=== PATIENT | male | born 1975 | race Caucasian/White ===

== ENCOUNTER 2019-08-31 17:00 | Observation (INO) | payer MEDICAID, SELFPAY ==
[2019-08-31 17:02] VITALS: BP 142/100; PULSE 106; RESP 16; TEMP 37; O2SAT 97; BMI 40.1
[2019-08-31 17:12] VITALS: BP 120/88; PULSE 103; RESP 16; O2SAT 100
[2019-08-31 18:18] LABS: Absolute Lymphocyte Count 2.41 X10^3/uL (0.83-4.51); Absolute Neutrophil Count 5.3 X10^3/uL (2.0-7.7); Basophil# 0.04 X10^3/uL; Basophil% 0.5 % (0-1); Eosinophil# 0.21 X10^3/uL; Eosinophils% 2.4 % (0-5); Hematocrit 47.6 % (40-54); Lymphocyte # 2.41 X10^3/ul (4.0); Lymphocyte % 27.9 % (19-41); Mean Corp Hgb Conc 33.6 g/dL (32-36); Mean Corpuscular Hgb 27.2 pg (27.0-32.0); Mean Platelet Vol. 8.5 fl (6.2-12.0); Monocyte# 0.65 X10^3/uL; Monocyte% 7.5 % (0-10); NRBC Flagged by Analyzer 0 % (0-5); Neutrophil # 5.31 X10^3/uL (2.7-7.7); Neutrophil % 61.4 % (47-70); Platelet Count 252 K/mm3 (150-450); RBC Distribution Width CV 12.5 % (11.6-14.6); RBC Distribution Width SD 36.5 fl (35.1-43.9); Red Blood Count 5.88 M/mm3 (4.6-6.2); White Blood Count 8.7 K/mm3 (4.4-11.0)
[2019-08-31] MEDS: 0.9% Normal Saline 1,000 ML 150 ML IV (18:20)
[2019-08-31 18:27] VITALS: BP 138/98; PULSE 101; RESP 16; TEMP 37.1; O2SAT 97
[2019-08-31 18:32] LABS: Anion Gap 6 (5-15); BUN 15 mg/dL (7-18); BUN/Creat Ratio 14.2 RATIO (10-20); Calcium,Total 9.1 mg/dL (8.5-10.1); Chloride 103 mmol/L (98-107); Creatinine, Serum 1.06 mg/dL (0.70-1.30); EST Glomerular Filtration Rate 80 mL/min (>60); Est Glom Filt Rate - Afr Amer 97 mL/min (>60); Estimated Creatinine Clearance 78.58 ml/min; Glucose 331 mg/dL (74-106); Sodium Level 136 mmol/L (136-145)
[2019-08-31 19:05] LABS: Lactic Acid 1.6 mmol/L (0.4-1.9)
--- NOTE | 2019-08-31 20:16 | PCM.HP.STD ---
Problem List (1) Cellulitis Status: Acute Qualifiers: Site of cellulitis of extremity: lower extremity Laterality: left History of Present Illness Date of Admission: 08/31/19 Chief Complaint: skin infection left foot The patient is a 44 year old male patient with a past medical history of diabetes who does not follow with a physician or take medicine at this time presents to the emergency room with a skin infection on his left foot. He noticed redness and swelling developing on this past Saturday that is progressed over the dorsum of his foot. The area is nontender due to neuropathy but is warm. CBC is unremarkable and patient is currently afebrile. The patient denies any other constitutional symptoms including chest pain shortness of breath or nausea vomiting or diarrhea. Due to the nature of the infection covering the joint the patient has uncontrolled diabetes patient will be placed in observation overnight for IV antibiotics and management of diabetes that is uncontrolled Past Medical History Allergies Penicillins Allergy (Verified 08/31/19 17:00) Unknown Home Medications: Ambulatory Orders Medication Instructions Recorded NK 08/31/19 Smoking Status: Never smoker Tobacco Use: Cigarettes - *Family History Maternal History Items: No pertinent history Review of Systems Constitutional: Denies: Chills, Fever, Weight Change HEENT: Denies: Head Aches, Sinus Congestion, Sinus Drainage Cardiovascular: Denies: Chest Pain, Palpitations Respiratory: Denies: Cough, Shortness of breath at rest, Sputum production Gastrointestinal: Denies: Abdominal Pain, Nausea, Vomiting Genitourinary: Denies: Dysuria Musculoskeletal: Denies: Joint Pain, Joint Tenderness Skin: Reports: Wounds - left foot. Denies: Rash Neurological: Denies: Numbness, Tingling, Focal weakness Psychiatric: Denies: Anxiety, Depression, Homicidal Ideations, Suicidal Ideations Hematologic/ Lymphatic: Denies: Easy Bruising, Easy Bleeding VTE Information - Inpt Only VTE Present on Admission: No VTE Mechan Device Prophylaxis: SCD's VTE Pharm Prophylaxis ordered?: No Patient Problems: Active and Suspected Problems Cellulitis (Acute) - Physical Exam Vitals/I&O's: Vital Signs Temp Pulse Resp BP Pulse Ox 98.8 F 101 H 16 138/98 H 97 08/31/19 18:27 08/31/19 18:27 08/31/19 18:27 08/31/19 18:27 08/31/19 18:27 Oxygen Delivery Method Room Air Weight: 248 lb 7.375 oz Body Mass Index (BMI) 40.1 Finger Stick Blood Glucose 202 General: Alert, Oriented x3, Cooperative HEENT: Atraumatic, Normocephalic Neck: Supple Lungs: Clear to auscultation, Normal air movement Cardiovascular: Regular rate, No murmurs Abdomen: Bowel Sounds Present, Soft, Non Tender Extremities: Capillary Refill Less than 3 Seconds, Edema, Tenderness Skin: Ulcer/ Wound - left foot around first toe and extending to most of dorsum of the foot Musculoskeletal: No Tenderness to Palpation of Joints or Extremities Neurological: Cranial nerves II-XII grossly intact Psych/Mental Status: Normal Affect, Appropriate Laboratory Results 08/31/19 17:30: WBC Cancelled, Corrected WBC Cancelled, RBC Cancelled, Hgb Cancelled, Hct Cancelled, MCV Cancelled, MCH Cancelled, MCHC Cancelled, RDW Std Deviation Cancelled, RDW Coeff of Rae Cancelled, Plt Count Cancelled, MPV Cancelled, Immature Gran % (Auto) Cancelled, Neut % (Auto) Cancelled, Lymph % (Auto) Cancelled, [place] % (Auto) Cancelled, Eos % (Auto) Cancelled, Baso % (Auto) Cancelled, Absolute Neuts (auto) Cancelled, Absolute Lymphs (auto) Cancelled, Total Counted Cancelled, Neutrophils % (Manual) Cancelled, Band Neutrophils % Cancelled, Lymphocytes % (Manual) Cancelled, Monocytes % (Manual) Cancelled, Eosinophils % (Manual) Cancelled, Basophils % (Manual) Cancelled, Metamyelocytes % Cancelled, Myelocytes % Cancelled, Promyelocytes % Cancelled, Blast Cells % Cancelled, Plasma Cell % (Manual) Cancelled, Other Cells % Cancelled, Nucleated RBC % Cancelled, Nucleated RBCs/100 WBC Cancelled, Differential Comment Cancelled, Diff Path Review Cancelled, Hypersegmented Neuts Cancelled, Atypical Lymphocytes Cancelled, Reactive Lymphocytes Cancelled, Smudge Cells Cancelled, Toxic Granulation Cancelled, Toxic Vacuolation Cancelled, Dohle Bodies Cancelled, Carlos Rods Cancelled, Platelet Estimate Cancelled, Plt Morphology Comment Cancelled, RBC Morphology Cancelled, Polychromasia Cancelled, Hypochromasia Cancelled, Poikilocytosis Cancelled, Basophilic Stippling Cancelled, Anisocytosis Cancelled, Microcytosis Cancelled, Macrocytosis Cancelled, Spherocytes Cancelled, Sickle Cells Cancelled, Target Cells Cancelled, Tear Drop Cells Cancelled, Ovalocytes Cancelled, Stomatocytes Cancelled, Feliz[place] Bodies Cancelled, Ty Cells Cancelled, Bite Cells Cancelled, Crenated Cell Cancelled, Acanthocytes (Spur) Cancelled, Rouleaux Cancelled, Schistocytes Cancelled 08/31/19 17:30: Sodium Cancelled, Potassium Cancelled, Chloride Cancelled, Carbon Dioxide Cancelled, Anion Gap Cancelled, BUN Cancelled, Creatinine Cancelled, Estim Creat Clear Calc Cancelled, Est GFR (MDRD) Af Amer Cancelled, Est GFR (MDRD) Non-Af Cancelled, BUN/Creatinine Ratio Cancelled, Glucose Cancelled, Calcium Cancelled 08/31/19 17:30: Lactic Acid Cancelled 08/31/19 17:47: WBC 8.7, RBC 5.88, Hgb 16.0, Hct 47.6, MCV 81.0, MCH 27.2, MCHC 33.6, RDW Std Deviation 36.5, RDW Coeff of Rae 12.5, Plt Count 252, MPV 8.5, Immature Gran % (Auto) 0.300, Neut % (Auto) 61.4, Lymph % (Auto) 27.9, [place] % (Auto) 7.5, Eos % (Auto) 2.4, Baso % (Auto) 0.5, Absolute Neuts (auto) 5.3, Absolute Lymphs (auto) 2.41, Nucleated RBC % 0 08/31/19 17:47: Sodium 136, Potassium 4.0, Chloride 103, Carbon Dioxide 27.0, Anion Gap 6, BUN 15, Creatinine 1.06, Estim Creat Clear Calc 78.58, Est GFR (MDRD) Af Amer 97, Est GFR (MDRD) Non-Af 80, BUN/Creatinine Ratio 14.2, Glucose 331 H, Calcium 9.1 08/31/19 18:06: Lactic Acid 1.6 Current Medications Sodium Chloride () 1,000 mls @ 150 mls/hr IV .[id number] SUZANNE Last Admin: 08/31/19 18:20 Dose: 150 mls/hr Documented by: Assessment/Plan All Active Problems Cellulitis (Acute) Plan 1. Cellulitis left foot secondary to diabetes and neuropathy?continue IV clindamycin, repeat CBC BMP in the morning if sugars are managed and wound is improving plan discharge tomorrow afternoon with oral antibiotics and follow-up as an outpatient with new primary care physician 2. Diabetes?initiate low-dose sliding scale insulin coverage?at discharge start metformin 1000 mg p.o. twice daily and get follow-up care by primary care physician whom we will need to establish with. 3. DVT prophylaxis?scds
--- NOTE | 2019-08-31 20:34 | ED.VISSUMM ---
- ER Visit Summary Date of Service: 08/31/19 Chief Complaint: [Redness and swelling to left foot] History of Present Illness: The patient is a 44 M [to the emergency department with redness and swelling to the left foot that he noticed 3 days ago. Patient is a diabetic but currently not on any medication states that he lost a lot of weight over the years and then his sugar normalized we stopped taking all his medications but he has not checked it recently. Patient states that he has neuropathy in his feet. He denies any trauma to his left foot. Denies any chest pain or shortness of breath.] Physical Examination: [HEENT-PERRLA, EOMI. Cranial nerves II through XII grossly intact. TMs clear. Mucous membranes moist. No adenopathy. Cardiovascular-regular rate and rhythm without murmur or ectopy Lungs-clear to auscultation, chest wall stable without crepitus or subcu emphysema Abdomen-normoactive bowel sounds, soft, nontender, no rebound or rigidity, no peritoneal signs. Extremities-intact ?4, normal range of motion, normal pulses, atraumatic. Left foot-patient has diffuse erythema about the dorsum of the foot. Patient has some soft tissue swelling over the first MTP joint and the plantar aspect of the foot. No fluctuance noted. There is no gas palpated in the soft tissues. He is neurovascular intact.] Test Results: [CBC with differential obtained showed a white count of 8.7, hemoglobin 16, hematocrit 47, platelets 252. Chemistries unremarkable. Glucose was 331. Lactate was 1.6. Blood cultures ordered.] Emergency Department Course and Treatment: [She was given clindamycin 900 mg IV] Treatment Plan: [Admit for IV antibiotics and blood sugar control] Disposition: [Admit] Impression: [Cellulitis left foot/diabetic foot infection Hyperglycemia-noncompliant with meds] This note was generated with [employer] dictation software. It may contain incorrect words, spelling, and punctuation that were not noted in review of the chart prior to signing ED Disposition - Plan for ED Patient: Referrals: Care Physician,No Primary [Primary Care Provider] -
[2019-08-31 21:00] VITALS: BP 128/89; PULSE 103; RESP 16; O2SAT 96
[2019-08-31 21:31] VITALS: BMI 40.6
[2019-08-31 21:50] VITALS: BP 124/86; PULSE 95; RESP 20; TEMP 36.8; O2SAT 95
[2019-08-31] MEDS: Insulin Lispro 100 UNIT/ML INSULN.PEN SC (22:43)
[2019-08-31 22:45] LABS: Bedside Glucose 315 mg/dL (70-110)
[2019-09-01 03:05] VITALS: BP 133/87; PULSE 90; RESP 16; TEMP 36.5; O2SAT 98
[2019-09-01] MEDS: 0.9% Saline Lock 10 ML Syringe IV ×3 (06:32→22:26)
[2019-09-01] MEDS: Insulin Lispro 100 UNIT/ML INSULN.PEN SC ×5 (06:33→22:26)
[2019-09-01 06:40] LABS: Bedside Glucose 313 mg/dL (70-110)
[2019-09-01 06:41] LABS: Absolute Lymphocyte Count 2.15 X10^3/uL (0.83-4.51); Basophil# 0.03 X10^3/uL; Basophil% 0.4 % (0-1); Eosinophil# 0.25 X10^3/uL; Eosinophils% 3.5 % (0-5); Hematocrit 46.3 % (40-54); Hemoglobin 15.5 g/dL (13.0-16.5); Lymphocyte # 2.15 X10^3/ul (4.0); Lymphocyte % 30.3 % (19-41); Mean Corp Hgb Conc 33.5 g/dL (32-36); Mean Corpuscular Volume 80.7 fL (80-94); Mean Platelet Vol. 8.9 fl (6.2-12.0); Monocyte% 8.5 % (0-10); NRBC Flagged by Analyzer 0 % (0-5); Neutrophil # 4.04 X10^3/uL (2.7-7.7); Platelet Count 233 K/mm3 (150-450); RBC Distribution Width CV 12.6 % (11.6-14.6); RBC Distribution Width SD 36.2 fl (35.1-43.9); Red Blood Count 5.74 M/mm3 (4.6-6.2); White Blood Count 7.1 K/mm3 (4.4-11.0)
[2019-09-01] MEDS: Acetaminophen 325 MG Tablet 650 MG PO (06:43)
[2019-09-01 06:51] LABS: Anion Gap 9 (5-15); BUN 12 mg/dL (7-18); BUN/Creat Ratio 15.4 RATIO (10-20); Calcium,Total 8.5 mg/dL (8.5-10.1); Chloride 105 mmol/L (98-107); Creatinine, Serum 0.78 mg/dL (0.70-1.30); EST Glomerular Filtration Rate 114 mL/min (>60); Est Glom Filt Rate - Afr Amer 138 mL/min (>60); Estimated Creatinine Clearance 106.79 ml/min; Glucose 302 mg/dL (74-106); Sodium Level 137 mmol/L (136-145)
[2019-09-01 08:49] VITALS: BP 127/91; PULSE 95; RESP 16; TEMP 36.8; O2SAT 98
[2019-09-01 08:50] VITALS: RESP 18
--- NOTE | 2019-09-01 09:30 | RAD_ITS ---
STUDY: X-RAY - LEFT FOOT CLINICAL: Male, 44 years old. Cellulitis/wound along the dorsal aspect of the great toe. TECHNIQUE: 3 view(s) of the foot. COMPARISON: None. FINDINGS: There is an enthesophyte involving the posterior superior calcaneus at the site of insertion of the Achilles tendon. Small plantar spur. Normal visualized subtalar, talonavicular, calcaneocuboid, tarsal and tarsometatarsal articulations. Normal metatarsi. Normal metatarsophalangeal joint of the great toe. Normal tibial and fibular sesamoid bones. Normal interphalangeal joint of the great toe. Normal phalanges of the great toe. Normal second through fifth metatarsophalangeal joints. Normal interphalangeal joints and phalanges of the lesser toes. Soft tissue swelling overlying the great toe. RAD/Foot min 3 Views IMPRESSION: Soft tissue swelling overlying the great toe. Electronically Signed: Mahendra Fields, at 12:30 EST , Service support ,
--- NOTE | 2019-09-01 11:34 | CASEMGMT ---
Social Work Note Pt is listed as self-pay. SW reviewed notes, PFS saw pt. Pt denied HCAP application and denied self pay deposit. Per [employer] (medicaid) pt is not eligible for Medicaid. SW to remain available if financial concerns arise. Ashley Arenas [employer], [employer] PROCESSING SUPERVISOR
[2019-09-01 11:50] LABS: Bedside Glucose 321 mg/dL (70-110)
--- NOTE | 2019-09-01 13:00 | CON.PCM_ITS ---
Problem List (1) Cellulitis of left foot Status: Acute (2) Callus of foot Status: Chronic (3) Type 2 diabetes mellitus with diabetic polyneuropathy Status: Chronic Reason for Consult Date of Consultation: 09/01/19 Reason for Consultation: Left foot cellulitis History of Present Illness: The patient is a 44 year old M that was seen bedside this afternoon for left foot cellulitis. The onset was Saturday and he presented to the emergency room yesterday evening. He was started on IV clindamycin with significant improvement. He denies pain, fever, chill, nausea, vomiting, loss of appetite. He denies injury or foreign body. He noticed some weeping at the callus site and denies redness or odor. He denies prior history of ulceration. He denies claudication. He has rest parasthesias and reports he has lack of feeling due to his neuropathy. He relates he stopped monitoring his diabetes and health many years ago and is not aware of his last blood sugar or hemoglobin a1c level. Past Medical History Past Medical History (Chronic Problems): Chronic Problems Callus of foot (Chronic) Type 2 diabetes mellitus with diabetic polyneuropathy (Chronic) Allergies Penicillins Allergy (Verified 08/31/19 21:32) Unknown Pt is unaware of reaction since he was a child when reaction occurred. Home Medications: Ambulatory Orders Medication Instructions Recorded NK 08/31/19 Smoking Status: Never smoker Tobacco Use: - - he denies current smoking habits - *Family History Maternal History Items: No pertinent history Review of Systems Constitutional: Denies: Chills, Fever, Fatigue Cardiovascular: Denies: Claudication Respiratory: Denies: Shortness of Breath Gastrointestinal: Denies: Nausea, Vomiting Musculoskeletal: Denies: Muscle pain Skin: Reports: Skin Changes - callous left foot and redness to top of foot. Denies: Wounds Neurological: Reports: Numbness, Tingling Patient Problems: Active and Suspected Problems Cellulitis (Acute) Cellulitis of left foot (Acute) - Physical Exam Vitals/I&O's: Vital Signs Temp Pulse Resp BP Pulse Ox 98.2 F 95 18 127/91 H 98 09/01/19 08:49 09/01/19 08:49 09/01/19 08:50 09/01/19 08:49 09/01/19 08:49 Oxygen Delivery Method Room Air Weight: 114.1 kg Body Mass Index (BMI) 40.6 Finger Stick Blood Glucose 202 Intake and Output for Last 24 Hours 08/30/19 08/31/19 09/01/19 23:59 23:59 23:59 Intake Total 106 / 256 606 / 606 Balance 106 / 256 606 / 606 General: Alert, Oriented x3, Cooperative HEENT: Atraumatic Extremities: Capillary Refill Less than 3 Seconds - all digits bilateral, No Calf Tenderness - negative kanwal and pelayo signs bilateral, Peripheral Pulses Normal - palpable 2/4 dp and pt pulses bilateral. Skin: Ulcer/ Wound - no open lesions noted today., - - callous plantar medial first metatarsal head without drainage, eschar, necrosis noted. no bogginess or fluctuance on palpation. no interdigital maceration. the erythema has decreased in intensity (per patient) and location (in comparison to the marking pen line noted to the proximal foot). erythema is now diffuse, faint and localized to the forefoot. nails are intact Musculoskeletal: No Tenderness to Palpation of Joints or Extremities, Muscle Wasting, - - compartments soft to palpate left lower extremity. AROM digits left. Strenght normal to left foot and ankle. mild hallux lateral deviation. no palpation pain to the prominent first metatarsal head medial eminence Neurological: - - lack of epicritic sensation via light touch to bilateral foot Psych/Mental Status: Normal Affect, Appropriate Laboratory Results 08/31/19 17:30: WBC Cancelled, Corrected WBC Cancelled, RBC Cancelled, Hgb Cancelled, Hct Cancelled, MCV Cancelled, MCH Cancelled, MCHC Cancelled, RDW Std Deviation Cancelled, RDW Coeff of Rae Cancelled, Plt Count Cancelled, MPV Cancelled, Immature Gran % (Auto) Cancelled, Neut % (Auto) Cancelled, Lymph % (Auto) Cancelled, Long % (Auto) Cancelled, Eos % (Auto) Cancelled, Baso % (Auto) Cancelled, Absolute Neuts (auto) Cancelled, Absolute Lymphs (auto) Cancelled, To lizz Counted Cancelled, Neutrophils % (Manual) Cancelled, Band Neutrophils % Cancelled, Lymphocytes % (Manual) Cancelled, Monocytes % (Manual) Cancelled, Eosinophils % (Manual) Cancelled, Basophils % (Manual) Cancelled, Metamyelocytes % Cancelled, Myelocytes % Cancelled, Promyelocytes % Cancelled, Blast Cells % Cancelled, Plasma Cell % (Manual) Cancelled, Other Cells % Cancelled, Nucleated RBC % Cancelled, Nucleated RBCs/100 WBC Cancelled, Differential Comment Cancelled, Diff Path Review Cancelled, Hypersegmented Neuts Cancelled, Atypical Lymphocytes Cancelled, Reactive Lymphocytes Cancelled, Smudge Cells Cancelled, Toxic Granulation Cancelled, Toxic Vacuolation Cancelled, Dohle Bodies Cancelled, Carlos Rods Cancelled, Platelet Estimate Cancelled, Plt Morphology Comment Cancelled, RBC Morphology Cancelled, Polychromasia Cancelled, Hypochromasia Cancelled, Poikilocytosis Cancelled, Basophilic Stippling Cancelled, Anisocytosis Cancelled, Microcytosis Cancelled, Macrocytosis Cancelled, Spherocytes Cancelled, Sickle Cells Cancelled, Target Cells Cancelled, Tear Drop Cells Cancelled, Ovalocytes Cancelled, Stomatocytes Cancelled, Feliz-[place] Bodies Cancelled, [place] Cells Cancelled, Bite Cells Cancelled, Crenated Cell Cancelled, Acanthocytes (Spur) Cancelled, Rouleaux Cancelled, Schistocytes Cancelled 08/31/19 17:30: Sodium Cancelled, Potassium Cancelled, Chloride Cancelled, Carbon Dioxide Cancelled, Anion Gap Cancelled, BUN Cancelled, Creatinine Cancelled, Estim Creat Clear Calc Cancelled, Est GFR (MDRD) Af Amer Cancelled, Est GFR (MDRD) Non-Af Cancelled, BUN/Creatinine Ratio Cancelled, Glucose Cancelled, Calcium Cancelled 08/31/19 17:30: Lactic Acid Cancelled 08/31/19 17:47: WBC 8.7, RBC 5.88, Hgb 16.0, Hct 47.6, MCV 81.0, MCH 27.2, MCHC 33.6, RDW Std Deviation 36.5, RDW Coeff of Rae 12.5, Plt Count 252, MPV 8.5, Immature Gran % (Auto) 0.300, Neut % (Auto) 61.4, Lymph % (Auto) 27.9, Long % (Auto) 7.5, Eos % (Auto) 2.4, Baso % (Auto) 0.5, Absolute Neuts (auto) 5.3, Absolute Lymphs (auto) 2.41, Nucleated RBC % 0 08/31/19 17:47: Sodium 136, Potassium 4.0, Chloride 103, Carbon Dioxide 27.0, Anion Gap 6, BUN 15, Creatinine 1.06, Estim Creat Clear Calc 78.58, Est GFR (MDRD) Af Amer 97, Est GFR (MDRD) Non-Af 80, BUN/Creatinine Ratio 14.2, Glucose 331 H, Calcium 9.1 08/31/19 18:06: Lactic Acid 1.6 08/31/19 22:39: POC Glucose 315 H 09/01/19 05:50: WBC 7.1, RBC 5.74, Hgb 15.5, Hct 46.3, MCV 80.7, MCH 27.0, MCHC 33.5, RDW Std Deviation 36.2, RDW Coeff of Rae 12.6, Plt Count 233, MPV 8.9, Immature Gran % (Auto) 0.300, Neut % (Auto) 57.0, Lymph % (Auto) 30.3, Long % (Auto) 8.5, Eos % (Auto) 3.5, Baso % (Auto) 0.4, Absolute Neuts (auto) 4.0, Absolute Lymphs (auto) 2.15, Nucleated RBC % 0 09/01/19 05:50: Sodium 137, Potassium 4.0, Chloride 105, Carbon Dioxide 23.0, Anion Gap 9, BUN 12, Creatinine 0.78, Estim Creat Clear Calc 106.79, Est GFR (MDRD) Af Amer 138, Est GFR (MDRD) Non-Af 114, BUN/Creatinine Ratio 15.4, Glucose 302 H, Calcium 8.5 09/01/19 06:31: POC Glucose 313 H 09/01/19 11:19: POC Glucose 321 H Current Medications Acetaminophen (Tylenol) 650 mg PO Q6H PRN PRN PRN Reason: mild-moderate pain Last Admin: 09/01/19 06:43 Dose: 325 mg Documented by: Dextrose (D50w Syringe) 0 gm IV X1 PRN; Protocol PRN Reason: Hypoglycemia Glucagon () 1 mg IM .X1 PRN PRN Reason: Hypoglycemia Clindamycin Phosphate 900 mg/ (Dextrose) 106 mls @ 150 mls/hr IV Q8 SUZANNE Last Infusion: 09/01/19 07:16 Dose: Infused Documented by: Insulin Human Lispro (Humalog Kwikpen (Bkc)) 0 unit SC ACHS SUZANNE; Protocol Last Admin: 09/01/19 12:00 Dose: 3 u Documented by: Sodium Chloride () 10 - 40 ml IV UD PRN PRN Reason: SALINE FLUSH Last Admin: 09/01/19 06:32 Dose: 20 ml Documented by: Assessment/Plan All Active Problems Cellulitis (Acute) Cellulitis of left foot (Acute) Cellulitis left foot Callus left foot Diabetes with neuropathy (uncontrolled, hemoglobin a1c 11.3) I reviewed and discussed his case. His vital signs are stable and he is afebrile. He does not have leukocytosis; WBC 7.1. 3 nonweightbearing left foot x-rays were reviewed without any acute fracture, dislocation, foreign body, soft tissue emphysema, or other injury. Mild edema is noted and there is no vessel calcification seen. He appears to be responding well to IV antibiotics. The callus was debrided with a 15 blade without incident to the left foot. There is no drainage or ulcer. Therefore there is no source to culture. Upon continued improvement I recommend transitioning him to oral antibiotics at time of discharge. I recommend he wear his protective and supportive shoe gear and to weight-bear as tolerated. No ulcer is noted in this was communicated to him today. To monitor for any new drainage which was not noted today. He was advised to maintain proper glycemic control, perform daily foot checks, and to moisturize the foot. Upon discharge, I recommend he follows up with the foot [facility] center 1 week and also with the primary care physician for long-term diabetes management. I do not anticipate the need for further surgical inte rvention at this time. If improvement has lack of progress, advanced imaging will be considered. He is doing well so far. Medical management per primary team is greatly appreciated. The consultation is appreciated. Please do not hesitate to call if you have questions. I will continue to follow him while in house. Mahi Figueredo DPM, [facility] [phone]
--- NOTE | 2019-09-01 14:35 | MRI_ITS ---
STUDY: MRI LEFT FOREFOOT WITHOUT CONTRAST REASON FOR EXAM: Male, 44 years old. Cellulitis at the plantar surface of the first metatarsal region. TECHNIQUE: Standardized fat and water weighted pulse sequences were obtained in all 3 orthogonal planes. COMPARISON: X-ray. FINDINGS: There is degenerative arthrosis of the metatarsophalangeal joint of the hallux. Normal tibial and fibular sesamoids, with normal sesamoids-first metatarsal articulations. Normal interphalangeal joint of the hallux. Normal proximal and distal phalanges of the great toe. There is skin thickening and subcutaneous edema of the great toe. Normal medial and lateral heads of the flexor hallucis brevis tendons. Normal flexor and extensor hallucis longus tendons. Normal second through fifth metatarsophalangeal (MTP) joints. Normal interphalangeal joints of the second through fifth toes. Normal proximal, middle and distal phalanges of the second through fifth toes. Normal first through fourth intermetatarsal spaces. Normal flexor and extensor tendons of the second through fifth toes. Normal visualized metatarsi. Normal intrinsic muscles of the forefoot. There is no demonstrated soft tissue abnormality. There is no demonstrated fracture. MRI/Lower Ext/No Jt/w/o IMPRESSION: No MRI evidence of osteomyelitis. Soft tissue swelling of the great toe. Arthritic change at the first MTP joint. Electronically Signed: Reggie Campbell MD at 16:46 EST , Service support ,
--- NOTE | 2019-09-01 14:36 | PN_ITS ---
Patient Problems: Active and Suspected Problems Cellulitis (Acute) Cellulitis of left foot (Acute) Reason for Visit: no new complaints. stopped taking insulin in 2004. stopped checking his blood sugar in 2005. Vitals/I&O's: Vital Signs Temp Pulse Resp BP Pulse Ox 36.8 C 95 18 127/91 H 98 09/01/19 08:49 09/01/19 08:49 09/01/19 08:50 09/01/19 08:49 09/01/19 08:49 Oxygen Delivery Method Room Air Weight: 114.1 kg Body Mass Index (BMI) 40.6 Finger Stick Blood Glucose 202 Intake and Output for Last 24 Hours 08/30/19 08/31/19 09/01/19 23:59 23:59 23:59 Intake Total 106 / 256 606 / 606 Balance 106 / 256 606 / 606 General: Alert, Cooperative, No apparent distress HEENT: Atraumatic, Normocephalic Oral: Moist Mucosa, No Gingival or Mucosal Lesions/ Ulcerations Neck: No Nodes, Trachea Midline Lungs: Clear to auscultation, Normal air movement, No rhonchi, No wheeze, No rales Cardiovascular: Regular rate, Regular Rhythm, Normal S1, Normal S2, No murmurs Abdomen: Bowel Sounds Present, Soft, Non Tender, Non-Distended Extremities: No edema, No Calf Tenderness Skin: - - callus on dorsum of left MTP. erythema of forefoot extending up to ankle on left. Psych/Mental Status: Normal Affect, Appropriate Laboratory Results 08/31/19 17:30: WBC Cancelled, Corrected WBC Cancelled, RBC Cancelled, Hgb Cancelled, Hct Cancelled, MCV Cancelled, MCH Cancelled, MCHC Cancelled, RDW Std Deviation Cancelled, RDW Coeff of Rae Cancelled, Plt Count Cancelled, MPV Cancelled, Immature Gran % (Auto) Cancelled, Neut % (Auto) Cancelled, Lymph % (Auto) Cancelled, [place] % (Auto) Cancelled, Eos % (Auto) Cancelled, Baso % (Auto) Cancelled, Absolute Neuts (auto) Cancelled, Absolute Lymphs (auto) Cancelled, Total Counted Cancelled, Neutrophils % (Manual) Cancelled, Band Neutrophils % Cancelled, Lymphocytes % (Manual) Cancelled, Monocytes % (Manual) Cancelled, Eosinophils % (Manual) Cancelled, Basophils % (Manual) Cancelled, Metamyelocytes % Cancelled, Myelocytes % Cancelled, Promyelocytes % Cancelled, Blast Cells % Cancelled, Plasma Cell % (Manual) Cancelled, Other Cells % Cancelled, Nucleated RBC % Cancelled, Nucleated RBCs/100 WBC Cancelled, Differential Comment Cancelled, Diff Path Review Cancelled, Hypersegmented Neuts Cancelled, Atypical Lymphocytes Cancelled, Reactive Lymphocytes Cancelled, Smudge Cells Cancelled, Toxic Granulation Cancelled, Toxic Vacuolation Cancelled, Dohle Bodies Cancelled, Carlos Rods Cancelled, Platelet Estimate Cancelled, Plt Morphology Comment Cancelled, RBC Morphology Cancelled, Polychromasia Cancelled, Hypochromasia Cancelled, Poikilocytosis Cancelled, Basophilic Stippling Cancelled, Anisocytosis Cancelled, Microcytosis Cancelled, Macrocytosis Cancelled, Spherocytes Cancelled, Sickle Cells Cancelled, Target Cells Cancelled, Tear Drop Cells Cancelled, Ovalocytes Cancelled, Stomatocytes Cancelled, Feliz-[place] Bodies Cancelled, [place] Cells Cancelled, Bite Cells Cancelled, Crenated Cell Cancelled, Acanthocytes (Spur) Cancelled, Rouleaux Cancelled, Schistocytes Cancelled 08/31/19 17:30: Sodium Cancelled, Potassium Cancelled, Chloride Cancelled, Carbon Dioxide Cancelled, Anion Gap Cancelled, BUN Cancelled, Creatinine Cancelled, Estim Creat Clear Calc Cancelled, Est GFR (MDRD) Af Amer Cancelled, Est GFR (MDRD) Non-Af Cancelled, BUN/Creatinine Ratio Cancelled, Glucose Cancelled, Calcium Cancelled 08/31/19 17:30: Lactic Acid Cancelled 08/31/19 17:47: WBC 8.7, RBC 5.88, Hgb 16.0, Hct 47.6, MCV 81.0, MCH 27.2, MCHC 33.6, RDW Std Deviation 36.5, RDW Coeff of Rae 12.5, Plt Count 252, MPV 8.5, Immature Gran % (Auto) 0.300, Neut % (Auto) 61.4, Lymph % (Auto) 27.9, [place] % (Auto) 7.5, Eos % (Auto) 2.4, Baso % (Auto) 0.5, Absolute Neuts (auto) 5.3, Absolute Lymphs (auto) 2.41, Nucleated RBC % 0 08/31/19 17:47: Sodium 136, Potassium 4.0, Chloride 103, Carbon Dioxide 27.0, Anion Gap 6, BUN 15, Creatinine 1.06, Estim Creat Clear Calc 78.58, Est GFR (MDRD) Af Amer 97, Est GFR (MDRD) Non-Af 80, BUN/Creatinine Ratio 14.2, Glucose 331 H, Calcium 9.1 08/31/19 18:06: Lactic Acid 1.6 08/31/19 22:39: POC Glucose 315 H 09/01/19 05:50: WBC 7.1, RBC 5.74, Hgb 15.5, Hct 46.3, MCV 80.7, MCH 27.0, MCHC 33.5, RDW Std Deviation 36.2, RDW Coeff of Rae 12.6, Plt Count 233, MPV 8.9, Immature Gran % (Auto) 0.300, Neut % (Auto) 57.0, Lymph % (Auto) 30.3, [place] % (Auto) 8.5, Eos % (Auto) 3.5, Baso % (Auto) 0.4, Absolute Neuts (auto) 4.0, Absolute Lymphs (auto) 2.15, Nucleated RBC % 0 09/01/19 05:50: Sodium 137, Potassium 4.0, Chloride 105, Carbon Dioxide 23.0, Anion Gap 9, BUN 12, Creatinine 0.78, Estim Creat Clear Calc 106.79, Est GFR (MDRD) Af Amer 138, Est GFR (MDRD) Non-Af 114, BUN/Creatinine Ratio 15.4, Glucose 302 H, Calcium 8.5 09/01/19 06:31: POC Glucose 313 H 09/01/19 11:19: POC Glucose 321 H Current Medications Acetaminophen (Tylenol) 650 mg PO Q6H PRN PRN PRN Reason: mild-moderate pain Last Admin: 09/01/19 06:43 Dose: 325 mg Documented by: Dextrose (D50w Syringe) 0 gm IV X1 PRN; Protocol PRN Reason: Hypoglycemia Glucagon () 1 mg IM .X1 PRN PRN Reason: Hypoglycemia Clindamycin Phosphate 900 mg/ (Dextrose) 106 mls @ 150 mls/hr IV Q8 SUZANNE Last Infusion: 09/01/19 07:16 Dose: Infused Documented by: Insulin Human Lispro (Humalog Kwikpen (Bkc)) 0 unit SC ACHS [facility]; Protocol Last Admin: 09/01/19 12:00 Dose: 3 u Documented by: Sodium Chloride () 10 - 40 ml IV UD PRN PRN Reason: SALINE FLUSH Last Admin: 09/01/19 06:32 Dose: 20 ml Documented by: Medical Necessity - Tobacco Use Smoking Status: Never smoker Tobacco Use: - - he denies current smoking habits Assessment/Plan All Active Problems Cellulitis (Acute) Cellulitis of left foot (Acute) 1. left foot cellulitis * nidus likely 2/2 callus * xray negative, will check MRI for osteo * podiatry consult. * on clindamycin 2. DM2, * hyperglycemic and uncontrolled * MBS in the 300s * start basal insulin and prandial * check A1c * complicated with neuropathy 3. VTE proph: mod risk. LMWH. Code Visit Inpatient E&M: 05605 Subs Hosp L2
[2019-09-01 15:00] VITALS: RESP 18
[2019-09-01 15:11] LABS: Hemoglobin A1c 11.3 % (4.2-6.3)
[2019-09-01 16:39] VITALS: BP 134/100; PULSE 98; RESP 16; TEMP 36.7; O2SAT 98
[2019-09-01 16:45] LABS: Bedside Glucose 258 mg/dL (70-110)
[2019-09-01 20:32] VITALS: BP 121/87; PULSE 93; RESP 18; TEMP 37.2; O2SAT 97
[2019-09-01] MEDS: Glucerna Shake 120 ML LIQUID PO (22:19)
[2019-09-01 22:40] LABS: Bedside Glucose 272 mg/dL (70-110)
[2019-09-02 03:10] VITALS: BP 122/87; PULSE 89; RESP 18; TEMP 36.7; O2SAT 97
[2019-09-02 03:20] LABS: Bedside Glucose 269 mg/dL (70-110)
[2019-09-02] MEDS: Insulin Lispro 100 UNIT/ML INSULN.PEN SC ×2 (06:45→09:38)
[2019-09-02 06:46] LABS: Bedside Glucose 309 mg/dL (70-110)
--- NOTE | 2019-09-02 07:41 | PCM.PROGNOTE ---
Patient Problems: Active and Suspected Problems Cellulitis (Acute) Cellulitis of left foot (Acute) Subjective: This 44-year-old male with uncontrolled diabetes seen bedside for left foot cellulitis. He denies pain, fever, chill, nausea, vomiting. He obtained an MRI yesterday afternoon and would like to review the results. He denies checking or moisturizing his feet on a regular basis. - Physical Exam Vitals/I&O's: Vital Signs Temp Pulse Resp BP Pulse Ox 98.0 F 89 18 122/87 H 97 09/02/19 03:10 09/02/19 03:10 09/02/19 03:10 09/02/19 03:10 09/02/19 03:10 Oxygen Delivery Method Room Air Weight: 114.1 kg Body Mass Index (BMI) 40.6 Finger Stick Blood Glucose 202 Intake and Output for Last 24 Hours 08/31/19 09/01/19 09/02/19 23:59 23:59 23:59 Intake Total 106 / 256 3168 / 3168 200 / 200 Balance 106 / 256 3168 / 3168 200 / 200 General: Alert, Oriented x3, Cooperative Extremities: No cyanosis, Capillary Refill Less than 3 Seconds - All digits left foot, No Calf Tenderness, Edema, Peripheral Pulses Normal - 2 out of 4 PT and DP pulse left Skin: Ulcer/ Wound - No purulence, odor, skin discontinuity, necrosis, callus, or streaking noted. His erythema has resolved in location and intensity and is now scant to the forefoot. There is no interdigital maceration. His skin is dry and atrophic. Musculoskeletal: No Tenderness to Palpation of Joints or Extremities, - - Mild lateral hallux deviation prominent first metatarsal head medial eminence Neurological: - - Lack of normal epicritic sensation light touch is consistent with neuropathy status Psych/Mental Status: Normal Affect, Appropriate Laboratory Results 09/01/19 05:50: Hemoglobin A1c 11.3 H 09/01/19 11:19: POC Glucose 321 H 09/01/19 16:35: POC Glucose 258 H 09/01/19 22:25: POC Glucose 272 H 09/02/19 03:08: POC Glucose 269 H 09/02/19 06:38: POC Glucose 309 H Current Medications Acetaminophen (Tylenol) 650 mg PO Q6H PRN PRN PRN Reason: mild-moderate pain Last Admin: 09/01/19 06:43 Dose: 325 mg Documented by: Dextrose (D50w Syringe) 0 gm IV X1 PRN; Protocol PRN Reason: Hypoglycemia Enoxaparin Sodium (Lovenox) 40 mg SC DAILY [facility] Glucagon () 1 mg IM .X1 PRN PRN Reason: Hypoglycemia Clindamycin Phosphate 900 mg/ (Dextrose) 106 mls @ 150 mls/hr IV Q8 SUZANNE Last Admin: 09/02/19 06:32 Dose: 150 mls/hr Documented by: Insulin Glargine (Lantus (Bkc)) 20 units SC QHS [facility] Last Admin: 09/01/19 22:27 Dose: 20 u Documented by: Insulin Human Lispro (Humalog Kwikpen ([facility])) 0 unit SC ACHS SUZANNE; Protocol Last Admin: 09/02/19 06:45 Dose: 3 u Documented by: Insulin Human Lispro (Humalog Kwikpen ([facility])) 5 unit SC TIDAC [facility] Last Admin: 09/01/19 16:35 Dose: 5 u Documented by: Nutritional Formula (Lactose Free) (Glucerna Shake) 120 ml PO 4X/DAY [facility] Last Admin: 09/01/19 22:19 Dose: 120 ml Documented by: Sodium Chloride () 10 - 40 ml IV UD PRN PRN Reason: SALINE FLUSH Last Admin: 09/01/19 22:26 Dose: 10 ml Documented by: Medical Necessity - Tobacco Use Smoking Status: Never smoker Tobacco Use: - - he denies current smoking habits Assessment/Plan All Active Problems Cellulitis (Acute) Cellulitis of left foot (Acute) Cellulitis left foot resolving Diabetes with neuropathy (uncontrolled, hemoglobin a1c 11.3) I reviewed and discussed his case. His vital signs are stable and he is afebrile. His blood cultures are negative so far. He had an MRI performed of the left forefoot yesterday afternoon which did not demonstrate any signs of septic joint, osteomyelitis or abscess formation. He does have mild arthritis to the first metatarsal phalangeal joint. He appears to be responding well to IV antibiotics; clindamycin. He was reassured no ulcers are noted today. His skin is very dry and I recommend that he moisturizes daily with Lac-Hydrin. He is also advised to check his feet daily and to wear protective shoes. From a podiatry standpoint, I do not recommend any surgical intervention. Is okay to transition to oral antibiotics for a week and discharge home. Upon discharge, I recommend he follows up with [facility] one week and also with a primary care physician for long-term diabetes management. Medical management per primary team is greatly appreciated. Please do not hesitate to call if you have questions. Mahi Figueredo DPM, [facility] [phone]
--- NOTE | 2019-09-02 07:54 | DCINST_ITS ---
Discharge Activity: May Drive Weight Bearing Status: Weight bearing as tolerated Keep extremity elevated above heart level: Left Leg Call your doctor if your incision/area has: Increased Pain/ Swelling, Increased Redness, Foul Smelling Discharge Call your doctor if you observe: Fever of 101 or Higher, Calf discomfort, Uncontrolled pain Cleanse incision/area with: Soap & Water, - - Do not soak. Moisturize foot skin daily with prescribed lotion. Allergies/Adverse Reactions: Allergies Penicillins Allergy (Verified 08/31/19 21:32) Unknown Pt is unaware of reaction since he was a child when reaction occurred. Medications to take at Discharge NK 08/31/19 Primary Care Physician: Care Physician,No Primary [Primary Care Provider] - Test Results: Test results from this visit will be discussed in further detail at your follow- up appointment, if applicable. Please Follow Up With: Mahi Figueredo DPM When: [facility] in 1 week. Call [phone] to schedule or if question Proposed Discharge Date: 09/02/19
--- NOTE | 2019-09-02 09:00 | DCINST_ITS ---
- Discharge Diagnoses Current Active Problems: Current Active and Chronic Problems Cellulitis (Acute) Cellulitis of left foot (Acute) Callus of foot (Chronic) Type 2 diabetes mellitus with diabetic polyneuropathy (Chronic) You will use the following diet at home:: Calorie/Carbohydrate Controlled (specify 1200, 1400, etc) - 1800 Your food should be the consistency of: Regular Your liquids should be the consistency of: Regular/Thin Discharge Activity: May Drive Weight Bearing Status: Weight bearing as tolerated Keep extremity elevated above heart level: Left Leg Call your doctor if your incision/area has: Increased Pain/ Swelling, Increased Redness, Foul Smelling Discharge Call your doctor if you observe: Fever of 101 or Higher, Calf discomfort, Uncontrolled pain Cleanse incision/area with: Soap & Water, - - Do not soak. Moisturize foot skin daily with prescribed lotion. Instructions: What Is Type 2 Diabetes?, How to Check Your Blood Sugar, Using Injected Insulin, Eating Out When You Have Diabetes, Diabetes: Keeping Feet Healthy, Diabetes: Sick-Day Plan, Diabetes: Getting Started with Exercise, Understanding Type 2 Diabetes Allergies/Adverse Reactions: Allergies Penicillins Allergy (Verified 08/31/19 21:32) Unknown Pt is unaware of reaction since he was a child when reaction occurred. Medications to take at Discharge Acetaminophen [Tylenol Tablet] 650 mg PO Q6H PRN PRN tablet 09/02/19 Clindamycin [Cleocin] 450 mg PO 4X/DAY #24 capsule 09/02/19 Insulin Glargine [Lantus SoloStar Pen] 24 units SC QHS #1 pen 09/02/19 Insulin Lispro [Humalog KwikPen] 5 unit SC TIDAC #1 insuln.pen 09/02/19 The following prescriptions were given: Clindamycin [Cleocin] 450 mg PO 4X/DAY #24 capsule Insulin Lispro [Humalog KwikPen] 5 unit SC TIDAC #1 insuln.pen Insulin Glargine [Lantus SoloStar Pen] 24 units SC QHS #1 pen Orders to be completed after discharge: Glucometer Location: None Selected Primary Care Physician: Care Physician,No Primary [Primary Care Provider] - Test Results: Test results from this visit will be discussed in further detail at your follow- up appointment, if applicable. Please Follow Up With: Fascione,Mahi, DPM When: [facility] in 1 week. Call [phone] to schedule or if question Please Follow Up With: Bhaskar Amador MD - Primary Care Physician option When: 2-4 weeks. call for appointment Proposed Discharge Date: 09/02/19
--- NOTE | 2019-09-02 09:04 | PCM.DC.SUM ---
Discharge Date and Diagnosis - Problem List Patient Problems: Active and Suspected Problems Cellulitis (Acute) Cellulitis of left foot (Acute) Date of Admission: 08/31/19 Date of Discharge: 09/02/19 - Primary Discharge Diagnosis Active and Suspected Problems Cellulitis (Acute) Cellulitis of left foot (Acute) - Secondary Discharge Diagnosis Chronic Problems Callus of foot (Chronic) Type 2 diabetes mellitus with diabetic polyneuropathy (Chronic) Hospital Course and Treatment Imaging Results: Clinical Impression(s) from Imaging Studies Foot X-Ray 09/01/19 09:30 IMPRESSION: Soft tissue swelling overlying the great toe. Electronically Signed: Mahendra Fields, at 12:30 EST , Service support , Lower Extremity MRI 09/01/19 14:35 IMPRESSION: No MRI evidence of osteomyelitis. Soft tissue swelling of the great toe. Arthritic change at the first MTP joint. Electronically Signed: Reggie Campbell MD at 16:46 EST , Service support , Fascionne: podiatry Operations: None Procedures: None Summary of Care Provided: The patient is a 44 year old M presents with left lower extremity cellulitis. The cellulitis began from a callus on his left MTP. Patient was initiated on clindamycin and a cellulitis did improve. Given the callus and patient having neuropathy due to his diabetes, an x-ray was performed that was negative but then subsequent underwent an MRI that was also negative for osteomyelitis. Seen by podiatry who debrided the callus. Foot today is much better. Since patient was already improving on clindamycin will have the patient continue with 6 more days of clindamycin. Patient had diabetes approximately 14 years ago was on insulin at that time but then lost 100 pounds and then his blood sugars improved. Patient stopped checking his blood sugar about a year afterwards. Blood sugars here were in the 300s. Initially felt to be related with the stress of the underlying infection but remained in 300 range. Hemoglobin A1c came back at 11.3. Discussed with the patient that his blood sugars are chronically elevated and generally if not the only least a partial contributing factor to his neuropathy. Advised insulin as oral hypoglycemics would not be any significant benefit at this time. Patient will receive prescriptions for Lantus as well as NovoLog. Patient also have glucometer, testing strips, lancets and needles. Patient interested in getting into an exercise program. Advised patient to do so slowly. Patient has been advised to check his foot daily to ensure that he does not have any ulcerations or wounds. [] Patient Problems: Active and Suspected Problems Cellulitis (Acute) Cellulitis of left foot (Acute) - Physical Exam Vitals/I&O's: Vital Signs Temp Pulse Resp BP Pulse Ox 36.7 C 89 18 122/87 H 97 09/02/19 03:10 09/02/19 03:10 09/02/19 03:10 09/02/19 03:10 09/02/19 03:10 Oxygen Delivery Method Room Air Weight: 114.1 kg Body Mass Index (BMI) 40.6 Finger Stick Blood Glucose 202 Intake and Output for Last 24 Hours 08/31/19 09/01/19 09/02/19 23:59 23:59 23:59 Intake Total 106 / 256 3168 / 3168 200 / 200 Balance 106 / 256 3168 / 3168 200 / 200 General: Alert, Cooperative, No apparent distress HEENT: Atraumatic, Normocephalic Skin: - - resolving erythema on dorsum of left foot. Psych/Mental Status: Normal Affect, Appropriate Laboratory Results 09/01/19 05:50: Hemoglobin A1c 11.3 H 09/01/19 11:19: POC Glucose 321 H 09/01/19 16:35: POC Glucose 258 H 09/01/19 22:25: POC Glucose 272 H 09/02/19 03:08: POC Glucose 269 H 09/02/19 06:38: POC Glucose 309 H Current Medications Acetaminophen (Tylenol) 650 mg PO Q6H PRN PRN PRN Reason: mild-moderate pain Last Admin: 09/01/19 06:43 Dose: 325 mg Documented by: Dextrose (D50w Syringe) 0 gm IV X1 PRN; Protocol PRN Reason: Hypoglycemia Enoxaparin Sodium (Lovenox) 40 mg SC DAILY [facility] Glucagon () 1 mg IM .X1 PRN PRN Reason: Hypoglycemia Clindamycin Phosphate 900 mg/ (Dextrose) 106 mls @ 150 mls/hr IV Q8 SUZANNE Last Admin: 09/02/19 06:32 Dose: 150 mls/hr Documented by: Insulin Glargine (Lantus (Bkc)) 20 units SC QHS SUZANNE Last Admin: 09/01/19 22:27 Dose: 20 u Documented by: Insulin Human Lispro (Humalog Kwikpen (Bkc)) 0 unit SC ACHS [facility]; Protocol Last Admin: 09/02/19 06:45 Dose: 3 u Documented by: Insulin Human Lispro (Humalog Kwikpen (Bkc)) 5 unit SC TIDAC [facility] Last Admin: 09/01/19 16:35 Dose: 5 u Documented by: Lactic Acid (Lac-Hydrin, Amlactin) 1 applic TOPICAL DAILY [facility]ANNE; Protocol Nutritional Formula (Lactose Free) (Glucerna Shake) 120 ml PO 4X/DAY [facility] Last Admin: 09/01/19 22:19 Dose: 120 ml Documented by: Sodium Chloride () 10 - 40 ml IV UD PRN PRN Reason: SALINE FLUSH Last Admin: 09/01/19 22:26 Dose: 10 ml Documented by: Discharge Diet: 1800 Calorie Control Diet Discharge Activity: May Drive Weight Bearing Status: Weight bearing as tolerated Keep extremity elevated above heart level: Left Leg Call your doctor if your incision/area has: Increased Pain/ Swelling, Increased Redness, Foul Smelling Discharge Call your doctor if you observe: Fever of 101 or Higher, Calf discomfort, Uncontrolled pain Cleanse incision/area with: Soap & Water, - - Do not soak. Moisturize foot skin daily with prescribed lotion. Home Medications: Medications to take at Discharge Acetaminophen [Tylenol Tablet] 650 mg PO Q6H PRN PRN tab 09/02/19 Clindamycin [Cleocin] 450 mg PO 4X/DAY #24 cap 09/02/19 Insulin Glargine [Lantus SoloStar Pen] 24 units SUBCUT QHS #1 pen 09/02/19 Insulin Lispro [Humalog KwikPen] 5 unit SUBCUT TIDAC #1 insuln.pen 09/02/19 [place], Insulin Disposable [Novofine Autocover 30G Needle] 1 ea MISCELL. UD #1 box 09/02/19 Following Prescrptions Were Given to Patient: Clindamycin [Cleocin] 450 mg PO 4X/DAY #24 cap Transmission Status: Pending to [id number] Insulin Lispro [Humalog KwikPen] 5 unit SUBCUT TIDAC #1 insuln.pen Transmission Status: Sent to [facility] Insulin Glargine [Lantus SoloStar Pen] 24 units SUBCUT QHS #1 pen Transmission Status: Sent to [facility] [place], Insulin Disposable [Novofine Autocover 30G Needle] 1 ea MISCELL. UD #1 box Transmission Status: Pending to [facility] Other Amb Orders: Glucometer Location: None Selected Primary Care Physician: Care Physician,No Primary [Primary Care Provider] - Please Follow Up With: Mahi Figueredo DPM When: [facility] 1 week. Call [phone] to schedule or if question Please Follow Up With: Bhaskar Amador MD - Primary Care Physician option When: 2-4 weeks. call for appointment Patient Instructions: What Is Type 2 Diabetes?, How to Check Your Blood Sugar, Using Injected Insulin, Eating Out When You Have Diabetes, Diabetes: Keeping Feet Healthy, Diabetes: Sick-Day Plan, Diabetes: Getting Started with Exercise, Understanding Type 2 Diabetes Disposition: Home Minutes spent on discharge:: 32 Patient Condition:: Good Medical Necessity - Tobacco Use Smoking Status: Never smoker Tobacco Use: - - he denies current smoking habits Meaningful Use Info Meaningful Use Diagnoses (Choose all that apply): None applicable Code Visit Inpatient E&M: 54742 Disch Hosp
[2019-09-02 09:28] VITALS: BP 131/80; PULSE 97; RESP 18; TEMP 37; O2SAT 97
[2019-09-02] MEDS: Glucerna Shake 120 ML LIQUID PO (09:36)
[2019-09-02] MEDS: Enoxaparin 40 MG/0.4 ML Syringe SC (09:36)
[2019-09-02] MEDS: Ammonium Lactate 225 gm Bottle 1 APPLIC TOPICAL (09:39)
== END 2019-09-02 09:45 | disposition home or self-care (01) ==
LOC: ED 17:58 → MS3 20:50
PROVIDERS: Admitting Provider Family Medicine; Emergency Provider Emergency Medicine; Referring Provider Family Medicine
DX: L03.116 Cellulitis of left lower limb (principal); E11.65 Type 2 diabetes mellitus with hyperglycemia; E11.42 Type 2 diabetes mellitus with diabetic polyneuropathy; L84 Corns and callosities
CPT/HCPCS: 36415; 73630; 73718; 80048; 82962; 83036; 83605; 85025; 87040; 96365; 96366; 96372; 97802; 99218; 99284; J7030; A4216; G0378

== ENCOUNTER → 2019-10-23 07:55 | Outpatient (CLI) | payer MEDICAID, SELFPAY ==
[2019-10-23 07:11] VITALS: BMI 38.4
[2019-10-23 13:19] LABS: AST(SGOT) 37 U/L (15-37); Alanine Aminotransfer ALT/SGPT 64 U/L (16-61); Albumin, Serum 3.9 g/dL (3.2-5.0); Alkaline Phosphatase 88 U/L (45-117); Anion Gap 8 (5-15); BUN 18 mg/dL (7-18); BUN/Creat Ratio 20.8 RATIO (10-20); Calcium,Total 9.5 mg/dL (8.5-10.1); Chloride 105 mmol/L (98-107); Creatinine, Serum 0.87 mg/dL (0.70-1.30); EST Glomerular Filtration Rate 101 mL/min (>60); Est Glom Filt Rate - Afr Amer 122 mL/min (>60); Globulin 4.1 g/dL (2.2-4.2); Glucose 110 mg/dL (74-106); Potassium 3.9 mmol/L (3.5-5.1); Sodium Level 138 mmol/L (136-145); Thyroid Stim Hormone (TSH) 1.06 uIU/mL (0.358-3.74)
[2019-10-23 13:28] LABS: Microalbumin,Random Urine 17.9 mg/L (NO RANGE EST.); Microalbumin:Creatinine Ratio 12.2 mg/g CRE (<30 mg/g CRE)
== END ==
PROVIDERS: PCP Internal Medicine; Referring Provider Nurse Practitioner Family; Visit Provider Nurse Practitioner Family
DX: E11.42 Type 2 diabetes mellitus with diabetic polyneuropathy (principal)
CPT/HCPCS: 36415; 80053; 82043; 82570; 84443

== ENCOUNTER → 2020-08-15 11:02 | Outpatient (CLI) | payer MEDICAID, SELFPAY ==
[2020-06-15 08:52] VITALS: BMI 40.6
[2020-08-15 15:21] LABS: Hematocrit 47.8 % (40-54); Hemoglobin 15.4 g/dL (13.0-16.5); Mean Corp Hgb Conc 32.2 g/dL (32-36); Mean Corpuscular Hgb 27.5 pg (27.0-32.0); Mean Corpuscular Volume 85.2 fL (80-94); Platelet Count 257 K/mm3 (150-450); RBC Distribution Width CV 13.6 % (11.6-14.6); RBC Distribution Width SD 42.5 fl (35.1-43.9); Red Blood Count 5.61 M/mm3 (4.6-6.2); White Blood Count 7.6 K/mm3 (4.4-11.0)
[2020-08-15 15:40] LABS: Hemoglobin A1c 4.9 % (3.8-5.6)
[2020-08-15 15:43] LABS: Microalbumin,Random Urine 18.4 mg/L (NO RANGE EST.); Microalbumin:Creatinine Ratio 10.2 mg/g CRE (<30 mg/g CRE)
[2020-08-15 15:53] LABS: ALB/GLOB Ratio 1.1 RATIO (0.9-2.4); AST(SGOT) 12 U/L (15-37); Alanine Aminotransfer ALT/SGPT 23 U/L (16-61); Albumin, Serum 3.9 g/dL (3.2-5.0); Alkaline Phosphatase 53 U/L (45-117); Anion Gap 6 (5-15); BUN 14 mg/dL (7-18); Calcium,Total 8.9 mg/dL (8.5-10.1); Chloride 106 mmol/L (98-107); Cholesterol 189 mg/dL (200); Creatinine, Serum 0.82 mg/dL (0.70-1.30); EST Glomerular Filtration Rate 106 mL/min (>60); Est Glom Filt Rate - Afr Amer 129 mL/min (>60); Globulin 3.5 g/dL (2.2-4.2); Glucose 75 mg/dL (74-106); High Density Lipoprotein 45 mg/dL; Potassium 3.6 mmol/L (3.5-5.1); Protein, Total 7.4 g/dL (6.4-8.2); Sodium Level 138 mmol/L (136-145); Thyroid Stim Hormone (TSH) 0.47 uIU/mL (0.358-3.74); Triglycerides 140 mg/dL; Very Low Density Lipoprotein 28 mg/dL (5-40)
== END ==
PROVIDERS: PCP Internal Medicine; Referring Provider Nurse Practitioner Family; Visit Provider Nurse Practitioner Family
DX: E11.42 Type 2 diabetes mellitus with diabetic polyneuropathy (principal)
CPT/HCPCS: 36415; 80053; 80061; 82043; 82570; 83036; 84443; 85027

== ENCOUNTER → 2020-11-18 08:09 | Outpatient (CLI) | payer MEDICAID, SELFPAY ==
[2020-11-18 07:50] VITALS: BMI 37.3
[2020-11-23 12:08] LABS: Testosterone, Free 21.19 ng/dL (5.00-21.00)
[2020-11-23 12:51] LABS: Testosterone, % Free 4.18 % (1.50-4.20); Testosterone, Total 507 ng/dL (264-916)
== END ==
PROVIDERS: PCP Internal Medicine; Referring Provider Nurse Practitioner Family; Visit Provider Nurse Practitioner Family
DX: N52.9 Male erectile dysfunction, unspecified (principal)
CPT/HCPCS: 36415; 84402; 84403

== ENCOUNTER → 2021-06-06 09:01 | Outpatient (CLI) | payer MEDICAID, SELFPAY ==
[2021-06-06 12:12] LABS: Absolute Lymphocyte Count 1.77 X10^3/uL (0.83-4.51); Absolute Neutrophil Count 3.6 X10^3/uL (2.0-7.7); Basophil# 0.05 X10^3/uL; Basophil% 0.8 % (0-1); Eosinophil# 0.27 X10^3/uL; Eosinophils% 4.3 % (0-5); Hematocrit 46.4 % (40-54); Hemoglobin 14.9 g/dL (13.0-16.5); Lymphocyte # 1.77 X10^3/ul (0.83-4.51); Lymphocyte % 28.1 % (19-41); Mean Corp Hgb Conc 32.1 g/dL (32-36); Mean Corpuscular Hgb 27.9 pg (27.0-32.0); Mean Corpuscular Volume 86.7 fL (80-94); Monocyte# 0.55 X10^3/uL; Monocyte% 8.7 % (0-10); NRBC Flagged by Analyzer 0 % (0-5); Neutrophil # 3.64 X10^3/uL (2.7-7.7); Neutrophil % 57.9 % (47-70); Platelet Count 232 K/mm3 (150-450); RBC Distribution Width CV 13.1 % (11.6-14.6); RBC Distribution Width SD 41.1 fl (35.1-43.9); Red Blood Count 5.35 M/mm3 (4.6-6.2); White Blood Count 6.3 K/mm3 (4.4-11.0)
[2021-06-06 12:35] LABS: Hemoglobin A1c 5.2 % (3.8-5.6)
[2021-06-06 12:50] LABS: Microalbumin,Random Urine 18.5 mg/L (NO RANGE EST.); Microalbumin:Creatinine Ratio 10.1 mg/g CRE (<30 mg/g CRE)
[2021-06-06 12:53] LABS: AST(SGOT) 17 U/L (15-37); Alanine Aminotransfer ALT/SGPT 30 U/L (16-61); Albumin, Serum 3.7 g/dL (3.2-5.0); Alkaline Phosphatase 55 U/L (45-117); Anion Gap 7 (5-15); BUN 17 mg/dL (7-18); BUN/Creat Ratio 19.1 RATIO (10-20); Calcium,Total 8.7 mg/dL (8.5-10.1); Chloride 108 mmol/L (98-107); Cholesterol 198 mg/dL (200); Creatinine, Serum 0.89 mg/dL (0.70-1.30); EST Glomerular Filtration Rate 97 mL/min (>60); Est Glom Filt Rate - Afr Amer 117 mL/min (>60); Globulin 3.6 g/dL (2.2-4.2); Glucose 94 mg/dL (74-106); High Density Lipoprotein 42 mg/dL; Potassium 4.3 mmol/L (3.5-5.1); Protein, Total 7.3 g/dL (6.4-8.2); Sodium Level 139 mmol/L (136-145); Thyroid Stim Hormone (TSH) 0.84 uIU/mL (0.358-3.74); Triglycerides 227 mg/dL; Very Low Density Lipoprotein 45 mg/dL (5-40)
== END ==
PROVIDERS: PCP Internal Medicine; Referring Provider Nurse Practitioner Family; Visit Provider Nurse Practitioner Family
DX: E11.42 Type 2 diabetes mellitus with diabetic polyneuropathy (principal); N52.9 Male erectile dysfunction, unspecified
CPT/HCPCS: 36415; 80053; 80061; 82043; 82570; 83036; 84443; 85025

== ENCOUNTER → 2022-05-31 | Outpatient (CLI) | payer MEDICAID, SELFPAY ==
[2022-05-31 12:18] LABS: Absolute Neutrophil Count 4.6 X10^3/uL (2.0-7.7); Basophil# 0.04 X10^3/uL; Basophil% 0.6 % (0-1); Eosinophil# 0.36 X10^3/uL; Hematocrit 44.2 % (40-54); Hemoglobin 14.2 g/dL (13.0-16.5); Lymphocyte % 22.3 % (19-41); Mean Corp Hgb Conc 32.1 g/dL (32-36); Mean Corpuscular Hgb 27.3 pg (27.0-32.0); Mean Platelet Vol. 9.3 fl (6.2-12.0); Monocyte# 0.59 X10^3/uL; Monocyte% 8.2 % (0-10); NRBC Flagged by Analyzer 0 % (0-5); Neutrophil # 4.57 X10^3/uL (2.7-7.7); Neutrophil % 63.6 % (47-70); Platelet Count 260 K/mm3 (150-450); RBC Distribution Width CV 13.6 % (11.6-14.6); RBC Distribution Width SD 42.2 fl (35.1-43.9); White Blood Count 7.2 K/mm3 (4.4-11.0)
[2022-05-31 12:44] LABS: ALB/GLOB Ratio 0.9 RATIO (0.9-2.4); AST(SGOT) 21 U/L (15-37); Alanine Aminotransfer ALT/SGPT 37 U/L (16-61); Albumin, Serum 3.4 g/dL (3.2-5.0); Alkaline Phosphatase 68 U/L (45-117); Anion Gap 7 (5-15); BUN 16 mg/dL (7-18); BUN/Creat Ratio 16.6 RATIO (10-20); Chloride 107 mmol/L (98-107); Cholesterol 173 mg/dL (200); Creatinine, Serum 0.96 mg/dL (0.70-1.30); EST Glomerular Filtration Rate 88 mL/min (>60); Est Glom Filt Rate - Afr Amer 107 mL/min (>60); Globulin 3.9 g/dL (2.2-4.2); Glucose 120 mg/dL (74-106); High Density Lipoprotein 38 mg/dL; Protein, Total 7.3 g/dL (6.4-8.2); Sodium Level 140 mmol/L (136-145); Thyroid Stim Hormone (TSH) 0.65 uIU/mL (0.358-3.74); Triglycerides 335 mg/dL; Very Low Density Lipoprotein 67 mg/dL (5-40)
== END | disposition home or self-care (01) ==
LOC: BIMLAB 09:29
PROVIDERS: PCP Internal Medicine; Referring Provider Nurse Practitioner Family; Visit Provider Nurse Practitioner Family
DX: E11.42 Type 2 diabetes mellitus with diabetic polyneuropathy (principal); E66.9 Obesity, unspecified
CPT/HCPCS: 36415; 80053; 80061; 84443; 85025

== ENCOUNTER → 2022-11-16 | Outpatient (CLI) | payer MEDICAID, SELFPAY ==
[2022-11-16 13:39] LABS: Cholesterol 206 mg/dL (200); High Density Lipoprotein 39 mg/dL; PSA,Total - Annual Screen 0.95 ng/mL (0.00-4.00); Triglycerides 301 mg/dL; Very Low Density Lipoprotein 60 mg/dL (5-40)
[2022-11-16 13:46] LABS: Microalbumin,Random Urine 32.5 mg/L (NO RANGE EST.); Microalbumin:Creatinine Ratio 17.7 mg/g CRE (<30 mg/g CRE)
== END | disposition home or self-care (01) ==
LOC: BIMLAB 10:09
PROVIDERS: PCP Nurse Practitioner Family; Referring Provider Nurse Practitioner Family; Visit Provider Nurse Practitioner Family
DX: E11.42 Type 2 diabetes mellitus with diabetic polyneuropathy (principal); Z12.5 Encounter for screening for malignant neoplasm of prostate
CPT/HCPCS: 84153; 36415; 80061; 82043; 82570; G0103

== ENCOUNTER 2023-02-10 14:04 | Emergency (ER) | payer MEDICAID, SELFPAY ==
[2023-02-10 14:04] VITALS: BP 125/77; PULSE 99; RESP 18; TEMP 36.6; O2SAT 96; BMI 43.4
--- NOTE | 2023-02-10 14:12 | RAD_ITS ---
INDICATION: INJURY EXAMINATION/TECHNIQUE: X-RAY - LEFT XR Foot Min 3 Views 3 VIEWS COMPARISON: FINDINGS: SOFT TISSUES: There is diffuse soft tissue swelling of the first toe. No radiopaque foreign body. BONES/JOINTS: There is a comminuted and intra-articular fracture of the base of the first distal phalanx. There are degenerative changes of the mid and hindfoot. No sclerotic or destructive changes observed. RAD/Foot min 3 Views IMPRESSION: First distal phalanx fracture. Degenerative changes. Electronically Signed: Mary Eid MD at 14:39 EDT ,
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
[2023-02-10] MEDS: Cephalexin 250 MG Capsule 500 MG PO (15:55)
[2023-02-10 16:01] VITALS: BP 149/76; PULSE 89; RESP 16; TEMP 36.6; O2SAT 98
== END 2023-02-10 16:04 | disposition home or self-care (01) ==
PROVIDERS: Emergency Provider Emergency Medicine; PCP Nurse Practitioner Family; Visit Provider Emergency Medicine
DX: S92.425A Nondisplaced fracture of distal phalanx of left great toe, initial encounter for closed fracture (principal); E11.42 Type 2 diabetes mellitus with diabetic polyneuropathy; X58.XXXA Exposure to other specified factors, initial encounter
CPT/HCPCS: 73630; 99283

== ENCOUNTER 2023-06-13 21:03 | Inpatient (IN) | payer MEDICAID, SELFPAY ==
[2023-06-13 21:05] VITALS: BP 125/75; PULSE 86; RESP 16; TEMP 36; O2SAT 91; BMI 41.5
[2023-06-13 21:10] VITALS: BP 122/78; O2SAT 88
--- NOTE | 2023-06-13 21:38 | CT_ITS ---
STUDY: CT ABDOMEN AND PELVIS WITH CONTRAST REASON FOR EXAM: Male, 48 years old. abdominal pain RADIATION DOSAGE (If Supplied By Facility): CTDIvol = ( 18.72 ) mGy, DLP = ( 1432.25 ) mGycm TECHNIQUE: Transaxial images were obtained from the dome of the diaphragm to the symphysis pubis without oral contrast. IV 100mL Isovue-370 was administered. Sagittal and coronal images were reconstructed. Individualized dose optimization techniques were used for this CT. COMPARISON: CT abdomen and pelvis August 05, 2014. FINDINGS: The visualized lung bases are unremarkable. The visualized portions of the heart are within normal limits. Normal liver. Gallstones noted. Small amount of perihepatic fluid. Possible gas bubble in the gallbladder. Normal spleen. . Pancreatic fluid and stranding. Normal bilateral adrenal glands. Normal right kidney. Normal left kidney. Normal visualized stomach. Normal small intestine. Normal colon. The appendix is visualized and appears normal. Normal abdominal aorta. Normal inferior vena cava. Normal retroperitoneum. Normal urinary bladder. Normal abdominal wall. Normal osseous structures. CT/Abdomen/Pelvis W IV Cont ONLY IMPRESSION: Acute pancreatitis. Cholelithiasis. Electronically Signed: Yazan Jay MD at 23:05 EDT ,
--- NOTE | 2023-06-13 21:39 | EKG12_ITS ---
Test Reason : Blood Pressure : / mmHG Vent. Rate : 085 BPM Atrial Rate : 085 BPM P-R Int : 180 ms QRS Dur : 136 ms QT Int : 396 ms P-R-T Axes : 023 -39 015 degrees QTc Int : 471 ms Normal sinus rhythm Left axis deviation Right bundle branch block Lateral infarct , age undetermined Inferior infarct , age undetermined Abnormal ECG Confirmed by FORREST BELLE, [place] ([id number]), editor magazine LUIS AVALOS ([id number]) on 06/18/2023 11:33:42 AM Referred By: Niraj aMdison Confirmed By:SUSANA CLAYTON MD
--- NOTE | 2023-06-13 21:39 | ED.VIS.GI ---
HPI HPI - GI History of Present Illness Chief Complaint: Abd Pain Detail of Chief Complaint: Abdominal pain Informant: patient Abdominal Pain/Flank Pain Current Severity: 07/02 Narrative Narrative: Patient presents to the emergency room with complaint of abdominal pain and started suddenly about 2 hours ago. Patient describes the pain is in the center of his abdomen and he describes some discomfort in his left shoulder. He has never had pain like this before. He denies fevers or chills or sweats. He denies urinary symptoms. His last bowel movement was about midday today and was claylike. Denies any blood in his stool or black tarry stool. Patient has not had any abdominal surgeries in the past. [facility] Medical History Anxiety and depression Asthma Dental caries Diabetes Erectile dysfunction Gingival and periodontal disease history infection foot Neuropathy Obesity Home Medications pen needle, diabetic, safety 30 gauge x 1/3 #50 ea 11/11/19 [Rx Last Taken Unknown] hydrocortisone 2.5 % topical cream 1 applic topical BID PRN rash #30 grams 11/18/20 [Rx Last Taken Unknown] lisinopril 2.5 mg tablet 2.5 mg PO DAILY #90 tabs 09/05/21 [Rx Last Taken Unknown] sildenafil 50 mg tablet 50 mg PO DAILY PRN sexual activity #30 tabs 11/16/22 [Rx Last Taken Unknown] tirzepatide 5 mg/0.5 mL subcutaneous pen injector (Mounjaro) 5 mg (0.5 mL) subcut QWEEK #2 mL 11/16/22 [Rx Last Taken Unknown] rosuvastatin 5 mg tablet (Crestor) 5 mg PO DAILY #90 tabs 11/20/22 [Rx Last Taken Unknown] semaglutide 1 mg/dose (4 mg/3 mL) subcutaneous pen injector (Ozempic) 1 mg (0.75 mL) subcut QWEEK #3 mL 11/29/22 [Rx Last Taken Unknown] clindamycin HCl 300 mg capsule 300 mg PO TID #30 caps 12/18/22 [Rx Last Taken Unknown] cephalexin 500 mg capsule 500 mg PO TID #21 CAPSULES 02/10/23 [Rx Last Taken Unknown] dulaglutide 1.5 mg/0.5 mL subcutaneous pen injector (Trulicity) See Rx Instructions .Route .COMPLEX #4 mL 04/19/23 [Rx Last Taken Unknown] Allergy/AdvReac Type Severity Reaction Status Date / Time Penicillins Allergy Unknown Verified 06/13/23 21:04 Family History Father Lung cancer Mother Lung cancer Other Alcoholism Asthma Respiratory disease Surgical History No history of previous surgery Social History Smoking Status: Never smoker alcohol intake: current alcohol intake frequency: a few times a month Alcohol type: hard liquor substance use type: does not use what type of physical activity do you participate in: none ROS ROS ED Review of Systems ROS Unobtainable: other Constitutional Constitutional ED: Reports lethargy; Denies chills, fever(s), sweats or weight loss Eyes Eyes: Denies blurry vision, change in vision or diplopia ENT ENT ED: Denies rhinorrhea or sore throat Cardiovascular Cardiovascular: Denies chest pain, orthopnea or racing heartbeat Respiratory/Chest Respiratory/Chest: Denies cough, dyspnea, dyspnea on exertion, orthopnea or sputum Gastrointestinal Gastrointestinal: Reports abdominal pain; Denies diarrhea, nausea or vomiting Genitourinary Genitourinary ED: Denies dysuria, hematuria or urinary frequency Musculoskeletal Musculoskeletal: Denies arthralgias, back pain, myalgias or neck pain Integumentary Denies abscess, Abrasions or rash Neurologic Neurologic: Denies headache(s) or weakness Psychiatric Psychiatric: Denies anxiety, depression or suicidal thoughts Endocrine Endocrinology: Denies polydipsia, polyphagia or polyuria Hematologic/Lymphatic Hematologic/Lymphatic: Denies easy bleeding, easy bruising or lymphadenopathy Allergic/Immunologic Allergic/Immunologic ED: Denies mouth swelling, tongue swelling or urticaria EXAM Physical Exam Const Vital Signs: 06/13/23 21:05 06/13/23 21:10 06/13/23 22:07 Temperature 96.8 F L 97.1 F L Temperature Source Temporal Temporal Pulse Rate 86 83 Respiratory Rate 16 19 H Blood Pressure 125/75 H 122/78 H 133/75 H Blood Pressure Mean 91 92 94 Pulse Ox 91 88 95 Oxygen Delivery Method Room Air Room Air Nasal Cannula Oxygen Flow Rate (L/min) 2 Positive well nourished and well developed General Appearance ED: well developed and NAD HEENT Reports TM's clear and moist mucous membranes normocephalic and atraumatic; Negative for trauma or tenderness Tympanic Membrane ED: Yes TM's clear Eyes PERRL and EOMs intact bilaterally General Eye ED: Negative for pale conjunctiva or scleral icterus Neck no lymphadenopathy, supple and no JVD General: Negative for tenderness Chest Wall inspection of chest normal and palpation of chest normal Chest: Negative for tenderness Resp normal respiratory effort and clear to auscultation bilaterally Effort and Inspection: Negative for respiratory distress or pain with movement Auscultation: Negative for rhonchi, wheezes or diminished lung sounds Cardio regular rate, regular rhythm, S1 normal heart sound, S2 normal heart sound and no murmurs Peripheral Pulses: pulses 2+ throughout GI normal to inspection, nondistended, normoactive bowel sounds, soft to palpation, non-distended and no masses GI Narrative: Diffuse tenderness to palpation over the abdomen. There is guarding. There is rebound. No rigidity noted. Patient obese and exam limited however no pulsatile masses noted. Back/Spine no CVA tenderness and no thoracic nor lumbar tenderness Extremity normal to inspection General Extremety ED: Negative for edema General Extremity: Negative for edema Neuro oriented x3, CN's II-XII intact bilaterally, no sensory deficits noted and gait normal Sensorium / Orientation: awake, alert, oriented to person, oriented to place and oriented to time Motor Exam: strength 5/5 throughout and strength abnormal Psych mental status grossly normal Skin no rashes or lesions noted and no wounds MDM MDM MDM Narrative Medical decision making narrative: Patient presents with sudden onset of severe abdominal pain. He describes some pain to his left shoulder. There is concern for surgical abdomen. Patient differential includes perforated bowel versus small bowel obstruction versus incarcerated hernia versus ischemic bowel disease or other acute process. IV line established. Patient was medicated Dilaudid and Zofran. Lab work was ordered and emergent CT scan of the abdomen pelvis with IV contrast ordered. Chest x-ray also ordered as patient O2 sat dropped down into the upper 80s and normally does not wear home O2. He does state he has a history of asthma. Patient lab work showed white count of 20.2 and hemoglobin of 15 with platelet count of 228. Chemistries unremarkable. BUN elevated at 20 and creatinine 1.52. Lactate elevated 3.1. Total bilirubin 1.5 with AST of 280 and ALT of 208 as well as alk phos of 129. Lipase was greater than 5000. CT scan of the abdomen and pelvis showed cholelithiasis with acute pancreatitis. I discussed case with general surgeon on-call Dr. Sarmiento who recommended patient be admitted to medicine and consult to GI for ERCP and he will evaluate for possible cholecystectomy. I will start patient on Levaquin. Patient will require fluid hydration as well as pain management. Patient with gallstone pancreatitis. Lab Data Attestation: I reviewed the patient's lab results. Labs: Laboratory Results - last 24 hr 06/13/23 22:05 WBC 20.2 H RBC 5.58 Hgb 15.4 Hct 48.2 MCV 86.4 MCH 27.6 MCHC 32.0 RDW Std Deviation 43.5 RDW Coeff of Rae 13.9 Plt Count 228 MPV 8.6 Immature Gran % (Auto) 0.400 Neut % (Auto) 88.9 H Lymph % (Auto) 4.8 L [place] % (Auto) 5.7 Eos % (Auto) 0.1 Baso % (Auto) 0.1 Absolute Neuts (auto) 17.9 H Absolute Lymphs (auto) 0.96 Nucleated RBC % 0 Sodium 136 Potassium 3.7 Chloride 103 Carbon Dioxide 25.0 Anion Gap 8 BUN 20 H Creatinine 1.52 H Estim Creat Clear Calc 58.14 Est GFR (MDRD) Af Amer 63 Est GFR (MDRD) Non-Af 52 L BUN/Creatinine Ratio 13.2 Glucose 310 H Lactic Acid 3.1 H* Calcium 8.5 Total Bilirubin 1.50 H AST 280 H ALT 208 H Alkaline Phosphatase 129 H Troponin I High Sens 8 Total Protein 7.4 Albumin 3.6 Globulin 3.8 Albumin/Globulin Ratio 0.9 Lipase > 5000 H Radiography Diagnostic Testing: Clinical Impression(s) from Imaging Studies Abdomen/Pelvis CT 06/13/23 21:38 IMPRESSION: Acute pancreatitis. Cholelithiasis. Electronically Signed: Yazan Jay MD at 23:05 EDT , Chest X-Ray 06/13/23 22:15 IMPRESSION: Normal x-ray examination of the chest. Electronically Signed: Yazan Jay MD at 22:44 EDT , 1 view chest x-ray obtained interpreted by myself as no evidence of infiltrate or acute disease process. Radiology in agreement. EKG Initial EKG: Attestation: I personally reviewed and interpreted this EKG as follows: Comments: Sinus rhythm with a rate of 85 bpm with right bundle branch block and old inferior infarct Discharge Plan Dx/Rx/DC Orders Clinical Impression: Pancreatitis, History of diabetes mellitus, Abdominal pain, Cholelithiasis Disposition Disposition: Acute Care Hospital [facility]
[2023-06-13] MEDS: 0.9% Normal Saline (1000mL) 1,000 ML 125 ML IV (22:06)
[2023-06-13 22:07] VITALS: BP 133/75; PULSE 83; RESP 19; TEMP 36.2; O2SAT 95
[2023-06-13] MEDS: HYDROmorphone 1 MG/ML Syringe IV (22:07)
[2023-06-13] MEDS: Ondansetron 4 MG/2 ML Vial IV (22:07)
--- NOTE | 2023-06-13 22:15 | RAD_ITS ---
STUDY: X-RAY CHEST REASON FOR EXAM: Male, 48 years old. hypoxia TECHNIQUE: Single frontal view of the chest. COMPARISON: None. FINDINGS: The lungs are clear and expanded. There is no demonstrated pleural abnormality. Normal size heart. Normal mediastinum and silvia. Normal visualized pulmonary arteries. Normal visualized aortic arch and descending thoracic aorta. Normal visualized thoracic spine. Normal visualized ribs, clavicles, and shoulders. There is no demonstrated abnormality of the visualized soft tissue structures of the upper abdomen. RAD/Chest 1 View (Portable) IMPRESSION: Normal x-ray examination of the chest. Electronically Signed: Yazan Jay MD at 22:44 EDT ,
[2023-06-13 22:18] LABS: Absolute Lymphocyte Count 0.96 X10^3/uL (0.83-4.51); Absolute Neutrophil Count 17.9 X10^3/uL (2.0-7.7); Basophil# 0.03 X10^3/uL; Basophil% 0.1 % (0-1); Eosinophil# 0.03 X10^3/uL; Eosinophils% 0.1 % (0-5); Hematocrit 48.2 % (40-54); Hemoglobin 15.4 g/dL (13.0-16.5); Lymphocyte # 0.96 X10^3/ul (0.83-4.51); Lymphocyte % 4.8 % (19-41); Mean Corpuscular Hgb 27.6 pg (27.0-32.0); Mean Corpuscular Volume 86.4 fL (80-94); Mean Platelet Vol. 8.6 fl (6.2-12.0); Monocyte# 1.15 X10^3/uL; Monocyte% 5.7 % (0-10); NRBC Flagged by Analyzer 0 % (0-5); Neutrophil # 17.93 X10^3/uL (2.7-7.7); Neutrophil % 88.9 % (47-70); Platelet Count 228 K/mm3 (150-450); RBC Distribution Width CV 13.9 % (11.6-14.6); RBC Distribution Width SD 43.5 fl (35.1-43.9); Red Blood Count 5.58 M/mm3 (4.6-6.2); White Blood Count 20.2 K/mm3 (4.4-11.0)
[2023-06-13 23:03] VITALS: PULSE 85; RESP 17; O2SAT 97
[2023-06-13 23:18] LABS: ALB/GLOB Ratio 0.9 RATIO (0.9-2.4); AST(SGOT) 280 U/L (15-37); Alanine Aminotransfer ALT/SGPT 208 U/L (16-61); Albumin, Serum 3.6 g/dL (3.2-5.0); Alkaline Phosphatase 129 U/L (45-117); Anion Gap 8 (5-15); BUN 20 mg/dL (7-18); BUN/Creat Ratio 13.2 RATIO (10-20); Calcium,Total 8.5 mg/dL (8.5-10.1); Chloride 103 mmol/L (98-107); Creatinine, Serum 1.52 mg/dL (0.70-1.30); EST Glomerular Filtration Rate 52 mL/min (>60); Est Glom Filt Rate - Afr Amer 63 mL/min (>60); Estimated Creatinine Clearance 58.14 ml/min; Globulin 3.8 g/dL (2.2-4.2); Glucose 310 mg/dL (74-106); Lipase > 5000 U/L (13-75); Potassium 3.7 mmol/L (3.5-5.1); Protein, Total 7.4 g/dL (6.4-8.2); Sodium Level 136 mmol/L (136-145); Troponin-I HS 8 pg/mL (3.0-78.0)
[2023-06-13 23:20] LABS: Lactic Acid 3.1 mmol/L (0.4-1.9)
--- NOTE | 2023-06-13 23:35 | PCM.HP.STD ---
HPI - General General Date of Admission: 06/14/23 Date of Service: 06/14/23 Chief Complaint: Abdominal pain HPI Narrative BRENDON VARGAS, is a 48 M with history of type 2 diabetes, morbid obesity, hypertension and hyperlipidemia who presented to [facility] ED on 06/13/2023 with severe abdominal pain. Patient seen at bedside in the ED. Laying in bed, conversing normally. Does appear to be in mild distress due to abdominal discomfort. Patient states that his abdominal pain is moderately improved after administration of IV pain medication. Has never had pain like this before. Was last able to keep down food and drink around noon today. Tried eating and drinking in the afternoon but vomited at that time. Last bowel movement was around midday today. No previous history of abdominal surgeries. Patient currently denies any fevers or chills. Denies any chest pain or shortness of breath. No other acute concerns currently. Vitals in ED unremarkable. Labs notable for WBC count of 20, creatinine 1.5, lactate 3.1, T. bili 1.5, AST 280, ALT 208, alk phos 129, lipase greater than 5000. CT abdomen pelvis with IV contrast showed cholelithiasis and acute pancreatitis. [facility] Medical History Anxiety and depression Asthma Dental caries Diabetes Erectile dysfunction Gingival and periodontal disease history infection foot Neuropathy Obesity Home Medications pen needle, diabetic, safety 30 gauge x 1/3 #50 ea 11/11/19 [Rx Last Taken Unknown] hydrocortisone 2.5 % topical cream 1 applic topical BID PRN rash #30 grams 11/18/20 [Rx Last Taken Unknown] lisinopril 2.5 mg tablet 2.5 mg PO DAILY #90 tabs 09/05/21 [Rx Last Taken Unknown] sildenafil 50 mg tablet 50 mg PO DAILY PRN sexual activity #30 tabs 11/16/22 [Rx Last Taken Unknown] tirzepatide 5 mg/0.5 mL subcutaneous pen injector (Mounjaro) 5 mg (0.5 mL) subcut QWEEK #2 mL 11/16/22 [Rx Last Taken Unknown] rosuvastatin 5 mg tablet (Crestor) 5 mg PO DAILY #90 tabs 11/20/22 [Rx Last Taken Unknown] semaglutide 1 mg/dose (4 mg/3 mL) subcutaneous pen injector (Ozempic) 1 mg (0.75 mL) subcut QWEEK #3 mL 11/29/22 [Rx Last Taken Unknown] dulaglutide 1.5 mg/0.5 mL subcutaneous pen injector (Trulicity) See Rx Instructions .Route .COMPLEX #4 mL 04/19/23 [Rx Last Taken Unknown] Allergy/AdvReac Type Severity Reaction Status Date / Time Penicillins Allergy Unknown Verified 06/13/23 21:04 Family History Father Lung cancer Mother Lung cancer Other Alcoholism Asthma Respiratory disease Surgical History No history of previous surgery Surgical History no surgical history Social History Smoking Status: Never smoker alcohol intake: current alcohol intake frequency: a few times a month Alcohol type: hard liquor substance use type: does not use what type of physical activity do you participate in: none ROS Constitutional Constitutional: Denies chills, fatigue, fever(s) or weakness Eyes Eyes: Denies change in vision Cardiovascular Cardiovascular: Denies chest pain Respiratory/Chest Respiratory/Chest: Denies cough Gastrointestinal Gastrointestinal: Reports abdominal pain and nausea; Denies loose stools or vomiting Genitourinary Genitourinary: Denies dysuria Vital Signs Vital Signs Vital Signs: 06/13/23 21:05 06/13/23 21:10 06/13/23 22:07 Temperature 96.8 F L 97.1 F L Temperature Source Temporal Temporal Pulse Rate 86 83 Respiratory Rate 16 19 H Blood Pressure 125/75 H 122/78 H 133/75 H Blood Pressure Mean 91 92 94 Pulse Ox 91 88 95 Oxygen Delivery Method Room Air Room Air Nasal Cannula Oxygen Flow Rate (L/min) 2 Weight Weight: 127.8 kg Body Mass Index (BMI) 41.5 Physical Exam Const alert and oriented x3 Constitutional Narrative: Pleasant male, morbidly obese, laying in bed, conversing normally. Mild distress due to generalized abdominal pain. General Appearance: cooperative HEENT normocephalic, head/scalp atraumatic, hearing grossly normal bilaterally, nasal mucous membranes and turbinates normal and moist oral mucous membranes Eyes PERRL, EOMs intact bilaterally and conjunctivae normal Neck full ROM, no lymphadenopathy and supple Lymph Lymphatic: no lymphadenopathy noted Chest inspection of chest normal Resp normal respiratory effort, normal air movement, no use of accessory muscles and clear to auscultation bilaterally Cardio regular rate, regular rhythm, no murmurs and peripheral pulses 2+ throughout GI GI Narrative: Abdomen mildly distended but soft and nontender to palpation. Back/Spine normal ROM Extremity normal to inspection, full ROM and no pedal edema Skin no rashes or lesions noted Psych mental status grossly normal Results Lab / Micro Data 06/13/23 22:05 06/13/23 22:05 Labs: Laboratory Results - last 24 hr 06/13/23 22:05: WBC 20.2 H, RBC 5.58, Hgb 15.4, Hct 48.2, MCV 86.4, MCH 27.6, MCHC 32.0, RDW Std Deviation 43.5, RDW Coeff of Rae 13.9, Plt Count 228, MPV 8.6, Immature Gran % (Auto) 0.400, Neut % (Auto) 88.9 H, Lymph % (Auto) 4.8 L, [place] % (Auto) 5.7, Eos % (Auto) 0.1, Baso % (Auto) 0.1, Absolute Neuts (auto) 17.9 H, Absolute Lymphs (auto) 0.96, Nucleated RBC % 0, Sodium 136, Potassium 3.7, Chloride 103, Carbon Dioxide 25.0, Anion Gap 8, BUN 20 H, Creatinine 1.52 H, Estim Creat Clear Calc 58.14, Est GFR (MDRD) Af Amer 63, Est GFR (MDRD) Non-Af 52 L, BUN/Creatinine Ratio 13.2, Glucose 310 H, Lactic Acid 3.1 H*, Calcium 8.5, Total Bilirubin 1.50 H, AST 280 H, ALT 208 H, Alkaline Phosphatase 129 H, Troponin I High Sens 8, Total Protein 7.4, Albumin 3.6, Globulin 3.8, Albumin/Globulin Ratio 0.9, Lipase > 5000 H Radiology Impression Abdomen/Pelvis CT 06/13/23 21:38 IMPRESSION: Acute pancreatitis. Cholelithiasis. Electronically Signed: Yazan Jay MD at 23:05 EDT Reading Location ID and State: [facility] / [place] Tel , Service support , Chest X-Ray 06/13/23 22:15 IMPRESSION: Normal x-ray examination of the chest. Electronically Signed: Yazan Jay MD at 22:44 EDT Reading Location ID and State: [address] [place] [address] Tel , Service support , Assessment & Plan Assessment/Plan (1) Gallstone pancreatitis: PLAN: Plan Patient is a 48-year-old male with history of type 2 diabetes, morbid obesity, hypertension and hyperlipidemia who presented to [facility] ED on 06/13/2023 with severe abdominal pain. 1. Suspected gallstone pancreatitis Presented with acute onset upper abdominal pain. CT abdomen pelvis with IV contrast showed cholelithiasis and acute pancreatitis. Patient notably on a GLP-1 agonist for diabetes, which is associated with increased risk of gallbladder disease. WBC count 20 on admit, lactate 3.1, T. bili 1.5, AST 280, ALT 208, alk phos 129, lipase greater than 5000. ? Admit under inpatient status to PCU. ED physician spoke with general surgery, who recommended GI consult for ERCP with likely plan for cholecystectomy in the next several days. Formal GI and general surgery consults placed. N.p.o. Pain control with oxycodone and IV Dilaudid as needed. Levaquin for empiric antibiotic coverage (unknown allergy to penicillins). Normal saline for maintenance fluids. 2. MICHELLE Likely prerenal secondary to volume ablation in setting of pancreatitis as noted above. Creatinine 1.52 on admission, baseline creatinine appears to be around 0.9-1. ? Monitor BMP after volume resuscitation. If not resolved, can consider further work-up. Monitor urine output. Chronic medical conditions: ? Type 2 diabetes: Home medications of GLP-1 agonist, unclear which one as several are noted on his home medication list. Blood glucose in the 300s on admission. Sliding scale insulin while inpatient. A1c ordered. ? Hypertension: Holding home lisinopril in setting of MICHELLE as noted above, restart as needed. ? Hyperlipidemia: Continue home rosuvastatin. DVT prophylaxis: Lovenox CODE STATUS: Full code, verified Expected disposition: TBD Total clinical time spent by myself addressing the patient's medical issues, reviewing all the data, and collaborating with patient's care team: 55 minutes. Charges/Coding Visit Charges Inpatient E&M: 17752 Init Hosp L2
[2023-06-14] VITALS (13 sets, daily range): BP systolic 114–138; BP diastolic 74–92; PULSE 80–114; RESP 16–20; TEMP 36.2–37.1; O2SAT 92–99; BMI 44.1
[2023-06-14] MEDS: 0.9% Normal Saline (1000mL) 1,000 ML 999 ML IV (00:05)
[2023-06-14] MEDS: HYDROmorphone 0.5 MG/0.5 ML SYRINGE IV (02:14)
[2023-06-14] MEDS: 0.9% Normal Saline (1000mL) 1,000 ML 125 ML IV ×2 (02:15→10:55)
[2023-06-14 02:46] LABS: Reflex Lactate? Y
[2023-06-14 03:31] LABS: Lactic Acid 1.9 mmol/L (0.4-1.9)
[2023-06-14 06:14] LABS: Hematocrit 49.7 % (40-54); Hemoglobin 15.8 g/dL (13.0-16.5); Mean Corp Hgb Conc 31.8 g/dL (32-36); Mean Corpuscular Hgb 27.6 pg (27.0-32.0); Mean Corpuscular Volume 86.9 fL (80-94); Mean Platelet Vol. 8.7 fl (6.2-12.0); Platelet Count 225 K/mm3 (150-450); RBC Distribution Width CV 13.9 % (11.6-14.6); RBC Distribution Width SD 44.3 fl (35.1-43.9); Red Blood Count 5.72 M/mm3 (4.6-6.2); White Blood Count 14.3 K/mm3 (4.4-11.0)
[2023-06-14 06:32] LABS: ALB/GLOB Ratio 0.8 RATIO (0.9-2.4); AST(SGOT) 270 U/L (15-37); Alanine Aminotransfer ALT/SGPT 241 U/L (16-61); Albumin, Serum 3.2 g/dL (3.2-5.0); Alkaline Phosphatase 126 U/L (45-117); Anion Gap 5 (5-15); BUN 21 mg/dL (7-18); BUN/Creat Ratio 16.9 RATIO (10-20); Calcium,Total 8.1 mg/dL (8.5-10.1); Chloride 106 mmol/L (98-107); Creatinine, Serum 1.24 mg/dL (0.70-1.30); EST Glomerular Filtration Rate 66 mL/min (>60); Est Glom Filt Rate - Afr Amer 79 mL/min (>60); Estimated Creatinine Clearance 64.31 ml/min; Globulin 3.9 g/dL (2.2-4.2); Glucose 302 mg/dL (74-106); Potassium 4.9 mmol/L (3.5-5.1); Protein, Total 7.1 g/dL (6.4-8.2); Sodium Level 135 mmol/L (136-145)
[2023-06-14] MEDS: Insulin Lispro 100 UNIT/ML INSULN.PEN SC ×3 (06:37→21:57)
[2023-06-14] MEDS: oxyCODONE 5 MG Tablet PO ×2 (06:41→10:50)
[2023-06-14 06:59] LABS: Bedside Glucose 316 mg/dL (74-106)
[2023-06-14 07:48] LABS: Hemoglobin A1c 5.9 % (3.8-5.6)
--- NOTE | 2023-06-14 08:51 | PCM.PN.HOSP ---
Reason for Visit Reason for Visit: Diagnoses Biliary acute pancreatitis without necrosis or infection (06/14/23) Subjective Subjective Follow-up for gallstone pancreatitis. Objective Data Objective Data Vital Signs: Vital Signs Temp Pulse Resp BP Pulse Ox O2 Del Method O2 Flow Rate 98.8 F 100 18 126/88 H 95 Room Air 2 06/14/23 08:20 06/14/23 08:20 06/14/23 08:20 06/14/23 08:20 06/14/23 08:20 06/14/23 08:21 06/14/23 01:00 Oxygen Flow Rate (L/min) 2 Oxygen Delivery Method Room Air Weight: 273 lb 9.498 oz Body Mass Index (BMI) 44.1 Intake & Output: Intake and Output for Last 24 Hours 06/12/23 06/13/23 06/14/23 23:59 23:59 23:59 Intake Total 1668.75 / 1668.75 Balance 1668.75 / 1668.75 Lab / Micro Data 06/14/23 02:50 06/14/23 02:50 Labs: Laboratory Results - last 24 hr 06/13/23 22:05: WBC 20.2 H, RBC 5.58, Hgb 15.4, Hct 48.2, MCV 86.4, MCH 27.6, MCHC 32.0, RDW Std Deviation 43.5, RDW Coeff of Rae 13.9, Plt Count 228, MPV 8.6, Immature Gran % (Auto) 0.400, Neut % (Auto) 88.9 H, Lymph % (Auto) 4.8 L, [place] % (Auto) 5.7, Eos % (Auto) 0.1, Baso % (Auto) 0.1, Absolute Neuts (auto) 17.9 H, Absolute Lymphs (auto) 0.96, Nucleated RBC % 0, Sodium 136, Potassium 3.7, Chloride 103, Carbon Dioxide 25.0, Anion Gap 8, BUN 20 H, Creatinine 1.52 H, Estim Creat Clear Calc 58.14, Est GFR (MDRD) Af Amer 63, Est GFR (MDRD) Non-Af 52 L, BUN/Creatinine Ratio 13.2, Glucose 310 H, Lactic Acid 3.1 H*, Calcium 8.5, Total Bilirubin 1.50 H, AST 280 H, ALT 208 H, Alkaline Phosphatase 129 H, Troponin I High Sens 8, Total Protein 7.4, Albumin 3.6, Globulin 3.8, Albumin/Globulin Ratio 0.9, Lipase > 5000 H 06/14/23 02:50: WBC 14.3 H, RBC 5.72, Hgb 15.8, Hct 49.7, MCV 86.9, MCH 27.6, MCHC 31.8 L, RDW Std Deviation 44.3 H, RDW Coeff of Rae 13.9, Plt Count 225, MPV 8.7, Sodium 135 L, Potassium 4.9, Chloride 106, Carbon Dioxide 24.0, Anion Gap 5, BUN 21 H, Creatinine 1.24, Estim Creat Clear Calc 64.31, Est GFR (MDRD) Af Amer 79, Est GFR (MDRD) Non-Af 66, BUN/Creatinine Ratio 16.9, Glucose 302 H, Hemoglobin A1c 5.9 H, Lactic Acid 1.9, Calcium 8.1 L, Total Bilirubin 2.50 H, AST 270 H, ALT 241 H, Alkaline Phosphatase 126 H, Total Protein 7.1, Albumin 3.2, Globulin 3.9, Albumin/Globulin Ratio 0.8 L 06/14/23 06:32: POC Glucose 316 H Radiography Diagnostic Testing: Radiology Impression Abdomen/Pelvis CT 06/13/23 21:38 IMPRESSION: Acute pancreatitis. Cholelithiasis. Electronically Signed: Yazan Jay MD at 23:05 EDT Reading Location ID and State: [address] [place] [address] Tel , Service support , Chest X-Ray 06/13/23 22:15 IMPRESSION: Normal x-ray examination of the chest. Electronically Signed: Yazan Jay MD at 22:44 EDT Reading Location ID and State: [facility] / [place] Tel , Service support , Physical Exam Const alert and oriented x3 Constitutional Narrative: Patient had sudden onset of abdominal pain that started mild and after 1 hour corporative hours 10/10 mainly in epigastric and right upper quadrant region. No prior hepatobiliary disease or pancreatitis. Physical exam General: Alert, Oriented x3, Cooperative, morbid obese BMI 44.250/m? HEENT: Atraumatic, PERRLA, EOMI, Normocephalic Oral: No Gingival or Mucosal Lesions/ Ulcerations Neck: Supple, No JVD, Negative Carotid Bruits Lungs: Air entry diminished in bilateral lung bases. No crepitation/rhonchi Cardiovascular: Regular rate, Regular Rhythm, Normal S1, Normal S2, No murmurs Abdomen: Bowel Sounds Present, Soft, tenderness present in epigastric, right upper quadrant region. No palpable mass but mild voluntary guarding. : No renal angle tenderness. No suprapubic tenderness. Extremities: No edema, Capillary Refill Less than 3 Seconds Skin: No rashes, No breakdown Musculoskeletal: No Tenderness to Palpation of Joints or Extremities Neurological: Cranial nerves II-XII grossly intact, DTR 2+/4. No acute focal neurological deficit. Psych/Mental Status: Flat affect due to pain. General Appearance: cooperative HEENT normocephalic, head/scalp atraumatic, hearing grossly normal bilaterally, nasal mucous membranes and turbinates normal and moist oral mucous membranes Eyes PERRL, EOMs intact bilaterally and conjunctivae normal Neck full ROM, no lymphadenopathy and supple Lymph Lymphatic: no lymphadenopathy noted Chest inspection of chest normal Resp normal respiratory effort, normal air movement, no use of accessory muscles and clear to auscultation bilaterally Cardio regular rate, regular rhythm, no murmurs and peripheral pulses 2+ throughout GI GI Narrative: Abdomen mildly distended but soft and nontender to palpation. Back/Spine normal ROM Extremity normal to inspection, full ROM and no pedal edema Skin no rashes or lesions noted Psych mental status grossly normal Assessment & Plan Assessment/Plan (1) Gallstone pancreatitis: PLAN: Plan Patient is a 48-year-old male with history of type 2 diabetes, morbid obesity, hypertension and hyperlipidemia who presented to [facility] ED on 06/13/2023 with pain about 2 hours prior to ED arrival. No fever or chills. 1. Suspected gallstone pancreatitis: Patient is being admitted in PCU CT abdomen pelvis with IV contrast showed cholelithiasis and acute pancreatitis. Patient notably on a GLP-1 agonist, semaglutide for diabetes, which is associated with increased risk of gallbladder disease. WBC count 20 on admit, lactate 3.1, T. bili 1.5, AST 280, ALT 208, alk phos 129, lipase greater than 5000. There is increase in total bilirubin to 2.5, mainly direct 1.83, increasing ALT but alkaline phosphatase did not show change Discussed with the surgeon. Plan for ERCP by Dr. Batista for hepatobiliary, pancreatic cyst decompression. Further decision about inpatient cholecystectomy are elective cholecystectomy after discharge depends upon ERCP and stenting if required. If patient remains in the hospital on the weekend then laparoscopic cholecystectomy on Saturday. Pain control. Levaquin as he is allergic to penicillin. ? Admit under inpatient status to PCU. ED physician spoke with general surgery, who recommended GI consult for ERCP with likely plan for cholecystectomy in the next several days. Formal GI and general surgery consults placed. N.p.o. Pain control with oxycodone and IV Dilaudid as needed. Levaquin for empiric antibiotic coverage (unknown allergy to penicillins). Normal saline for maintenance fluids. 2. MICHELLE Likely prerenal secondary to volume ablation in setting of pancreatitis as noted above. Creatinine 1.52 on admission, baseline creatinine appears to be around 0.9-1. 9/: Creatinine shows improvement 1.24. Chronic medical conditions: ? Type 2 diabetes: Home medications of GLP-1 agonist, unclear which one as several are noted on his home medication list. Blood glucose in the 300s on admission. Sliding scale insulin while inpatient. A1c ordered. ? Hypertension: Holding home lisinopril in setting of MICHELLE as noted above, restart as needed. ? Hyperlipidemia: Continue home rosuvastatin. DVT prophylaxis: Lovenox CODE STATUS: Full code, verified Total clinical time spent by myself addressing the patient's medical issues, reviewing all the data, and collaborating with patient's care team: 55 minutes. Charges/Coding Visit Charges Inpatient E&M: 74079 Subs Hosp L2
[2023-06-14 09:34] LABS: Bilirubin, Direct 1.83 mg/dL (0.00-0.30)
--- NOTE | 2023-06-14 10:45 | CASEMGMT ---
RN CM Face to Face with patient for initial transition planning/care coordination assessment. RN CM introduced self and role at [facility]. Patient lying in bed, alert and oriented. Patient willing to participate in assessment and is able to answer all questions appropriately. Care providers, pharmacy, and demographics verified. Patient wishes to discharge home, denies need for home health at this time. Patient states he has no further needs or concerns at this time. CM to follow for discharge planning needs that may arise. PCP: Chencho [facility] Specialists: none Preferred Pharmacy: [facility] Insurance: [employer] Prescription Benefit: yes Living Will/HPOA: none LNOK: daughter, sister Living Arrangements: Patient lives alone in a mobile home with 4 steps and railing to enter. Patient states he is independent at home. Transportation: self, daughter DME/HHC: Patient denies DME in the home. No previous HHC or SNF. Disposition Plan: Patient to discharge home with family support and follow-up plans in place. Ashley MONTERO, RN, CM
[2023-06-14] MEDS: Acetaminophen 325 MG Tablet 650 MG PO ×2 (10:50→21:06)
[2023-06-14 11:17] LABS: Bedside Glucose 326 mg/dL (74-106)
--- NOTE | 2023-06-14 12:00 | CON.PCM.GI_ITS ---
HPI Consult Data Date of Consult: 06/13/23 HPI Narrative Reason for Consultation: Gallstone pancreatitis HPI Narrative: BRENDON VARGAS, is a 48 M who presents severe abdominal pain. He has a past medical history of type 2 diabetes, morbid obesity, hypertension and hyperlipidemia who presented to [facility] ED on 06/13/2023 with severe abdominal pain. Patient seen at bedside in the ED. Laying in bed, conversing normally. Does appear to be in mild distress due to abdominal discomfort. Patient states that his abdominal pain is moderately improved after administration of IV pain medication. He has never had pain like this before. He was last able to keep down food and drink around noon today. He tried eating and drinking in the afternoon but vomited at that time. His last bowel movement was around midday today. He has no previous history of abdominal surgeries. He currently denies any fevers or chills. He denies any chest pain or shortness of breath. He has no other acute concerns currently. Vitals in ED unremarkable. Labs notable for WBC count of 20, creatinine 1.5, lactate 3.1, T. bili 1.5, AST 280, ALT 208, alk phos 129, lipase greater than 5000. CT abdomen pelvis with IV contrast showed cholelithiasis and acute pancreatitis. [facility] Medical History Anxiety and depression Asthma Dental caries Diabetes Erectile dysfunction Gingival and periodontal disease history infection foot Neuropathy Obesity Home Medications pen needle, diabetic, safety 30 gauge x 1/3 #50 ea 11/11/19 [Rx Last Taken Unknown] hydrocortisone 2.5 % topical cream 1 applic topical BID PRN rash #30 grams 11/18/20 [Rx Last Taken Unknown] lisinopril 2.5 mg tablet 2.5 mg PO DAILY #90 tabs 09/05/21 [Rx Last Taken 06/13/23] sildenafil 50 mg tablet 50 mg PO DAILY PRN sexual activity #30 tabs 11/16/22 [Rx Last Taken Unknown] tirzepatide 5 mg/0.5 mL subcutaneous pen injector (Mounjaro) 5 mg (0.5 mL) subcut QWEEK #2 mL 11/16/22 [Rx Last Taken Unknown] rosuvastatin 5 mg tablet (Crestor) 5 mg PO DAILY #90 tabs 11/20/22 [Rx Last Taken Unknown] semaglutide 1 mg/dose (4 mg/3 mL) subcutaneous pen injector (Ozempic) 1 mg (0.75 mL) subcut QWEEK #3 mL 11/29/22 [Rx Last Taken Unknown] dulaglutide 1.5 mg/0.5 mL subcutaneous pen injector (Trulicity) See Rx Instructions .Route .COMPLEX #4 mL 04/19/23 [Rx Last Taken 06/09/23] Allergy/AdvReac Type Severity Reaction Status Date / Time Penicillins Allergy Unknown Verified 06/13/23 21:04 Family History Father Lung cancer Mother Lung cancer Other Alcoholism Asthma Respiratory disease Surgical History No history of previous surgery Surgical History no surgical history Social History Smoking Status: Never smoker alcohol intake: current alcohol intake frequency: a few times a month Alcohol type: hard liquor substance use type: does not use what type of physical activity do you participate in: none ROS Constitutional Constitutional: Reports anorexia; Denies fatigue or fever(s) Eyes Eyes: Denies blurry vision ENT HEENT: Denies abnormal hearing Cardiovascular Cardiovascular: Denies chest pain Respiratory/Chest Respiratory/Chest: Denies cough or dyspnea Gastrointestinal Gastrointestinal: Reports abdominal pain, nausea and vomiting; Denies constipation Genitourinary Genitourinary: Denies change in urinary stream Musculoskeletal Musculoskeletal: Denies abnormal gait Integumentary Integumentary: Denies jaundice or new lesions Neurologic Neurologic: Denies abnormal gait Psychiatric Psychiatric: Denies anxiety Endocrine Endocrinology: Denies flushing Physical Exam Const alert and oriented x3 HEENT normocephalic Eyes PERRL Chest inspection of chest normal Resp normal respiratory effort Cardio Rate: regular rate Rhythm: regular rhythm GI soft to palpation Palpation: tender epigastric Extremity normal to inspection Neuro CN's II-XII intact bilaterally Lab / Micro Data 06/14/23 02:50 06/14/23 02:50 Labs: Laboratory Results - last 24 hr 06/13/23 22:05: WBC 20.2 H, RBC 5.58, Hgb 15.4, Hct 48.2, MCV 86.4, MCH 27.6, MCHC 32.0, RDW Std Deviation 43.5, RDW Coeff of Rae 13.9, Plt Count 228, MPV 8.6, Immature Gran % (Auto) 0.400, Neut % (Auto) 88.9 H, Lymph % (Auto) 4.8 L, [place] % (Auto) 5.7, Eos % (Auto) 0.1, Baso % (Auto) 0.1, Absolute Neuts (auto) 17.9 H, Absolute Lymphs (auto) 0.96, Nucleated RBC % 0, Sodium 136, Potassium 3.7, Chloride 103, Carbon Dioxide 25.0, Anion Gap 8, BUN 20 H, Creatinine 1.52 H , Estim Creat Clear Calc 58.14, Est GFR (MDRD) Af Amer 63, Est GFR (MDRD) Non-Af 52 L, BUN/Creatinine Ratio 13.2, Glucose 310 H, Lactic Acid 3.1 H*, Calcium 8.5, Total Bilirubin 1.50 H, AST 280 H, ALT 208 H, Alkaline Phosphatase 129 H, Troponin I High Sens 8, Total Protein 7.4, Albumin 3.6, Globulin 3.8, Albumin/Globulin Ratio 0.9, Lipase > 5000 H 06/14/23 02:50: WBC 14.3 H, RBC 5.72, Hgb 15.8, Hct 49.7, MCV 86.9, MCH 27.6, MCHC 31.8 L, RDW Std Deviation 44.3 H, RDW Coeff of Rae 13.9, Plt Count 225, MPV 8.7, Sodium 135 L, Potassium 4.9, Chloride 106, Carbon Dioxide 24.0, Anion Gap 5, BUN 21 H, Creatinine 1.24, Estim Creat Clear Calc 64.31, Est GFR (MDRD) Af Amer 79, Est GFR (MDRD) Non-Af 66, BUN/Creatinine Ratio 16.9, Glucose 302 H, Hemoglobin A1c 5.9 H, Lactic Acid 1.9, Calcium 8.1 L, Total Bilirubin 2.50 H, Direct Bilirubin 1.83 H, AST 270 H, ALT 241 H, Alkaline Phosphatase 126 H, Total Protein 7.1, Albumin 3.2, Globulin 3.9, Albumin/Globulin Ratio 0.8 L 06/14/23 06:32: POC Glucose 316 H 06/14/23 10:53: POC Glucose 326 H Radiology Impression Abdomen/Pelvis CT 06/13/23 21:38 IMPRESSION: Acute pancreatitis. Cholelithiasis. Electronically Signed: Yazan Jay MD at 23:05 EDT , Chest X-Ray 06/13/23 22:15 IMPRESSION: Normal x-ray examination of the chest. Electronically Signed: Yazan Jay MD at 22:44 EDT , Assessment & Plan Assessment/Plan (1) Gallstone pancreatitis: PLAN: Plan Patient is a 48-year-old male with history of type 2 diabetes, morbid obesity, hypertension and hyperlipidemia who presented to [facility] ED on 06/13/2023 with severe abdominal pain. Likely gallstone pancreatitis with acute onset upper abdominal pain. CT abdomen pelvis with IV contrast showed cholelithiasis and acute pancreatitis. Patient notably on a GLP-1 agonist for diabetes, which is associated with increased risk of gallbladder disease. WBC count 20 on admit, lactate 3.1, T. bili 1.5, AST 280, ALT 208, alk phos 129, lipase greater than 5000. Due to the fact that his liver enzymes are rising and he cannot have a cholecystectomy until Saturday I think it is in his best interest to undergo ERCP with at least stent placement and possible stone removal to decompress his hepatobiliary pancreatic system. He was explained alternatives, risk, benefits including outstanding bleeding, infection, sepsis, perforation, need for mergers or to . He will have an ASA of 3. Charges/Coding Visit Charges Inpatient E&M: 09239 Init Hosp L3
--- NOTE | 2023-06-14 13:21 | EX.PCM.CON.S ---
Assessment & Plan Assessment/Plan (1) Gallstone pancreatitis: PLAN: The patient has acute gallstone pancreatitis. I discussed with GI and the hospitalist. The plan is for ERCP today. As long as ERCP is successful and a stent is placed I think he would be protected from recurrent episodes and can have elective cholecystectomy. If the patient is not comfortable after ERCP and is developing acute cholecystitis then the patient may remain in the hospital over the weekend and I will perform a laparoscopic cholecystectomy on Saturday. Jere Sarmiento MD Pager: [facility] [address] [place] [address], [address] [place] [address] Office: HPI Consult Data Date of Consult: 06/14/23 HPI Narrative HPI Narrative: BRENDON VARGAS, is a 48 M who presents with abdominal pain. He says most of his pain is epigastric but some in the right upper quadrant. He did have vomiting last night. He denies fevers. [facility] Medical History Anxiety and depression Asthma Dental caries Diabetes Erectile dysfunction Gingival and periodontal disease history infection foot Neuropathy Obesity Home Medications pen needle, diabetic, safety 30 gauge x 1/3 #50 ea 11/11/19 [Rx Last Taken Unknown] hydrocortisone 2.5 % topical cream 1 applic topical BID PRN rash #30 grams 11/18/20 [Rx Last Taken Unknown] lisinopril 2.5 mg tablet 2.5 mg PO DAILY #90 tabs 09/05/21 [Rx Last Taken 06/13/23] sildenafil 50 mg tablet 50 mg PO DAILY PRN sexual activity #30 tabs 11/16/22 [Rx Last Taken Unknown] tirzepatide 5 mg/0.5 mL subcutaneous pen injector (Mounjaro) 5 mg (0.5 mL) subcut QWEEK #2 mL 11/16/22 [Rx Last Taken Unknown] rosuvastatin 5 mg tablet (Crestor) 5 mg PO DAILY #90 tabs 11/20/22 [Rx Last Taken Unknown] semaglutide 1 mg/dose (4 mg/3 mL) subcutaneous pen injector (Ozempic) 1 mg (0.75 mL) subcut QWEEK #3 mL 11/29/22 [Rx Last Taken Unknown] dulaglutide 1.5 mg/0.5 mL subcutaneous pen injector ([facility]) See Rx Instructions .Route .COMPLEX #4 mL 04/19/23 [Rx Last Taken 06/09/23] Allergy/AdvReac Type Severity Reaction Status Date / Time Penicillins Allergy Unknown Verified 06/13/23 21:04 Family History Father Lung cancer Mother Lung cancer Other Alcoholism Asthma Respiratory disease Surgical History No history of previous surgery Surgical History no surgical history Social History Smoking Status: Never smoker alcohol intake: current alcohol intake frequency: a few times a month Alcohol type: hard liquor substance use type: does not use what type of physical activity do you participate in: none ROS Constitutional Constitutional: Reports anorexia; Denies fatigue or fever(s) Eyes Eyes: Denies blurry vision ENT HEENT: Denies abnormal hearing Cardiovascular Cardiovascular: Denies chest pain Respiratory/Chest Respiratory/Chest: Denies cough or dyspnea Gastrointestinal Gastrointestinal: Reports abdominal pain, nausea and vomiting; Denies constipation Genitourinary Genitourinary: Denies change in urinary stream Musculoskeletal Musculoskeletal: Denies abnormal gait Integumentary Integumentary: Denies jaundice or new lesions Neurologic Neurologic: Denies abnormal gait Psychiatric Psychiatric: Denies anxiety Endocrine Endocrinology: Denies flushing Physical Exam Const alert and oriented x3 HEENT normocephalic Eyes PERRL Chest inspection of chest normal Resp normal respiratory effort Cardio Rate: regular rate Rhythm: regular rhythm GI soft to palpation Palpation: tender epigastric Extremity normal to inspection Neuro CN's II-XII intact bilaterally Lab / Micro Data 06/14/23 02:50 06/14/23 02:50 Labs: Laboratory Results - last 24 hr 06/13/23 22:05: WBC 20.2 H, RBC 5.58, Hgb 15.4, Hct 48.2, MCV 86.4, MCH 27.6, MCHC 32.0, RDW Std Deviation 43.5, RDW Coeff of Rae 13.9, Plt Count 228, MPV 8.6, Immature Gran % (Auto) 0.400, Neut % (Auto) 88.9 H, Lymph % (Auto) 4.8 L, [place] % (Auto) 5.7, Eos % (Auto) 0.1, Baso % (Auto) 0.1, Absolute Neuts (auto) 17.9 H, Absolute Lymphs (auto) 0.96, Nucleated RBC % 0, Sodium 136, Potassium 3.7, Chloride 103, Carbon Dioxide 25.0, Anion Gap 8, BUN 20 H, Creatinine 1.52 H, Estim Creat Clear Calc 58.14, Est GFR (MDRD) Af Amer 63, Est GFR (MDRD) Non-Af 52 L, BUN/Creatinine Ratio 13.2, Glucose 310 H, Lactic Acid 3.1 H*, Calcium 8.5, Total Bilirubin 1.50 H, AST 280 H, ALT 208 H, Alkaline Phosphatase 129 H, Troponin I High Sens 8, Total Protein 7.4, Albumin 3.6, Globulin 3.8, Albumin/Globulin Ratio 0.9, Lipase > 5000 H 06/14/23 02:50: WBC 14.3 H, RBC 5.72, Hgb 15.8, Hct 49.7, MCV 86.9, MCH 27.6, MCHC 31.8 L, RDW Std Deviation 44.3 H, RDW Coeff of Rae 13.9, Plt Count 225, MPV 8.7, Sodium 135 L, Potassium 4.9, Chloride 106, Carbon Dioxide 24.0, Anion Gap 5, BUN 21 H, Creatinine 1.24, Estim Creat Clear Calc 64.31, Est GFR (MDRD) Af Amer 79, Est GFR (MDRD) Non-Af 66, BUN/Creatinine Ratio 16.9, Glucose 302 H, Hemoglobin A1c 5.9 H, Lactic Acid 1.9, Calcium 8.1 L, Total Bilirubin 2.50 H, Direct Bilirubin 1.83 H, AST 270 H, ALT 241 H, Alkaline Phosphatase 126 H, Total Protein 7.1, Albumin 3.2, Globulin 3.9, Albumin/Globulin Ratio 0.8 L 06/14/23 06:32: POC Glucose 316 H 06/14/23 10:53: POC Glucose 326 H Radiology Impression Abdomen/Pelvis CT 06/13/23 21:38 IMPRESSION: Acute pancreatitis. Cholelithiasis. Electronically Signed: Yazan Jay MD at 23:05 EDT , Chest X-Ray 06/13/23 22:15 IMPRESSION: Normal x-ray examination of the chest. Electronically Signed: Yazan Jay MD at 22:44 EDT ,
--- NOTE | 2023-06-14 16:45 | RAD_ITS ---
PROCEDURE: FLUOROSCOPIC GUIDANCE FOR ERCP DATE OF EXAMINATION: 06/13/2023 INDICATION: Male, 48 years old. Abdominal pain, pancreatitis Dose area product: 0.39 mGycm2 TECHNIQUE: Fluoroscopy was provided for ERCP procedure. Several digital spot images were obtained. Initial images demonstrate introduction of a guidewire into the common bile duct in a retrograde fashion with subsequent injection of contrast. Contrast is seen to opacify the common bile duct, as well as the intrahepatic biliary radicals. No intraluminal filling defects are seen. Possible stent on the final image, poorly visualized. RAD/ERCP Biliary/Pancreas IMPRESSION: Negative ERCP without obstruction or evidence for retained common duct stone. Please see procedural report. Electronically Signed: Reagan Chapa MD (Brooks) at 17:40 EDT ,
--- NOTE | 2023-06-14 17:10 | OP.ERCP_ITS ---
Patient Name: Perfecto Arizmendi Procedure Date: 06/14/2023 4:24 PM Date of : 1975 Age: 48 Procedure: ERCP Indications: Bile duct stone(s), Gallbladder stones, Jaundice Providers: Hussain Batista DO Referring MD: Niraj Madison Do Medicines: Monitored Anesthesia Care Patient Profile: This is a 48 year old male. Refer to note in patient chart for documentation of history and physical. Patient has symptoms of acute epigastric abdominal pain and acute jaundice. Complications: No immediate complications. Procedure: Pre-Anesthesia Assessment: - Prior to the procedure, a History and Physical was performed, and patient medications and allergies were reviewed. The patient is competent. The risks and benefits of the procedure and the sedation options and risks were discussed with the patient. All questions were answered and informed consent was obtained. Patient identification and proposed procedure were verified by the physician in the pre-procedure area. Mental Status Examination: alert and oriented. Airway Examination: normal oropharyngeal airway and neck mobility. Respiratory Examination: clear to auscultation. CV Examination: normal. Prophylactic Antibiotics: The patient does not require prophylactic antibiotics. Prior Anticoagulants: The patient has taken no anticoagulant or antiplatelet agents. ASA Grade Assessment: III - A patient with severe systemic disease. After reviewing the risks and benefits, the patient was deemed in satisfactory condition to undergo the procedure. The anesthesia plan was to use monitored anesthesia care (MAC). Immediately prior to administration of medications, the patient was re-assessed for adequacy to receive sedatives. The heart rate, respiratory rate, oxygen saturations, blood pressure, adequacy of pulmonary ventilation, and response to care were monitored throughout the procedure. The physical status of the patient was re-assessed after the procedure. After obtaining informed consent, the scope was passed under direct vision. Throughout the procedure, the patient's blood pressure, pulse, and oxygen saturations were monitored continuously. The Duodenoscope was introduced through the mouth, and advanced to the duodenum and used to inject contrast into the bile duct. The ERCP was accomplished without difficulty. The patient tolerated the procedure well. Scope In: 4:48:45 PM Scope Out: 5:02:06 PM Total Procedure Duration Time 0 hours 13 minutes 21 seconds Findings: The facility operations manager film was normal. The esophagus was successfully intubated under direct vision. The scope was advanced to a normal major papilla in the descending duodenum without detailed examination of the pharynx, larynx and associated structures, and upper GI tract. The upper GI tract was grossly normal. The bile duct was deeply cannulated with the short-nosed traction sphincterotome. Contrast was injected. I personally interpreted the bile duct images. There was brisk flow of contrast through the ducts. Image quality was excellent. Contrast extended to the entire biliary tree. Opacification of the entire opacified area, main bile duct and cystic duct was successful. The maximum diameter of the ducts was 4 mm. The lower third of the main bile duct contained one stone, which was 2 mm in diameter. Placement of a long 0.025 inch Jagwire into the biliary tree was attempted. This passed successfully. A 3 mm biliary sphincterotomy was made with a traction (standard) sphincterotome using ERBE electrocautery. There was no post-sphincterotomy bleeding. To discover objects, the biliary tree was swept with a 12 mm balloon starting at the lower third of the main duct. Sludge was swept from the duct. All stones were removed. One 7 Fr by 5 cm temporary stent was placed 5 cm into the common bile duct. Bile flowed through the stent. The stent was in good position. Impression: - Choledocholithiasis was found. Complete removal was accomplished by biliary sphincterotomy and balloon extraction. - A biliary sphincterotomy was performed. - The biliary tree was swept. - One temporary stent was placed into the common bile duct. Procedure Code(s): --- Professional --- 60966, Endoscopic retrograde cholangiopancreatography (ERCP); with placement of endoscopic stent into biliary or pancreatic duct, including pre- and post-dilation and guide wire passage, when performed, including sphincterotomy, when performed, each stent 58672, Endoscopic retrograde cholangiopancreatography (ERCP); with removal of calculi/debris from biliary/pancreatic duct(s) 82139, 26, Endoscopic catheterization of the biliary ductal system, radiological supervision and interpretation CPT copyright 2021 [employer]. All rights reserved. The codes documented in this report are preliminary and upon carpentry specialist review may be revised to meet current compliance requirements. Hussain Batista DO 06/14/2023 5:10:43 PM This report has been signed electronically. Number of Addenda: 0 Note Initiated On: 06/14/2023 4:24 PM
--- NOTE | 2023-06-14 17:11 | OP.CCLET_ITS ---
06/14/2023 Lupillo Paiz, AGATHA [address] [place] [address] [place] [address] Re : ERCP procedure for Perfecto Arizmendi Dear Mr. Paiz This procedure was performed on Wednesday, June 14, 2023. My impressions and recommendations are as follows: Impressions : - Choledocholithiasis was found. Complete removal was accomplished by biliary sphincterotomy and balloon extraction. - A biliary sphincterotomy was performed. - The biliary tree was swept. - One temporary stent was placed into the common bile duct. Recommendations : My findings are described in the full procedure note, which is enclosed. If I can be of further assistance, please feel free to contact me at . Sincerely, Hussain Batista, 06/14/2023 5:10:43 PM This report has been signed electronically.
[2023-06-14 17:57] LABS: Bedside Glucose 346 mg/dL (74-106)
[2023-06-14 18:28] LABS: Bedside Glucose 333 mg/dL (74-106)
[2023-06-14] MEDS: Atorvastatin Calcium 10 MG Tablet PO (21:06)
[2023-06-14] MEDS: levoFLOXacin IV 750 MG/150 ML BAG 100 MG IV ×2 (21:15)
[2023-06-14 21:55] LABS: Bedside Glucose 473 mg/dL (74-106)
[2023-06-15] MEDS: Insulin Lispro 100 UNIT/ML INSULN.PEN SC ×6 (00:27→21:41)
[2023-06-15] MEDS: oxyCODONE 5 MG Tablet PO ×5 (00:36→20:22)
[2023-06-15 01:52] VITALS: BP 108/77; PULSE 106; RESP 18; TEMP 36.8; O2SAT 96
[2023-06-15 03:06] LABS: Bedside Glucose 408 mg/dL (74-106)
[2023-06-15 06:10] LABS: Bedside Glucose 320 mg/dL (74-106)
[2023-06-15 08:43] LABS: Absolute Lymphocyte Count 0.92 X10^3/uL (0.83-4.51); Absolute Neutrophil Count 20.9 X10^3/uL (2.0-7.7); Basophil# 0.05 X10^3/uL; Basophil% 0.2 % (0-1); Hematocrit 48.3 % (40-54); Hemoglobin 15.8 g/dL (13.0-16.5); Lymphocyte # 0.92 X10^3/ul (0.83-4.51); Lymphocyte % 3.9 % (19-41); Mean Corp Hgb Conc 32.7 g/dL (32-36); Mean Corpuscular Hgb 28.4 pg (27.0-32.0); Mean Corpuscular Volume 86.7 fL (80-94); Mean Platelet Vol. 8.9 fl (6.2-12.0); Monocyte# 1.56 X10^3/uL; Monocyte% 6.6 % (0-10); NRBC Flagged by Analyzer 0 % (0-5); Neutrophil # 20.89 X10^3/uL (2.7-7.7); Neutrophil % 88.8 % (47-70); POSITIVE DIFFERENTIAL YES; Platelet Count 231 K/mm3 (150-450); RBC Distribution Width CV 14.3 % (11.6-14.6); RBC Distribution Width SD 45.6 fl (35.1-43.9); Red Blood Count 5.57 M/mm3 (4.6-6.2); White Blood Count 23.5 K/mm3 (4.4-11.0)
[2023-06-15 08:55] LABS: Differential Indicated SCAN CRITERIA MET
[2023-06-15 09:14] LABS: AST(SGOT) 94 U/L (15-37); Alanine Aminotransfer ALT/SGPT 120 U/L (16-61); Albumin, Serum 2.8 g/dL (3.2-5.0); Alkaline Phosphatase 94 U/L (45-117); Anion Gap 7 (5-15); BUN 46 mg/dL (7-18); BUN/Creat Ratio 18.7 RATIO (10-20); Bilirubin, Direct 1.44 mg/dL (0.00-0.30); Calcium,Total 6.1 mg/dL (8.5-10.1); Chloride 103 mmol/L (98-107); Creatinine, Serum 2.46 mg/dL (0.70-1.30); EST Glomerular Filtration Rate 30 mL/min (>60); Est Glom Filt Rate - Afr Amer 36 mL/min (>60); Estimated Creatinine Clearance 32.42 ml/min; Glucose 329 mg/dL (74-106); Potassium 5.2 mmol/L (3.5-5.1); Protein, Total 6.8 g/dL (6.4-8.2); Sodium Level 128 mmol/L (136-145)
[2023-06-15 09:18] LABS: Differential Comment SCANNED
--- NOTE | 2023-06-15 09:18 | PCM.PN.SRG ---
Objective Data Objective Data Vital Signs: Vital Signs Temp Pulse Resp BP Pulse Ox O2 Del Method O2 Flow Rate 98.2 F 106 H 18 108/77 96 Room Air 2 06/15/23 01:52 06/15/23 01:52 06/15/23 01:52 06/15/23 01:52 06/15/23 01:52 06/15/23 01:52 06/15/23 08:44 Oxygen Flow Rate (L/min) 2 Oxygen Delivery Method Room Air Weight: 273 lb 9.498 oz Body Mass Index (BMI) 44.1 Intake & Output: Intake and Output for Last 24 Hours 06/13/23 06/14/23 06/15/23 23:59 23:59 23:59 Intake Total 3697.92 / 4447.92 1750 / 1750 Balance 3697.92 / 4447.92 1750 / 1750 Lab / Micro Data 06/22/23 06:20 06/22/23 06:20 Labs: Laboratory Results - last 24 hr 06/14/23 02:50: Direct Bilirubin 1.83 H 06/14/23 10:53: POC Glucose 326 H 06/14/23 17:40: POC Glucose 346 H 06/14/23 18:11: POC Glucose 333 H 06/14/23 21:10: POC Glucose 473 H* 06/15/23 02:41: POC Glucose 408 H 06/15/23 05:48: POC Glucose 320 H 06/15/23 08:29: WBC 23.5 H, RBC 5.57, Hgb 15.8, Hct 48.3, MCV 86.7, MCH 28.4, MCHC 32.7, RDW Std Deviation 45.6 H, RDW Coeff of Rae 14.3, Plt Count 231, MPV 8.9, Immature Gran % (Auto) 0.500, Neut % (Auto) 88.8 H, Lymph % (Auto) 3.9 L, [place] % (Auto) 6.6, Eos % (Auto) 0.0, Baso % (Auto) 0.2, Absolute Neuts (auto) 20.9 H, Absolute Lymphs (auto) 0.92, Nucleated RBC % 0, Sodium 128 L, Potassium 5.2 H, Chloride 103, Carbon Dioxide 18.0 L, Anion Gap 7, BUN 46 H, Creatinine 2.46 H, Estim Creat Clear Calc 32.42, Est GFR (MDRD) Af Amer 36 L, Est GFR (MDRD) Non-Af 30 L, BUN/Creatinine Ratio 18.7, Glucose 329 H, Calcium 6.1 L*, Total Bilirubin 2.30 H, Direct Bilirubin 1.44 H, AST 94 H, ALT 120 H, Alkaline Phosphatase 94, Total Protein 6.8, Albumin 2.8 L, Globulin 4.0 Radiography Diagnostic Testing: Radiology Impression Endo Retro Cholangiopancreatogram 06/14/23 16:45 IMPRESSION: Negative ERCP without obstruction or evidence for retained common duct stone. Please see procedural report. Electronically Signed: Reagan Chapa MD (Brooks) at 17:40 EDT Reading Location ID and State: [facility] / [place] , Service support ,
--- NOTE | 2023-06-15 09:35 | PN.HOSP_ITS ---
Reason for Visit Reason for Visit: Diagnoses Biliary acute pancreatitis without necrosis or infection (06/14/23) Objective Data Objective Data Vital Signs: Vital Signs Temp Pulse Resp BP Pulse Ox O2 Del Method O2 Flow Rate 98.2 F 106 H 18 108/77 96 Room Air 2 06/15/23 01:52 06/15/23 01:52 06/15/23 01:52 06/15/23 01:52 06/15/23 01:52 06/15/23 01:52 06/15/23 08:44 Oxygen Flow Rate (L/min) 2 Oxygen Delivery Method Room Air Weight: 273 lb 9.498 oz Body Mass Index (BMI) 44.1 Intake & Output: Intake and Output for Last 24 Hours 06/13/23 06/14/23 06/15/23 23:59 23:59 23:59 Intake Total 3697.92 / 4447.92 1750 / 1750 Balance 3697.92 / 4447.92 1750 / 1750 Lab / Micro Data 06/15/23 08:29 06/15/23 08:29 Labs: Laboratory Results - last 24 hr 06/14/23 10:53: POC Glucose 326 H 06/14/23 17:40: POC Glucose 346 H 06/14/23 18:11: POC Glucose 333 H 06/14/23 21:10: POC Glucose 473 H* 06/15/23 02:41: POC Glucose 408 H 06/15/23 05:48: POC Glucose 320 H 06/15/23 08:29: WBC 23.5 H, RBC 5.57, Hgb 15.8, Hct 48.3, MCV 86.7, MCH 28.4, MCHC 32.7, RDW Std Deviation 45.6 H, RDW Coeff of Rae 14.3, Plt Count 231, MPV 8.9, Immature Gran % (Auto) 0.500, Neut % (Auto) 88.8 H, Lymph % (Auto) 3.9 L, [place] % (Auto) 6.6, Eos % (Auto) 0.0, Baso % (Auto) 0.2, Absolute Neuts (auto) 20.9 H, Absolute Lymphs (auto) 0.92, Nucleated RBC % 0, Differential Comment SCANNED, Diff Path Review January, Sodium 128 L, Potassium 5.2 H, Chloride 103, Carbon Dioxide 18.0 L, Anion Gap 7, BUN 46 H, Creatinine 2.46 H, Estim Creat Clear Calc 32.42, Est GFR (MDRD) Af Amer 36 L, Est GFR (MDRD) Non-Af 30 L, BUN/Creatinine Ratio 18.7, Glucose 329 H, Calcium 6.1 L*, Total Bilirubin 2.30 H , Direct Bilirubin 1.44 H, AST 94 H, ALT 120 H, Alkaline Phosphatase 94, Total Protein 6.8, Albumin 2.8 L, Globulin 4.0 Radiography Diagnostic Testing: Radiology Impression Endo Retro Cholangiopancreatogram 06/14/23 16:45 IMPRESSION: Negative ERCP without obstruction or evidence for retained common duct stone. Please see procedural report. Electronically Signed: Reagan Chapa MD (Brooks) at 17:40 EDT Reading Location ID and State: [facility] / [place] , Service support , Physical Exam Const Constitutional Narrative: Patient states his pain is better after the pain medication. Had ERCP yesterday. No fever. Mild cough with clear/sometimes purulent sputum. Physical exam General: Alert, Oriented x3, Cooperative, morbid obese BMI 44.250/m? HEENT: Atraumatic, PERRLA, EOMI, Normocephalic Oral: No Gingival or Mucosal Lesions/ Ulcerations Neck: Supple, No JVD, Negative Carotid Bruits Lungs: Air entry diminished in bilateral lung bases. No crepitation/rhonchi Cardiovascular: Regular rate, Regular Rhythm, Normal S1, Normal S2, No murmurs Abdomen: Bowel Sounds sluggish, Soft, tenderness present in epigastric, right upper quadrant region/upper back. No palpable mass but mild voluntary guarding. : No renal angle tenderness. No suprapubic tenderness. Extremities: No edema, Capillary Refill Less than 3 Seconds Skin: No rashes, No breakdown Musculoskeletal: No Tenderness to Palpation of Joints or Extremities Neurological: Cranial nerves II-XII grossly intact, DTR 2+/4. No acute focal neurological deficit. Psych/Mental Status: Flat affect due to pain. HEENT normocephalic, head/scalp atraumatic, hearing grossly normal bilaterally, nasal mucous membranes and turbinates normal and moist oral mucous membranes Eyes PERRL, EOMs intact bilaterally and conjunctivae normal Neck full ROM, no lymphadenopathy and supple Lymph Lymphatic: no lymphadenopathy noted Chest inspection of chest normal Resp normal respiratory effort, normal air movement, no use of accessory muscles and clear to auscultation bilaterally Cardio regular rate, regular rhythm, no murmurs and peripheral pulses 2+ throughout GI GI Narrative: Abdomen mildly distended but soft and nontender to palpation. Back/Spine normal ROM Extremity normal to inspection, full ROM and no pedal edema Skin no rashes or lesions noted Psych mental status grossly normal Assessment & Plan Assessment/Plan (1) Gallstone pancreatitis: PLAN: Plan Patient is a 48-year-old male with history of type 2 diabetes, morbid obesity, hypertension and hyperlipidemia who presented to [facility] ED on 06/13/2023 with pain about 2 hours prior to ED arrival. No fever or chills. 1. Suspected gallstone pancreatitis: Patient is being admitted in PCU CT abdomen pelvis with IV contrast showed cholelithiasis and acute pancreatit is. Patient notably on a GLP-1 agonist, semaglutide for diabetes, which is associated with increased risk of gallbladder disease. WBC count 20 on admit, lactate 3.1, T. bili 1.5, AST 280, ALT 208, alk phos 129, lipase greater than 5000. There is increase in total bilirubin to 2.5, mainly direct 1.83, increasing ALT but alkaline phosphatase did not show change Discussed with the surgeon. Plan for ERCP by Dr. Batista for hepatobiliary, pancreatic cyst decompression. Further decision about inpatient cholecystectomy are elective cholecystectomy after discharge depends upon ERCP and stenting if required. If patient remains in the hospital on the weekend then laparoscopic cholecystectomy on Saturday. Pain control. Levaquin as he is allergic to penicillin. 06/15: Patient had ERCP on 06/14, biliary sphincterotomy was done, biliary tree swept and 1 temporary stent was placed into CBD.Patient had worsening leukocytosis mainly neutrophilia, lymphopenia. Afebrile.Total bili better than yesterday direct bilirubin 1.44. Transaminases and alkaline phosphatase got better after ERCP. Continue IV antibiotic Levaquin. Chest x-ray images reviewed shows bibasilar atelectasis. Incentive spirometer and Mucinex DM. Patient already on antibiotic. 2. MICHELLE Likely prerenal secondary to volume ablation in setting of pancreatitis as noted above. Creatinine 1.52 on admission, baseline creatinine appears to be around 0.9-1. 9/: Creatinine shows improvement 1.24. 10/15: BUNs/creatinine increased 46/2.46, estimated creatinine clearance 32 mill per minute. Hypocalcemia, corrected calcium 7.1. Twelve-lead EKG ordered For hyperkalemia K5.2. Calcium chloride 1 g IV piggyback ordered. Patient has metabolic acidosis Chronic medical conditions: ? Type 2 diabetes: Home medications of GLP-1 agonist, unclear which one as several are noted on his home medication list. Blood glucose in the 300s on admission. Sliding scale insulin while inpatient. A1c ordered. ? Hypertension: Holding home lisinopril in setting of MICHELLE as noted above, restart as needed. ? Hyperlipidemia: Continue home rosuvastatin. DVT prophylaxis: Lovenox CODE STATUS: Full code, verified Total clinical time spent by myself addressing the patient's medical issues, reviewing all the data, and collaborating with patient's care team: 55 minutes. Charges/Coding Addendum Addendum: Total time of the visit including total time spent in counseling or coordination of care, (more than 50% of the total time, spent in obtaining medical information from nurses and other ancillary care providers,explaining to the patient about labs, imaging, diagnosis and management of active complex medical conditions including cause for pancreatitis MICHELLE and atelectasis), discussion with GI, surgeon and, review of labs and imaging is 40 minutes. Visit Charges Inpatient E&M: [id number] [facility] L3
[2023-06-15] MEDS: Acetaminophen 325 MG Tablet 650 MG PO ×2 (09:38→20:20)
[2023-06-15 09:44] VITALS: BP 115/73; PULSE 124; RESP 18; TEMP 36.7; O2SAT 94
[2023-06-15 10:05] LABS: Lipase 2156 U/L (13-75)
[2023-06-15] MEDS: 0.9% Normal Saline (1000mL) 1,000 ML 100 ML IV (10:10)
[2023-06-15] MEDS: Enoxaparin 40 MG/0.4 ML Syringe SC (10:15)
--- NOTE | 2023-06-15 11:13 | PCM.PN.SRG ---
Subjective Subjective Patient seen and examined during AM rounds. He complains of persistent abdominal pain but states that it is presently better after some pain medication earlier this morning. He denies an appetite. He confirms that he has been urinating well. Objective Data Objective Data Vital Signs: Vital Signs Temp Pulse Resp BP Pulse Ox O2 Del Method O2 Flow Rate 98.1 F 124 H 18 115/73 94 Nasal Cannula 2 06/15/23 09:44 06/15/23 09:44 06/15/23 09:44 06/15/23 09:44 06/15/23 09:44 06/15/23 09:55 06/15/23 09:55 Oxygen Flow Rate (L/min) 2 Oxygen Delivery Method Nasal Cannula Weight: 273 lb 9.498 oz Body Mass Index (BMI) 44.1 Intake & Output: Intake and Output for Last 24 Hours 06/13/23 06/14/23 06/15/23 23:59 23:59 23:59 Intake Total 3697.92 / 4447.92 1750 / 1750 Balance 3697.92 / 4447.92 1750 / 1750 Lab / Micro Data 06/15/23 08:29 06/15/23 08:29 Labs: Laboratory Results - last 24 hr 06/14/23 10:53: POC Glucose 326 H 06/14/23 17:40: POC Glucose 346 H 06/14/23 18:11: POC Glucose 333 H 06/14/23 21:10: POC Glucose 473 H* 06/15/23 02:41: POC Glucose 408 H 06/15/23 05:48: POC Glucose 320 H 06/15/23 08:29: WBC 23.5 H, RBC 5.57, Hgb 15.8, Hct 48.3, MCV 86.7, MCH 28.4, MCHC 32.7, RDW Std Deviation 45.6 H, RDW Coeff of Rae 14.3, Plt Count 231, MPV 8.9, Immature Gran % (Auto) 0.500, Neut % (Auto) 88.8 H, Lymph % (Auto) 3.9 L, [place] % (Auto) 6.6, Eos % (Auto) 0.0, Baso % (Auto) 0.2, Absolute Neuts (auto) 20.9 H, Absolute Lymphs (auto) 0.92, Nucleated RBC % 0, Differential Comment SCANNED, Diff Path Review May foll, Sodium 128 L, Potassium 5.2 H, Chloride 103, Carbon Dioxide 18.0 L, Anion Gap 7, BUN 46 H, Creatinine 2.46 H, Estim Creat Clear Calc 32.42, Est GFR (MDRD) Af Amer 36 L, Est GFR (MDRD) Non-Af 30 L, BUN/Creatinine Ratio 18.7, Glucose 329 H, Calcium 6.1 L*, Total Bilirubin 2.30 H, Direct Bilirubin 1.44 H, AST 94 H, ALT 120 H, Alkaline Phosphatase 94, Total Protein 6.8, Albumin 2.8 L, Globulin 4.0, Lipase 2156 H Radiography Diagnostic Testing: Radiology Impression Endo Retro Cholangiopancreatogram 06/14/23 16:45 IMPRESSION: Negative ERCP without obstruction or evidence for retained common duct stone. Please see procedural report. Electronically Signed: Reagan Chapa MD (Brooks) at 17:40 EDT Reading Location ID and State: [facility] / [place] , Service support , Physical Exam Const oriented x3 Constitutional Narrative: Mild distress from abdominal discomfort Resp normal respiratory effort Resp Narrative: Nasal cannula in place GI GI Narrative: Distended with right upper quadrant and epigastric tenderness on palpation. There is a positive Wall sign in the right upper quadrant as well. Assessment & Plan Assessment/Plan (1) Gallstone pancreatitis: PLAN: The patient has acute gallstone pancreatitis and is status post ERCP with stone removal and temporary stent insertion by gastroenterology yesterday 06/14/2023. Based on patient's laboratories showing development of acidosis and renal dysfunction I am concerned that he may be experiencing exacerbation of his pancreatitis. I have made this a notice to both patient's hospitalist service as well as to gastroenterology. In conversation with both parties I have restricted the patient to clear liquid diet and advanced his fluid rate to 200 mL/h. Unfortunately this means that he will not be a candidate for discharge today and may see this impact his ability to undergo cholecystectomy. We will continue to follow expectantly. ? Decreased to clear liquid diet ? IV fluids to 200 mL/h ? Repeat CMP in the a.m. Charges/Coding Visit Charges Inpatient E&M: 48240 Subs Hosp L2
[2023-06-15 11:43] LABS: Bedside Glucose 354 mg/dL (74-106)
--- NOTE | 2023-06-15 14:08 | PN.GI_ITS ---
Subjective Subjective Patient was admitted yesterday with acute gallstone pancreatitis and acute obstructive jaundice. He underwent ERCP yesterday with decompressive procedure involving removal of choledocholithiasis. He has been having more abdominal pain. Objective Data Objective Data Vital Signs: Vital Signs Temp Pulse Resp BP Pulse Ox O2 Del Method O2 Flow Rate 98.1 F 124 H 18 115/73 94 Nasal Cannula 2 06/15/23 09:44 06/15/23 09:44 06/15/23 09:44 06/15/23 09:44 06/15/23 09:44 06/15/23 09:55 06/15/23 09:55 Oxygen Flow Rate (L/min) 2 Oxygen Delivery Method Nasal Cannula Weight: 273 lb 9.498 oz Body Mass Index (BMI) 44.1 Intake & Output: Intake and Output for Last 24 Hours 06/13/23 06/14/23 06/15/23 23:59 23:59 23:59 Intake Total 3697.92 / 4447.92 2118.33 / 2118.33 Balance 3697.92 / 4447.92 2118.33 / 2118.33 Lab / Micro Data 06/15/23 08:29 06/15/23 08:29 Labs: Laboratory Results - last 24 hr 06/14/23 17:40: POC Glucose 346 H 06/14/23 18:11: POC Glucose 333 H 06/14/23 21:10: POC Glucose 473 H* 06/15/23 02:41: POC Glucose 408 H 06/15/23 05:48: POC Glucose 320 H 06/15/23 08:29: WBC 23.5 H, RBC 5.57, Hgb 15.8, Hct 48.3, MCV 86.7, MCH 28.4, MCHC 32.7, RDW Std Deviation 45.6 H, RDW Coeff of Rae 14.3, Plt Count 231, MPV 8.9, Immature Gran % (Auto) 0.500, Neut % (Auto) 88.8 H, Lymph % (Auto) 3.9 L, [place] % (Auto) 6.6, Eos % (Auto) 0.0, Baso % (Auto) 0.2, Absolute Neuts (auto) 20.9 H, Absolute Lymphs (auto) 0.92, Nucleated RBC % 0, Differential Comment SCANNED, Diff Path Review January, Sodium 128 L, Potassium 5.2 H, Chloride 103, Carbon Dioxide 18.0 L, Anion Gap 7, BUN 46 H, Creatinine 2.46 H, Estim Creat Clear Calc 32.42, Est GFR (MDRD) Af Amer 36 L, Est GFR (MDRD) Non-Af 30 L, BUN/Creatinine Ratio 18.7, Glucose 329 H, Calcium 6.1 L*, Total Bilirubin 2.30 H , Direct Bilirubin 1.44 H, AST 94 H, ALT 120 H, Alkaline Phosphatase 94, Total Protein 6.8, Albumin 2.8 L, Globulin 4.0, Lipase 2156 H 06/15/23 11:18: POC Glucose 354 H Radiography Diagnostic Testing: Radiology Impression Endo Retro Cholangiopancreatogram 06/14/23 16:45 IMPRESSION: Negative ERCP without obstruction or evidence for retained common duct stone. Please see procedural report. Electronically Signed: Reagan Chapa MD (Brooks) at 17:40 EDT Reading Location ID and State: [facility] / [place] , Service support , Physical Exam Const Constitutional Narrative: tis. Physical exam General: Alert, Oriented x3, Cooperative, morbid obese BMI 44.250/m? HEENT: Atraumatic, PERRLA, EOMI, Normocephalic Oral: No Gingival or Mucosal Lesions/ Ulcerations Neck: Supple, No JVD, Negative Carotid Bruits Lungs: Air entry diminished in bilateral lung bases. No crepitation/rhonchi Cardiovascular: Regular rate, Regular Rhythm, Normal S1, Normal S2, No murmurs Abdomen: Bowel Sounds Present, Soft, tenderness present in epigastric, right upp er quadrant region. No palpable mass but mild voluntary guarding. : No renal angle tenderness. No suprapubic tenderness. Extremities: No edema, Capillary Refill Less than 3 Seconds Skin: No rashes, No breakdown Musculoskeletal: No Tenderness to Palpation of Joints or Extremities Neurological: Cranial nerves II-XII grossly intact, DTR 2+/4. No acute focal neurological deficit. Psych/Mental Status: Flat affect due to pain. HEENT normocephalic, head/scalp atraumatic, hearing grossly normal bilaterally, nasal mucous membranes and turbinates normal and moist oral mucous membranes Eyes PERRL, EOMs intact bilaterally and conjunctivae normal Neck full ROM, no lymphadenopathy and supple Lymph Lymphatic: no lymphadenopathy noted Chest inspection of chest normal Resp normal respiratory effort, normal air movement, no use of accessory muscles and clear to auscultation bilaterally Cardio regular rate, regular rhythm, no murmurs and peripheral pulses 2+ throughout GI GI Narrative: Abdomen mildly distended but soft and nontender to palpation. Back/Spine normal ROM Extremity normal to inspection, full ROM and no pedal edema Skin no rashes or lesions noted Psych mental status grossly normal Assessment & Plan Assessment/Plan (1) Gallstone pancreatitis: PLAN: Plan Patient is a 48-year-old male with history of type 2 diabetes, morbid obesity, hypertension and hyperlipidemia who presented to [facility] ED on 06/13/2023 with severe abdominal pain. Gallstone pancreatitis Presented with acute onset upper abdominal pain. CT abdomen pelvis with IV contrast showed cholelithiasis and acute pancreatitis. Patient notably on a GLP-1 agonist for diabetes, which is associated with increased risk of gall bladder disease. WBC count 20 on admit, lactate 3.1, T. bili 1.5, AST 280, ALT 208, alk phos 129, lipase greater than 5000. ? Patient underwent ERCP yesterday and his lipase is decreasing with IV fluids. However the goal for his pancreatitis is to get his hematocrit down to 30% in the first 24 hours. I suspect that is the reason why his abdominal pain and white blood cell count is increasing. I will switch him to lactated Ringer's at 250 cc an hour. I will get a chest x-ray. I will check an ESR, CRP, lactate. Recommend strict glucose control. Charges/Coding Visit Charges Inpatient E&M: 54620 Subs Hosp L3
--- NOTE | 2023-06-15 14:10 | RAD_ITS ---
STUDY: X-RAY CHEST REASON FOR EXAM: Male, 48 years old. shortness of breath TECHNIQUE: Single AP portable view of the chest. COMPARISON: 06/13/2023 FINDINGS: Poor inspiration with some bibasilar atelectasis and bilateral discoid atelectasis. There is no demonstrated pleural abnormality. Normal size heart. Normal mediastinum and silvia. Normal visualized pulmonary arteries. Normal visualized aortic arch and descending thoracic aorta. Normal visualized thoracic spine. Normal visualized ribs, clavicles, and shoulders. There is no demonstrated abnormality of the visualized soft tissue structures of the upper abdomen. RAD/Chest 1 View (Portable) IMPRESSION: Poor inspiration with some bilateral atelectasis. Electronically Signed: Daniel Resendiz MD at 15:26 EDT ,
[2023-06-15 14:59] VITALS: BP 120/78; PULSE 117; RESP 16; TEMP 36.8; O2SAT 92
[2023-06-15] MEDS: Lactated Ringers 1,000 ML 250 ML IV ×2 (15:06→19:02)
[2023-06-15 15:09] LABS: LDH 778 U/L (87-241)
[2023-06-15 16:17] LABS: Erythrocyte Sedimentation Rate 48 mm/hr (0-20)
[2023-06-15 18:29] LABS: Reflex Lactate? Y
[2023-06-15 19:26] LABS: Lactic Acid 2.5 mmol/L (0.4-1.9)
[2023-06-15 19:28] LABS: Bedside Glucose 278 mg/dL (74-106)
[2023-06-15 20:00] VITALS: BP 98/71; PULSE 130; RESP 28; TEMP 37.3; O2SAT 95
[2023-06-15] MEDS: 0.9% Normal Saline (1000mL) 1,000 ML 999 ML IV (20:15)
--- NOTE | 2023-06-15 20:57 | CON.PCM.RE_ITS ---
Assessment & Plan Assessment/Plan (1) MICHELLE (acute kidney injury): PLAN: Baseline creatinine is around 1.0-1.1. No albuminuria at baseline. Diabetes has been well controlled. Came in with pancreatitis, gallstone related. He is s/p ERCP and stent placement. Creatinine is increasing, creatinine is increasing, borderline acidosis, borderline hyperkalemia. Continue aggressive volume resuscitation for pancreatitis. No acute indications for dialysis otherwise Hypocalcemia. In the setting of pancreatitis. Replete as needed. Discussed with hospitalist HPI Consult Data Date of Consult: 06/15/23 HPI Narrative Reason for Consultation: Acute renal failure HPI Narrative: BRENDON VARGAS, is a 48 M who presents To the hospital with abdominal pain. Diagnosed with gallstone pancreatitis. He is s/p ERCP and stent placement. Nephrology on consultation due to acute renal failure. Baseline creatinine is normal. History of type 2 diabetes, recently well controlled. Complains of diffuse abdominal pain which is somewhat better than yesterday. Denies any urinary complaints. Voiding without any problems. He says urine is somewhat dark. No new medications prior to admission. No NSAIDs. [facility] Medical History Anxiety and depression Asthma Dental caries Diabetes Erectile dysfunction Gingival and periodontal disease history infection foot Neuropathy Obesity Home Medications pen needle, diabetic, safety 30 gauge x 1/3 #50 ea 11/11/19 [Rx Last Taken Unknown] hydrocortisone 2.5 % topical cream 1 applic topical BID PRN rash #30 grams 11/18/20 [Rx Last Taken Unknown] lisinopril 2.5 mg tablet 2.5 mg PO DAILY #90 tabs 09/05/21 [Rx Last Taken 06/13/23] sildenafil 50 mg tablet 50 mg PO DAILY PRN sexual activity #30 tabs 11/16/22 [Rx Last Taken Unknown] tirzepatide 5 mg/0.5 mL subcutaneous pen injector (Mounjaro) 5 mg (0.5 mL) subcut QWEEK #2 mL 11/16/22 [Rx Last Taken Unknown] rosuvastatin 5 mg tablet (Crestor) 5 mg PO DAILY #90 tabs 11/20/22 [Rx Last Taken Unknown] semaglutide 1 mg/dose (4 mg/3 mL) subcutaneous pen injector (Ozempic) 1 mg (0.75 mL) subcut QWEEK #3 mL 11/29/22 [Rx Last Taken Unknown] dulaglutide 1.5 mg/0.5 mL subcutaneous pen injector (Trulicity) See Rx Instructions .Route .COMPLEX #4 mL 04/19/23 [Rx Last Taken 06/09/23] Allergy/AdvReac Type Severity Reaction Status Date / Time Penicillins Allergy Unknown Verified 06/13/23 21:04 Family History Father Lung cancer Mother Lung cancer Other Alcoholism Asthma Respiratory disease Surgical History No history of previous surgery Surgical History no surgical history Social History Smoking Status: Never smoker alcohol intake: current alcohol intake frequency: a few times a month Alcohol type: hard liquor substance use type: does not use what type of physical activity do you participate in: none ROS ROS Narrative Negative except above Physical Exam Narrative Alert awake oriented x 3 no obvious distress no pallor no icterus no JVD s1s2 no murmurs lungs clear abdomen soft no organomegaly no edema no cyanosis Lab / Micro Data 06/15/23 08:29 06/15/23 08:29 Labs: Laboratory Results - last 24 hr 06/14/23 21:10: POC Glucose 473 H* 06/15/23 02:41: POC Glucose 408 H 06/15/23 05:48: POC Glucose 320 H 06/15/23 08:29: WBC 23.5 H, RBC 5.57, Hgb 15.8, Hct 48.3, MCV 86.7, MCH 28.4, MCHC 32.7, RDW Std Deviation 45.6 H, RDW Coeff of Rae 14.3, Plt Count 231, MPV 8.9, Immature Gran % (Auto) 0.500, Neut % (Auto) 88.8 H, Lymph % (Auto) 3.9 L, [place] % (Auto) 6.6, Eos % (Auto) 0.0, Baso % (Auto) 0.2, Absolute Neuts (auto) 20.9 H, Absolute Lymphs (auto) 0.92, Nucleated RBC % 0, Differential Comment SCANNED, Diff Path Review January foll, Sodium 128 L, Potassium 5.2 H, Chloride 103, Carbon Dioxide 18.0 L, Anion Gap 7, BUN 46 H, Creatinine 2.46 H, Estim Creat Clear Calc 32.42, Est GFR (MDRD) Af Amer 36 L, Est GFR (MDRD) Non-Af 30 L, BUN/Creatinine Ratio 18.7, Glucose 329 H, Calcium 6.1 L*, Total Bilirubin 2.30 H , Direct Bilirubin 1.44 H, AST 94 H, ALT 120 H, Alkaline Phosphatase 94, Total Protein 6.8, Albumin 2.8 L, Globulin 4.0, Lipase 2156 H 06/15/23 11:18: POC Glucose 354 H 06/15/23 14:03: ESR 48 H 06/15/23 14:22: Lactic Acid 2.0, Lactate Dehydrogenase 778 H, C-React Prot Ext Range 286.00 H 06/15/23 16:46: POC Glucose 278 H 06/15/23 18:51: Lactic Acid 2.5 H* Radiology Impression Endo Retro Cholangiopancreatogram 06/14/23 16:45 IMPRESSION: Negative ERCP without obstruction or evidence for retained common duct stone. Please see procedural report. Electronically Signed: Reagan Chapa MD (Brooks) at 17:40 EDT , Chest X-Ray 06/15/23 14:10 IMPRESSION: Poor inspiration with some bilateral atelectasis. Electronically Signed: Daniel Resendiz MD at 15:26 EDT ,
[2023-06-15] MEDS: guaiFENesin/D-Methorphan TAB.SR.12H 1 TABLET PO (21:38)
[2023-06-15] MEDS: Atorvastatin Calcium 10 MG Tablet PO (21:38)
[2023-06-15 22:00] VITALS: BP 116/65; PULSE 124; RESP 28; TEMP 37.5; O2SAT 89
[2023-06-15] MEDS: levoFLOXacin IV 750 MG/150 ML BAG 100 MG IV (22:31)
[2023-06-15 23:00] VITALS: BP 111/78; PULSE 120; RESP 32; TEMP 37.1; O2SAT 96
[2023-06-16] VITALS (27 sets, daily range): BP systolic 109–136; BP diastolic 69–99; PULSE 91–120; RESP 12–33; TEMP 36.4–38.3; O2SAT 94–100
[2023-06-16] LABS: Bedside Glucose 285 mg/dL (74-106)
--- NOTE | 2023-06-16 00:25 | RAD_ITS ---
INDICATION: Hypoxia EXAMINATION/TECHNIQUE: X-RAY - XR Chest 1 View COMPARISON: Chest radiograph previous day. Findings: Single frontal view of the chest. Low lung volumes. LUNG PARENCHYMA: Again is noted bilateral perihilar linear atelectasis versus scarring. No significant acute focal airspace disease or mass lesion. PLEURA: No pleural effusion. No pneumothorax. HEART/GREAT VESSELS: Cardiomediastinal silhouette is unremarkable. BONES: Osseous structures are unremarkable for age. RAD/Chest 1 View (Portable) IMPRESSION: Stable chest with no significant acute disease. Electronically Signed: Jere Martinez MD at 1:46 EDT ,
[2023-06-16] MEDS: oxyCODONE 5 MG Tablet PO ×3 (03:19→17:31)
[2023-06-16] MEDS: Acetaminophen 325 MG Tablet 650 MG PO ×3 (03:20→20:09)
[2023-06-16] MEDS: Lactated Ringers 1,000 ML 250 ML IV (03:27)
[2023-06-16] MEDS: Insulin Lispro 100 UNIT/ML INSULN.PEN SC ×5 (04:06→21:09)
[2023-06-16] MEDS: Polyethylene Glycol 3350 17 GM PACKET PO (04:13)
[2023-06-16 04:34] LABS: Bedside Glucose 347 mg/dL (74-106)
[2023-06-16 05:59] LABS: Absolute Neutrophil Count 20.6 X10^3/uL (2.0-7.7); Basophil# 0.08 X10^3/uL; Basophil% 0.3 % (0-1); Eosinophil# 0.08 X10^3/uL; Eosinophils% 0.3 % (0-5); Hematocrit 43.3 % (40-54); Hemoglobin 13.8 g/dL (13.0-16.5); Lymphocyte % 4.6 % (19-41); Mean Corp Hgb Conc 31.9 g/dL (32-36); Mean Corpuscular Hgb 27.8 pg (27.0-32.0); Mean Corpuscular Volume 87.3 fL (80-94); Monocyte# 1.61 X10^3/uL; Monocyte% 6.8 % (0-10); NRBC Flagged by Analyzer 0 % (0-5); Neutrophil # 20.63 X10^3/uL (2.7-7.7); Neutrophil % 86.9 % (47-70); POSITIVE DIFFERENTIAL YES; POSITIVE MORPHOLOGY YES; Platelet Count 222 K/mm3 (150-450); RBC Distribution Width CV 14.1 % (11.6-14.6); RBC Distribution Width SD 45.1 fl (35.1-43.9); Red Blood Count 4.96 M/mm3 (4.6-6.2); White Blood Count 23.8 K/mm3 (4.4-11.0)
[2023-06-16 06:03] LABS: Differential Indicated SCAN CRITERIA MET
[2023-06-16 06:54] LABS: AST(SGOT) 92 U/L (15-37); Alanine Aminotransfer ALT/SGPT 81 U/L (16-61); Albumin, Serum 2.4 g/dL (3.2-5.0); Alkaline Phosphatase 90 U/L (45-117); Anion Gap 9 (5-15); BUN 54 mg/dL (7-18); BUN/Creat Ratio 22.5 RATIO (10-20); Bilirubin, Direct 2.11 mg/dL (0.00-0.30); Calcium,Total 5.7 mg/dL (8.5-10.1); Chloride 98 mmol/L (98-107); EST Glomerular Filtration Rate 31 mL/min (>60); Est Glom Filt Rate - Afr Amer 37 mL/min (>60); Estimated Creatinine Clearance 33.23 ml/min; Globulin 3.9 g/dL (2.2-4.2); Glucose 320 mg/dL (74-106); Lipase 917 U/L (13-75); Protein, Total 6.3 g/dL (6.4-8.2); Sodium Level 126 mmol/L (136-145)
[2023-06-16 07:06] LABS: Differential Comment SCANNED
[2023-06-16] MEDS: Senna/Docusate Sodium 1 Tablet PO ×2 (07:31→20:01)
[2023-06-16 08:10] LABS: Bedside Glucose 357 mg/dL (74-106)
--- NOTE | 2023-06-16 08:11 | CPS ---
patient setup on bipap due to sob.
--- NOTE | 2023-06-16 08:46 | PN.HOSP_ITS ---
Reason for Visit Reason for Visit: Diagnoses Biliary acute pancreatitis without necrosis or infection (06/14/23) Acute kidney failure, unspecified (06/14/23) Objective Data Objective Data Vital Signs: Vital Signs Temp Pulse Resp BP Pulse Ox O2 Del Method O2 Flow Rate 98.7 F 91 24 H 115/80 99 Nasal Cannula 3 06/16/23 05:00 06/16/23 08:11 06/16/23 08:11 06/16/23 05:00 06/16/23 08:11 06/16/23 05:00 06/16/23 05:00 FiO2 40 06/16/23 08:11 Oxygen Flow Rate (L/min) 3 Oxygen Delivery Method Nasal Cannula Weight: 273 lb 9.498 oz Body Mass Index (BMI) 44.1 Intake & Output: Intake and Output for Last 24 Hours 06/14/23 06/15/23 06/16/23 23:59 23:59 23:59 Intake Total 3697.92 / 4447.92 6194.99 / 6194.99 150 / 150 Balance 3697.92 / 4447.92 6194.99 / 6194.99 150 / 150 Lab / Micro Data 06/16/23 05:31 06/16/23 05:31 Labs: Laboratory Results - last 24 hr 06/15/23 08:29: WBC 23.5 H, RBC 5.57, Hgb 15.8, Hct 48.3, MCV 86.7, MCH 28.4, MCHC 32.7, RDW Std Deviation 45.6 H, RDW Coeff of Rae 14.3, Plt Count 231, MPV 8.9, Immature Gran % (Auto) 0.500, Neut % (Auto) 88.8 H, Lymph % (Auto) 3.9 L, [place] % (Auto) 6.6, Eos % (Auto) 0.0, Baso % (Auto) 0.2, Absolute Neuts (auto) 20.9 H, Absolute Lymphs (auto) 0.92, Nucleated RBC % 0, Differential Comment SCANNED, Diff Path Review January, Sodium 128 L, Potassium 5.2 H, Chloride 103, Carbon Dioxide 18.0 L, Anion Gap 7, BUN 46 H, Creatinine 2.46 H, Estim Creat Clear Calc 32.42, Est GFR (MDRD) Af Amer 36 L, Est GFR (MDRD) Non-Af 30 L, BUN/Creatinine Ratio 18.7, Glucose 329 H, Calcium 6.1 L*, Total Bilirubin 2.30 H , Direct Bilirubin 1.44 H, AST 94 H, ALT 120 H, Alkaline Phosphatase 94, Total Protein 6.8, Albumin 2.8 L, Globulin 4.0, Lipase 2156 H 06/15/23 11:18: POC Glucose 354 H 06/15/23 14:03: ESR 48 H 06/15/23 14:22: Lactic Acid 2.0, Lactate Dehydrogenase 778 H, C-React Prot Ext Range 286.00 H 06/15/23 16:46: POC Glucose 278 H 06/15/23 18:51: Lactic Acid 2.5 H* 06/15/23 21:40: POC Glucose 285 H 06/16/23 04:03: POC Glucose 347 H 06/16/23 05:31: WBC 23.8 H, RBC 4.96, Hgb 13.8, Hct 43.3, MCV 87.3, MCH 27.8, MCHC 31.9 L, RDW Std Deviation 45.1 H, RDW Coeff of Rae 14.1, Plt Count 222, MPV 9.0, Immature Gran % (Auto) 1.100 H, Neut % (Auto) 86.9 H, Lymph % (Auto) 4.6 L, [place] % (Auto) 6.8, Eos % (Auto) 0.3, Baso % (Auto) 0.3, Absolute Neuts (auto) 20.6 H, Absolute Lymphs (auto) 1.10, Nucleated RBC % 0, Differential Comment SCANNED, Diff Path Review January, Sodium 126 L, Potassium 5.0, Chloride 98, Carbon Dioxide 19.0 L, Anion Gap 9, BUN 54 H, Creatinine 2.40 H, Estim Creat Clear Calc 33.23, Est GFR (MDRD) Af Amer 37 L, Est GFR (MDRD) Non-Af 31 L, BUN/Creatinine Ratio 22.5 H, Glucose 320 H, Calcium 5.7 L*, Total Bilirubin 3.00 H, Direct Bilirubin 2.11 H, AST 92 H, ALT 81 H, Alkaline Phosphatase 90, Total Protein 6.3 L, Albumin 2.4 L, Globulin 3.9, Lipase 917 H 06/16/23 07:48: POC Glucose 357 H Radiography Diagnostic Testing: Radiology Impression Endo Retro Cholangiopancreatogram 06/14/23 16:45 IMPRESSION: Negative ERCP without obstruction or evidence for retained common duct stone. Please see procedural report. Electronically Signed: Reagan Chapa MD (Brooks) at 17:40 EDT , Chest X-Ray 06/15/23 14:10 IMPRESSION: Poor inspiration with some bilateral atelectasis. Electronically Signed: Daniel Resendiz MD at 15:26 EDT , Chest X-Ray 06/16/23 00:25 IMPRESSION: Stable chest with no significant acute disease. Electronically Signed: Jere Martinez MD at 1:46 EDT , Physical Exam Const Constitutional Narrative: Low-grade fever Tmax 99.5 last night, patient has been tachycardic, tachypneic and hypoxic since last night. Patient was put on BiPAP is difficult to breathe. He states pain is slightly better. Physical exam General: Alert, Oriented x3, Cooperative, morbid obese BMI 44.250/m?. Start of breath HEENT: Atraumatic, PERRLA, EOMI, Normocephalic Oral: On BiPAP. Neck: Supple, No JVD, Negative Carotid Bruits Lungs: Air entry diminished in bilateral lung bases. No crepitation/rhonchi Cardiovascular: Regular rate, Regular Rhythm, Normal S1, Normal S2, No murmurs Abdomen: Bowel Sounds sluggish, Soft, tenderness present in epigastric, right upper quadrant region/upper back. Mild abdominal distention. : No renal angle tenderness. No suprapubic tenderness. Extremities: No edema, Capillary Refill Less than 3 Seconds Skin: No rashes, No breakdown Musculoskeletal: No Tenderness to Palpation of Joints or Extremities Neurological: Cranial nerves II-XII grossly intact, DTR 2+/4. No acute focal neurological deficit. Psych/Mental Status: Flat affect Assessment & Plan Assessment/Plan (1) Gallstone pancreatitis: PLAN: Plan Patient is a 48-year-old male with history of type 2 diabetes, morbid obesity, hypertension and hyperlipidemia who presented to [facility] ED on 06/13/2023 with pain about 2 hours prior to ED arrival. No fever or chills. 1. Suspected gallstone pancreatitis: Patient is being admitted in PCU CT abdomen pelvis with IV contrast showed cholelithiasis and acute pancreatitis. Patient notably on a GLP-1 agonist, semaglutide for diabetes, which is associated with increased risk of gallbladder disease. WBC count 20 on admit, lactate 3.1, T. bili 1.5, AST 280, ALT 208, alk phos 129, lipase greater than 5000. There is increase in total bilirubin to 2.5, mainly direct 1.83, increasing ALT but alkaline phosphatase did not show change Discussed with the surgeon. Plan for ERCP by Dr. Batista for hepatobiliary, pancreatic cyst decompression. Further decision about inpatient cholecystectomy are elective cholecystectomy after discharge depends upon ERCP and stenting if required. If patient remains in the hospital on the weekend then laparoscopic cholecystectomy on Saturday. Pain control. Levaquin as he is allergic to penicillin. 06/15: Patient had ERCP on 06/14, biliary sphincterotomy was done, biliary tree swept and 1 temporary stent was placed into CBD.Patient had worsening leukocytosis mainly neutrophilia, lymphopenia. Afebrile.Total bili better than yesterday direct bilirubin 1.44. Transaminases and alkaline phosphatase got better after ERCP. Continue IV antibiotic Levaquin. Chest x-ray images reviewed shows bibasilar atelectasis. Incentive spirometer and Mucinex DM. Patient already on antibiotic. Sepsis due to suspected gallstone pancreatitis: 06/16: Patient is transferred to ICU.06/16: Patient very short of breath, tachycardic tachypneic low-grade fever suspicion for infection/hepatobiliary. Flagyl added. Leukocytosis 23,000 no big change from yesterday. Mainly neutrophilia, lymphopenia. ESR CRP elevated. Lactic acidosis 2.5, increased from 2.0. Suspicion of sepsis or high risk going to sepsis the patient has clinical indicators of fever, tachycardia, tachypnea, hypoxia, leukocytosis elevated ESR and CRP with sepsis due to hepatobiliary/biliary pancreatitis with acute sepsis-related organ dysfunction as evidenced by acute hypoxic respiratory failure requiring BiPAP and MICHELLE and lactic acidosis. I talked to the patient's daughter and explained the diagnosis, hospital course and management. Test Engineering Intern consulted. 2. MICHELLE Likely prerenal secondary to volume ablation in setting of pancreatitis as noted above. Creatinine 1.52 on admission, baseline creatinine appears to be around 0.9-1. 06/14: Creatinine shows improvement 1.24. 10/15: BUNs/creatinine increased 46/2.46, estimated creatinine clearance 32 mill per minute. Hypocalcemia, corrected calcium 7.1. Twelve-lead EKG ordered For hyperkalemia K5.2. Calcium chloride 1 g IV piggyback ordered. Patient has metabolic acidosis 06/16: Calcium low therefore calcium gluconate ordered. Painting Contractor consult reviewed and appreciated. Chronic medical conditions: ? Type 2 diabetes: Home medications of GLP-1 agonist, unclear which one as several are noted on his home medication list. Blood glucose in the 300s on admission. Sliding scale insulin while inpatient. A1c ordered. ? Hypertension: Holding home lisinopril in setting of MICHELLE as noted above, restart as needed. ? Hyperlipidemia: Continue home rosuvastatin. DVT prophylaxis: Lovenox CODE STATUS: Full code, verified Total time of the visit including total time spent in counseling or coordination of care, (more than 50% of the total time, spent in obtaining medical information from nurses and other ancillary care providers,explaining to the patient about labs, imaging, diagnosis and management of active complex medical conditions), discussion with surgeon, ground transportation operator has been insidious, review of labs and imaging, diagnosis and prognosis to patient's daughter is 50 minutes. Charges/Coding Visit Charges Inpatient E&M: 31135 Subs Hosp L3
--- NOTE | 2023-06-16 09:05 | NURSING ---
06/16/23@0900- REPORT CALLED TO ELSA MILLER.
[2023-06-16] MEDS: Lactated Ringers 1,000 ML 100 ML IV (09:36)
[2023-06-16] MEDS: 0.9% Saline Lock 10 ML Syringe IV (09:37)
[2023-06-16 10:15] LABS: Lactic Acid 1.9 mmol/L (0.4-1.9)
[2023-06-16] MEDS: VIAFLEX IV ×3 (10:21→22:11)
[2023-06-16] MEDS: METRONIDAZOLE IV ×3 (10:21→22:11)
[2023-06-16] MEDS: Enoxaparin 40 MG/0.4 ML Syringe SC (10:23)
[2023-06-16] MEDS: Insulin Lispro 100 UNIT/ML INSULN.PEN 13 UNIT SC ×2 (11:56→16:15)
--- NOTE | 2023-06-16 13:21 | PCM.PN.SRG ---
Subjective Subjective Patient was seen and examined during AM rounds after being notified by the hospitalist service the patient was transferred to the ICU for increased work of breathing. For his part Mr. Arizmendi reports that his abdominal pain is actually somewhat improved today. Objective Data Objective Data Vital Signs: Vital Signs Temp Pulse Resp BP Pulse Ox O2 Del Method O2 Flow Rate 100.4 F H 115 H 28 H 133/84 H 97 Bi-pap 4 06/16/23 12:00 06/16/23 12:00 06/16/23 12:00 06/16/23 12:00 06/16/23 12:00 06/16/23 12:00 06/16/23 09:20 FiO2 30 06/16/23 12:00 Oxygen Flow Rate (L/min) 4 Oxygen Delivery Method Bi-pap Weight: 273 lb 9.498 oz Body Mass Index (BMI) 44.1 Intake & Output: Intake and Output for Last 24 Hours 06/14/23 06/15/23 06/16/23 23:59 23:59 23:59 Intake Total 3697.92 / 4447.92 6194.99 / 6194.99 1275 / 1275 Output Total 375 / 375 Balance 3697.92 / 4447.92 6194.99 / 6194.99 900 / 900 Lab / Micro Data 06/16/23 05:31 06/16/23 05:31 Labs: Laboratory Results - last 24 hr 06/15/23 14:03: ESR 48 H 06/15/23 14:22: Lactic Acid 2.0, Lactate Dehydrogenase 778 H, C-React Prot Ext Range 286.00 H 06/15/23 16:46: POC Glucose 278 H 06/15/23 18:51: Lactic Acid 2.5 H* 06/15/23 21:40: POC Glucose 285 H 06/16/23 04:03: POC Glucose 347 H 06/16/23 05:31: WBC 23.8 H, RBC 4.96, Hgb 13.8, Hct 43.3, MCV 87.3, MCH 27.8, MCHC 31.9 L, RDW Std Deviation 45.1 H, RDW Coeff of Rae 14.1, Plt Count 222, MPV 9.0, Immature Gran % (Auto) 1.100 H, Neut % (Auto) 86.9 H, Lymph % (Auto) 4.6 L, [place] % (Auto) 6.8, Eos % (Auto) 0.3, Baso % (Auto) 0.3, Absolute Neuts (auto) 20.6 H, Absolute Lymphs (auto) 1.10, Nucleated RBC % 0, Differential Comment SCANNED, Diff Path Review January, Sodium 126 L, Potassium 5.0, Chloride 98, Carbon Dioxide 19.0 L, Anion Gap 9, BUN 54 H, Creatinine 2.40 H, Estim Creat Clear Calc 33.23, Est GFR (MDRD) Af Amer 37 L, Est GFR (MDRD) Non-Af 31 L, BUN/Creatinine Ratio 22.5 H, Glucose 320 H, Calcium 5.7 L*, Total Bilirubin 3.00 H, Direct Bilirubin 2.11 H, AST 92 H, ALT 81 H, Alkaline Phosphatase 90, Total Protein 6.3 L, Albumin 2.4 L, Globulin 3.9, Lipase 917 H 06/16/23 07:48: POC Glucose 357 H 06/16/23 09:30: Lactic Acid 1.9 Radiography Diagnostic Testing: Radiology Impression Chest X-Ray 06/15/23 14:10 IMPRESSION: Poor inspiration with some bilateral atelectasis. Electronically Signed: Daniel Resendiz MD at 15:26 EDT , Chest X-Ray 06/16/23 00:25 IMPRESSION: Stable chest with no significant acute disease. Electronically Signed: Jere Martinez MD at 1:46 EDT , Physical Exam Const oriented x3 Constitutional Narrative: Mild distress from respiratory standpoint Resp Resp Narrative: Tachypneic GI GI Narrative: Distended with improved abdominal tenderness of the right upper quadrant and epigastric regions. Soft Assessment & Plan Assessment/Plan (1) Gallstone pancreatitis: PLAN: The patient has acute gallstone pancreatitis and is status post ERCP with stone removal and temporary stent insertion by gastroenterology 06/14/2023. Patient has experienced further deterioration of his respiratory status and is thus admitted to the ICU at this time on BiPAP. He does appear to be more comfortable than what was reported previously in the progressive care unit. From an abdominal standpoint, I am encouraged that he has decreased tenderness of the epigastrium and right upper quadrant. Given his persistently elevated creatinine, persistently elevated LFTs, mild lactic acidosis (more appreciated last evening), and persistent acidosis I believe Mr. Arizmendi is still hypovolemic?likely owing to his hypoalbuminemia and capillary leak with third spacing. Therefore, I encouraged reinitiation of IV fluid. I also encourage placement of a Coreas catheter for continuous I&O monitoring and recommend bolusing if urine output drops below 30 mL/h. Given patient's more tenuous clinical status, will plan to hold off cholecystectomy until improvements are made. I did review patient's clinical course and management plans with family at bedside?including sister who represents geriatric nursing. ? Maintain clear liquid diet unless patient appears to be at risk for imminent intubation ? Continue IV fluids to 200 mL/h ? Continue meticulous ins and outs monitoring and specifically urine output monitoring ? Repeat CMP in the a.m. Charges/Coding Visit Charges Inpatient E&M: 16816 Subs Hosp L2
[2023-06-16] MEDS: guaiFENesin/D-Methorphan TAB.SR.12H 1 TABLET PO ×2 (13:57→20:02)
[2023-06-16] MEDS: 0.9% Normal Saline (250mL Bag) 250 ML 15 ML IV (13:58)
[2023-06-16] MEDS: Calcium Gluconate IV 2 GM in 0.9% Normal Saline (100mL Bag) 100 ML IV (14:22)
--- NOTE | 2023-06-16 15:59 | EX.PCM.PN.GI ---
Subjective Subjective Patient denies any abdominal pain at this time. He denies any chest pain or shortness of breath. He has not received any pain medicine today. Urine output is at 60 cc an hour. Chest x-ray does not show any active disease. Patient says that his abdomen feels the same as when he presented to the hospital. Objective Data Objective Data Vital Signs: Vital Signs Temp Pulse Resp BP Pulse Ox O2 Del Method O2 Flow Rate 100.4 F H 115 H 28 H 133/84 H 97 Bi-pap 4 06/16/23 12:00 06/16/23 12:00 06/16/23 12:00 06/16/23 12:00 06/16/23 12:00 06/16/23 14:31 06/16/23 09:20 FiO2 30 06/16/23 12:00 Oxygen Flow Rate (L/min) 4 Oxygen Delivery Method Bi-pap Weight: 273 lb 9.498 oz Body Mass Index (BMI) 44.1 Intake & Output: Intake and Output for Last 24 Hours 06/14/23 06/15/23 06/16/23 23:59 23:59 23:59 Intake Total 3697.92 / 4447.92 6194.99 / 6194.99 2004 Output Total 495 / 495 Balance 3697.92 / 4447.92 6194.99 / 6194.99 1510 / 1510 Lab / Micro Data 06/16/23 05:31 06/16/23 05:31 Labs: Laboratory Results - last 24 hr 06/15/23 14:03: ESR 48 H 06/15/23 16:46: POC Glucose 278 H 06/15/23 18:51: Lactic Acid 2.5 H* 06/15/23 21:40: POC Glucose 285 H 06/16/23 04:03: POC Glucose 347 H 06/16/23 05:31: WBC 23.8 H, RBC 4.96, Hgb 13.8, Hct 43.3, MCV 87.3, MCH 27.8, MCHC 31.9 L, RDW Std Deviation 45.1 H, RDW Coeff of Rae 14.1, Plt Count 222, MPV 9.0, Immature Gran % (Auto) 1.100 H, Neut % (Auto) 86.9 H, Lymph % (Auto) 4.6 L, [place] % (Auto) 6.8, Eos % (Auto) 0.3, Baso % (Auto) 0.3, Absolute Neuts (auto) 20.6 H, Absolute Lymphs (auto) 1.10, Nucleated RBC % 0, Differential Comment SCANNED, Diff Path Review January, Sodium 126 L, Potassium 5.0, Chloride 98, Carbon Dioxide 19.0 L, Anion Gap 9, BUN 54 H, Creatinine 2.40 H, Estim Creat Clear Calc 33.23, Est GFR (MDRD) Af Amer 37 L, Est GFR (MDRD) Non-Af 31 L, BUN/Creatinine Ratio 22.5 H, Glucose 320 H, Calcium 5.7 L*, Total Bilirubin 3.00 H, Direct Bilirubin 2.11 H, AST 92 H, ALT 81 H, Alkaline Phosphatase 90, Total Protein 6.3 L, Albumin 2.4 L, Globulin 3.9, Lipase 917 H 06/16/23 07:48: POC Glucose 357 H 06/16/23 09:30: Lactic Acid 1.9 Radiography Diagnostic Testing: Radiology Impression Chest X-Ray 06/16/23 00:25 IMPRESSION: Stable chest with no significant acute disease. Electronically Signed: Jere Martinez MD at 1:46 EDT , Physical Exam Const Constitutional Narrative: fever 101 Physical exam General: Alert, Oriented x3, Cooperative, morbid obese BMI 44.250/m?. Start of breath HEENT: Atraumatic, PERRLA, EOMI, Normocephalic Oral: On BiPAP. Neck: Supple, No JVD, Negative Carotid Bruits Lungs: Air entry diminished in bilateral lung bases. No crepitation/rhonchi Cardiovascular: Regular rate, Regular Rhythm, Normal S1, Normal S2, No murmurs Abdomen: Bowel Sounds sluggish, Soft, tenderness present in epigastric, right upper quadrant region/upper back. Mild abdominal distention. : No renal angle tenderness. No suprapubic tenderness. Extremities: No edema, Capillary Refill Less than 3 Seconds Skin: No rashes, No breakdown Musculoskeletal: No Tenderness to Palpation of Joints or Extremities Neurological: Cranial nerves II-XII grossly intact, DTR 2+/4. No acute focal neurological deficit. Psych/Mental Status: Flat affect Assessment & Plan Assessment/Plan (1) Gallstone pancreatitis: (2) Cholelithiasis: (3) MICHELLE (acute kidney injury): PLAN: Plan Patient is a 48-year-old male with history of type 2 diabetes, morbid obesity, hypertension and hyperlipidemia who presented to [facility] ED on 06/13/2023 with severe abdominal pain. Gallstone pancreatitis Presented with acute onset upper abdominal pain. CT abdomen pelvis with IV contrast showed cholelithiasis and acute pancreatitis. Patient notably on a GLP-1 agonist for diabetes, which is associated with increased risk of gallbladder disease. WBC count 20 on admit, lactate 3.1, T. bili 1.5, AST 280, ALT 208, alk phos 129, lipase greater than 5000. ? Hematocrit has been used as a predictor of severity of acute pancreatitis.His hematocrit did not decrease in the first 24 hours. Therefore I switched him to LR at 200 cc an hour and his hematocrit has decreased from 48-43. I think he needs to get his hematocrit less than 40%. We will increase his fluids back up to 200 an hour and monitor him closely for any respiratory distress. We will also repeat his chest x-ray to make sure that he is not going into fluid overload. I think his kidneys will do better with volume expansion. - Acute kidney injury likely secondary to acute pancreatitis. BUN and creatinine has possibly plateaued. Continue IV fluids. Monitor I's and O's Charges/Coding Visit Charges Inpatient E&M: 77692 Subs Hosp L3
[2023-06-16 16:29] LABS: Bedside Glucose 336 mg/dL (74-106)
[2023-06-16 18:11] LABS: Bedside Glucose 348 mg/dL (74-106)
[2023-06-16] MEDS: Lactated Ringers 1,000 ML 200 ML IV (18:49)
[2023-06-16] MEDS: Atorvastatin Calcium 10 MG Tablet PO (20:01)
[2023-06-16] MEDS: levoFLOXacin IV 750 MG/150 ML BAG 100 MG IV (20:22)
[2023-06-16 21:43] LABS: Bedside Glucose 286 mg/dL (74-106)
[2023-06-16 22:01] LABS: Allen Test Positive; Base Excess -6 mmol/L (-2 to +2); Bicarbonate 19.4 mmol/L (22-26); Blood Gas Specimen Type ART; Mode Not entered; O2 Delivery Device Cannula; PO2 101 mmHG (75-100); SITE L Radial; SO2 98 % (95-99); Total Carbon Dioxide 20 mmol/L; pCO2 31.9 mmHg (35-45); pH 7.39 (7.35-7.45)
[2023-06-17] VITALS (19 sets, daily range): BP systolic 111–159; BP diastolic 58–95; PULSE 107–118; RESP 12–26; TEMP 37.1–38; O2SAT 91–98; BMI 48.1
[2023-06-17] MEDS: Lactated Ringers 1,000 ML 200 ML IV ×3 (00:19→10:26)
[2023-06-17] MEDS: oxyCODONE 5 MG Tablet PO ×5 (00:27→20:50)
[2023-06-17] MEDS: Insulin Lispro 100 UNIT/ML INSULN.PEN SC ×5 (03:01→20:51)
[2023-06-17] MEDS: 0.9% Saline Lock 10 ML Syringe IV (03:01)
[2023-06-17 03:12] LABS: Absolute Lymphocyte Count 0.94 X10^3/uL (0.83-4.51); Absolute Neutrophil Count 17.6 X10^3/uL (2.0-7.7); Basophil# 0.07 X10^3/uL; Basophil% 0.3 % (0-1); Hematocrit 35.8 % (40-54); Hemoglobin 11.6 g/dL (13.0-16.5); Lymphocyte # 0.94 X10^3/ul (0.83-4.51); Lymphocyte % 4.6 % (19-41); Mean Corp Hgb Conc 32.4 g/dL (32-36); Mean Corpuscular Hgb 27.8 pg (27.0-32.0); Mean Corpuscular Volume 85.9 fL (80-94); Mean Platelet Vol. 8.7 fl (6.2-12.0); Monocyte# 1.53 X10^3/uL; Monocyte% 7.5 % (0-10); NRBC Flagged by Analyzer 0 % (0-5); Neutrophil # 17.64 X10^3/uL (2.7-7.7); Neutrophil % 86.9 % (47-70); POSITIVE DIFFERENTIAL YES; POSITIVE MORPHOLOGY YES; Platelet Count 187 K/mm3 (150-450); RBC Distribution Width SD 43.9 fl (35.1-43.9); Red Blood Count 4.17 M/mm3 (4.6-6.2); White Blood Count 20.3 K/mm3 (4.4-11.0)
[2023-06-17 03:16] LABS: Differential Indicated SCAN CRITERIA MET
[2023-06-17 03:23] LABS: Bedside Glucose 268 mg/dL (74-106)
[2023-06-17 03:43] LABS: Differential Comment SCANNED
[2023-06-17 03:52] LABS: AST(SGOT) 51 U/L (15-37); Alanine Aminotransfer ALT/SGPT 56 U/L (16-61); Albumin, Serum 2.1 g/dL (3.2-5.0); Alkaline Phosphatase 77 U/L (45-117); Anion Gap 6 (5-15); BUN 39 mg/dL (7-18); BUN/Creat Ratio 28.5 RATIO (10-20); Bilirubin, Direct 1.69 mg/dL (0.00-0.30); Calcium,Total 5.6 mg/dL (8.5-10.1); Chloride 101 mmol/L (98-107); Creatinine, Serum 1.37 mg/dL (0.70-1.30); EST Glomerular Filtration Rate 58 mL/min (>60); Est Glom Filt Rate - Afr Amer 71 mL/min (>60); Estimated Creatinine Clearance 58.21 ml/min; Globulin 3.7 g/dL (2.2-4.2); Glucose 254 mg/dL (74-106); Potassium 4.1 mmol/L (3.5-5.1); Protein, Total 5.8 g/dL (6.4-8.2); Sodium Level 130 mmol/L (136-145)
[2023-06-17] MEDS: VIAFLEX IV ×3 (05:15→20:51)
[2023-06-17] MEDS: METRONIDAZOLE IV ×3 (05:15→20:51)
[2023-06-17] MEDS: Acetaminophen 325 MG Tablet 650 MG PO ×3 (05:22→20:50)
[2023-06-17 06:55] LABS: Magnesium 1.7 mg/dL (1.6-2.6)
[2023-06-17 07:00] LABS: Phosphorus 1.1 mg/dL (2.5-4.9)
--- NOTE | 2023-06-17 07:21 | PN.HOSP_ITS ---
Reason for Visit Reason for Visit: Diagnoses Calculus of gallbladder without cholecystitis without obstruction (06/14/23) Biliary acute pancreatitis without necrosis or infection (06/14/23) Acute kidney failure, unspecified (06/14/23) Objective Data Objective Data Vital Signs: Vital Signs Temp Pulse Resp BP Pulse Ox O2 Del Method O2 Flow Rate 100.4 F H 110 H 21 H 111/76 98 Bi-pap 6 06/17/23 07:00 06/17/23 07:00 06/17/23 07:00 06/17/23 07:00 06/17/23 07:00 06/17/23 07:00 06/17/23 03:34 FiO2 30 06/17/23 07:00 Oxygen Flow Rate (L/min) 6 Oxygen Delivery Method Bi-pap Weight: 299 lb 6.204 oz Body Mass Index (BMI) 48.1 Intake & Output: Intake and Output for Last 24 Hours 06/15/23 06/16/23 06/17/23 23:59 23:59 23:59 Intake Total 6194.99 / 6194.99 3377.5 / 3377.5 2536.67 / 2536.67 Output Total 1575 / 1575 650 / 650 Balance 6194.99 / 6194.99 1802.5 / 1802.5 1886.67 / 1886.67 Lab / Micro Data 06/17/23 03:04 06/17/23 03:04 Labs: Laboratory Results - last 24 hr 06/16/23 07:48: POC Glucose 357 H 06/16/23 09:30: Lactic Acid 1.9 06/16/23 11:55: POC Glucose 348 H 06/16/23 16:10: POC Glucose 336 H 06/16/23 21:09: POC Glucose 286 H 06/17/23 03:00: POC Glucose 268 H 06/17/23 03:04: WBC 20.3 H, RBC 4.17 L, Hgb 11.6 L, Hct 35.8 L, MCV 85.9, MCH 27.8, MCHC 32.4, RDW Std Deviation 43.9, RDW Coeff of Rae 14.0, Plt Count 187, MPV 8.7, Immature Gran % (Auto) 0.700, Neut % (Auto) 86.9 H, Lymph % (Auto) 4.6 L, [place] % (Auto) 7.5, Eos % (Auto) 0.0, Baso % (Auto) 0.3, Absolute Neuts (auto) 17.6 H, Absolute Lymphs (auto) 0.94, Nucleated RBC % 0, Differential Comment SCANNED, Diff Path Review January foll, Sodium 130 L, Potassium 4.1, Chloride 101, Carbon Dioxide 23.0, Anion Gap 6, BUN 39 H, Creatinine 1.37 H, Estim Creat Clear Calc 58.21, Est GFR (MDRD) Af Amer 71, Est GFR (MDRD) Non-Af 58 L, BUN/Creatinine Ratio 28.5 H, Glucose 254 H, Calcium 5.6 L*, Phosphorus 1.1 L*, Magnesium 1.7, Total Bilirubin 2.20 H, Direct Bilirubin 1.69 H, AST 51 H, ALT 56, Alkaline Phosphatase 77, Total Protein 5.8 L, Albumin 2.1 L, Globulin 3.7 ABG Data ABG results: ABG 06/16/23 21:57 Specimen Type ART Sample Site L Radial pH 7.39 Bicarbonate Actual 19.4 L Total CO2 20 Base Excess -6 L O2 Saturation 98 O2 % 6.0 ABG pCO2 31.9 L ABG pO2 101 H Miguelito Test Positive O2 Delivery Device Cannula Vent Mode Not entered Physical Exam Const Constitutional Narrative: Low-grade fever, Tmax 100.4 F. Patient shortness of breath improved. Patient states his abdominal pain is better but still distended. No chest pain. He states pain is slightly better. Currently BiPAP patient is to nasal cannula 6 L. Physical exam General: Alert, Oriented x3, Cooperative, morbid obese BMI 44.250/m?. Start of breath HEENT: Atraumatic, PERRLA, EOMI, Normocephalic Oral: Oral mucosa dry. BiPAP changed to nasal cannula. Neck: Supple, No JVD, Negative Carotid Bruits Lungs: Air entry diminished in bilateral lung bases. No crepitation/rhonchi Cardiovascular: Regular rate, Regular Rhythm, Normal S1, Normal S2, No murmurs Abdomen: Bowel Sounds sluggish, Soft, mild tenderness present in epigastric. Mild abdominal distention. : No renal angle tenderness. No suprapubic tenderness. Extremities: No edema, Capillary Refill Less than 3 Seconds Skin: No rashes, No breakdown Musculoskeletal: No Tenderness to Palpation of Joints or Extremities Neurological: Cranial nerves II-XII grossly intact, DTR 2+/4. No acute focal neurological deficit. Psych/Mental Status: Flat affect Assessment & Plan Assessment/Plan (1) Gallstone pancreatitis: PLAN: Plan Patient is a 48-year-old male with history of type 2 diabetes, morbid obesity, hypertension and hyperlipidemia who presented to [facility] ED on 06/13/2023 with pain about 2 hours prior to ED arrival. No fever or chills. 1. Suspected gallstone pancreatitis: Patient is being admitted in PCU CT abdomen pelvis with IV contrast showed cholelithiasis and acute pancreatitis. Patient notably on a GLP-1 agonist, semaglutide for diabetes, which is associated with increased risk of gallbladder disease. WBC count 20 on admit, lactate 3.1, T. bili 1.5, AST 280, ALT 208, alk phos 129, lipase greater than 5000. There is increase in total bilirubin to 2.5, mainly direct 1.83, increasing ALT but alkaline phosphatase did not show change Discussed with the surgeon. Plan for ERCP by Dr. Batista for hepatobiliary, pancreatic cyst decompression. Further decision about inpatient cholecystectomy are elective cholecystectomy after discharge depends upon ERCP and stenting if required. If patient remains in the hospital on the weekend then laparoscopic cholecystectomy on Saturday. Pain control. Levaquin as he is allergic to penicillin. 06/15: Patient had ERCP on 06/14, biliary sphincterotomy was done, biliary tree swept and 1 temporary stent was placed into CBD.Patient had worsening leukocytosis mainly neutrophilia, lymphopenia. Afebrile.Total bili better than yesterday direct bilirubin 1.44. Transaminases and alkaline phosphatase got better after ERCP. Continue IV antibiotic Levaquin. Chest x-ray images reviewed shows bibasilar atelectasis. Incentive spirometer and Mucinex DM. Patient already on antibiotic. 06/17: Patient had low-grade fever. Hematocrit decreased to 35.8% with IV fluid Ringer lactate 200/h. IV fluids decreased to 150 mill per hour for 2 L. Acute hypoxic respiratory failure exact etiology unclear but possible may be pulmonary edema from IV fluids/gallstone pancreatitis potential sleep apnea: Patient had productive cough and low-grade fever. Continue IV Levaquin. Sputum culture ordered. BiPAP transition to nasal cannula. Patient is transferred to PCU. 06/16: Sepsis due to suspected gallstone pancreatitis, most likely after ERCP : 06/16: Patient is transferred to ICU.06/16: Patient very short of breath, tachycardic tachypneic low-grade fever suspicion for infection/hepatobiliary. Flagyl added. Leukocytosis 23,000 no big change from yesterday. Mainly neutro philia, lymphopenia. ESR CRP elevated. Lactic acidosis 2.5, increased from 2.0. Suspicion of sepsis or high risk going to sepsis the patient has clinical indicators of fever, tachycardia, tachypnea, hypoxia, leukocytosis elevated ESR and CRP with sepsis due to hepatobiliary/biliary pancreatitis with acute sepsis- related organ dysfunction as evidenced by acute hypoxic respiratory failure requiring BiPAP and MICHELLE and lactic acidosis. I talked to the patient's daughter and explained the diagnosis, hospital course and management. Apparel Fashion Designer consulted. 06/17: Decrease in leukocytosis. 2. MICHELLE Likely prerenal secondary to volume ablation in setting of pancreatitis as noted above. Creatinine 1.52 on admission, baseline creatinine appears to be around 0.9-1. 06/14: Creatinine shows improvement 1.24. 10/15: BUNs/creatinine increased 46/2.46, estimated creatinine clearance 32 mill per minute. Hypocalcemia, corrected calcium 7.1. Twelve-lead EKG ordered For hyperkalemia K5.2. Calcium chloride 1 g IV piggyback ordered. Patient has metabolic acidosis 06/16: Calcium low therefore calcium gluconate ordered. Recovery Engineer consult reviewed and appreciated. 06/17: Patient creatinine decreased to 1.37. No RESTAURANT KITCHEN AND SERVICE MANAGER's.Patient is still has hypocalcemia 5.6 secondary to pancreatitis. Serum sodium 130 better.. Chronic medical conditions: ? Type 2 diabetes: Home medications of GLP-1 agonist, unclear which one as several are noted on his home medication list. Blood glucose in the 300s on adm ission. Sliding scale insulin while inpatient. A1c ordered. ? Hypertension: Holding home lisinopril in setting of MICHELLE as noted above, restart as needed. ? Hyperlipidemia: Continue home rosuvastatin. DVT prophylaxis: Lovenox CODE STATUS: Full code, verified Total time of the visit including total time spent in counseling or coordination of care, (more than 50% of the total time, spent in obtaining medical information from nurses and other ancillary care providers,explaining to the patient about labs, imaging, diagnosis and management of active complex medical conditions), discussion with surgeon, manufacturing machine operator has been insidious, review of labs and imaging, diagnosis and prognosis to patient's daughter is 50 minutes. Charges/Coding Visit Charges Inpatient E&M: 32760 Subs Hosp L3
--- NOTE | 2023-06-17 08:04 | CON.PCM.CC_ITS ---
Assessment & Plan Assessment/Plan (1) Gallstone pancreatitis: (2) MICHELLE (acute kidney injury): (3) Acute respiratory failure with hypoxia: PLAN: Plan RECOMMENDATIONS: 1. Aggressive pain control and pulmonary recruitment measures 2. Wean oxygen as tolerated 3. Outpatient PSG 4. Wean oxygen as tolerated. Encourage mobility as tolerated 5. Electrolyte repletion as tolerated 6. Obtain sputum culture IMPRESSIONS: 1. Acute hypoxic respiratory failure Unclear etiology at this time. Patient may have an element of pulmonary edema secondary to gallstone pancreatitis. Patient also has a body habitus significant for potential sleep apnea and does have some narcotics secondary to gallstone pancreatitis. Pulmonary edema would be another consideration, but patient has stabilized at this time. Nursing is reporting a productive cough and patient has had fever. Clinical suspicion is fevers from pancreatitis, but will send sputum for culture. Patient is being treated with Levaquin at this time. Patient does appear to have an element of splinting also and would benefit from mobilization and incentive spirometer. ABG is more suggestive of tachypnea for compensation of metabolic acidosis 2. Acute kidney injury secondary to gallstone pancreatitis Patient's baseline creatinine appears to be 0.9 and presented with a creatinine of 1.52. Clinical suspicion for gallstone pancreatitis leading to current findings. Patient did get some calcium over the course of his hospitalization. Nephrology has been consulted. No indication for renal replacement therapy at this time and creatinine appears to be relatively stable. Electrolyte repletion as tolerated. 3. Type 2 diabetes mellitus/hypertension/hyperlipidemia/morbid obesity/history of asthma Complicates care, management, recovery and prognosis. Blood sugars are marginally controlled at this time. Patient is receiving significant volume resuscitation given his pancreatitis. Patient does not have significant wheezing on exam to suggest an asthma exacerbation. We will hold off on steroi ds as this could exacerbate diabetes. Lisinopril is held secondary to acute kidney injury, but blood pressures are acceptable at this time HPI Consult Data Date of Consult: 06/17/23 HPI Narrative HPI Narrative: BRENDON VARGAS is a 48 M, with past medical history listed below, who presented to [facility] 06/13/2023 secondary to acute onset of abdominal pain approximately 2 hours prior to arrival. Patient had described this in the manoj ter of his abdomen with discomfort going to his left shoulder. Patient denied any previous similar pains, fevers, chills or urinary symptoms. Patient reportedly had his last bowel movement prior to presentation and described it as claylike without melena or hematochezia. Patient reportedly did not have any history of previous abdominal surgeries. Patient does have diabetes and does take Trulicity. In the ER, patient was afebrile, normotensive and saturating only 91% on room air. Patient eventually was placed on nasal cannula to maintain appropriate saturations. Laboratory work-up showed a white blood cell count of 20.2, hemoglobin 15.4 and platelets of 228. Patient was noted to have an elevated creatinine of 1.52 with a glucose of 310, lactate of 3.1 and elevated liver enzymes. Lipase was noted to be greater than 5000. A CT of the abdomen showed acute pancreatitis with cholelithiasis and a chest x-ray was within normal limits. Patient was admitted to the PCU for further evaluation. Patient ultimately was found to have gallstone pancreatitis and had an ERCP with stent placement. Overnight, patient started to have an increased work of breathing and was transferred to the intensive care unit for further evaluation. Patient has been on BiPAP and nasal cannula intermittently throughout the evening. No hypotension has been reported. Patient did have a mild fever of 38.3 ?C. Patient overall feels as abdominal pain is grossly unchanged compared to previous. Patient denies any nausea or vomiting. ABG showed adequate oxygenation and ventilation on nasal cannula. Nursing has reported patient has a productive cough. Patient does report a history of asthma, but does not use any inhalers at baseline. Patient states he has never had a sleep study, but does report snoring. Patient is not reporting any nausea or vomiting at this time. Review of systems otherwise negative from a constitutional, HEENT, respiratory, cardiovascular, GI, genitourinary, musculoskeletal, skin, neurologic, psychiatric and hematologic system unless stated above. [facility] Medical History Anxiety and depression Asthma Dental caries Diabetes Erectile dysfunction Gingival and periodontal disease history infection foot Neuropathy Obesity Home Medications pen needle, diabetic, safety 30 gauge x 1/3 #50 ea 11/11/19 [Rx Last Taken Unknown] hydrocortisone 2.5 % topical cream 1 applic topical BID PRN rash #30 grams 11/18/20 [Rx Last Taken Unknown] lisinopril 2.5 mg tablet 2.5 mg PO DAILY #90 tabs 09/05/21 [Rx Last Taken 06/13] sildenafil 50 mg tablet 50 mg PO DAILY PRN sexual activity #30 tabs 11/16/22 [Rx Last Taken Unknown] tirzepatide 5 mg/0.5 mL subcutaneous pen injector (Mounjaro) 5 mg (0.5 mL) subcut QWEEK #2 mL 11/16/22 [Rx Last Taken Unknown] rosuvastatin 5 mg tablet (Crestor) 5 mg PO DAILY #90 tabs 11/20/22 [Rx Last Taken Unknown] semaglutide 1 mg/dose (4 mg/3 mL) subcutaneous pen injector (Ozempic) 1 mg (0.75 mL) subcut QWEEK #3 mL 11/29/22 [Rx Last Taken Unknown] dulaglutide 1.5 mg/0.5 mL subcutaneous pen injector (Trulicity) See Rx Instructions .Route .COMPLEX #4 mL 04/19/23 [Rx Last Taken 06/09/23] Allergy/AdvReac Type Severity Reaction Status Date / Time Penicillins Allergy Unknown Verified 06/13/23 21:04 Family History Father Lung cancer Mother Lung cancer Other Alcoholism Asthma Respiratory disease Surgical History No history of previous surgery Surgical History no surgical history Social History Smoking Status: Never smoker alcohol intake: current alcohol intake frequency: a few times a month Alcohol type: hard liquor substance use type: does not use what type of physical activity do you participate in: none ROS ROS Narrative See HPI Physical Exam Const alert and oriented x3 Constitutional Narrative: Morbidly obese. No conversational dyspnea. RASS 0 General Appearance: in distress Positive for mild (Pain) HEENT normocephalic and head/scalp atraumatic HEENT Narrative: Crowded posterior pharynx Eyes PERRL, EOMs intact bilaterally, conjunctivae normal and no scleral icterus Neck full ROM, no lymphadenopathy and no JVD Chest inspection of chest normal Resp no use of accessory muscles Auscultation: diminished lung sounds diffuse (Likely from body habitus); Negative for rales, rhonchi or wheezes Cardio regular rhythm, S1 normal heart sound, S2 normal heart sound, no murmurs, no rub and no gallops Rate: tachycardic GI Palpation: tender periumbilical; Negative for guarding, rigid or ascites Extremity no clubbing, cyanosis or edema Skin no rashes or lesions noted Neuro oriented x3, CN's II-XII intact bilaterally, moves all extremities and no focal motor deficits Psych affect normal Activity / Motor Behavior: restless Medical Records Data Attestation: I reviewed the patient's medical records Lab / Micro Data Attestation: I reviewed the patient's lab results. 06/17/23 03:04 06/17/23 03:04 Labs: Laboratory Results - last 24 hr 06/16/23 07:48: POC Glucose 357 H 06/16/23 09:30: Lactic Acid 1.9 06/16/23 11:55: POC Glucose 348 H 06/16/23 16:10: POC Glucose 336 H 06/16/23 21:09: POC Glucose 286 H 06/17/23 03:00: POC Glucose 268 H 06/17/23 03:04: WBC 20.3 H, RBC 4.17 L, Hgb 11.6 L, Hct 35.8 L, MCV 85.9, MCH 27.8, MCHC 32.4, RDW Std Deviation 43.9, RDW Coeff of Rae 14.0, Plt Count 187, MPV 8.7, Immature Gran % (Auto) 0.700, Neut % (Auto) 86.9 H, Lymph % (Auto) 4.6 L, [address] % (Auto) 7.5, Eos % (Auto) 0.0, Baso % (Auto) 0.3, Absolute Neuts (auto) 17.6 H, Absolute Lymphs (auto) 0.94, Nucleated RBC % 0, Differential Comment SCANNED, Diff Path Review January, Sodium 130 L, Potassium 4.1, Chloride 101, Carbon Dioxide 23.0, Anion Gap 6, BUN 39 H, Creatinine 1.37 H, Estim Creat Clear Calc 58.21, Est GFR (MDRD) Af Amer 71, Est GFR (MDRD) Non-Af 58 L, BUN/Cre atinine Ratio 28.5 H, Glucose 254 H, Calcium 5.6 L*, Phosphorus 1.1 L*, Magnesium 1.7, Total Bilirubin 2.20 H, Direct Bilirubin 1.69 H, AST 51 H, ALT 5 6, Alkaline Phosphatase 77, Total Protein 5.8 L, Albumin 2.1 L, Globulin 3.7 ABG Data ABG results: ABG 06/16/23 21:57 Specimen Type ART Sample Site L Radial pH 7.39 Bicarbonate Actual 19.4 L Total CO2 20 Base Excess -6 L O2 Saturation 98 O2 % 6.0 ABG pCO2 31.9 L ABG pO2 101 H Miguelito Test Positive O2 Delivery Device Cannula Vent Mode Not entered Attestation: I personally reviewed and interpreted this ABG as follows: (Fully compensated metabolic acidosis with increased AA gradient) Rhythm Strip Rhythm Strip: Sinus Tach Rate: 110 Charges/Coding Visit Charges Inpatient E&M: 79222 Init Hosp L3
[2023-06-17 08:23] LABS: Bedside Glucose 250 mg/dL (74-106)
[2023-06-17 08:35] LABS: Bedside Glucose 475 mg/dL (74-106)
[2023-06-17 08:35] LABS: Bedside Glucose 469 mg/dL (74-106)
[2023-06-17] MEDS: Insulin Lispro 100 UNIT/ML INSULN.PEN 13 UNIT SC ×3 (08:51→16:18)
[2023-06-17] MEDS: Sodium Phosphate/Na Biphos 40 MMOL in 0.9% Normal Saline (500mL Bag) 500 ML 62.5 MMOL IV (08:51)
[2023-06-17] MEDS: guaiFENesin/D-Methorphan TAB.SR.12H 1 TABLET PO ×2 (08:52→20:50)
[2023-06-17] MEDS: Enoxaparin 40 MG/0.4 ML Syringe SC (08:52)
[2023-06-17] MEDS: Polyethylene Glycol 3350 17 GM PACKET PO (08:52)
[2023-06-17] MEDS: Senna/Docusate Sodium 1 Tablet PO ×2 (09:01→20:50)
[2023-06-17] MEDS: 0.9% Normal Saline (250mL Bag) 250 ML 15 ML IV (10:27)
--- NOTE | 2023-06-17 11:58 | PCM.PN.REN ---
Subjective Subjective No new complaints. Abdomen is fairly distended. Breathing appears okay. Good urine output. Urine appears still concentrated. Objective Data Objective Data Vital Signs: Vital Signs Temp Pulse Resp BP Pulse Ox O2 Del Method O2 Flow Rate 100.1 F H 110 H 22 H 127/73 H 98 Nasal Cannula 1 06/17/23 10:00 06/17/23 10:00 06/17/23 10:00 06/17/23 10:00 06/17/23 10:01 06/17/23 10:01 06/17/23 10:01 FiO2 30 06/17/23 07:00 Oxygen Flow Rate (L/min) 1 Oxygen Delivery Method Nasal Cannula Weight: 135.8 kg Body Mass Index (BMI) 48.1 Intake & Output: Intake and Output for Last 24 Hours 06/15/23 06/16/23 06/17/23 23:59 23:59 23:59 Intake Total 6194.99 / 6194.99 3377.5 / 3377.5 4049.17 / 4049.17 Output Total 1575 / 1575 1100 / 1100 Balance 6194.99 / 6194.99 1802.5 / 1802.5 2949.17 / 2949.17 Lab / Micro Data 06/17/23 03:04 06/17/23 03:04 Labs: Laboratory Results - last 24 hr 06/15/23 00:03: POC Glucose 475 H* 06/15/23 00:13: POC Glucose 469 H* 06/16/23 11:55: POC Glucose 348 H 06/16/23 16:10: POC Glucose 336 H 06/16/23 21:09: POC Glucose 286 H 06/17/23 03:00: POC Glucose 268 H 06/17/23 03:04: WBC 20.3 H, RBC 4.17 L, Hgb 11.6 L, Hct 35.8 L, MCV 85.9, MCH 27.8, MCHC 32.4, RDW Std Deviation 43.9, RDW Coeff of Rae 14.0, Plt Count 187, MPV 8.7, Immature Gran % (Auto) 0.700, Neut % (Auto) 86.9 H, Lymph % (Auto) 4.6 L, [place] % (Auto) 7.5, Eos % (Auto) 0.0, Baso % (Auto) 0.3, Absolute Neuts (auto) 17.6 H, Absolute Lymphs (auto) 0.94, Nucleated RBC % 0, Differential Comment SCANNED, Diff Path Review January foll, Sodium 130 L, Potassium 4.1, Chloride 101, Carbon Dioxide 23.0, Anion Gap 6, BUN 39 H, Creatinine 1.37 H, Estim Creat Clear Calc 58.21, Est GFR (MDRD) Af Amer 71, Est GFR (MDRD) Non-Af 58 L, BUN/Creatinine Ratio 28.5 H, Glucose 254 H, Calcium 5.6 L*, Phosphorus 1.1 L*, Magnesium 1.7, Total Bilirubin 2.20 H, Direct Bilirubin 1.69 H, AST 51 H, ALT 56, Alkaline Phosphatase 77, Total Protein 5.8 L, Albumin 2.1 L, Globulin 3.7 06/17/23 08:06: POC Glucose 250 H Micro: Microbiology 06/17/23 06:31 Sputum, Expectorated/Coughed Gram Stain - Final ABG Data ABG results: ABG 06/16/23 21:57 Specimen Type ART Sample Site L Radial pH 7.39 Bicarbonate Actual 19.4 L Total CO2 20 Base Excess -6 L O2 Saturation 98 O2 % 6.0 ABG pCO2 31.9 L ABG pO2 101 H Miguelito Test Positive O2 Delivery Device Cannula Vent Mode Not entered Rhythm Strip Rhythm Strip: Sinus Tach Rate: 110 Physical Exam Narrative Alert awake oriented x 3 no obvious distress no pallor no icterus no JVD s1s2 no murmurs lungs clear abdomen soft no organomegaly no edema no cyanosis Assessment & Plan Assessment/Plan (1) MICHELLE (acute kidney injury): PLAN: Baseline creatinine is around 1.0-1.1. No albuminuria at baseline. Diabetes has been well controlled. Came in with pancreatitis, gallstone related. He is s/p ERCP and stent placement. Creatinine is better today. Urine appears still concentrated. Coreas catheter can be removed from nephrology standpoint. Hypocalcemia. In the setting of pancreatitis. Repleted this a.m. Hypophosphatemia. Has been repleted this a.m. Discussed with hospitalist
[2023-06-17 12:09] LABS: Bedside Glucose 221 mg/dL (74-106)
[2023-06-17] MEDS: Metoclopramide 10 MG/2 ML Vial 5 MG IV ×2 (12:36→16:19)
--- NOTE | 2023-06-17 13:12 | EX.PCM.PN.GI ---
Subjective Subjective Patient was seen and examined this morning. He is up in a chair and out of bed. He does complain of some epigastric pain. He denies any chest pain or shortness of breath. He has been maintained off of supplemental oxygen. He did have 1 bowel movement. Objective Data Objective Data Vital Signs: Vital Signs Temp Pulse Resp BP Pulse Ox O2 Del Method O2 Flow Rate 100.1 F H 110 H 22 H 127/73 H 98 Nasal Cannula 1 06/17/23 10:00 06/17/23 10:00 06/17/23 10:00 06/17/23 10:00 06/17/23 10:01 06/17/23 10:01 06/17/23 10:01 FiO2 30 06/17/23 07:00 Oxygen Flow Rate (L/min) 1 Oxygen Delivery Method Nasal Cannula Weight: 299 lb 6.204 oz Body Mass Index (BMI) 48.1 Intake & Output: Intake and Output for Last 24 Hours 06/15/23 06/16/23 06/17/23 23:59 23:59 23:59 Intake Total 6194.99 / 6194.99 3377.5 / 3377.5 4169.17 / 4169.17 Output Total 1575 / 1575 1400 / 1400 Balance 6194.99 / 6194.99 1802.5 / 1802.5 2769.17 / 2769.17 Lab / Micro Data 06/17/23 03:04 06/17/23 03:04 Labs: Laboratory Results - last 24 hr 06/15/23 00:03: POC Glucose 475 H* 06/15/23 00:13: POC Glucose 469 H* 06/16/23 11:55: POC Glucose 348 H 06/16/23 16:10: POC Glucose 336 H 06/16/23 21:09: POC Glucose 286 H 06/17/23 03:00: POC Glucose 268 H 06/17/23 03:04: WBC 20.3 H, RBC 4.17 L, Hgb 11.6 L, Hct 35.8 L, MCV 85.9, MCH 27.8, MCHC 32.4, RDW Std Deviation 43.9, RDW Coeff of Rae 14.0, Plt Count 187, MPV 8.7, Immature Gran % (Auto) 0.700, Neut % (Auto) 86.9 H, Lymph % (Auto) 4.6 L, [place] % (Auto) 7.5, Eos % (Auto) 0.0, Baso % (Auto) 0.3, Absolute Neuts (auto) 17.6 H, Absolute Lymphs (auto) 0.94, Nucleated RBC % 0, Differential Comment SCANNED, Diff Path Review January, Sodium 130 L, Potassium 4.1, Chloride 101, Carbon Dioxide 23.0, Anion Gap 6, BUN 39 H, Creatinine 1.37 H, Estim Creat Clear Calc 58.21, Est GFR (MDRD) Af Amer 71, Est GFR (MDRD) Non-Af 58 L, BUN/Creatinine Ratio 28.5 H, Glucose 254 H, Calcium 5.6 L*, Phosphorus 1.1 L*, Magnesium 1.7, Total Bilirubin 2.20 H, Direct Bilirubin 1.69 H, AST 51 H, ALT 56, Alkaline Phosphatase 77, Total Protein 5.8 L, Albumin 2.1 L, Globulin 3.7 06/17/23 08:06: POC Glucose 250 H 06/17/23 11:49: POC Glucose 221 H Micro: Microbiology 06/17/23 06:31 Sputum, Expectorated/Coughed Gram Stain - Final ABG Data ABG results: ABG 06/16/23 21:57 Specimen Type ART Sample Site L Radial pH 7.39 Bicarbonate Actual 19.4 L Total CO2 20 Base Excess -6 L O2 Saturation 98 O2 % 6.0 ABG pCO2 31.9 L ABG pO2 101 H Miguelito Test Positive O2 Delivery Device Cannula Vent Mode Not entered Rhythm Strip Rhythm Strip: Sinus Tach Rate: 110 Physical Exam Narrative Alert awake oriented x 3 no obvious distress no pallor no icterus no JVD s1s2 no murmurs lungs clear abdomen soft no organomegaly no edema no cyanosis Assessment & Plan Assessment/Plan (1) Gallstone pancreatitis: (2) Cholelithiasis: (3) MICHELLE (acute kidney injury): PLAN: Plan Patient is a 48-year-old male with history of type 2 diabetes, morbid obesity, hypertension and hyperlipidemia who presented to [facility] ED on 06/13/2023 with severe abdominal pain. Gallstone pancreatitis Presented with acute onset upper abdominal pain. CT abdomen pelvis with IV contrast showed cholelithiasis and acute pancreatitis. Patient notably on a GLP-1 agonist for diabetes, which is associated with increased risk of gallbladder disease. WBC count 20 on admit, lactate 3.1, T. bili 1.5, AST 280, ALT 208, alk phos 129, lipase greater than 5000. ? Hematocrit has been used as a predictor of severity of acute pancreatitis.His hematocrit did not decrease in the first 24 hours. Therefore I switched him to LR at 200 cc an hour and his hematocrit has decreased from 48-43. I think he needs to get his hematocrit less than 40%. We will increase his fluids back up to 200 an hour and monitor him closely for any respiratory distress. We will also repeat his chest x-ray to make sure that he is not going into fluid overload. I think his kidneys will do better with volume expansion. - Acute kidney injury likely secondary to acute pancreatitis. BUN and creatinine has possibly plateaued. Continue IV fluids. Monitor I's and O's 06/17-hematocrit is a lot better today. It is down to 38% from 40% with the use of lactated Ringer's at 200 cc an hour. His urinary output is 70 cc an hour. He did have 1 bowel movement. His inflammatory markers such as a CRP, ESR and lactic acid are all improving. Also his kidney function is improving with his BUN and creatinine ratio decreasing. I talk with his daughter today and explained to her all disease processes that are occurring at this time. He has had a persistent low-grade fever that is likely secondary to severe acute pancreatitis. When his creatinine is improved we can check his CT scan abdomen pelvis to make sure that there is no air or signs of severe necrosis. I recommend to encourage him to stay out of bed and move around along with administering Ensure 3-4 times a day. He is making good progress. I started him on metoclopramide because he likely has a relative gastroparesis secondary to severe pancreatitis along with a mild paralytic ileus. I will start him on Colace 100 mg p.o. twice daily. He is also getting supplemental calcium and phosphate for severe hypocalcemia and hypophosphatemia likely secondary to severe acute pancreatitis. Still guarded prognosis. Charges/Coding Visit Charges Inpatient E&M: 39715 Subs Hosp L3
[2023-06-17 15:28] LABS: Pathologist Review Reviewed
[2023-06-17] MEDS: Lactated Ringers 1,000 ML 150 ML IV (16:18)
[2023-06-17 16:50] LABS: Bedside Glucose 268 mg/dL (74-106)
[2023-06-17] MEDS: Atorvastatin Calcium 10 MG Tablet PO (20:50)
[2023-06-17] MEDS: levoFLOXacin IV 750 MG/150 ML BAG 100 MG IV (20:51)
--- NOTE | 2023-06-17 22:40 | CPS ---
Pt stated he had a panic attack and ripped mask off, couldn't wear it anymore. Pt also refused to wear nasal canula at this time.
[2023-06-17 23:04] LABS: Bedside Glucose 225 mg/dL (74-106)
[2023-06-18] VITALS (12 sets, daily range): BP systolic 124–161; BP diastolic 79–98; PULSE 112–137; RESP 22–31; TEMP 36.4–38.1; O2SAT 94–96
[2023-06-18] MEDS: Metoclopramide 10 MG/2 ML Vial 5 MG IV ×5 (02:33→22:42)
[2023-06-18] MEDS: Insulin Lispro 100 UNIT/ML INSULN.PEN SC ×5 (02:35→22:44)
[2023-06-18 02:57] LABS: Absolute Lymphocyte Count 0.99 X10^3/uL (0.83-4.51); Absolute Neutrophil Count 19.2 X10^3/uL (2.0-7.7); Basophil# 0.14 X10^3/uL; Basophil% 0.6 % (0-1); Eosinophil# 0.01 X10^3/uL; Hematocrit 34.4 % (40-54); Hemoglobin 11.7 g/dL (13.0-16.5); Lymphocyte # 0.99 X10^3/ul (0.83-4.51); Lymphocyte % 4.4 % (19-41); Mean Corpuscular Hgb 28.9 pg (27.0-32.0); Mean Corpuscular Volume 84.9 fL (80-94); Mean Platelet Vol. 8.5 fl (6.2-12.0); Monocyte# 1.82 X10^3/uL; NRBC Flagged by Analyzer 0.1 % (0-5); Neutrophil # 19.19 X10^3/uL (2.7-7.7); Neutrophil % 84.4 % (47-70); POSITIVE DIFFERENTIAL YES; Platelet Count 206 K/mm3 (150-450); RBC Distribution Width CV 14.2 % (11.6-14.6); Red Blood Count 4.05 M/mm3 (4.6-6.2); White Blood Count 22.7 K/mm3 (4.4-11.0)
[2023-06-18 02:58] LABS: Differential Indicated SCAN CRITERIA MET
[2023-06-18 03:18] LABS: Anion Gap 11 (5-15); BUN 15 mg/dL (7-18); BUN/Creat Ratio 24.8 RATIO (10-20); Calcium,Total 5.6 mg/dL (8.5-10.1); Chloride 103 mmol/L (98-107); EST Glomerular Filtration Rate 150 mL/min (>60); Est Glom Filt Rate - Afr Amer 182 mL/min (>60); Estimated Creatinine Clearance 132.92 ml/min; Glucose 200 mg/dL (74-106); Potassium 3.8 mmol/L (3.5-5.1); Sodium Level 134 mmol/L (136-145)
[2023-06-18 04:02] LABS: Bedside Glucose 232 mg/dL (74-106)
[2023-06-18 04:59] LABS: Differential Comment SCANNED
--- NOTE | 2023-06-18 06:38 | PN.CC_ITS ---
Assessment & Plan Assessment/Plan (1) Gallstone pancreatitis: (2) MICHELLE (acute kidney injury): (3) Acute respiratory failure with hypoxia: PLAN: Plan RECOMMENDATIONS: 1. Aggressive pain control and pulmonary recruitment measures 2. Encourage empiric BiPAP with sleep. PSG as outpatient 3. Discontinue Coreas catheter 4. Walking oximetry prior to discharge 5. Okay to reinitiate lisinopril from my perspective 6. Await sputum culture 7. Hemodynamically stable on room air. Will sign off from a critical care/pulmonary perspective IMPRESSIONS: 1. Acute hypoxic respiratory failure Clinical suspicion for pulmonary edema secondary to gallstone pancreatitis given rapid recovery. Patient may have an element of pulmonary edema secondary to gallstone pancreatitis. Patient also has a body habitus significant for po tential sleep apnea and does have some narcotics secondary to gallstone pancreatitis. Sputum culture is currently pending. Nursing is reporting a productive cough and patient has had fever. Clinical suspicion is fevers from pancreatitis, but will send sputum for culture. Patient is being treated with Levaquin at this time for pancreatic issues. Patient would require only 5 days of Levaquin from a pulmonary perspective if cultures are positive. Patient does appear to have an element of splinting also and would benefit from mobilization and incentive spirometer. ABG is more suggestive of tachypnea for compensation of metabolic acidosis 2. Acute kidney injury secondary to gallstone pancreatitis Resolved. Patient's baseline creatinine appears to be 0.9 and presented with a creatinine of 1.52. Clinical suspicion for gallstone pancreatitis leading to current findings. Patient did get some calcium over the course of his hospitalization. Nephrology has been consulted. Renal function has normalized 3. Type 2 diabetes mellitus/hypertension/hyperlipidemia/morbid obesity/history of asthma Complicates care, management, recovery and prognosis. Blood sugars are marginally controlled at this time. Patient is receiving significant volume resuscitation given his pancreatitis. Patient does not have significant wheezing on exam to suggest an asthma exacerbation. We will hold off on steroids as this could exacerbate diabetes. Likely okay to reinitiate lisinopril from my perspective Subjective Subjective Patient did okay overnight. Patient continues to have abdominal discomfort, but did not report any pain this morning. Patient wore his CPAP for approximately 30 minutes overnight, but is on room air this morning. Patient is not reporting any nausea. Objective Data Objective Data Vital Signs: Vital Signs Temp Pulse Resp BP Pulse Ox O2 Del Method O2 Flow Rate 37.2 C 112 H 22 H 155/98 H 96 Room Air 1 06/18/23 02:30 06/18/23 02:30 06/18/23 02:30 06/18/23 02:30 06/18/23 02:30 06/18/23 02:30 06/17/23 10:01 FiO2 30 06/17/23 21:17 Oxygen Flow Rate (L/min) 1 Oxygen Delivery Method Room Air Weight: 135.8 kg Body Mass Index (BMI) 48.1 Intake & Output: Intake and Output for Last 24 Hours 06/16/23 06/17/23 06/18/23 23:59 23:59 23:59 Intake Total 3377.5 / 3377.5 5968.3333 / 5968.3333 1200 / 1200 Output Total 1575 / 1575 1875 / 1875 Balance 1802.5 / 1802.5 4093.3333 / 4093.3333 1200 / 1200 Lab / Micro Data Attestation: I reviewed the patient's lab results. 06/18/23 02:51 06/18/23 02:51 Labs: Laboratory Results - last 24 hr 06/15/23 00:03: POC Glucose 475 H* 06/15/23 00:13: POC Glucose 469 H* 06/17/23 03:04: Diff Path Review Reviewed, Phosphorus 1.1 L*, Magnesium 1.7 06/17/23 08:06: POC Glucose 250 H 06/17/23 11:49: POC Glucose 221 H 06/17/23 16:17: POC Glucose 268 H 06/17/23 20:48: POC Glucose 225 H 06/18/23 02:32: POC Glucose 232 H 06/18/23 02:51: WBC 22.7 H, RBC 4.05 L, Hgb 11.7 L, Hct 34.4 L, MCV 84.9, MCH 28.9, MCHC 34.0, RDW Std Deviation 44.0 H, RDW Coeff of Rae 14.2, Plt Count 206, MPV 8.5, Immature Gran % (Auto) 2.600 H, Neut % (Auto) 84.4 H, Lymph % (Auto) 4.4 L, [place] % (Auto) 8.0, Eos % (Auto) 0.0, Baso % (Auto) 0.6, Absolute Neuts (auto) 19.2 H, Absolute Lymphs (auto) 0.99, Nucleated RBC % 0.1, Differential Comment SCANNED, Diff Path Review January foll, Sodium 134 L, Potassium 3.8, Chloride 103, Carbon Dioxide 20.0 L, Anion Gap 11, BUN 15, Creatinine 0.60 L, Estim Creat Clear Calc 132.92, Est GFR (MDRD) Af Amer 182, Est GFR (MDRD) Non-Af 150, BUN/Creatinine Ratio 24.8 H, Glucose 200 H, Calcium 5.6 L* Micro: Microbiology 06/17/23 06:31 Sputum, Expectorated/Coughed Gram Stain - Final Rhythm Strip Rhythm Strip: Sinus Tach Rate: 112 Physical Exam Const alert, oriented x3 and no apparent distress Constitutional Narrative: Morbidly obese. No conversational dyspnea. RASS 0 HEENT normocephalic and head/scalp atraumatic Eyes PERRL, EOMs intact bilaterally, conjunctivae normal and no scleral icterus Neck full ROM, no lymphadenopathy and no JVD Chest inspection of chest normal Resp no use of accessory muscles Auscultation: diminished lung sounds diffuse (Likely from body habitus); Negative for rales, rhonchi or wheezes Cardio regular rhythm, S1 normal heart sound, S2 normal heart sound, no murmurs, no rub and no gallops Rate: tachycardic GI Palpation: tender periumbilical (Mild); Negative for guarding, rigid or ascites Extremity no clubbing, cyanosis or edema Skin no rashes or lesions noted Neuro oriented x3, CN's II-XII intact bilaterally, moves all extremities and no focal motor deficits Psych cooperative Mood & Affect: flat affect Charges/Coding Visit Charges Inpatient E&M: 70031 Subs Hosp L2
--- NOTE | 2023-06-18 07:15 | CT_ITS ---
HISTORY: pancreatitis, check for necrosis. TECHNIQUE: Helically acquired images were obtained of the abdomen and pelvis after the intravenous administration of 100mL Isovue-300. A radiation dose optimization technique was used for this scan. 520 images. COMPARISON: 06/13/2023. FINDINGS: LOWER CHEST: Mild left pleural effusion with left lower lobe atelectasis. BOWEL: Bowel including appendix nondilated. Liquid stool in the colon with air closely associated with the splenic flexure wall. PERITONEUM: Increased mild ascites. LIVER: Fatty infiltration. GALLBLADDER/BILIARY TREE: Calcified and noncalcified gallstones. Interval placement of biliary stent. SPLEEN: Homogeneous and nonenlarged. PANCREAS: Increased peripancreatic stranding without rim-enhancing peripancreatic fluid collection. Decreased enhancement of the pancreatic body compared to prior. KIDNEYS/ADRENAL GLANDS: Unremarkable. VESSELS: No abdominal aortic aneurysm. Very mild atherosclerosis. PELVIC ORGANS: Mild air in the bladder, possible recent instrumentation. ABDOMINAL WALL: Subcutaneous edema. BONES: Degenerative change. CT/Abdomen/Pelvis W IV Cont ONLY IMPRESSION: Severe acute pancreatitis, increased from prior with concern for pancreatic necrosis. No pseudocyst. Increased mild ascites. Mild left pleural effusion. Hepatic steatosis. Cholelithiasis. Interval placement of common bile duct stent. Air along the splenic flexure colonic wall, favor pseudo-pneumatosis artifact secondary to liquid stool over pneumatosis. Electronically Signed: Vane Tinsley MD at 8:28 EDT ,
--- NOTE | 2023-06-18 07:16 | PCM.PN.SRG ---
Subjective Subjective Patient is a full liquid diet with no nausea or vomiting. He says his abdominal pain remains the same as it was when he came in here with pointing to both lower abdominal quadrants. He also has pain in the epigastric region. Objective Data Objective Data Vital Signs: Vital Signs Temp Pulse Resp BP Pulse Ox O2 Del Method O2 Flow Rate 99 F 112 H 22 H 155/98 H 96 Room Air 1 06/18/23 02:30 06/18/23 02:30 06/18/23 02:30 06/18/23 02:30 06/18/23 02:30 06/18/23 02:30 06/17/23 10:01 FiO2 30 06/17/23 21:17 Oxygen Flow Rate (L/min) 1 Oxygen Delivery Method Room Air Weight: 299 lb 6.204 oz Body Mass Index (BMI) 48.1 Intake & Output: Intake and Output for Last 24 Hours 06/16/23 06/17/23 06/18/23 23:59 23:59 23:59 Intake Total 3377.5 / 3377.5 5968.3333 / 5968.3333 1200 / 1200 Output Total 1575 / 1575 1875 / 1875 1100 / 1100 Balance 1802.5 / 1802.5 4093.3333 / 4093.3333 100 / 100 Lab / Micro Data 06/18/23 02:51 06/18/23 02:51 Labs: Laboratory Results - last 24 hr 06/15/23 00:03: POC Glucose 475 H* 06/15/23 00:13: POC Glucose 469 H* 06/17/23 03:04: Diff Path Review Reviewed 06/17/23 08:06: POC Glucose 250 H 06/17/23 11:49: POC Glucose 221 H 06/17/23 16:17: POC Glucose 268 H 06/17/23 20:48: POC Glucose 225 H 06/18/23 02:32: POC Glucose 232 H 06/18/23 02:51: WBC 22.7 H, RBC 4.05 L, Hgb 11.7 L, Hct 34.4 L, MCV 84.9, MCH 28.9, MCHC 34.0, RDW Std Deviation 44.0 H, RDW Coeff of Rae 14.2, Plt Count 206, MPV 8.5, Immature Gran % (Auto) 2.600 H, Neut % (Auto) 84.4 H, Lymph % (Auto) 4.4 L, [place] % (Auto) 8.0, Eos % (Auto) 0.0, Baso % (Auto) 0.6, Absolute Neuts (auto) 19.2 H, Absolute Lymphs (auto) 0.99, Nucleated RBC % 0.1, Differential Comment SCANNED, Diff Path Review January foll, Sodium 134 L, Potassium 3.8, Chloride 103, Carbon Dioxide 20.0 L, Anion Gap 11, BUN 15, Creatinine 0.60 L, Estim Creat Clear Calc 132.92, Est GFR (MDRD) Af Amer 182, Est GFR (MDRD) Non-Af 150, BUN/Creatinine Ratio 24.8 H, Glucose 200 H, Calcium 5.6 L* Micro: Microbiology 06/17/23 06:31 Sputum, Expectorated/Coughed Gram Stain - Final Rhythm Strip Rhythm Strip: Sinus Tach Rate: 112 Physical Exam Const oriented x3 Resp normal respiratory effort GI soft to palpation Inspection: abdominal distention Palpation: tender Assessment & Plan Assessment/Plan (1) Gallstone pancreatitis: PLAN: The patient's lipase was coming back down to normal and his LFTs were normalizing but the patient is still having persistent pain. His white count is also persistently elevated. I will order CT scan with IV contrast to check for any pancreatic necrosis or infection. As for his gallbladder I will wait for him to normalize and improve and likely perform it as an outpatient as the patient does have a stent in place to protect him from obstruction. Jere Sarmiento MD Pager: [facility] [address] [place] [address], [address] [place] [address] Office:
[2023-06-18 08:09] LABS: Bedside Glucose 273 mg/dL (74-106)
[2023-06-18 08:51] LABS: Pathologist Review Reviewed
[2023-06-18 08:55] LABS: Pathologist Review Reviewed
[2023-06-18] MEDS: Enoxaparin 40 MG/0.4 ML Syringe SC (09:52)
[2023-06-18] MEDS: guaiFENesin/D-Methorphan TAB.SR.12H 1 TABLET PO ×2 (09:53→22:44)
[2023-06-18] MEDS: Insulin Lispro 100 UNIT/ML INSULN.PEN 13 UNIT SC ×2 (09:54→12:10)
--- NOTE | 2023-06-18 12:06 | PN.RENAL_ITS ---
Subjective Subjective no new events Objective Data Objective Data Vital Signs: Vital Signs Temp Pulse Resp BP Pulse Ox O2 Del Method O2 Flow Rate 99 F 112 H 22 H 155/98 H 96 Room Air 1 06/18/23 02:30 06/18/23 02:30 06/18/23 02:30 06/18/23 02:30 06/18/23 02:30 06/18/23 02:30 06/17/23 10:01 FiO2 30 06/17/23 21:17 Oxygen Flow Rate (L/min) 1 Oxygen Delivery Method Room Air Weight: 135.8 kg Body Mass Index (BMI) 48.1 Intake & Output: Intake and Output for Last 24 Hours 06/16/23 06/17/23 06/18/23 23:59 23:59 23:59 Intake Total 3377.5 / 3377.5 5968.3333 / 5968.3333 1450 / 1450 Output Total 1575 / 1575 1875 / 1875 1100 / 1100 Balance 1802.5 / 1802.5 4093.3333 / 4093.3333 350 / 350 Lab / Micro Data 06/18/23 02:51 06/18/23 02:51 Labs: Laboratory Results - last 24 hr 06/15/23 08:29: Diff Path Review Reviewed 06/16/23 05:31: Diff Path Review Reviewed 06/17/23 03:04: Diff Path Review Reviewed 06/17/23 11:49: POC Glucose 221 H 06/17/23 16:17: POC Glucose 268 H 06/17/23 20:48: POC Glucose 225 H 06/18/23 02:32: POC Glucose 232 H 06/18/23 02:51: WBC 22.7 H, RBC 4.05 L, Hgb 11.7 L, Hct 34.4 L, MCV 84.9, MCH 28.9, MCHC 34.0, RDW Std Deviation 44.0 H, RDW Coeff of Rae 14.2, Plt Count 206, MPV 8.5, Immature Gran % (Auto) 2.600 H, Neut % (Auto) 84.4 H, Lymph % (Auto) 4.4 L, [place] % (Auto) 8.0, Eos % (Auto) 0.0, Baso % (Auto) 0.6, Absolute Neuts (auto) 19.2 H, Absolute Lymphs (auto) 0.99, Nucleated RBC % 0.1, Differential Comment SCANNED, Diff Path Review January foll, Sodium 134 L, Potassium 3.8, Chloride 103, Carbon Dioxide 20.0 L, Anion Gap 11, BUN 15, Creatinine 0.60 L, Estim Creat Clear Calc 132.92, Est GFR (MDRD) Af Amer 182, Est GFR (MDRD) Non-Af 150, BUN/Creatinine Ratio 24.8 H, Glucose 200 H, Calcium 5.6 L* 06/18/23 07:03: POC Glucose 273 H Micro: Microbiology 06/17/23 06:31 Sputum, Expectorated/Coughed Gram Stain - Final 06/17/23 06:31 Sputum, Expectorated/Coughed Respiratory Culture - Preliminary Appears to be normal respiratory maurizio. Further studies to follow. Radiography Diagnostic Testing: Radiology Impression Abdomen/Pelvis CT 06/18/23 07:15 IMPRESSION: Severe acute pancreatitis, increased from prior with concern for pancreatic necrosis. No pseudocyst. Increased mild ascites. Mild left pleural effusion. Hepatic steatosis. Cholelithiasis. Interval placement of common bile duct stent. Air along the splenic flexure colonic wall, favor pseudo-pneumatosis artifact secondary to liquid stool over pneumatosis. Electronically Signed: Vane Tinsley MD at 8:28 EDT , Rhythm Strip Rhythm Strip: Sinus Tach Rate: 112 Physical Exam Narrative Alert awake oriented x 3 no obvious distress no pallor no icterus no JVD s1s2 no murmurs lungs clear abdomen soft no organomegaly no edema no cyanosis Assessment & Plan Assessment/Plan (1) MICHELLE (acute kidney injury): PLAN: Baseline creatinine is around 1.0-1.1. No albuminuria at baseline. Diabetes has been well controlled. Came in with pancreatitis, gallstone related. He is s/p ERCP and stent placement. Creatinine is better today. Urine appears still concentrated. Cr better Hypocalcemia. In the setting of pancreatitis. better Hypophosphatemia. better Discussed with hospitalist
[2023-06-18] MEDS: Contrast Allergy Safety Check IV (12:09)
[2023-06-18] MEDS: 0.9% Saline Lock 10 ML Syringe IV (12:11)
--- NOTE | 2023-06-18 12:44 | PN.HOSP_ITS ---
Reason for Visit Reason for Visit: Diagnoses Acute respiratory failure with hypoxia (06/14/23) Calculus of gallbladder without cholecystitis without obstruction (06/14/23) Biliary acute pancreatitis without necrosis or infection (06/14/23) Acute kidney failure, unspecified (06/14/23) Objective Data Objective Data Vital Signs: Vital Signs Temp Pulse Resp BP Pulse Ox O2 Del Method O2 Flow Rate 99 F 112 H 22 H 155/98 H 96 Room Air 1 06/18/23 02:30 06/18/23 02:30 06/18/23 02:30 06/18/23 02:30 06/18/23 02:30 06/18/23 02:30 06/17/23 10:01 FiO2 30 06/17/23 21:17 Oxygen Flow Rate (L/min) 1 Oxygen Delivery Method Room Air Weight: 299 lb 6.204 oz Body Mass Index (BMI) 48.1 Intake & Output: Intake and Output for Last 24 Hours 06/16/23 06/17/23 06/18/23 23:59 23:59 23:59 Intake Total 3377.5 / 3377.5 5968.3333 / 5968.3333 1450 / 1450 Output Total 1575 / 1575 1875 / 1875 1100 / 1100 Balance 1802.5 / 1802.5 4093.3333 / 4093.3333 350 / 350 Lab / Micro Data 06/18/23 02:51 06/18/23 02:51 Labs: Laboratory Results - last 24 hr 06/15/23 08:29: Diff Path Review Reviewed 06/16/23 05:31: Diff Path Review Reviewed 06/17/23 03:04: Diff Path Review Reviewed 06/17/23 16:17: POC Glucose 268 H 06/17/23 20:48: POC Glucose 225 H 06/18/23 02:32: POC Glucose 232 H 06/18/23 02:51: WBC 22.7 H, RBC 4.05 L, Hgb 11.7 L, Hct 34.4 L, MCV 84.9, MCH 28.9, MCHC 34.0, RDW Std Deviation 44.0 H, RDW Coeff of Rae 14.2, Plt Count 206, MPV 8.5, Immature Gran % (Auto) 2.600 H, Neut % (Auto) 84.4 H, Lymph % (Auto) 4.4 L, [place] % (Auto) 8.0, Eos % (Auto) 0.0, Baso % (Auto) 0.6, Absolute Neuts (auto) 19.2 H, Absolute Lymphs (auto) 0.99, Nucleated RBC % 0.1, Differential Comment SCANNED, Diff Path Review January, Sodium 134 L, Potassium 3.8, Chloride 103, Carbon Dioxide 20.0 L, Anion Gap 11, BUN 15, Creatinine 0.60 L, Estim Creat Clear Calc 132.92, Est GFR (MDRD) Af Amer 182, Est GFR (MDRD) Non-Af 150, BUN/Creatinine Ratio 24.8 H, Glucose 200 H, Calcium 5.6 L* 06/18/23 07:03: POC Glucose 273 H Micro: Microbiology 06/17/23 06:31 Sputum, Expectorated/Coughed Gram Stain - Final 06/17/23 06:31 Sputum, Expectorated/Coughed Respiratory Culture - P reliminary Appears to be normal respiratory maurizio. Further studies to follow. Radiography Diagnostic Testing: Radiology Impression Abdomen/Pelvis CT 06/18/23 07:15 IMPRESSION: Severe acute pancreatitis, increased from prior with concern for pancreatic necrosis. No pseudocyst. Increased mild ascites. Mild left pleural effusion. Hepatic steatosis. Cholelithiasis. Interval placement of common bile duct stent. Air along the splenic flexure colonic wall, favor pseudo-pneumatosis artifact secondary to liquid stool over pneumatosis. Electronically Signed: Vane Tinsley MD at 8:28 EDT , Rhythm Strip Rhythm Strip: Sinus Tach Rate: 112 Physical Exam Const Constitutional Narrative: Last low-grade fever was 10 AM yesterday 100.1 Fahrenheit. Patient feels improvement in abdominal pain. Patient states he cannot wear BiPAP because he gets panic. Still mild short of breath and cough sometimes productive sputum. Physical exam General: Alert, Oriented x3, Cooperative, morbid obese BMI 44.250/m?. HEENT: Atraumatic, PERRLA, EOMI, Normocephalic Oral: Oral mucosa dry. BiPAP changed to nasal cannula. Neck: Supple, No JVD, Negative Carotid Bruits Lungs: Air entry diminished in bilateral lung bases. No crepitation/rhonchi Cardiovascular: Regular rate, Regular Rhythm, Normal S1, Normal S2, No murmurs Abdomen: Bowel Sounds sluggish, Soft, very mild tenderness present in epigastric. Mild abdominal distention. : No renal angle tenderness. No suprapubic tenderness. Extremities: No edema, Capillary Refill Less than 3 Seconds Skin: No rashes, No breakdown Musculoskeletal: No Tenderness to Palpation of Joints or Extremities Neurological: Cranial nerves II-XII grossly intact, DTR 2+/4. No acute focal neurological deficit. Psych/Mental Status: Flat affect Assessment & Plan Assessment/Plan (1) Gallstone pancreatitis: PLAN: Plan Patient is a 48-year-old male with history of type 2 diabetes, morbid obesity, hypertension and hyperlipidemia who presented to [facility] ED on 06/13/2023 with pain about 2 hours prior to ED arrival. No fever or chills. 1. Suspected gallstone pancreatitis: Patient is being admitted in PCU CT abdomen pelvis with IV contrast showed cholelithiasis and acute pancreatitis. Patient notably on a GLP-1 agonist, semaglutide for diabetes, which is associated with increased risk of gallbladder disease. WBC count 20 on admit, lactate 3.1, T. bili 1.5, AST 280, ALT 208, alk phos 129, lipase greater than 5000. There is increase in total bilirubin to 2.5, mainly direct 1.83, increasing ALT but alkaline phosphatase did not show change Discussed with the surgeon. Plan for ERCP by Dr. Batista for hepatobiliary, pancreatic cyst decompression. Further decision about inpatient cholecystectomy are elective cholecystectomy after discharge depends upon ERCP and stenting if required. If patient remains in the hospital on the weekend then laparoscopic cholecystectomy on Saturday. Pain control. Levaquin as he is allergic to penicillin. 06/15: Patient had ERCP on 06/14, biliary sphincterotomy was done, biliary tree swept and 1 temporary stent was placed into CBD.Patient had worsening leukocytosis mainly neutrophilia, lymphopenia. Afebrile.Total bili better than yesterday direct bilirubin 1.44. Transaminases and alkaline phosphatase got better after ERCP. Continue IV antibiotic Levaquin. Chest x-ray images reviewed shows bibasilar atelectasis. Incentive spirometer and Mucinex DM. Patient already on antibiotic. 06/17: Patient had low-grade fever. Hematocrit decreased to 35.8% with IV fluid Ringer lactate 200/h. IV fluids decreased to 150 mill per hour for 2 L. 06/18: Last fever was more than 24 hours ago. Abdominal pain is better. Hematocrit 34%. BUN 15. Patient is still leukocytosis. Total bilirubin 2.2 mainly direct hyperbilirubinemia. ALT normal. AST slightly elevated. Moffat's prognostic criteria is better. Positive fluid balance 16 L. Patient is still tachycardic and tachypneic. Continue IV fluid, Ringer lactate at 100 mm/h Acute hypoxic respiratory failure exact etiology unclear but possible may be pulmonary edema from IV fluids/gallstone pancreatitis potential sleep apnea: Patient had productive cough and low-grade fever. Continue IV Levaquin. Sputum culture ordered. BiPAP transition to nasal cannula. Patient is transferred to PCU. 06/18: Prelim sputum culture shows normal respiratory maurizio. Patient on IV antibiotic 06/16: Sepsis due to suspected gallstone pancreatitis, most likely after ERCP : 06/16: Patient is transferred to ICU.06/16: Patient very short of breath, tachycardic tachypneic low-grade fever suspicion for infection/hepatobiliary. Flagyl added. Leukocytosis 23,000 no big change from yesterday. Mainly neutrop hilia, lymphopenia. ESR CRP elevated. Lactic acidosis 2.5, increased from 2.0. Suspicion of sepsis or high risk going to sepsis the patient has clinical indicators of fever, tachycardia, tachypnea, hypoxia, leukocytosis elevated ESR and CRP with sepsis due to hepatobiliary/biliary pancreatitis with acute sepsis- related organ dysfunction as evidenced by acute hypoxic respiratory failure requiring BiPAP and MICHELLE and lactic acidosis. I talked to the patient's daughter and explained the diagnosis, hospital course and management. Pathology Laboratory Technologist consulted. 06/17: Decrease in leukocytosis. 06/18: Leukocytosis fluctuates. 2. MICHELLE Likely prerenal secondary to volume ablation in setting of pancreatitis as noted above. Creatinine 1.52 on admission, baseline creatinine appears to be around 0.9-1. 06/14: Creatinine shows improvement 1.24. 10/15: BUNs/creatinine increased 46/2.46, estimated creatinine clearance 32 mill per minute. Hypocalcemia, corrected calcium 7.1. Twelve-lead EKG ordered For hyperkalemia K5.2. Calcium chloride 1 g IV piggyback ordered. Patient has metabolic acidosis 06/16: Calcium low therefore calcium gluconate ordered. Search Analyst consult reviewed and appreciated. 06/17: Patient creatinine decreased to 1.37. No FOREIGN EXCHANGE TRADER's.Patient is still has hypocalcemia 5.6 secondary to pancreatitis. Serum sodium 130 better.. 06/18: BUNs/creatinine normal. Serum calcium still low, getting replaced. Chronic medical conditions: ? Type 2 diabetes: Home medications of GLP-1 agonist, unclear which one as several are noted on his home medication list. Blood glucose in the 300s on a dmission. Sliding scale insulin while inpatient. A1c 5.9%. ? Hypertension: Holding home lisinopril in setting of MICHELLE as noted above, restart as needed. ? Hyperlipidemia: Continue home rosuvastatin. DVT prophylaxis: Lovenox CODE STATUS: Full code, verified Total time of the visit including total time spent in counseling or coordination of care, (more than 50% of the total time, spent in obtaining medical information from nurses and other ancillary care providers,explaining to the patient about labs, imaging, diagnosis and management of active complex medical conditions), discussion with surgeon, learning disabled teacher has been insidious, review of labs and imaging, diagnosis and prognosis to patient's daughter is 40 minutes. Charges/Coding Visit Charges Inpatient E&M: 22700 Subs Hosp L3
[2023-06-18 12:54] LABS: Bedside Glucose 264 mg/dL (74-106)
[2023-06-18 13:16] LABS: Magnesium 1.6 mg/dL (1.6-2.6)
[2023-06-18] MEDS: oxyCODONE 5 MG Tablet PO ×2 (14:03→19:09)
[2023-06-18] MEDS: Lactated Ringers 1,000 ML 100 ML IV (14:05)
[2023-06-18] MEDS: Calcium Gluconate IV 2 GM in 0.9% Normal Saline (100mL Bag) 100 ML IV (14:06)
[2023-06-18 14:21] LABS: Pathologist Review Reviewed
[2023-06-18] MEDS: Potassium Phosphate 21 MM in 0.9% Normal Saline (250mL Bag) 250 ML 84 MM IV (14:36)
[2023-06-18 16:03] LABS: Bedside Glucose 214 mg/dL (74-106)
[2023-06-18] MEDS: VIAFLEX IV ×2 (16:11→22:50)
[2023-06-18] MEDS: METRONIDAZOLE IV ×2 (16:11→22:50)
[2023-06-18] MEDS: Insulin Lispro 100 UNIT/ML INSULN.PEN 20 UNIT SC (16:12)
--- NOTE | 2023-06-18 17:03 | PN.GI_ITS ---
Subjective Subjective Patient is maintain off of oxygen. He still has about a 4 out of 10 to 8 out of 10 at worst abdominal pain. He has low-grade temperatures. He denies any chest pain or shortness of breath. His urinary output is good. He has had a net +1 L. He is having a lot of diarrhea stools. Objective Data Objective Data Vital Signs: Vital Signs Temp Pulse Resp BP Pulse Ox O2 Del Method O2 Flow Rate 100.0 F H 118 H 22 H 161/95 H 96 Nasal Cannula 2 06/18/23 16:20 06/18/23 16:20 06/18/23 16:20 06/18/23 16:20 06/18/23 16:20 06/18/23 16:20 06/18/23 16:20 FiO2 30 06/17/23 21:17 Oxygen Flow Rate (L/min) 2 Oxygen Delivery Method Nasal Cannula Weight: 299 lb 6.204 oz Body Mass Index (BMI) 48.1 Intake & Output: Intake and Output for Last 24 Hours 06/16/23 06/17/23 06/18/23 23:59 23:59 23:59 Intake Total 3377.5 / 3377.5 5968.3333 / 5968.3333 1610 / 1610 Output Total 1575 / 1575 1875 / 1875 1100 / 1100 Balance 1802.5 / 1802.5 4093.3333 / 4093.3333 510 / 510 Lab / Micro Data 06/18/23 02:51 06/18/23 02:51 Labs: Laboratory Results - last 24 hr 06/15/23 08:29: Diff Path Review Reviewed 06/16/23 05:31: Diff Path Review Reviewed 06/17/23 20:48: POC Glucose 225 H 06/18/23 02:32: POC Glucose 232 H 06/18/23 02:51: WBC 22.7 H, RBC 4.05 L, Hgb 11.7 L, Hct 34.4 L, MCV 84.9, MCH 28.9, MCHC 34.0, RDW Std Deviation 44.0 H, RDW Coeff of Rae 14.2, Plt Count 206, MPV 8.5, Immature Gran % (Auto) 2.600 H, Neut % (Auto) 84.4 H, Lymph % (Auto) 4.4 L, Wharton % (Auto) 8.0, Eos % (Auto) 0.0, Baso % (Auto) 0.6, Absolute Neuts (auto) 19.2 H, Absolute Lymphs (auto) 0.99, Nucleated RBC % 0.1, Differential Comment SCANNED, Diff Path Review Reviewed, Sodium 134 L, Potassium 3.8, Chloride 103, Carbon Dioxide 20.0 L, Anion Gap 11, BUN 15, Creatinine 0.60 L, Estim Creat Clear Calc 132.92, Est GFR (MDRD) Af Amer 182, Est GFR (MDRD) Non-Af 150, BUN/Creatinine Ratio 24.8 H, Glucose 200 H, Calcium 5.6 L*, Phosphorus 1.0 L*, Magnesium 1.6 06/18/23 07:03: POC Glucose 273 H 06/18/23 12:08: POC Glucose 264 H 06/18/23 15:38: POC Glucose 214 H Micro: Microbiology 06/17/23 06:31 Sputum, Expectorated/Coughed Gram Stain - Final 06/17/23 06:31 Sputum, Expectorated/Coughed Respiratory Culture - Preliminary Appears to be normal respiratory maurizio. Further studies to follow. Radiography Diagnostic Testing: Radiology Impression Abdomen/Pelvis CT 06/18/23 07:15 IMPRESSION: Severe acute pancreatitis, increased from prior with concern for pancreatic necrosis. No pseudocyst. Increased mild ascites. Mild left pleural effusion. Hepatic steatosis. Cholelithiasis. Interval placement of common bile duct stent. Air along the splenic flexure colonic wall, favor pseudo-pneumatosis artifact secondary to liquid stool over pneumatosis. Electronically Signed: Vane Tinsley MD at 8:28 EDT , Rhythm Strip Rhythm Strip: Sinus Tach Rate: 112 Physical Exam Const Constitutional Narrative: Physical exam General: Alert, Oriented x3, Cooperative, morbid obese BMI 44.250/m?. HEENT: Atraumatic, PERRLA, EOMI, Normocephalic Oral: Oral mucosa dry. BiPAP changed to nasal cannula. Neck: Supple, No JVD, Negative Carotid Bruits Lungs: Air entry diminished in bilateral lung bases. No crepitation/rhonchi Cardiovascular: Regular rate, Regular Rhythm, Normal S1, Normal S2, No murmurs Abdomen: Bowel Sounds sluggish, Soft, very mild tenderness present in epigastr ic. Mild abdominal distention. : No renal angle tenderness. No suprapubic tenderness. Extremities: No edema, Capillary Refill Less than 3 Seconds Skin: No rashes, No breakdown Musculoskeletal: No Tenderness to Palpation of Joints or Extremities Neurological: Cranial nerves II-XII grossly intact, DTR 2+/4. No acute focal neurological deficit. Psych/Mental Status: Flat affect Assessment & Plan Assessment/Plan (1) Gallstone pancreatitis: (2) Cholelithiasis: (3) MICHELLE (acute kidney injury): PLAN: Plan Patient is a 48-year-old male with history of type 2 diabetes, morbid obesity, hypertension and hyperlipidemia who presented to [facility] ED on 06/13/2023 with severe abdominal pain. Gallstone pancreatitis Presented with acute onset upper abdominal pain. CT abdomen pelvis with IV contrast showed cholelithiasis and acute pancreatitis. Patient notably on a GLP-1 agonist for diabetes, which is associated with increased risk of gallbladder disease. WBC count 20 on admit, lactate 3.1, T. bili 1.5, AST 280, ALT 208, alk phos 129, lipase greater than 5000. ? Hematocrit has been used as a predictor of severity of acute pancreatitis.His hematocrit did not decrease in the first 24 hours. Therefore I switched him to LR at 200 cc an hour and his hematocrit has decreased from 48-43. I think he needs to get his hematocrit less than 40%. We will increase his fluids back up to 200 an hour and monitor him closely for any respiratory distress. We will also repeat his chest x-ray to make sure that he is not going into fluid overload. I think his kidneys will do better with volume expansion. - Acute kidney injury likely secondary to acute pancreatitis. BUN and creatinine has possibly plateaued. Continue IV fluids. Monitor I's and O's 06/17-hematocrit is a lot better today. It is down to 38% from 40% with the use of lactated Ringer's at 200 cc an hour. His urinary output is 70 cc an hour. He did have 1 bowel movement. His inflammatory markers such as a CRP, ESR and lactic acid are all improving. Also his kidney function is improving with his BUN and creatinine ratio decreasing. I talk with his daughter today and explained to her all disease processes that are occurring at this time. He has had a persistent low-grade fever that is likely secondary to severe acute pancreatitis. When his creatinine is improved we can check his CT scan abdomen pelvis to make sure that there is no air or signs of severe necrosis. I recommend to encourage him to stay out of bed and move around along with administering Ensure 3-4 times a day. He is making good progress. I started him on metoclopramide because he likely has a relative gastroparesis secondary to severe pancreatitis along with a mild paralytic ileus. I will start him on Colace 100 mg p.o. twice daily. He is also getting supplemental calcium and phosphate for severe hypocalcemia and hypophosphatemia likely secondary to severe acute pancreatitis. Still guarded prognosis. 06/18-CT scan of the abdomen pelvis does show some hypoperfusion likely secondary to pancreatic necrosis which is to be expected. Typically we do not treat it with anything else but antibiotics as it is assumed to be a sterile necrosis. There was no air seen in the pancreatic fluid collection. I explained to him it is very important to maintain his nutrition to cut down the risk of translocation of bacteria into the sterile fluid. All his inflammatory markers are improving which is a good sign and his kidney function is improved. His diarrheal stools could be secondary to the stool softeners that he is taking to prevent constipation associated with narcotics and lack of movement. However I will check his stools for infection because he has been on antibiotics. Encourage and out of bed and him to eat as much as possible. He said he will try Ensure. If he is not able to eat by tomorrow then I explained to him and his daughter at the bedside he will need a NG tube to prevent his pancreatitis from getting infected. Continue IV fluids at 100 cc an hour of lactated Ringer's. Charges/Coding Visit Charges Inpatient E&M: 00986 Subs Hosp L3
--- NOTE | 2023-06-18 22:15 | CPS ---
Pt refusing BIPAP for tonight.
[2023-06-18] MEDS: Atorvastatin Calcium 10 MG Tablet PO (22:44)
[2023-06-18] MEDS: Magnesium Chloride 64 MG Delay Rel.Tablet 128 MG PO (22:44)
[2023-06-18] MEDS: levoFLOXacin IV 750 MG/150 ML BAG 100 MG IV (22:50)
[2023-06-18 23:14] LABS: Bedside Glucose 151 mg/dL (74-106)
[2023-06-19] VITALS (9 sets, daily range): BP systolic 126–151; BP diastolic 69–89; PULSE 116–122; RESP 18–29; TEMP 36.2–37.8; O2SAT 93–96; BMI 48.1
[2023-06-19] MEDS: Insulin Lispro 100 UNIT/ML INSULN.PEN SC ×4 (03:28→17:51)
[2023-06-19 03:46] LABS: Hematocrit 35.9 % (40-54); Hemoglobin 11.7 g/dL (13.0-16.5); Mean Corp Hgb Conc 32.6 g/dL (32-36); Mean Corpuscular Hgb 27.9 pg (27.0-32.0); Mean Corpuscular Volume 85.5 fL (80-94); Mean Platelet Vol. 8.5 fl (6.2-12.0); POSITIVE COUNT YES; POSITIVE DIFFERENTIAL YES; POSITIVE MORPHOLOGY YES; Platelet Count 251 K/mm3 (150-450); RBC Distribution Width CV 14.5 % (11.6-14.6); RBC Distribution Width SD 45.1 fl (35.1-43.9); White Blood Count 24.1 K/mm3 (4.4-11.0)
[2023-06-19 03:47] LABS: Differential Indicated MANUAL DIFF
[2023-06-19 04:00] LABS: Bedside Glucose 198 mg/dL (74-106)
[2023-06-19 04:05] LABS: Lymphocyte 5 % (19-41); Metamyelocyte 3 % (0-1); Monocyte 6 % (0-10); Myelocyte 4 % (0-0); Neutrophil-Band 22 % (0-5); Neutrophil-Segmented 60 % (47-70); Total Cells Counted 100 (MANUAL DIFF)
[2023-06-19 04:06] LABS: Absolute Lymphocyte Count 1.21 X10^3/uL (0.83-4.51); Absolute Neutrophil Count 19.8 X10^3/uL (2.0-7.7); Lymphocyte # 1.21 X10^3/ul (0.83-4.51); Neutrophil # 19.77 X10^3/uL (2.7-7.7); Platelet Estimate ADEQUATE (ADEQ); Red Cell Morphology NORM C+C NORMAL (NORM C&C); Vacuolated Cells RARE
[2023-06-19 04:38] LABS: ALB/GLOB Ratio 0.5 RATIO (0.9-2.4); AST(SGOT) 84 U/L (15-37); Alanine Aminotransfer ALT/SGPT 61 U/L (16-61); Albumin, Serum 2.1 g/dL (3.2-5.0); Alkaline Phosphatase 115 U/L (45-117); Anion Gap 10 (5-15); BUN 14 mg/dL (7-18); BUN/Creat Ratio 18.8 RATIO (10-20); Calcium,Total 6.4 mg/dL (8.5-10.1); Chloride 103 mmol/L (98-107); Creatinine, Serum 0.74 mg/dL (0.70-1.30); EST Glomerular Filtration Rate 118 mL/min (>60); Est Glom Filt Rate - Afr Amer 143 mL/min (>60); Estimated Creatinine Clearance 107.77 ml/min; Glucose 218 mg/dL (74-106); Potassium 3.6 mmol/L (3.5-5.1); Protein, Total 6.1 g/dL (6.4-8.2); Sodium Level 136 mmol/L (136-145)
[2023-06-19] MEDS: Metoclopramide 10 MG/2 ML Vial 5 MG IV ×4 (05:19→21:15)
[2023-06-19] MEDS: METRONIDAZOLE IV (05:20)
[2023-06-19] MEDS: VIAFLEX IV (05:20)
[2023-06-19 07:52] LABS: Bedside Glucose 240 mg/dL (74-106)
[2023-06-19] MEDS: Insulin Lispro 100 UNIT/ML INSULN.PEN 20 UNIT SC ×3 (09:07→17:52)
[2023-06-19] MEDS: Enoxaparin 40 MG/0.4 ML Syringe SC (09:08)
[2023-06-19] MEDS: Magnesium Chloride 64 MG Delay Rel.Tablet 128 MG PO ×2 (09:08→21:15)
[2023-06-19] MEDS: guaiFENesin/D-Methorphan TAB.SR.12H 1 TABLET PO ×2 (09:08→21:15)
[2023-06-19] MEDS: Acetaminophen 325 MG Tablet 650 MG PO (09:23)
[2023-06-19] MEDS: Calcium (Elemental) 500 MG Tablet PO ×2 (09:24→15:54)
[2023-06-19 10:42] LABS: Magnesium 2.2 mg/dL (1.6-2.6); Phosphorus 1.2 mg/dL (2.5-4.9)
--- NOTE | 2023-06-19 10:56 | PCM.PN.SRG ---
Subjective Subjective Patient seen and examined during AM rounds. He is found sitting out of bed in a chair. He states that he is feeling very warm so he decided to sit in front of the fan but now feels rather comfortable. He denies any significant abdominal discomfort. He reports that he tolerated some cream of wheat for breakfast. He experienced significant heartburn, however, with his Ensure clear order. Objective Data Objective Data Vital Signs: Vital Signs Temp Pulse Resp BP Pulse Ox O2 Del Method O2 Flow Rate 100.0 F H 121 H 21 H 151/69 H 95 Room Air 1 06/19/23 09:32 06/19/23 09:32 06/19/23 09:32 06/19/23 09:32 06/19/23 09:32 06/19/23 09:32 06/19/23 00:00 FiO2 30 06/17/23 21:17 Oxygen Flow Rate (L/min) 1 Oxygen Delivery Method Room Air Weight: 298 lb 1.039 oz Body Mass Index (BMI) 48.1 Intake & Output: Intake and Output for Last 24 Hours 06/17/23 06/18/23 06/19/23 23:59 23:59 23:59 Intake Total 5968.3333 / 5968.3333 2207 / 2207 1320 / 1320 Output Total 1875 / 1875 1100 / 1100 Balance 4093.3333 / 4093.3333 1107 / 1107 1320 / 1320 Lab / Micro Data 06/19/23 03:40 06/19/23 03:40 Labs: Laboratory Results - last 24 hr 06/18/23 02:51: Diff Path Review Reviewed, Phosphorus 1.0 L*, Magnesium 1.6 06/18/23 12:08: POC Glucose 264 H 06/18/23 15:38: POC Glucose 214 H 06/18/23 22:41: POC Glucose 151 H 06/19/23 03:26: POC Glucose 198 H 06/19/23 03:40: WBC 24.1 H, RBC 4.20 L, Hgb 11.7 L, Hct 35.9 L, MCV 85.5, MCH 27.9, MCHC 32.6, RDW Std Deviation 45.1 H, RDW Coeff of Rae 14.5, Plt Count 251, MPV 8.5, Neut % (Auto) Not Reportable, Absolute Neuts (auto) 19.8 H, Absolute Lymphs (auto) 1.21, Total Counted 100, Neutrophils % (Manual) 60, Band Neutrophils % 22 H, Lymphocytes % (Manual) 5 L, Monocytes % (Manual) 6, Metamyelocytes % 3 H, Myelocytes % 4 H, Diff Path Review May foll, Toxic Vacuolation RARE, Platelet Estimate ADEQUATE, RBC Morphology NORM C+C, Sodium 136, Potassium 3.6, Chloride 103, Carbon Dioxide 23.0, Anion Gap 10, BUN 14, Creatinine 0.74, Estim Creat Clear Calc 107.77, Est GFR (MDRD) Af Amer 143, Est GFR (MDRD) Non-Af 118, BUN/Creatinine Ratio 18.8, Glucose 218 H, Calcium 6.4 L*, Phosphorus 1.2 L, Magnesium 2.2, Total Bilirubin 1.50 H, AST 84 H, ALT 61, Alkaline Phosphatase 115, Total Protein 6.1 L, Albumin 2.1 L, Globulin 4.0, Albumin/Globulin Ratio 0.5 L 06/19/23 07:35: POC Glucose 240 H Micro: Microbiology 06/17/23 06:31 Sputum, Expectorated/Coughed Gram Stain - Final 06/17/23 06:31 Sputum, Expectorated/Coughed Respiratory Culture - Final Mixed normal respiratory maurizio. No Streptococcus pneumoniae, beta-hemolytic Streptococcus or Staphylococcus aureus isolated. 06/19/23 03:30 Stool Stool Lactoferrin - Final 06/19/23 03:30 Stool Enteric Bacteriology - Final 06/19/23 03:30 Stool C. difficile DNA Amplification - Final Rhythm Strip Rhythm Strip: Sinus Tach Rate: 112 Physical Exam Const oriented x3 Resp Resp Narrative: Mildly tachypneic GI GI Narrative: Distended, soft, mildly tender to palpation in the epigastrium (rated 2 out of 10) Assessment & Plan Assessment/Plan (1) Gallstone pancreatitis: PLAN: The patient has acute gallstone pancreatitis and is status post ERCP with stone removal and temporary stent insertion by gastroenterology 06/14/2023. Patient experienced deterioration of his pancreatitis and secondarily his renal function and respiratory status requiring ICU admission. He is recently transitioned back to the progressive care unit after showing improvements in both his respiratory status and renal function. From an abdominal standpoint, he has minimal tenderness of the epigastrium and right upper quadrant. As with gastroenterology, would recommend still a basal rate of IV fluids for recovery of his kidneys and his pancreas. Given patient's reports of heartburn with his clear liquid diet, could consider diet advancement (and protein supplement advancement) as tolerated for a broader offering of less asked acidic foods. ? LR at 100 mL/h ? Could consider diet advancement ? No surgical intervention planned for present admission given patient's complications with pancreatitis ? Repeat CMP in the a.m. Charges/Coding Visit Charges Inpatient E&M: 43885 Subs Hosp L2
[2023-06-19] MEDS: Lactated Ringers 1,000 ML 100 ML IV ×2 (12:06→21:15)
[2023-06-19] MEDS: 0.9% Saline Lock 10 ML Syringe IV ×2 (12:11→18:06)
--- NOTE | 2023-06-19 15:20 | PN.HOSP_ITS ---
Subjective Subjective Feels better but washed out and very tired Objective Data Objective Data Vital Signs: Vital Signs Temp Pulse Resp BP Pulse Ox O2 Del Method O2 Flow Rate 98.2 F 119 H 18 126/80 H 96 Room Air 1 06/19/23 11:35 06/19/23 11:35 06/19/23 11:35 06/19/23 11:35 06/19/23 11:35 06/19/23 13:14 06/19/23 00:00 FiO2 30 06/17/23 21:17 Oxygen Flow Rate (L/min) 1 Oxygen Delivery Method Room Air Weight: 298 lb 1.039 oz Body Mass Index (BMI) 48.1 Intake & Output: Intake and Output for Last 24 Hours 06/18/23 06/19/23 06/20/23 03:59 03:59 03:59 Intake Total 6418.3333 / 6418.3333 2026 410 / 410 Output Total 1525 / 1525 1100 / 1100 Balance 4893.3333 / 4893.3333 927 / 927 410 / 410 Lab / Micro Data 06/19/23 03:40 06/19/23 03:40 Labs: Laboratory Results - last 24 hr 06/18/23 15:38: POC Glucose 214 H 06/18/23 22:41: POC Glucose 151 H 06/19/23 03:26: POC Glucose 198 H 06/19/23 03:40: WBC 24.1 H, RBC 4.20 L, Hgb 11.7 L, Hct 35.9 L, MCV 85.5, MCH 27.9, MCHC 32.6, RDW Std Deviation 45.1 H, RDW Coeff of Rae 14.5, Plt Count 251, MPV 8.5, Neut % (Auto) Not Reportable, Absolute Neuts (auto) 19.8 H, Absolute Lymphs (auto) 1.21, Total Counted 100, Neutrophils % (Manual) 60, Band Neutrophils % 22 H, Lymphocytes % (Manual) 5 L, Monocytes % (Manual) 6, Metamyelocytes % 3 H, Myelocytes % 4 H, Diff Path Review May foll, Toxic Vacuolation RARE, Platelet Estimate ADEQUATE, RBC Morphology NORM C+C, Sodium 136, Potassium 3.6, Chloride 103, Carbon Dioxide 23.0, Anion Gap 10, BUN 14, Creatinine 0.74, Estim Creat Clear Calc 107.77, Est GFR (MDRD) Af Amer 143, Est GFR (MDRD) Non-Af 118, BUN/Creatinine Ratio 18.8, Glucose 218 H, Calcium 6.4 L*, Phosphorus 1.2 L, Magnesium 2.2, Total Bilirubin 1.50 H, AST 84 H, ALT 61, Al kaline Phosphatase 115, Total Protein 6.1 L, Albumin 2.1 L, Globulin 4.0, Albumin/Globulin Ratio 0.5 L 06/19/23 07:35: POC Glucose 240 H Micro: Microbiology 06/17/23 06:31 Sputum, Expectorated/Coughed Gram Stain - Final 06/17/23 06:31 Sputum, Expectorated/Coughed Respiratory Culture - Final Mixed normal respiratory maurizio. No Streptococcus pneumoniae, beta-hemolytic Streptococcus or Staphylococcus aureus isolated. 06/19/23 03:30 Stool Stool Lactoferrin - Final 06/19/23 03:30 Stool Enteric Bacteriology - Final 06/19/23 03:30 Stool C. difficile DNA Amplification - Final Rhythm Strip Rhythm Strip: Sinus Tach Rate: 112 Physical Exam Narrative General: Alert, Oriented x3, Cooperative, No apparent distress HEENT: Atraumatic, PERRLA, EOMI, Normocephalic Oral: Moist Mucosa Neck: Supple, No JVD Lungs: Diminished, Normal air movement, No rhonchi, No wheeze, No rales Cardiovascular: Regular rate, Regular Rhythm, Normal S1, Normal S2, No murmurs Abdomen: Soft, Non Tender, Non-Distended, No Hepato-splenomegaly Extremities: No edema, Capillary Refill Less than 3 Seconds Skin: No rashes, No breakdown Musculoskeletal: No Tenderness to Palpation of Joints or Extremities Neurological: Cranial nerves II-XII grossly intact, Motor Exam 5/5 strength throughout, Sensory exam intact to light touch and pain Psych/Mental Status: Normal Affect, Appropriate Assessment & Plan Assessment/Plan (1) Gallstone pancreatitis: PLAN: Plan 1. Sepsis due to 2 suspected gallstone pancreatitis: Patient is being admitted in PCU CT abdomen pelvis with IV contrast showed cholelithiasis and acute pancreatitis. Patient notably on a GLP-1 agonist, semaglutide for diabetes, which is associated with increased risk of gallbladder disease. WBC count 20 on admit, lactate 3.1, T. bili 1.5, AST 280, ALT 208, alk phos 129, lipase greater than 5000. There is increase in total bilirubin to 2.5, mainly direct 1.83, increasing ALT but alkaline phosphatase did not show change Discussed with the surgeon. Plan for ERCP by Dr. Batista for hepatobiliary, pancreatic cyst decompression. Further decision about inpatient cholecystectomy are elective cholecystectomy after discharge depends upon ERCP and stenting if required. If patient remains in the hospital on the weekend then laparoscopic cholecystectomy on Saturday. Pain control. Levaquin as he is allergic to penicillin. 06/15: Patient had ERCP on 06/14, biliary sphincterotomy was done, biliary tree swept and 1 temporary stent was placed into CBD.Patient had worsening leukocytosis mainly neutrophilia, lymphopenia. Afebrile.Total bili better than yesterday direct bilirubin 1.44. Transaminases and alkaline phosphatase got better after ERCP. Continue IV antibiotic Levaquin. Chest x-ray images reviewed shows bibasilar atelectasis. Incentive spirometer and Mucinex DM. Patient already on antibiotic. 06/17: Patient had low-grade fever. Hematocrit decreased to 35.8% with IV fluid Ringer lactate 200/h. IV fluids decreased to 150 mill per hour for 2 L. 06/18: Last fever was more than 24 hours ago. Abdominal pain is better. Hematocrit 34%. BUN 15. Patient is still leukocytosis. Total bilirubin 2.2 mainly direct hyperbilirubinemia. ALT normal. AST slightly elevated. Walton's prognostic criteria is better. Positive fluid balance 16 L. Patient is still tachycardic and tachypneic. Continue IV fluid, Ringer lactate at 100 mm/h 06/19/2023: We will advance his diet and recheck lab work in the morning. We will discontinue his antibiotics, white count is fluctuating testing for GI source has been negative so far 2. Acute hypoxic respiratory failure exact etiology unclear but possible may be pulmonary edema from IV fluids/gallstone pancreatitis potential sleep apnea: Patient had productive cough and low-grade fever. Continue IV Levaquin. Sputum culture ordered. BiPAP transition to nasal cannula. Patient is transferred to PCU. 06/18: Prelim sputum culture shows normal respiratory maurizio. Patient on IV antibiotic 3. MICHELLE Likely prerenal secondary to volume ablation in setting of pancreatitis as noted above. Creatinine 1.52 on admission, baseline creatinine appears to be around 0.9-1. 06/14: Creatinine shows improvement 1.24. 10/15: BUNs/creatinine increased 46/2.46, estimated creatinine clearance 32 mill per minute. Hypocalcemia, corrected calcium 7.1. Twelve-lead EKG ordered For hyperkalemia K5.2. Calcium chloride 1 g IV piggyback ordered. Patient has metabolic acidosis 06/16: Calcium low therefore calcium gluconate ordered. Electric Frying Pan Repairer consult reviewed and appreciated. 06/17: Patient creatinine decreased to 1.37. No OFFICE ENGINEER's.Patient is still has hypocalcemia 5.6 secondary to pancreatitis. Serum sodium 130 better.. 06/18: BUNs/creatinine normal. Serum calcium still low, getting replaced. 06/19/2023: Creatinine is at baseline we will replace phosphorus and recheck morning Chronic medical conditions: ? Type 2 diabetes: Home medications of GLP-1 agonist, unclear which one as se veral are noted on his home medication list. Blood glucose in the 300s on admission. Sliding scale insulin while inpatient. A1c 5.9%. ? Hypertension: Holding home lisinopril in setting of MICHELLE as noted above, restart as needed. ? Hyperlipidemia: Continue home rosuvastatin. DVT prophylaxis: Lovenox Charges/Coding Visit Charges Inpatient E&M: 14667 Subs Hosp L2
[2023-06-19 15:39] LABS: Pathologist Review Reviewed
[2023-06-19] MEDS: Potassium Phosphate 30 MM in 0.9% Normal Saline (250mL Bag) 250 ML 42 MM IV (15:55)
[2023-06-19 16:28] LABS: Bedside Glucose 186 mg/dL (74-106)
[2023-06-19 20:55] LABS: Bedside Glucose 132 mg/dL (74-106)
[2023-06-19] MEDS: Atorvastatin Calcium 10 MG Tablet PO (21:15)
[2023-06-19] MEDS: MELATONIN 3 MG TABLET PO (21:15)
--- NOTE | 2023-06-19 22:33 | PN.GI_ITS ---
Subjective Subjective Patient feels about the same Objective Data Objective Data Vital Signs: Vital Signs Temp Pulse Resp BP Pulse Ox O2 Del Method O2 Flow Rate 97.2 F L 122 H 18 129/71 H 95 Room Air 1 06/19/23 22:05 06/19/23 22:05 06/19/23 22:05 06/19/23 22:05 06/19/23 22:05 06/19/23 22:05 06/19/23 00:00 FiO2 30 06/17/23 21:17 Oxygen Flow Rate (L/min) 1 Oxygen Delivery Method Room Air Weight: 298 lb 1.039 oz Body Mass Index (BMI) 48.1 Intake & Output: Intake and Output for Last 24 Hours 06/17/23 06/18/23 06/19/23 23:59 23:59 23:59 Intake Total 5968.3333 / 5968.3333 2207 / 2207 2855 / 2855 Output Total 1875 / 1875 1100 / 1100 Balance 4093.3333 / 4093.3333 1107 / 1107 2855 / 2855 Lab / Micro Data 06/24/23 03:38 06/24/23 03:38 Labs: Laboratory Results - last 24 hr 06/18/23 22:41: POC Glucose 151 H 06/19/23 03:26: POC Glucose 198 H 06/19/23 03:40: WBC 24.1 H, RBC 4.20 L, Hgb 11.7 L, Hct 35.9 L, MCV 85.5, MCH 27.9, MCHC 32.6, RDW Std Deviation 45.1 H, RDW Coeff of Rae 14.5, Plt Count 251, MPV 8.5, Neut % (Auto) Not Reportable, Absolute Neuts (auto) 19.8 H, Absolute Lymphs (auto) 1.21, Total Counted 100, Neutrophils % (Manual) 60, Band Neutrophils % 22 H, Lymphocytes % (Manual) 5 L, Monocytes % (Manual) 6, Me tamyelocytes % 3 H, Myelocytes % 4 H, Diff Path Review Reviewed, Toxic Vacuolation RARE, Platelet Estimate ADEQUATE, RBC Morphology NORM C+C, Sodium 136, Potassium 3.6, Chloride 103, Carbon Dioxide 23.0, Anion Gap 10, BUN 14, Creatinine 0.74, Estim Creat Clear Calc 107.77, Est GFR (MDRD) Af Amer 143, Est GFR (MDRD) Non-Af 118, BUN/Creatinine Ratio 18.8, Glucose 218 H, Calcium 6.4 L*, Phosphorus 1.2 L, Magnesium 2.2, Total Bilirubin 1.50 H, AST 84 H, ALT 61, Alkaline Phosphatase 115, Total Protein 6.1 L, Albumin 2.1 L, Globulin 4.0, Albumin/Globulin Ratio 0.5 L 06/19/23 07:35: POC Glucose 240 H 06/19/23 16:10: POC Glucose 186 H 06/19/23 20:34: POC Glucose 132 H Micro: Microbiology 06/17/23 06:31 Sputum, Expectorated/Coughed Gram Stain - Final 06/17/23 06:31 Sputum, Expectorated/Coughed Respiratory Culture - Final Mixed normal respiratory maurizio. No Streptococcus pneumoniae, beta-hemolytic Streptococcus or Staphylococcus aureus isolated. 06/19/23 03:30 Stool Stool Lactoferrin - Final 06/19/23 03:30 Stool Enteric Bacteriology - Final 06/19/23 03:30 Stool C. difficile DNA Amplification - Final Rhythm Strip Rhythm Strip: Sinus Tach Rate: 112 Physical Exam Narrative General: Alert, Oriented x3, Cooperative, No apparent distress HEENT: Atraumatic, PERRLA, EOMI, Normocephalic Oral: Moist Mucosa Neck: Supple, No JVD Lungs: Diminished, Normal air movement, No rhonchi, No wheeze, No rales Cardiovascular: Tachycardic, Regular Rhythm, Normal S1, Normal S2, No murmurs Abdomen: Soft, Non Tender, Non-Distended, No Hepato-splenomegaly Extremities: No edema, Capillary Refill Less than 3 Seconds Skin: No rashes, No breakdown Musculoskeletal: No Tenderness to Palpation of Joints or Extremities Neurological: Cranial nerves II-XII grossly intact, Motor Exam 5/5 strength throughout, Sensory exam intact to light touch and pain Psych/Mental Status: Normal Affect, Appropriate Assessment & Plan Assessment/Plan (1) Gallstone pancreatitis: PLAN: Plan 1. Sepsis due to 2 suspected gallstone pancreatitis: Patient is being admitted in PCU CT abdomen pelvis with IV contrast showed cholelithiasis and acute pancreatit is. Patient notably on a GLP-1 agonist, semaglutide for diabetes, which is associated with increased risk of gallbladder disease. WBC count 20 on admit, lactate 3.1, T. bili 1.5, AST 280, ALT 208, alk phos 129, lipase greater than 5000. There is increase in total bilirubin to 2.5, mainly direct 1.83, increasing ALT but alkaline phosphatase did not show change Discussed with the surgeon. Plan for ERCP by Dr. Batista for hepatobiliary, pancreatic cyst decompression. Further decision about inpatient cholecystectomy are elective cholecystectomy after discharge depends upon ERCP and stenting if required. If patient remains in the hospital on the weekend then laparoscopic cholecystectomy on Saturday. Pain control. Levaquin as he is allergic to penicillin. 06/15: Patient had ERCP on 06/14, biliary sphincterotomy was done, biliary tree swept and 1 temporary stent was placed into CBD.Patient had worsening leukocytosis mainly neutrophilia, lymphopenia. Afebrile.Total bili better than yesterday direct bilirubin 1.44. Transaminases and alkaline phosphatase got better after ERCP. Continue IV antibiotic Levaquin. Chest x-ray images reviewed shows bibasilar atelectasis. Incentive spirometer and Mucinex DM. Patient already on antibiotic. 06/17: Patient had low-grade fever. Hematocrit decreased to 35.8% with IV fluid Ringer lactate 200/h. IV fluids decreased to 150 mill per hour for 2 L. 06/18: Last fever was more than 24 hours ago. Abdominal pain is better. Hematocrit 34%. BUN 15. Patient is still leukocytosis. Total bilirubin 2.2 mainly direct hyperbilirubinemia. ALT normal. AST slightly elevated. Clark's prognostic criteria is better. Positive fluid balance 16 L. Patient is still tachycardic and tachypneic. Continue IV fluid, Ringer lactate at 100 mm/h ewed and appreciated. 06/17: Patient creatinine decreased to 1.37. No TOXICOLOGY TEACHER's.Patient is still has hypocalcemia 5.6 secondary to pancreatitis. Serum sodium 130 better.. 06/18: BUNs/creatinine normal. Serum calcium still low, getting replaced. Charges/Coding Visit Charges Inpatient E&M: 73546 Subs Hosp L3
--- NOTE | 2023-06-19 22:33 | EX.PCM.PN.GI ---
Subjective Subjective Patient rates his abdominal pain at a six out of 10. He is ahe is eating a little bit more than yesterday. Objective Data Objective Data Vital Signs: Vital Signs Temp Pulse Resp BP Pulse Ox O2 Del Method O2 Flow Rate 97.2 F L 122 H 18 129/71 H 95 Room Air 1 06/19/23 22:05 06/19/23 22:05 06/19/23 22:05 06/19/23 22:05 06/19/23 22:05 06/19/23 22:05 06/19/23 00:00 FiO2 30 06/17/23 21:17 Oxygen Flow Rate (L/min) 1 Oxygen Delivery Method Room Air Weight: 298 lb 1.039 oz Body Mass Index (BMI) 48.1 Intake & Output: Intake and Output for Last 24 Hours 06/17/23 06/18/23 06/19/23 23:59 23:59 23:59 Intake Total 5968.3333 / 5968.3333 2207 / 2207 2855 / 2855 Output Total 1875 / 1875 1100 / 1100 Balance 4093.3333 / 4093.3333 1107 / 1107 2855 / 2855 Lab / Micro Data 06/19/23 03:40 06/19/23 03:40 Labs: Laboratory Results - last 24 hr 06/18/23 22:41: POC Glucose 151 H 06/19/23 03:26: POC Glucose 198 H 06/19/23 03:40: WBC 24.1 H, RBC 4.20 L, Hgb 11.7 L, Hct 35.9 L, MCV 85.5, MCH 27.9, MCHC 32.6, RDW Std Deviation 45.1 H, RDW Coeff of Rae 14.5, Plt Count 251, MPV 8.5, Neut % (Auto) Not Reportable, Absolute Neuts (auto) 19.8 H, Absolute Lymphs (auto) 1.21, Total Counted 100, Neutrophils % (Manual) 60, Band Neutrophils % 22 H, Lymphocytes % (Manual) 5 L, Monocytes % (Manual) 6, Metamyelocytes % 3 H, Myelocytes % 4 H, Diff Path Review Reviewed, Toxic Vacuolation RARE, Platelet Estimate ADEQUATE, RBC Morphology NORM C+C, Sodium 136, Potassium 3.6, Chloride 103, Carbon Dioxide 23.0, Anion Gap 10, BUN 14, Creatinine 0.74, Estim Creat Clear Calc 107.77, Est GFR (MDRD) Af Amer 143, Est GFR (MDRD) Non-Af 118, BUN/Creatinine Ratio 18.8, Glucose 218 H, Calcium 6.4 L*, Phosphorus 1.2 L, Magnesium 2.2, Total Bilirubin 1.50 H, AST 84 H, ALT 61, Alkaline Phosphatase 115, Total Protein 6.1 L, Albumin 2.1 L, Globulin 4.0, Albumin/Globulin Ratio 0.5 L 06/19/23 07:35: POC Glucose 240 H 06/19/23 16:10: POC Glucose 186 H 06/19/23 20:34: POC Glucose 132 H Micro: Microbiology 06/17/23 06:31 Sputum, Expectorated/Coughed Gram Stain - Final 06/17/23 06:31 Sputum, Expectorated/Coughed Respiratory Culture - Final Mixed normal respiratory maurizio. No Streptococcus pneumoniae, beta-hemolytic Streptococcus or Staphylococcus aureus isolated. 06/19/23 03:30 Stool Stool Lactoferrin - Final 06/19/23 03:30 Stool Enteric Bacteriology - Final 06/19/23 03:30 Stool C. difficile DNA Amplification - Final Rhythm Strip Rhythm Strip: Sinus Tach Rate: 112 Physical Exam Narrative General: Alert, Oriented x3, Cooperative, No apparent distress HEENT: Atraumatic, PERRLA, EOMI, Normocephalic Oral: Moist Mucosa Neck: Supple, No JVD Lungs: Diminished, Normal air movement, No rhonchi, No wheeze, No rales Cardiovascular: Regular rate, Regular Rhythm, Normal S1, Normal S2, No murmurs Abdomen: Soft, Non Tender, Non-Distended, No Hepato-splenomegaly Extremities: No edema, Capillary Refill Less than 3 Seconds Skin: No rashes, No breakdown Musculoskeletal: No Tenderness to Palpation of Joints or Extremities Neurological: Cranial nerves II-XII grossly intact, Motor Exam 5/5 strength throughout, Sensory exam intact to light touch and pain Psych/Mental Status: Normal Affect, Appropriate Assessment & Plan Assessment/Plan (1) Gallstone pancreatitis: (2) Cholelithiasis: (3) MICHELLE (acute kidney injury): PLAN: Plan Patient is a 48-year-old male with history of type 2 diabetes, morbid obesity, hypertension and hyperlipidemia who presented to [facility] ED on 06/13/2023 with severe abdominal pain. Gallstone pancreatitis Presented with acute onset upper abdominal pain. CT abdomen pelvis with IV contrast showed cholelithiasis and acute pancreatitis. Patient notably on a GLP-1 agonist for diabetes, which is associated with increased risk of gallbladder disease. WBC count 20 on admit, lactate 3.1, T. bili 1.5, AST 280, ALT 208, alk phos 129, lipase greater than 5000. ? Hematocrit has been used as a predictor of severity of acute pancreatitis.His hematocrit did not decrease in the first 24 hours. Therefore I switched him to LR at 200 cc an hour and his hematocrit has decreased from 48-43. I think he needs to get his hematocrit less than 40%. We will increase his fluids back up to 200 an hour and monitor him closely for any respiratory distress. We will also repeat his chest x-ray to make sure that he is not going into fluid overload. I think his kidneys will do better with volume expansion. - Acute kidney injury likely secondary to acute pancreatitis. BUN and creatinine has possibly plateaued. Continue IV fluids. Monitor I's and O's 06/17-hematocrit is a lot better today. It is down to 38% from 40% with the use of lactated Ringer's at 200 cc an hour. His urinary output is 70 cc an hour. He did have 1 bowel movement. His inflammatory markers such as a CRP, ESR and lactic acid are all improving. Also his kidney function is improving with his BUN and creatinine ratio decreasing. I talk with his daughter today and explained to her all disease processes that are occurring at this time. He has had a persistent low-grade fever that is likely secondary to severe acute pancreatitis. When his creatinine is improved we can check his CT scan abdomen pelvis to make sure that there is no air or signs of severe necrosis. I recommend to encourage him to stay out of bed and move around along with administering Ensure 3-4 times a day. He is making good progress. I started him on metoclopramide because he likely has a relative gastroparesis secondary to severe pancreatitis along with a mild paralytic ileus. I will start him on Colace 100 mg p.o. twice daily. He is also getting supplemental calcium and phosphate for severe hypocalcemia and hypophosphatemia likely secondary to severe acute pancreatitis. Still guarded prognosis. 06/18-CT scan of the abdomen pelvis does show some hypoperfusion likely secondary to pancreatic necrosis which is to be expected. Typically we do not treat it with anything else but antibiotics as it is assumed to be a sterile necrosis. There was no air seen in the pancreatic fluid collection. I explained to him it is very important to maintain his nutrition to cut down the risk of translocation of bacteria into the sterile fluid. All his inflammatory markers are improving which is a good sign and his kidney function is improved. His diarrheal stools could be secondary to the stool softeners that he is taking to prevent constipation associated with narcotics and lack of movement. However I will check his stools for infection because he has been on antibiotics. Encourage and out of bed and him to eat as much as possible. He said he will try Ensure. If he is not able to eat by tomorrow then I explained to him and his daughter at the bedside he will need a NG tube to prevent his pancreatitis from getting infected. Continue IV fluids at 100 cc an hour of lactated Ringer's. 06/19- Patient haspatient has been afebrile for the last 24 hours. His white blood cell count is still elevated to significantly that. I'm hoping it's just secondary to inflammatory reaction from severe acute pancreatitis. Hey severehey, severe hypophosphatemia and hypo calcium you are improving slowly, which is also a very good sign. A as severe hypophosphatemia and hypocalcemia are associated with worsening pancreatitis. He will need to repeat a CT scan in approximately three days to make sure that there is no signs of infected pancreatic necrosis. His stool studies show deposit like to firm, but was negative for infection. I suspect that his hypophosphatemia in hypocalcemia will also improve asses diarrhea improves, and it's nutrition in improves. Continue at least 100 cc an hour of lactated ringers due to fluid losses from third spacing, urination and respiration. He is improving, but he still has a guarded prognosis with a long way to go. Charges/Coding Visit Charges Inpatient E&M: 30266 Subs Hosp L3
[2023-06-20 03:00] VITALS: BP 145/82; PULSE 124; RESP 16; TEMP 36; O2SAT 95
[2023-06-20 03:39] VITALS: BMI 47.9
[2023-06-20] MEDS: Metoclopramide 10 MG/2 ML Vial 5 MG IV ×4 (04:58→20:06)
[2023-06-20] MEDS: Lactated Ringers 1,000 ML 100 ML IV ×3 (04:58→20:06)
[2023-06-20] MEDS: Insulin Lispro 100 UNIT/ML INSULN.PEN SC ×4 (05:00→20:05)
[2023-06-20 06:15] LABS: Bedside Glucose 245 mg/dL (74-106)
[2023-06-20 07:16] VITALS: O2SAT 96
[2023-06-20 07:31] LABS: Hematocrit 37.4 % (40-54); Hemoglobin 11.9 g/dL (13.0-16.5); Mean Corp Hgb Conc 31.8 g/dL (32-36); Mean Corpuscular Hgb 27.5 pg (27.0-32.0); Mean Corpuscular Volume 86.4 fL (80-94); Mean Platelet Vol. 8.8 fl (6.2-12.0); POSITIVE COUNT YES; POSITIVE DIFFERENTIAL YES; POSITIVE MORPHOLOGY YES; Platelet Count 336 K/mm3 (150-450); RBC Distribution Width CV 14.9 % (11.6-14.6); RBC Distribution Width SD 47.1 fl (35.1-43.9); Red Blood Count 4.33 M/mm3 (4.6-6.2)
[2023-06-20 07:47] LABS: Differential Indicated MANUAL DIFF; White Blood Count 30.4 K/mm3 (4.4-11.0)
[2023-06-20 07:57] LABS: ALB/GLOB Ratio 0.5 RATIO (0.9-2.4); AST(SGOT) 92 U/L (15-37); Alanine Aminotransfer ALT/SGPT 72 U/L (16-61); Albumin, Serum 2.1 g/dL (3.2-5.0); Alkaline Phosphatase 130 U/L (45-117); Anion Gap 13 (5-15); BUN 14 mg/dL (7-18); BUN/Creat Ratio 17.9 RATIO (10-20); Calcium,Total 7.5 mg/dL (8.5-10.1); Chloride 100 mmol/L (98-107); Creatinine, Serum 0.78 mg/dL (0.70-1.30); EST Glomerular Filtration Rate 112 mL/min (>60); Est Glom Filt Rate - Afr Amer 135 mL/min (>60); Estimated Creatinine Clearance 102.24 ml/min; Globulin 4.1 g/dL (2.2-4.2); Glucose 254 mg/dL (74-106); Potassium 3.9 mmol/L (3.5-5.1); Protein, Total 6.2 g/dL (6.4-8.2); Sodium Level 134 mmol/L (136-145)
[2023-06-20 08:06] LABS: Lymphocyte 4 % (19-41); Metamyelocyte 8 % (0-1); Monocyte 4 % (0-10); Myelocyte 4 % (0-0); Neutrophil-Band 10 % (0-5); Neutrophil-Segmented 69 % (47-70); Promyelocyte 1 % (0-0); Total Cells Counted 100 (MANUAL DIFF)
[2023-06-20 08:07] LABS: Absolute Lymphocyte Count 1.22 X10^3/uL (0.83-4.51); Lymphocyte # 1.22 X10^3/ul (0.83-4.51); Neutrophil # 27.97 X10^3/uL (2.7-7.7); Platelet Estimate ADEQUATE (ADEQ)
[2023-06-20 08:08] LABS: Red Cell Morphology NORM C+C NORMAL (NORM C&C)
[2023-06-20 08:24] LABS: Phosphorus 1.8 mg/dL (2.5-4.9)
[2023-06-20] MEDS: Insulin Lispro 100 UNIT/ML INSULN.PEN 20 UNIT SC ×2 (08:58→14:37)
[2023-06-20 09:00] VITALS: BP 138/92; PULSE 124; RESP 18; TEMP 36.7; O2SAT 95
[2023-06-20] MEDS: guaiFENesin/D-Methorphan TAB.SR.12H 1 TABLET PO ×2 (09:00→20:05)
--- NOTE | 2023-06-20 09:20 | CT_ITS ---
STUDY: CT ABDOMEN AND PELVIS WITH CONTRAST REASON FOR EXAM: Male, 48 years old. Severe pancreatitis. Increased white cell count. RADIATION DOSAGE (If Supplied By Facility): CTDIvol = ( 17.06 ) mGy, DLP = ( 1386.05 ) mGycm TECHNIQUE: Transaxial images were obtained from the dome of the diaphragm to the symphysis pubis without oral contrast. IV 100mL Isovue-300 was administered. Sagittal and coronal images were reconstructed. Individualized dose optimization techniques were used for this CT. COMPARISON: Comparison is made with prior study to June 18, 2023. FINDINGS: Mild degree of left basilar atelectasis. Coronary artery calcification. There is decreased attenuation of the liver consistent with steatosis. There are multiple small gallstones. A biliary stent is seen within the common bile duct. Normal spleen. There is diffuse enlargement of the pancreas with asim-pancreatic edema suggesting acute pancreatitis. Fluid is seen within the anterior right and left pararenal spaces as well as the left paracolic gutters. There has been essentially no change as compared to prior study. Normal bilateral adrenal glands. Normal right kidney. Normal left kidney. Normal visualized stomach. Normal small intestine. Normal colon. The appendix is visualized and appears normal. Normal abdominal aorta. Normal inferior vena cava. Normal retroperitoneum. Normal urinary bladder. Normal abdominal wall. Mild degree of disc space narrowing at the L5-S1 level. Straightening of the normal lumbar lordosis. CT/Abdomen/Pelvis W IV Cont ONLY IMPRESSION: Stable examination. Electronically Signed: Mahendra Fields MD at 11:21 EDT ,
[2023-06-20] MEDS: Enoxaparin 40 MG/0.4 ML Syringe SC (09:38)
[2023-06-20] MEDS: Magnesium Chloride 64 MG Delay Rel.Tablet 128 MG PO ×2 (09:38→20:05)
[2023-06-20] MEDS: Calcium (Elemental) 500 MG Tablet PO ×3 (09:38→17:26)
[2023-06-20 09:48] LABS: Amylase 47 U/L (25-115); Lipase 28 U/L (13-75)
[2023-06-20 10:00] LABS: Erythrocyte Sedimentation Rate 38 mm/hr (0-20)
[2023-06-20] MEDS: 0.9% Saline Lock 10 ML Syringe IV ×2 (11:42→17:29)
[2023-06-20 12:06] LABS: Bedside Glucose 282 mg/dL (74-106)
--- NOTE | 2023-06-20 12:16 | PCM.PN.HOSP ---
Subjective Subjective Well, had some mild reflux symptoms with food but denies any increased abdominal pain. No fevers or chills. White count today is 30 Objective Data Objective Data Vital Signs: Vital Signs Temp Pulse Resp BP Pulse Ox O2 Del Method O2 Flow Rate 98.1 F 124 H 18 138/92 H 95 Room Air 1 06/20/23 09:00 06/20/23 09:00 06/20/23 09:00 06/20/23 09:00 06/20/23 09:00 06/20/23 09:00 06/19/23 00:00 FiO2 30 06/17/23 21:17 Oxygen Flow Rate (L/min) 1 Oxygen Delivery Method Room Air Weight: 296 lb 11.875 oz Body Mass Index (BMI) 47.9 Intake & Output: Intake and Output for Last 24 Hours 06/19/23 06/20/23 06/21/23 03:59 03:59 03:59 Intake Total 2026 / 7 1825 / 1825 1596.67 / 1596.67 Output Total 1100 / 1100 Balance 927 / 927 1825 / 1825 1596.67 / 1596.67 Lab / Micro Data 06/20/23 06:38 06/20/23 06:38 Labs: Laboratory Results - last 24 hr 06/19/23 03:40: Diff Path Review Reviewed 06/19/23 16:10: POC Glucose 186 H 06/19/23 20:34: POC Glucose 132 H 06/20/23 04:59: POC Glucose 245 H 06/20/23 06:38: WBC 30.4 H*, RBC 4.33 L, Hgb 11.9 L, Hct 37.4 L, MCV 86.4, MCH 27.5, MCHC 31.8 L, RDW Std Deviation 47.1 H, RDW Coeff of Rae 14.9 H, Plt Count 336, MPV 8.8, Neut % (Auto) Not Reportable, Absolute Neuts (auto) 28.0 H, Absolute Lymphs (auto) 1.22, Total Counted 100, Neutrophils % (Manual) 69, Band Neutrophils % 10 H, Lymphocytes % (Manual) 4 L, Monocytes % (Manual) 4, Metamyelocytes % 8 H, Myelocytes % 4 H, Promyelocytes % 1 H, Diff Path Review May foll, Platelet Estimate ADEQUATE, RBC Morphology NORM C+C, ESR 38 H, Sodium 134 L, Potassium 3.9, Chloride 100, Carbon Dioxide 21.0, Anion Gap 13, BUN 14, Creatinine 0.78, Estim Creat Clear Calc 102.24, Est GFR (MDRD) Af Amer 135, Est GFR (MDRD) Non-Af 112, BUN/Creatinine Ratio 17.9, Glucose 254 H, Calcium 7.5 L, Phosphorus 1.8 L, Total Bilirubin 1.20 H, AST 92 H, ALT 72 H, Alkaline Phosphatase 130 H, C-React Prot Ext Range 230.00 H, Total Protein 6.2 L, Albumin 2.1 L, Globulin 4.1, Albumin/Globulin Ratio 0.5 L, Amylase 47, Lipase 28 06/20/23 10:05: Lactic Acid 2.0 06/20/23 11:38: POC Glucose 282 H Micro: Microbiology 06/17/23 06:31 Sputum, Expectorated/Coughed Gram Stain - Final 06/17/23 06:31 Sputum, Expectorated/Coughed Respiratory Culture - Final Mixed normal respiratory maurizio. No Streptococcus pneumoniae, beta-hemolytic Streptococcus or Staphylococcus aureus isolated. 06/19/23 03:30 Stool Stool Lactoferrin - Final 06/19/23 03:30 Stool Enteric Bacteriology - Final 06/19/23 03:30 Stool C. difficile DNA Amplification - Final Radiography Diagnostic Testing: Radiology Impression Abdomen/Pelvis CT 06/20/23 09:20 IMPRESSION: Stable examination. Electronically Signed: Mahendra Fields MD at 11:21 EDT , Rhythm Strip Rhythm Strip: Sinus Tach Rate: 112 Physical Exam Narrative General: Alert, Oriented x3, Cooperative, No apparent distress HEENT: Atraumatic, PERRLA, EOMI, Normocephalic Oral: Moist Mucosa Neck: Supple, No JVD Lungs: Diminished, Normal air movement, No rhonchi, No wheeze, No rales Cardiovascular: Tachycardic, Regular Rhythm, Normal S1, Normal S2, No murmurs Abdomen: Soft, Non Tender, Non-Distended, No Hepato-splenomegaly Extremities: No edema, Capillary Refill Less than 3 Seconds Skin: No rashes, No breakdown Musculoskeletal: No Tenderness to Palpation of Joints or Extremities Neurological: Cranial nerves II-XII grossly intact, Motor Exam 5/5 strength throughout, Sensory exam intact to light touch and pain Psych/Mental Status: Normal Affect, Appropriate Assessment & Plan Assessment/Plan (1) Gallstone pancreatitis: PLAN: Plan 1. Sepsis due to 2 suspected gallstone pancreatitis: Patient is being admitted in PCU CT abdomen pelvis with IV contrast showed cholelithiasis and acute pancreatitis. Patient notably on a GLP-1 agonist, semaglutide for diabetes, which is associated with increased risk of gallbladder disease. WBC count 20 on admit, lactate 3.1, T. bili 1.5, AST 280, ALT 208, alk phos 129, lipase greater than 5000. There is increase in total bilirubin to 2.5, mainly direct 1.83, increasing ALT but alkaline phosphatase did not show change Discussed with the surgeon. Plan for ERCP by Dr. Batista for hepatobiliary, pancreatic cyst decompression. Further decision about inpatient cholecystectomy are elective cholecystectomy after discharge depends upon ERCP and stenting if required. If patient remains in the hospital on the weekend then laparoscopic cholecystectomy on Saturday. Pain control. Levaquin as he is allergic to penicillin. 06/15: Patient had ERCP on 06/14, biliary sphincterotomy was done, biliary tree swept and 1 temporary stent was placed into CBD.Patient had worsening leukocytosis mainly neutrophilia, lymphopenia. Afebrile.Total bili better than yesterday direct bilirubin 1.44. Transaminases and alkaline phosphatase got better after ERCP. Continue IV antibiotic Levaquin. Chest x-ray images reviewed shows bibasilar atelectasis. Incentive spirometer and Mucinex DM. Patient already on antibiotic. 06/17: Patient had low-grade fever. Hematocrit decreased to 35.8% with IV fluid Ringer lactate 200/h. IV fluids decreased to 150 mill per hour for 2 L. 06/18: Last fever was more than 24 hours ago. Abdominal pain is better. Hematocrit 34%. BUN 15. Patient is still leukocytosis. Total bilirubin 2.2 mainly direct hyperbilirubinemia. ALT normal. AST slightly elevated. Izard's prognostic criteria is better. Positive fluid balance 16 L. Patient is still tachycardic and tachypneic. Continue IV fluid, Ringer lactate at 100 mm/h 06/19/2023: We will advance his diet and recheck lab work in the morning. We will discontinue his antibiotics, white count is fluctuating testing for GI source has been negative so far 06/20/2023: We will place him on more fat restricted diet but he is not having any increased abdominal pain. Repeat CT scan today obtained by GI demonstrates a stable necrotizing pancreatitis with no signs of free air to indicate abscess formation 2. Acute hypoxic respiratory failure exact etiology unclear but possible may be pulmonary edema from IV fluids/gallstone pancreatitis potential sleep apnea: Patient had productive cough and low-grade fever. Continue IV Levaquin. Sputum culture ordered. BiPAP transition to nasal cannula. Patient is transferred to PCU. 06/18: Prelim sputum culture shows normal respiratory maurizio. Patient on IV antibiotic 06/20/2023: Antibiotics were discontinued 3. MICHELLE Likely prerenal secondary to volume ablation in setting of pancreatitis as noted above. Creatinine 1.52 on admission, baseline creatinine appears to be around 0.9-1. 06/14: Creatinine shows improvement 1.24. 10/15: BUNs/creatinine increased 46/2.46, estimated creatinine clearance 32 mill per minute. Hypocalcemia, corrected calcium 7.1. Twelve-lead EKG ordered For hyperkalemia K5.2. Calcium chloride 1 g IV piggyback ordered. Patient has metabolic acidosis 06/16: Calcium low therefore calcium gluconate ordered. Water Tanker Driver consult reviewed and appreciated. 06/17: Patient creatinine decreased to 1.37. No FEATHER RENOVATOR's.Patient is still has hypocalcemia 5.6 secondary to pancreatitis. Serum sodium 130 better.. 06/18: BUNs/creatinine normal. Serum calcium still low, getting replaced. 06/19/2023: Creatinine is at baseline we will replace phosphorus and recheck morning Chronic medical conditions: ? Type 2 diabetes: Home medications of GLP-1 agonist, unclear which one as several are noted on his home medication list. Blood glucose in the 300s on admission. Sliding scale insulin while inpatient. A1c 5.9%. ? Hypertension: Holding home lisinopril in setting of MICHELLE as noted above, restart as needed. ? Hyperlipidemia: Continue home rosuvastatin. DVT: Lovenox Charges/Coding Visit Charges Inpatient E&M: 96559 Subs Hosp L2
[2023-06-20] MEDS: Potassium Phosphate 30 MM in 0.9% Normal Saline (250mL Bag) 250 ML 42 MM IV (13:27)
[2023-06-20 14:19] LABS: Reflex Lactate? Y
--- NOTE | 2023-06-20 14:49 | PCM.PN.SRG ---
Subjective Subjective Patient seen and examined during afternoon rounds. Is found sitting out of bed in the chair. He states that he continues to feel better. He denies any specific complaints. He confirms that his abdominal discomfort is improved and that he is urinating frequently. Objective Data Objective Data Vital Signs: Vital Signs Temp Pulse Resp BP Pulse Ox O2 Del Method O2 Flow Rate 98.1 F 124 H 18 138/92 H 95 Room Air 1 06/20/23 09:00 06/20/23 09:00 06/20/23 09:00 06/20/23 09:00 06/20/23 09:00 06/20/23 09:00 06/19/23 00:00 FiO2 30 06/17/23 21:17 Oxygen Flow Rate (L/min) 1 Oxygen Delivery Method Room Air Weight: 296 lb 11.875 oz Body Mass Index (BMI) 47.9 Intake & Output: Intake and Output for Last 24 Hours 06/18/23 06/19/23 06/20/23 23:59 23:59 23:59 Intake Total 2207 / 2207 2855 / 2855 2196.67 / 2196.67 Output Total 1100 / 1100 Balance 1107 / 1107 2855 / 2855 2196.67 / 2196.67 Lab / Micro Data 06/20/23 06:38 06/20/23 06:38 Labs: Laboratory Results - last 24 hr 06/19/23 03:40: Diff Path Review Reviewed 06/19/23 16:10: POC Glucose 186 H 06/19/23 20:34: POC Glucose 132 H 06/20/23 04:59: POC Glucose 245 H 06/20/23 06:38: WBC 30.4 H*, RBC 4.33 L, Hgb 11.9 L, Hct 37.4 L, MCV 86.4, MCH 27.5, MCHC 31.8 L, RDW Std Deviation 47.1 H, RDW Coeff of Rae 14.9 H, Plt Count 336, MPV 8.8, Neut % (Auto) Not Reportable, Absolute Neuts (auto) 28.0 H, Absolute Lymphs (auto) 1.22, Total Counted 100, Neutrophils % (Manual) 69, Band Neutrophils % 10 H, Lymphocytes % (Manual) 4 L, Monocytes % (Manual) 4, Metamyelocytes % 8 H, Myelocytes % 4 H, Promyelocytes % 1 H, Diff Path Review May foll, Platelet Estimate ADEQUATE, RBC Morphology NORM C+C, ESR 38 H, Sodium 134 L, Potassium 3.9, Chloride 100, Carbon Dioxide 21.0, Anion Gap 13, BUN 14, Creatinine 0.78, Estim Creat Clear Calc 102.24, Est GFR (MDRD) Af Amer 135, Est GFR (MDRD) Non-Af 112, BUN/Creatinine Ratio 17.9, Glucose 254 H, Calcium 7.5 L, Phosphorus 1.8 L, Total Bilirubin 1.20 H, AST 92 H, ALT 72 H, Alkaline Phosphatase 130 H, C-React Prot Ext Range 230.00 H, Total Protein 6.2 L, Albumin 2.1 L, Globulin 4.1, Albumin/Globulin Ratio 0.5 L, Amylase 47, Lipase 28 06/20/23 10:05: Lactic Acid 2.0 06/20/23 11:38: POC Glucose 282 H Micro: Microbiology 06/17/23 06:31 Sputum, Expectorated/Coughed Gram Stain - Final 06/17/23 06:31 Sputum, Expectorated/Coughed Respiratory Culture - Final Mixed normal respiratory maurizio. No Streptococcus pneumoniae, beta-hemolytic Streptococcus or Staphylococcus aureus isolated. 06/19/23 03:30 Stool Stool Lactoferrin - Final 06/19/23 03:30 Stool Enteric Bacteriology - Final 06/19/23 03:30 Stool C. difficile DNA Amplification - Final Radiography Diagnostic Testing: Radiology Impression Abdomen/Pelvis CT 06/20/23 09:20 IMPRESSION: Stable examination. Electronically Signed: Mahendra Fields MD at 11:21 EDT , Rhythm Strip Rhythm Strip: Sinus Tach Rate: 112 Physical Exam Const oriented x3 and no apparent distress GI GI Narrative: Obese, distended, soft, mildly tender (rated 2 out of 10) to palpation Assessment & Plan Assessment/Plan (1) Gallstone pancreatitis: PLAN: The patient has acute gallstone pancreatitis and is status post ERCP with stone removal and temporary stent insertion by gastroenterology 06/14/2023. Patient experienced deterioration of his pancreatitis and secondarily his renal function and respiratory status requiring ICU admission. He is recently transitioned back to the progressive care unit after showing improvements in both his respiratory status and renal function. From an abdominal standpoint, he has minimal tenderness of the epigastrium and right upper quadrant. However, today he remains tachycardic and with a white blood cell count of greater than 30,000. There is no clearly evident sign of infection?even with repeat CT imaging of the abdomen pelvis. I have discussed with hospitalist service broadening search for possible sources and beginning diuresis since patient appears to be greater than 20 pounds up from his admit weight. ? Agree w fat restricted diet order ? Consider chest x-ray ? Consider initiating diuresis and continue to trend daily weights along with I's and O's ? No surgical intervention planned for present admission given patient's complications with pancreatitis ? Repeat CMP in the a.m. Charges/Coding Visit Charges Inpatient E&M: 96912 Subs Hosp L2
[2023-06-20 15:00] VITALS: BP 147/79; PULSE 125; RESP 18; TEMP 36.6; O2SAT 95
[2023-06-20 15:06] LABS: Lactic Acid 1.5 mmol/L (0.4-1.9)
--- NOTE | 2023-06-20 17:28 | EX.PCM.PN.GI ---
Subjective Subjective Patient continues to be tachycardic. He states that his abdominal pain is improving. He feels like his pain is fairly well managed. He does complain of bloating. I repeated his CT scan abdomen pelvis today. Objective Data Objective Data Vital Signs: Vital Signs Temp Pulse Resp BP Pulse Ox O2 Del Method O2 Flow Rate 97.9 F 125 H 18 147/79 H 95 Room Air 1 06/20/23 15:00 06/20/23 15:00 06/20/23 15:00 06/20/23 15:00 06/20/23 15:00 06/20/23 15:00 06/19/23 00:00 FiO2 30 06/17/23 21:17 Oxygen Flow Rate (L/min) 1 Oxygen Delivery Method Room Air Weight: 296 lb 11.875 oz Body Mass Index (BMI) 47.9 Intake & Output: Intake and Output for Last 24 Hours 06/18/23 06/19/23 06/20/23 23:59 23:59 23:59 Intake Total 2207 / 2207 2855 / 2855 2196.67 / 2196.67 Output Total 1100 / 1100 Balance 1107 / 1107 2855 / 2855 2196.67 / 2196.67 Lab / Micro Data 06/20/23 06:38 06/20/23 06:38 Labs: Laboratory Results - last 24 hr 06/19/23 20:34: POC Glucose 132 H 06/20/23 04:59: POC Glucose 245 H 06/20/23 06:38: WBC 30.4 H*, RBC 4.33 L, Hgb 11.9 L, Hct 37.4 L, MCV 86.4, MCH 27.5, MCHC 31.8 L, RDW Std Deviation 47.1 H, RDW Coeff of Rae 14.9 H, Plt Count 336, MPV 8.8, Neut % (Auto) Not Reportable, Absolute Neuts (auto) 28.0 H, Absolute Lymphs (auto) 1.22, Total Counted 100, Neutrophils % (Manual) 69, Band Neutrophils % 10 H, Lymphocytes % (Manual) 4 L, Monocytes % (Manual) 4, Metamyelocytes % 8 H, Myelocytes % 4 H, Promyelocytes % 1 H, Diff Path Review May , Platelet Estimate ADEQUATE, RBC Morphology NORM C+C, ESR 38 H, Sodium 134 L, Potassium 3.9, Chloride 100, Carbon Dioxide 21.0, Anion Gap 13, BUN 14, Creatinine 0.78, Estim Creat Clear Calc 102.24, Est GFR (MDRD) Af Amer 135, Est GFR (MDRD) Non-Af 112, BUN/Creatinine Ratio 17.9, Glucose 254 H, Calcium 7.5 L, Phosphorus 1.8 L, Total Bilirubin 1.20 H, AST 92 H, ALT 72 H, Alkaline Phosphatase 130 H, C-React Prot Ext Range 230.00 H, Total Protein 6.2 L, Albumin 2.1 L, Globulin 4.1, Albumin/Globulin Ratio 0.5 L, Amylase 47, Lipase 28 06/20/23 10:05: Lactic Acid 2.0 06/20/23 11:38: POC Glucose 282 H 06/20/23 14:30: Lactic Acid 1.5 Micro: Microbiology 06/17/23 06:31 Sputum, Expectorated/Coughed Gram Stain - Final 06/17/23 06:31 Sputum, Expectorated/Coughed Respiratory Culture - Final Mixed normal respiratory maurizio. No Streptococcus pneumoniae, beta-hemolytic Streptococcus or Staphylococcus aureus isolated. 06/19/23 03:30 Stool Stool Lactoferrin - Final 06/19/23 03:30 Stool Enteric Bacteriology - Final 06/19/23 03:30 Stool C. difficile DNA Amplification - Final Radiography Diagnostic Testing: Radiology Impression Abdomen/Pelvis CT 06/20/23 09:20 IMPRESSION: Stable examination. Electronically Signed: Mahendra Fields MD at 11:21 EDT Reading Location ID and State: [facility] / [place] , Service support , Rhythm Strip Rhythm Strip: Sinus Tach Rate: 112 Physical Exam Narrative General: Alert, Oriented x3, Cooperative, No apparent distress HEENT: Atraumatic, PERRLA, EOMI, Normocephalic Oral: Moist Mucosa Neck: Supple, No JVD Lungs: Diminished, Normal air movement, No rhonchi, No wheeze, No rales Cardiovascular: Regular rate, Regular Rhythm, Normal S1, Normal S2, No murmurs Abdomen: Soft, Non Tender, Non-Distended, No Hepato-splenomegaly Extremities: No edema, Capillary Refill Less than 3 Seconds Skin: No rashes, No breakdown Musculoskeletal: No Tenderness to Palpation of Joints or Extremities Neurological: Cranial nerves II-XII grossly intact, Motor Exam 5/5 strength throughout, Sensory exam intact to light touch and pain Psych/Mental Status: Normal Affect, Appropriate Assessment & Plan Assessment/Plan (1) Gallstone pancreatitis: (2) Cholelithiasis: (3) MICHELLE (acute kidney injury): PLAN: Plan Patient is a 48-year-old male with history of type 2 diabetes, morbid obesity, hypertension and hyperlipidemia who presented to [facility] ED on 06/13/2023 with severe abdominal pain. Gallstone pancreatitis Presented with acute onset upper abdominal pain. CT abdomen pelvis with IV contrast showed cholelithiasis and acute pancreatitis. Patient notably on a GLP-1 agonist for diabetes, which is associated with increased risk of gallbladder disease. WBC count 20 on admit, lactate 3.1, T. bili 1.5, AST 280, ALT 208, alk phos 129, lipase greater than 5000. ? Hematocrit has been used as a predictor of severity of acute pancreatitis.His hematocrit did not decrease in the first 24 hours. Therefore I switched him to LR at 200 cc an hour and his hematocrit has decreased from 48-43. I think he needs to get his hematocrit less than 40%. We will increase his fluids back up to 200 an hour and monitor him closely for any respiratory distress. We will also repeat his chest x-ray to make sure that he is not going into fluid overload. I think his kidneys will do better with volume expansion. - Acute kidney injury likely secondary to acute pancreatitis. BUN and creatinine has possibly plateaued. Continue IV fluids. Monitor I's and O's 06/17-hematocrit is a lot better today. It is down to 38% from 40% with the use of lactated Ringer's at 200 cc an hour. His urinary output is 70 cc an hour. He did have 1 bowel movement. His inflammatory markers such as a CRP, ESR and lactic acid are all improving. Also his kidney function is improving with his BUN and creatinine ratio decreasing. I talk with his daughter today and explained to her all disease processes that are occurring at this time. He has had a persistent low-grade fever that is likely secondary to severe acute pancreatitis. When his creatinine is improved we can check his CT scan abdomen pelvis to make sure that there is no air or signs of severe necrosis. I recommend to encourage him to stay out of bed and move around along with administering Ensure 3-4 times a day. He is making good progress. I started him on metoclopramide because he likely has a relative gastroparesis secondary to severe pancreatitis along with a mild paralytic ileus. I will start him on Colace 100 mg p.o. twice daily. He is also getting supplemental calcium and phosphate for severe hypocalcemia and hypophosphatemia likely secondary to severe acute pancreatitis. Still guarded prognosis. 06/18-CT scan of the abdomen pelvis does show some hypoperfusion likely secondary to pancreatic necrosis which is to be expected. Typically we do not treat it with anything else but antibiotics as it is assumed to be a sterile necrosis. There was no air seen in the pancreatic fluid collection. I explained to him it is very important to maintain his nutrition to cut down the risk of translocation of bacteria into the sterile fluid. All his inflammatory markers are improving which is a good sign and his kidney function is improved. His diarrheal stools could be secondary to the stool softeners that he is taking to prevent constipation associated with narcotics and lack of movement. However I will check his stools for infection because he has been on antibiotics. Encourage and out of bed and him to eat as much as possible. He said he will try Ensure. If he is not able to eat by tomorrow then I explained to him and his daughter at the bedside he will need a NG tube to prevent his pancreatitis from getting infected. Continue IV fluids at 100 cc an hour of lactated Ringer's. 06/19- Patient haspatient has been afebrile for the last 24 hours. His white blood cell count is still elevated to significantly that. I'm hoping it's just secondary to inflammatory reaction from severe acute pancreatitis. Hey severehey, severe hypophosphatemia and hypo calcium you are improving slowly, which is also a very good sign. A as severe hypophosphatemia and hypocalcemia are associated with worsening pancreatitis. He will need to repeat a CT scan in approximately three days to make sure that there is no signs of infected pancreatic necrosis. His stool studies show deposit like to firm, but was negative for infection. I suspect that his hypophosphatemia in hypocalcemia will also improve asses diarrhea improves, and it's nutrition in improves. Continue at least 100 cc an hour of lactated ringers due to fluid losses from third spacing, urination and respiration. He is improving, but he still has a guarded prognosis with a long way to go. 06/20-his increasing white count concern me so I reordered a CT scan of the abdomen pelvis. Radiology reporting that it looks about the same with severe pancreatitis. He is third spacing a lot of fluid into his paracolic gutters with extension of pancreatitis. I reordered his CRP and his still very elevated at 250. His lactate is normal at 1.2. I will start him on some mild diuretics. Continue to eat as it cuts down on translocation of bacteria to help prevent severe pancreatitis from becoming infected pancreatic necrosis. Charges/Coding Visit Charges Inpatient E&M: 84185 Subs Hosp L3
[2023-06-20 17:53] LABS: Bedside Glucose 215 mg/dL (74-106)
[2023-06-20] MEDS: Atorvastatin Calcium 10 MG Tablet PO (20:05)
[2023-06-20 20:45] LABS: Bedside Glucose 211 mg/dL (74-106)
[2023-06-20 21:00] VITALS: BP 140/79; PULSE 122; RESP 16; TEMP 36.5; O2SAT 95
[2023-06-21] MEDS: Loperamide 2 MG Capsule PO ×3 (01:57→09:25)
[2023-06-21 03:00] VITALS: BP 136/77; PULSE 125; RESP 16; TEMP 36.6; O2SAT 97
[2023-06-21 03:49] VITALS: BMI 48.5
[2023-06-21] MEDS: Metoclopramide 10 MG/2 ML Vial 5 MG IV ×4 (05:14→23:59)
[2023-06-21] MEDS: Lactated Ringers 1,000 ML 100 ML IV (05:15)
[2023-06-21 06:28] LABS: Hematocrit 36.4 % (40-54); Hemoglobin 11.5 g/dL (13.0-16.5); Mean Corp Hgb Conc 31.6 g/dL (32-36); Mean Corpuscular Hgb 27.6 pg (27.0-32.0); Mean Corpuscular Volume 87.5 fL (80-94); Mean Platelet Vol. 8.7 fl (6.2-12.0); POSITIVE COUNT YES; POSITIVE DIFFERENTIAL YES; POSITIVE MORPHOLOGY YES; Platelet Count 352 K/mm3 (150-450); RBC Distribution Width CV 15.2 % (11.6-14.6); RBC Distribution Width SD 48.7 fl (35.1-43.9); Red Blood Count 4.16 M/mm3 (4.6-6.2)
[2023-06-21 06:34] LABS: Differential Indicated MANUAL DIFF; White Blood Count 37.1 K/mm3 (4.4-11.0)
[2023-06-21 06:52] LABS: Anion Gap 13 (5-15); BUN 17 mg/dL (7-18); BUN/Creat Ratio 19.7 RATIO (10-20); Calcium,Total 7.7 mg/dL (8.5-10.1); Chloride 98 mmol/L (98-107); Creatinine, Serum 0.86 mg/dL (0.70-1.30); EST Glomerular Filtration Rate 100 mL/min (>60); Est Glom Filt Rate - Afr Amer 121 mL/min (>60); Estimated Creatinine Clearance 92.73 ml/min; Glucose 327 mg/dL (74-106); Phosphorus 2.5 mg/dL (2.5-4.9); Potassium 4.3 mmol/L (3.5-5.1); Sodium Level 132 mmol/L (136-145)
[2023-06-21 07:10] LABS: Lymphocyte 3 % (19-41); Metamyelocyte 1 % (0-1); Monocyte 5 % (0-10); Myelocyte 4 % (0-0); Neutrophil-Band 19 % (0-5); Neutrophil-Segmented 68 % (47-70); Platelet Estimate ADEQUATE (ADEQ); Red Cell Morphology NORM C+C NORMAL (NORM C&C); Total Cells Counted 100 (MANUAL DIFF)
[2023-06-21 07:11] LABS: Absolute Lymphocyte Count 1.11 X10^3/uL (0.83-4.51); Absolute Neutrophil Count 32.3 X10^3/uL (2.0-7.7); Lymphocyte # 1.11 X10^3/ul (0.83-4.51); Neutrophil # 32.29 X10^3/uL (2.7-7.7)
--- NOTE | 2023-06-21 07:40 | RAD_ITS ---
STUDY: X-RAY CHEST REASON FOR EXAM: Male, 48 years old. Tachy s/p large vol resus TECHNIQUE: Single AP portable view of the chest. COMPARISON: June 16, 2023 FINDINGS: The lungs are clear and expanded. There is no demonstrated pleural abnormality. Normal size heart. Normal mediastinum and silvia. Normal visualized pulmonary arteries. Normal visualized aortic arch and descending thoracic aorta. Normal visualized thoracic spine. Normal visualized ribs, clavicles, and shoulders. There is no demonstrated abnormality of the visualized soft tissue structures of the upper abdomen. RAD/Chest 1 View (Portable) IMPRESSION: Normal x-ray examination of the chest. Electronically Signed: Reggie Campbell MD at 9:02 EDT ,
[2023-06-21 08:23] LABS: Bedside Glucose 301 mg/dL (74-106)
--- NOTE | 2023-06-21 08:27 | PN.SURG_ITS ---
Subjective Subjective Patient seen and examined during AM rounds. He is found resting in his chair. He denies any significant abdominal pain or shortness of breath. He remarks that he is going to the bathroom every hour to have both loose bowel movements and urinate. Objective Data Objective Data Vital Signs: Vital Signs Temp Pulse Resp BP Pulse Ox O2 Del Method O2 Flow Rate 97.8 F 125 H 16 136/77 H 97 Room Air 1 06/21/23 03:00 06/21/23 03:00 06/21/23 03:00 06/21/23 03:00 06/21/23 03:00 06/21/23 08:00 06/19/23 00:00 FiO2 30 06/17/23 21:17 Oxygen Flow Rate (L/min) 1 Oxygen Delivery Method Room Air Weight: 300 lb 11.368 oz Body Mass Index (BMI) 48.5 Intake & Output: Intake and Output for Last 24 Hours 06/19/23 06/20/23 06/21/23 23:59 23:59 23:59 Intake Total 2855 / 2855 3745.00 / 3745.00 915 / 915 Balance 2855 / 2855 3745.00 / 3745.00 915 / 915 Lab / Micro Data 06/21/23 05:40 06/21/23 05:40 Labs: Laboratory Results - last 24 hr 06/20/23 06:38: ESR 38 H, C-React Prot Ext Range 230.00 H, Amylase 47, Lipase 28 06/20/23 10:05: Lactic Acid 2.0 06/20/23 11:38: POC Glucose 282 H 06/20/23 14:30: Lactic Acid 1.5 06/20/23 17:23: POC Glucose 215 H 06/20/23 19:59: POC Glucose 211 H 06/21/23 05:40: WBC 37.1 H*, RBC 4.16 L, Hgb 11.5 L, Hct 36.4 L, MCV 87.5, MCH 27.6, MCHC 31.6 L, RDW Std Deviation 48.7 H, RDW Coeff of Rae 15.2 H, Plt Count 352, MPV 8.7, Neut % (Auto) Not Reportable, Absolute Neuts (auto) 32.3 H, Absolute Lymphs (auto) 1.11, Total Counted 100, Neutrophils % (Manual) 68, Band Neutrophils % 19 H, Lymphocytes % (Manual) 3 L, Monocytes % (Manual) 5, Metamyelocytes % 1, Myelocytes % 4 H, Diff Path Review May foll, Platelet Estimate ADEQUATE, RBC Morphology NORM C+C, Sodium 132 L, Potassium 4.3, Chloride 98, Carbon Dioxide 21.0, Anion Gap 13, BUN 17, Creatinine 0.86, Estim Creat Clear Calc 92.73, Est GFR (MDRD) Af Amer 121, Est GFR (MDRD) Non-Af 100, BUN/Creatinine Ratio 19.7, Glucose 327 H, Calcium 7.7 L, Phosphorus 2.5 06/21/23 08:03: POC Glucose 301 H Micro: Microbiology 06/17/23 06:31 Sputum, Expectorated/Coughed Gram Stain - Final 06/17/23 06:31 Sputum, Expectorated/Coughed Respiratory Culture - Final Mixed normal respiratory maurizio. No Streptococcus pneumoniae, beta-hemolytic Streptococcus or Staphylococcus aureus isolated. 06/19/23 03:30 Stool Stool Lactoferrin - Final 06/19/23 03:30 Stool Enteric Bacteriology - Final 06/19/23 03:30 Stool C. difficile DNA Amplification - Final Radiography Diagnostic Testing: Radiology Impression Abdomen/Pelvis CT 06/20/23 09:20 IMPRESSION: Stable examination. Electronically Signed: Mahendra Fields MD at 11:21 EDT , Rhythm Strip Rhythm Strip: Sinus Tach Rate: 112 Physical Exam Const oriented x3 and no apparent distress Resp normal respiratory effort GI GI Narrative: Distended, soft, minimally tender across the epigastrium Extremity Extremity Narrative: Edematous lower extremities bilaterally with general appearance of anasarca Assessment & Plan Assessment/Plan (1) Gallstone pancreatitis: PLAN: The patient has acute gallstone pancreatitis and is status post ERCP with stone removal and temporary stent insertion by gastroenterology 06/14/2023. Patient experienced deterioration of his pancreatitis and secondarily his renal function and respiratory status requiring ICU admission. He is recently transitioned back to the progressive care unit after showing improvements in both his respiratory status and renal function. From an abdominal standpoint, he has minimal tenderness of the epigastrium and right upper quadrant. However, today he remains tachycardic and with a white blood cell count of greater than 37,000 today. Remarkably patient has been afebrile for the past couple of days despite having his antibiotics discontinued over 48 hours ago. He is also noted to have a negative enteric pathogen panel and C. difficile assay completed yesterday. I have discussed with hospitalist service and gastroenterology regarding the etiology of this leukocytosis. We resolved to check for possible occult PE and follow-up blood cultures. In a later conversation with gastroenterology, there is a shared concern that patient may require an interventional radiology procedure which will not be available at this facility over the weekend?and depending on the nature of the procedure required?may exceed our capabilities altogether. Therefore, it may be necessary to seek transfer to a tertiary facility with greater resources. Hospitalist service plans to approach patient with this possibility. ? Agree w fat restricted diet order ? Consider bilateral lower extremity venous duplex studies to assess for possi ble occult DVT on top of pancreatitis ? Could consider abdominal ultrasound to see if patient has any ascites that would be amenable to diagnostic paracentesis ? Consider initiating diuresis and continue to trend daily weights along with I's and O's ? No surgical intervention planned for present admission given patient's complications with pancreatitis ? Repeat CMP in the a.m. Charges/Coding Visit Charges Inpatient E&M: 72048 Subs Hosp L2
--- NOTE | 2023-06-21 08:33 | CT_ITS ---
STUDY: CTA CHEST REASON FOR EXAM: Male, 48 years old. Pancreatitis, r/o PE RADIATION DOSAGE (If Supplied By Facility): CTDIvol = ( 23.96 ) mGy, DLP = ( 645.62 ) mGycm TECHNIQUE: The examination was performed with the intravenous administration of IV 100mL [id number]-[id number]. Post-processing of the angiographic images was performed, with multiplanar reformation and 3D reconstruction. Individualized dose optimization techniques were used for this CT. COMPARISON: Chest x-ray FINDINGS: There is limited enhancement of the main pulmonary artery and right and left pulmonary arteries. There is limited enhancement of the bilateral peripheral pulmonary arteries. There is no demonstrated pulmonary embolism. Normal thoracic aorta and visualized great vessels. There is no demonstrated aortic dissection. Normal heart and pericardium. Normal mediastinum. Normal hilar regions. Normal visualized trachea and bronchi. The lungs are well expanded. Left lower lung atelectasis. Normal pleura. Normal chest wall structures. There is degenerative change of the spine. There is acute pancreatitis in the left upper quadrant of the abdomen. There is mild ascites. CT/CTA Chest W/WO Contrast IMPRESSION: CTA chest examination, without a demonstrated pulmonary embolism or arterial dissection. Left lower lung atelectasis. Acute pancreatitis. Electronically Signed: Reggie Campbell MD at 15:09 EDT ,
[2023-06-21 08:58] LABS: Erythrocyte Sedimentation Rate 55 mm/hr (0-20)
[2023-06-21 09:08] LABS: Pathologist Review Reviewed
--- NOTE | 2023-06-21 09:18 | NURSING ---
Did not complete VSA on time due to patient being off floor for testing
[2023-06-21 09:20] LABS: Lactic Acid 1.6 mmol/L (0.4-1.9)
[2023-06-21 09:21] VITALS: BP 133/77; PULSE 122; RESP 18; TEMP 37.1; O2SAT 97
[2023-06-21] MEDS: Insulin Lispro 100 UNIT/ML INSULN.PEN 20 UNIT SC ×3 (09:22→17:49)
[2023-06-21] MEDS: Enoxaparin 40 MG/0.4 ML Syringe SC (09:22)
[2023-06-21] MEDS: Insulin Lispro 100 UNIT/ML INSULN.PEN SC ×4 (09:23→21:05)
[2023-06-21] MEDS: guaiFENesin/D-Methorphan TAB.SR.12H 1 TABLET PO ×2 (09:25→21:04)
[2023-06-21] MEDS: Magnesium Chloride 64 MG Delay Rel.Tablet 128 MG PO ×2 (09:25→21:04)
[2023-06-21] MEDS: Calcium (Elemental) 500 MG Tablet PO ×3 (09:25→17:48)
[2023-06-21] MEDS: 0.9% Saline Lock 10 ML Syringe IV ×2 (09:25→17:48)
[2023-06-21] MEDS: Furosemide 40 MG/4 ML Vial IV (09:25)
[2023-06-21] MEDS: metroNIDAZOLE 500 MG/100 ML BAG 100 MG IV ×3 (09:26→21:03)
[2023-06-21] MEDS: levoFLOXacin IV 500 MG/100 ML BAG 100 MG IV (09:27)
[2023-06-21] MEDS: Vancomycin 125 MG/5 ML Susp PO.SYRINGE PO ×3 (11:24→23:59)
[2023-06-21 11:48] LABS: Bedside Glucose 380 mg/dL (74-106)
[2023-06-21 12:21] LABS: Pathologist Review Reviewed
[2023-06-21 14:55] VITALS: BP 116/75; PULSE 121; RESP 18; TEMP 36.9; O2SAT 95
[2023-06-21 16:38] LABS: Bedside Glucose 258 mg/dL (74-106)
--- NOTE | 2023-06-21 18:08 | PN.HOSP_ITS ---
Subjective Subjective Still tachycardic does not feel short of breath. He is tolerating his p.o. diet and denies any significant abdominal pain Objective Data Objective Data Vital Signs: Vital Signs Temp Pulse Resp BP Pulse Ox O2 Del Method O2 Flow Rate 98.5 F 121 H 18 116/75 95 Room Air 1 06/21/23 14:55 06/21/23 14:55 06/21/23 14:55 06/21/23 14:55 06/21/23 14:55 06/21/23 14:55 06/19/23 00:00 FiO2 30 06/17/23 21:17 Oxygen Flow Rate (L/min) 1 Oxygen Delivery Method Room Air Weight: 300 lb 11.368 oz Body Mass Index (BMI) 48.5 Intake & Output: Intake and Output for Last 24 Hours 06/20/23 06/21/23 06/22/23 03:59 03:59 03:59 Intake Total 1825 / 1825 3505.00 / 3505.00 2190 / 2190 Output Total 550 / 550 Balance 1825 / 1825 3505.00 / 3505.00 1640 / 1640 Lab / Micro Data 06/21/23 05:40 06/21/23 05:40 Labs: Laboratory Results - last 24 hr 06/20/23 06:38: Diff Path Review Reviewed 06/20/23 19:59: POC Glucose 211 H 06/21/23 05:40: WBC 37.1 H*, RBC 4.16 L, Hgb 11.5 L, Hct 36.4 L, MCV 87.5, MCH 27.6, MCHC 31.6 L, RDW Std Deviation 48.7 H, RDW Coeff of Rae 15.2 H, Plt Count 352, MPV 8.7, Neut % (Auto) Not Reportable, Absolute Neuts (auto) 32.3 H, Absol q[place]alangin Lymphs (auto) 1.11, Total Counted 100, Neutrophils % (Manual) 68, Band Neutrophils % 19 H, Lymphocytes % (Manual) 3 L, Monocytes % (Manual) 5, Metamye locytes % 1, Myelocytes % 4 H, Diff Path Review Reviewed, Platelet Estimate A DEQUATE, RBC Morphology NORM C+C, ESR 55 H, Sodium 132 L, Potassium 4.3, Chloride 98, Carbon Dioxide 21.0, Anion Gap 13, BUN 17, Creatinine 0.86, Estim Creat Clear Calc 92.73, Est GFR (MDRD) Af Amer 121, Est GFR (MDRD) Non-Af 100, BUN/Creatinine Ratio 19.7, Glucose 327 H, Calcium 7.7 L, Phosphorus 2.5, C-React Prot Ext Range 198.00 H 06/21/23 08:03: POC Glucose 301 H 06/21/23 08:40: Lactic Acid 1.6 06/21/23 11:23: POC Glucose 380 H 06/21/23 16:20: POC Glucose 258 H Micro: Microbiology 06/17/23 06:31 Sputum, Expectorated/Coughed Gram Stain - Final 06/17/23 06:31 Sputum, Expectorated/Coughed Respiratory Culture - Final Mixed normal respiratory maurizio. No Streptococcus pneumoniae, beta-hemolytic Streptococcus or Staphylococcus aureus isolated. 06/19/23 03:30 Stool Stool Lactoferrin - Final 06/19/23 03:30 Stool Enteric Bacteriology - Final 06/19/23 03:30 Stool C. difficile DNA Amplification - Final Radiography Diagnostic Testing: Radiology Impression Chest X-Ray 06/21/23 07:40 IMPRESSION: Normal x-ray examination of the chest. Electronically Signed: Reggie Campbell MD at 9:02 EDT , Chest CTA 06/21/23 08:33 IMPRESSION: CTA chest examination, without a demonstrated pulmonary embolism or arterial dissection. Left lower lung atelectasis. Acute pancreatitis. Electronically Signed: Reggie Campbell MD at 15:09 EDT , Rhythm Strip Rhythm Strip: Sinus Tach Rate: 112 Physical Exam Narrative General: Alert, Oriented x3, Cooperative, No apparent distress HEENT: Atraumatic, PERRLA, EOMI, Normocephalic Oral: Moist Mucosa Neck: Supple, No JVD Lungs: Diminished, Normal air movement, No rhonchi, No wheeze, No rales Cardiovascular: Tachycardic, Regular Rhythm, Normal S1, Normal S2, No murmurs Abdomen: Soft, Non Tender, Non-Distended, No Hepato-splenomegaly Extremities: No edema, Capillary Refill Less than 3 Seconds Skin: No rashes, No breakdown Musculoskeletal: No Tenderness to Palpation of Joints or Extremities Neurological: Cranial nerves II-XII grossly intact, Motor Exam 5/5 strength throughout, Sensory exam intact to light touch and pain Psych/Mental Status: Normal Affect, Appropriate Assessment & Plan Assessment/Plan (1) Gallstone pancreatitis: PLAN: Plan 1. Sepsis due to 2 suspected gallstone pancreatitis: Patient is being admitted in PCU CT abdomen pelvis with IV contrast showed cholelithiasis and acute pancreatitis. Patient notably on a GLP-1 agonist, semaglutide for diabetes, which is associated with increased risk of gallbladder disease. WBC count 20 on admit, lactate 3.1, T. bili 1.5, AST 280, ALT 208, alk phos 129, lipase greater than 5000. There is increase in total bilirubin to 2.5, mainly direct 1.83, increasing ALT but alkaline phosphatase did not show change Discussed with the surgeon. Plan for ERCP by Dr. Batista for hepatobiliary, pancreatic cyst decompression. Further decision about inpatient cholecystectomy are elective cholecystectomy after discharge depends upon ERCP and stenting if required. If patient remains in the hospital on the weekend then laparoscopic cholecystectomy on Saturday. Pain control. Levaquin as he is allergic to penicillin. 06/15: Patient had ERCP on 06/14, biliary sphincterotomy was done, biliary tree swept and 1 temporary stent was placed into CBD.Patient had worsening leukocytosis mainly neutrophilia, lymphopenia. Afebrile.Total bili better than yesterday direct bilirubin 1.44. Transaminases and alkaline phosphatase got better after ERCP. Continue IV antibiotic Levaquin. Chest x-ray images reviewed shows bibasilar atelectasis. Incentive spirometer and Mucinex DM. Patient already on antibiotic. 06/17: Patient had low-grade fever. Hematocrit decreased to 35.8% with IV fluid Ringer lactate 200/h. IV fluids decreased to 150 mill per hour for 2 L. 06/18: Last fever was more than 24 hours ago. Abdominal pain is better. Hematocrit 34%. BUN 15. Patient is still leukocytosis. Total bilirubin 2.2 mainly direct hyperbilirubinemia. ALT normal. AST slightly elevated. Amado's prognostic criteria is better. Positive fluid balance 16 L. Patient is still tachycardic and tachypneic. Continue IV fluid, Ringer lactate at 100 mm/h 06/19/2023: We will advance his diet and recheck lab work in the morning. We will discontinue his antibiotics, white count is fluctuating testing for GI source has been negative so far 06/20/2023: We will place him on more fat restricted diet but he is not having any increased abdominal pain. Repeat CT scan today obtained by GI demonstrates a stable necrotizing pancreatitis with no signs of free air to indicate abscess formation 06/21/2023: Give a dose of Lasix with no significant improvement CT of the chest was negative for PE. There is not a good explanation for his continued tachycardia and unfortunately his white count has elevated to 37 with no obvious signs of infection. His CT of his abdomen yesterday did not show any abscess formation or air. Blood cultures are still pending. 2 days ago he did have stool studies that were all negative, lactoferrin was elevated but in discussion with GI this can occur in severe pancreatitis. Unfortunately he is not having very accurate I's and O's its unclear as to how fluid positive he is, therefore we will stop his IV fluids. I have encouraged him to ambulate in the room to tr y to mobilize his third spaced fluids. In discussion with gastroenterology as well as general surgery they both felt that given his rising white count that he should be transferred to a higher level of care. I did have this discussion with him and he is still in the process of electing hospital to go to. In the meantime we restarted his Levaquin and Flagyl and given his loose stools we will also empirically start him on p.o. vancomycin 2. Acute hypoxic respiratory failure exact etiology unclear but possible may be pulmonary edema from IV fluids/gallstone pancreatitis potential sleep apnea: Patient had productive cough and low-grade fever. Continue IV Levaquin. Sputum culture ordered. BiPAP transition to nasal cannula. Patient is transferred to PCU. 06/18: Prelim sputum culture shows normal respiratory maurizio. Patient on IV antibiotic 06/20/2023: Antibiotics were discontinued 3. MICHELLE Likely prerenal secondary to volume ablation in setting of pancreatitis as noted above. Creatinine 1.52 on admission, baseline creatinine appears to be around 0.9-1. 06/14: Creatinine shows improvement 1.24. 10/15: BUNs/creatinine increased 46/2.46, estimated creatinine clearance 32 mill per minute. Hypocalcemia, corrected calcium 7.1. Twelve-lead EKG ordered For hyperkalemia K5.2. Calcium chloride 1 g IV piggyback ordered. Patient has metabolic acidosis 06/16: Calcium low therefore calcium gluconate ordered. Crusher Supervisor consult reviewed and appreciated. 06/17: Patient creatinine decreased to 1.37. 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 Serum sodium 130 better.. 06/18: BUNs/creatinine normal. Serum calcium still low, getting replaced. 06/19/2023: Creatinine is at baseline we will replace phosphorus and recheck morning Chronic medical conditions: ? Type 2 diabetes: Home medications of GLP-1 agonist, unclear which one as several are noted on his home medication list. Blood glucose in the 300s on admission. Sliding scale insulin while inpatient. A1c 5.9%. ? Hypertension: Holding home lisinopril in setting of MICHELLE as noted above, restar t as needed. ? Hyperlipidemia: Continue home rosuvastatin. DVT: Lovenox Charges/Coding Visit Charges Inpatient E&M: 69072 Subs Hosp L2
--- NOTE | 2023-06-21 18:51 | EX.PCM.PN.GI ---
Subjective Subjective Patient still says abdominal pain is a 3-5 out of 10. He underwent a CT scan of the chest today. He still is afebrile but has been tachycardic. He is maintaining good urine output. He was given Lasix today. Objective Data Objective Data Vital Signs: Vital Signs Temp Pulse Resp BP Pulse Ox O2 Del Method O2 Flow Rate 98.5 F 121 H 18 116/75 95 Room Air 1 06/21/23 14:55 06/21/23 14:55 06/21/23 14:55 06/21/23 14:55 06/21/23 14:55 06/21/23 14:55 06/19/23 00:00 FiO2 30 06/17/23 21:17 Oxygen Flow Rate (L/min) 1 Oxygen Delivery Method Room Air Weight: 300 lb 11.368 oz Body Mass Index (BMI) 48.5 Intake & Output: Intake and Output for Last 24 Hours 06/19/23 06/20/23 06/21/23 23:59 23:59 23:59 Intake Total 2855 / 2855 3745.00 / 3745.00 2190 / 2190 Output Total 550 / 550 Balance 2855 / 2855 3745.00 / 3745.00 1640 / 1640 Lab / Micro Data 06/21/23 05:40 06/21/23 05:40 Labs: Laboratory Results - last 24 hr 06/20/23 06:38: Diff Path Review Reviewed 06/20/23 19:59: POC Glucose 211 H 06/21/23 05:40: WBC 37.1 H*, RBC 4.16 L, Hgb 11.5 L, Hct 36.4 L, MCV 87.5, MCH 27.6, MCHC 31.6 L, RDW Std Deviation 48.7 H, RDW Coeff of Rae 15.2 H, Plt Count 352, MPV 8.7, Neut % (Auto) Not Reportable, Absolute Neuts (auto) 32.3 H, Absolute Lymphs (auto) 1.11, Total Counted 100, Neutrophils % (Manual) 68, Band Neutrophils % 19 H, Lymphocytes % (Manual) 3 L, Monocytes % (Manual) 5, Metamyelocytes % 1, Myelocytes % 4 H, Diff Path Review Reviewed, Platelet Estimate ADEQUATE, RBC Morphology NORM C+C, ESR 55 H, Sodium 132 L, Potassium 4.3, Chloride 98, Carbon Dioxide 21.0, Anion Gap 13, BUN 17, Creatinine 0.86, Estim Creat Clear Calc 92.73, Est GFR (MDRD) Af Amer 121, Est GFR (MDRD) Non-Af 100, BUN/Creatinine Ratio 19.7, Glucose 327 H, Calcium 7.7 L, Phosphorus 2.5, C-React Prot Ext Range 198.00 H 06/21/23 08:03: POC Glucose 301 H 06/21/23 08:40: Lactic Acid 1.6 06/21/23 11:23: POC Glucose 380 H 06/21/23 16:20: POC Glucose 258 H Micro: Microbiology 06/17/23 06:31 Sputum, Expectorated/Coughed Gram Stain - Final 06/17/23 06:31 Sputum, Expectorated/Coughed Respiratory Culture - Final Mixed normal respiratory maurizio. No Streptococcus pneumoniae, beta-hemolytic Streptococcus or Staphylococcus aureus isolated. 06/19/23 03:30 Stool Stool Lactoferrin - Final 06/19/23 03:30 Stool Enteric Bacteriology - Final 06/19/23 03:30 Stool C. difficile DNA Amplification - Final Radiography Diagnostic Testing: Radiology Impression Chest X-Ray 06/21/23 07:40 IMPRESSION: Normal x-ray examination of the chest. Electronically Signed: Reggie Campbell MD at 9:02 EDT , Chest CTA 06/21/23 08:33 IMPRESSION: CTA chest examination, without a demonstrated pulmonary embolism or arterial dissection. Left lower lung atelectasis. Acute pancreatitis. Electronically Signed: Reggie Campbell MD at 15:09 EDT , Rhythm Strip Rhythm Strip: Sinus Tach Rate: 112 Physical Exam Narrative General: Alert, Oriented x3, Cooperative, No apparent distress HEENT: Atraumatic, PERRLA, EOMI, Normocephalic Oral: Moist Mucosa Neck: Supple, No JVD Lungs: Diminished, Normal air movement, No rhonchi, No wheeze, No rales Cardiovascular: Tachycardic, Regular Rhythm, Normal S1, Normal S2, No murmurs Abdomen: Soft, Non Tender, Non-Distended, No Hepato-splenomegaly Extremities: No edema, Capillary Refill Less than 3 Seconds Skin: No rashes, No breakdown Musculoskeletal: No Tenderness to Palpation of Joints or Extremities Neurological: Cranial nerves II-XII grossly intact, Motor Exam 5/5 strength throughout, Sensory exam intact to light touch and pain Psych/Mental Status: Normal Affect, Appropriate Assessment & Plan Assessment/Plan (1) Gallstone pancreatitis: (2) Cholelithiasis: (3) MICHELLE (acute kidney injury): PLAN: Plan Patient is a 48-year-old male with history of type 2 diabetes, morbid obesity, hypertension and hyperlipidemia who presented to [facility] ED on 06/13/2023 with severe abdominal pain. Gallstone pancreatitis Presented with acute onset upper abdominal pain. CT abdomen pelvis with IV contrast showed cholelithiasis and acute pancreatitis. Patient notably on a GLP-1 agonist for diabetes, which is associated with increased risk of gallbladder disease. WBC count 20 on admit, lactate 3.1, T. bili 1.5, AST 280, ALT 208, alk phos 129, lipase greater than 5000. ? Hematocrit has been used as a predictor of severity of acute pancreatitis.His hematocrit did not decrease in the first 24 hours. Therefore I switched him to LR at 200 cc an hour and his hematocrit has decreased from 48-43. I think he needs to get his hematocrit less than 40%. We will increase his fluids back up to 200 an hour and monitor him closely for any respiratory distress. We will also repeat his chest x-ray to make sure that he is not going into fluid overload. I think his kidneys will do better with volume expansion. - Acute kidney injury likely secondary to acute pancreatitis. BUN and creatinine has possibly plateaued. Continue IV fluids. Monitor I's and O's 06/17-hematocrit is a lot better today. It is down to 38% from 40% with the use of lactated Ringer's at 200 cc an hour. His urinary output is 70 cc an hour. He did have 1 bowel movement. His inflammatory markers such as a CRP, ESR and lactic acid are all improving. Also his kidney function is improving with his BUN and creatinine ratio decreasing. I talk with his daughter today and explained to her all disease processes that are occurring at this time. He has had a persistent low-grade fever that is likely secondary to severe acute pancreatitis. When his creatinine is improved we can check his CT scan abdomen pelvis to make sure that there is no air or signs of severe necrosis. I recommend to encourage him to stay out of bed and move around along with administering Ensure 3-4 times a day. He is making good progress. I started him on metoclopramide because he likely has a relative gastroparesis secondary to severe pancreatitis along with a mild paralytic ileus. I will start him on Colace 100 mg p.o. twice daily. He is also getting supplemental calcium and phosphate for severe hypocalcemia and hypophosphatemia likely secondary to severe acute pancreatitis. Still guarded prognosis. 06/18-CT scan of the abdomen pelvis does show some hypoperfusion likely secondary to pancreatic necrosis which is to be expected. Typically we do not treat it with anything else but antibiotics as it is assumed to be a sterile necrosis. There was no air seen in the pancreatic fluid collection. I explained to him it is very important to maintain his nutrition to cut down the risk of translocation of bacteria into the sterile fluid. All his inflammatory markers are improving which is a good sign and his kidney function is improved. His diarrheal stools could be secondary to the stool softeners that he is taking to prevent constipation associated with narcotics and lack of movement. However I will check his stools for infection because he has been on antibiotics. Encourage and out of bed and him to eat as much as possible. He said he will try Ensure. If he is not able to eat by tomorrow then I explained to him and his daughter at the bedside he will need a NG tube to prevent his pancreatitis from getting infected. Continue IV fluids at 100 cc an hour of lactated Ringer's. 06/19- Patient has been afebrile for the last 24 hours. His white blood cell count is still elevated to significantly that. I'm hoping it's just secondary to inflammatory reaction from severe acute pancreatitis. severe hypophosphatemia and hypo calcium you are improving slowly, which is also a very good sign. A as severe hypophosphatemia and hypocalcemia are associated with worsening pancreatitis. He will need to repeat a CT scan in approximately three days to make sure that there is no signs of infected pancreatic necrosis. His stool studies show deposit like to firm, but was negative for infection. I suspect that his hypophosphatemia in hypocalcemia will also improve asses diarrhea improves, and it's nutrition in improves. Continue at least 100 cc an hour of lactated ringers due to fluid losses from third spacing, urination and respiration. He is improving, but he still has a guarded prognosis with a long way to go. 06/20-his increasing white count concern me so I reordered a CT scan of the abdomen pelvis. Radiology reporting that it looks about the same with severe pancreatitis. He is third spacing a lot of fluid into his paracolic gutters with extension of pancreatitis. I reordered his CRP and his still very elevated at 250. His lactate is normal at 1.2. I will start him on some mild diuretics. Continue to eat as it cuts down on translocation of bacteria to help prevent severe pancreatitis from becoming infected pancreatic necrosis. 06/21-his white blood cell count still continues to increase. He is also displaying a bandemia. I will start him back on antibiotics. CT of the chest was ordered and it did not show any acute abnormalities. I am concerned about worsening pancreatic necrosis in possible abscess formation. I think eventually he will need at least a percutaneous drain. Patient says he feels about the same. He is not requiring oxygen. His kidney function continues to be the same. I will start him back on IV fluids. I do not recommend any other diuretics at this time as they can worsen pancreatitis. He should be transferred to high-level care. Charges/Coding Visit Charges Inpatient E&M: 78929 Subs Hosp L3
[2023-06-21 20:58] VITALS: BP 120/69; PULSE 123; RESP 20; TEMP 37.3; O2SAT 96
[2023-06-21] MEDS: Atorvastatin Calcium 10 MG Tablet PO (21:04)
[2023-06-21 22:11] LABS: Bedside Glucose 209 mg/dL (74-106)
[2023-06-22 03:32] VITALS: BMI 48.4
[2023-06-22 03:38] VITALS: BP 141/82; PULSE 118; RESP 20; TEMP 37.1; O2SAT 97
[2023-06-22] MEDS: metroNIDAZOLE 500 MG/100 ML BAG 100 MG IV ×3 (06:23→21:42)
[2023-06-22] MEDS: Metoclopramide 10 MG/2 ML Vial 5 MG IV ×4 (06:23→23:58)
[2023-06-22] MEDS: Loperamide 2 MG Capsule PO ×2 (06:23→09:25)
[2023-06-22] MEDS: 0.9% Saline Lock 10 ML Syringe IV ×2 (06:24→23:59)
[2023-06-22] MEDS: Vancomycin 125 MG/5 ML Susp PO.SYRINGE PO ×4 (06:24→23:59)
[2023-06-22] MEDS: Insulin Lispro 100 UNIT/ML INSULN.PEN SC ×4 (06:25→21:52)
[2023-06-22 06:57] LABS: Bedside Glucose 262 mg/dL (74-106)
[2023-06-22 07:08] LABS: Hematocrit 35.5 % (40-54); Hemoglobin 11.2 g/dL (13.0-16.5); Mean Corp Hgb Conc 31.5 g/dL (32-36); Mean Corpuscular Hgb 27.4 pg (27.0-32.0); Mean Corpuscular Volume 86.8 fL (80-94); Mean Platelet Vol. 8.7 fl (6.2-12.0); POSITIVE COUNT YES; POSITIVE DIFFERENTIAL YES; POSITIVE MORPHOLOGY YES; Platelet Count 330 K/mm3 (150-450); RBC Distribution Width CV 15.3 % (11.6-14.6); RBC Distribution Width SD 48.5 fl (35.1-43.9); Red Blood Count 4.09 M/mm3 (4.6-6.2)
[2023-06-22 07:20] LABS: Differential Indicated MANUAL DIFF; White Blood Count 40.3 K/mm3 (4.4-11.0)
[2023-06-22 07:41] LABS: ALB/GLOB Ratio 0.4 RATIO (0.9-2.4); AST(SGOT) 49 U/L (15-37); Alanine Aminotransfer ALT/SGPT 45 U/L (16-61); Albumin, Serum 1.8 g/dL (3.2-5.0); Alkaline Phosphatase 156 U/L (45-117); Anion Gap 10 (5-15); BUN 15 mg/dL (7-18); BUN/Creat Ratio 17.9 RATIO (10-20); Calcium,Total 7.5 mg/dL (8.5-10.1); Chloride 98 mmol/L (98-107); Creatinine, Serum 0.84 mg/dL (0.70-1.30); EST Glomerular Filtration Rate 103 mL/min (>60); Est Glom Filt Rate - Afr Amer 125 mL/min (>60); Estimated Creatinine Clearance 94.94 ml/min; Globulin 4.4 g/dL (2.2-4.2); Glucose 264 mg/dL (74-106); Potassium 4.1 mmol/L (3.5-5.1); Protein, Total 6.2 g/dL (6.4-8.2); Sodium Level 133 mmol/L (136-145)
[2023-06-22 07:44] LABS: Lymphocyte 2 % (19-41); Metamyelocyte 3 % (0-1); Monocyte 2 % (0-10); Neutrophil-Band 5 % (0-5); Neutrophil-Segmented 88 % (47-70); Total Cells Counted 100 (MANUAL DIFF)
[2023-06-22 07:45] LABS: Platelet Estimate ADEQUATE (ADEQ); Red Cell Morphology NORM C+C NORMAL (NORM C&C)
[2023-06-22 07:46] LABS: Absolute Neutrophil Count 37.5 X10^3/uL (2.0-7.7)
--- NOTE | 2023-06-22 08:06 | PCM.PN.SRG ---
Subjective Subjective Patient was quite somnolent upon waking up this morning slow to answer questions but was A&O x3. Labs pending Objective Data Objective Data Vital Signs: Vital Signs Temp Pulse Resp BP Pulse Ox O2 Del Method O2 Flow Rate 98.7 F 118 H 20 H 141/82 H 97 Room Air 1 06/22/23 03:38 06/22/23 03:38 06/22/23 03:38 06/22/23 03:38 06/22/23 03:38 06/22/23 03:38 06/19/23 00:00 FiO2 30 06/17/23 21:17 Oxygen Flow Rate (L/min) 1 Oxygen Delivery Method Room Air Weight: 300 lb 0.786 oz Body Mass Index (BMI) 48.4 Intake & Output: Intake and Output for Last 24 Hours 06/20/23 06/21/23 06/22/23 23:59 23:59 23:59 Intake Total 3745.00 / 3745.00 2290 / 2290 100 / 100 Output Total 550 / 550 Balance 3745.00 / 3745.00 1740 / 1740 100 / 100 Lab / Micro Data 06/22/23 06:20 06/22/23 06:20 Labs: Laboratory Results - last 24 hr 06/20/23 06:38: Diff Path Review Reviewed 06/21/23 05:40: Diff Path Review Reviewed, ESR 55 H, C-React Prot Ext Range 198.00 H 06/21/23 08:03: POC Glucose 301 H 06/21/23 08:40: Lactic Acid 1.6 06/21/23 11:23: POC Glucose 380 H 06/21/23 16:20: POC Glucose 258 H 06/21/23 21:03: POC Glucose 209 H 06/22/23 06:20: WBC 40.3 H*, RBC 4.09 L, Hgb 11.2 L, Hct 35.5 L, MCV 86.8, MCH 27.4, MCHC 31.5 L, RDW Std Deviation 48.5 H, RDW Coeff of Rae 15.3 H, Plt Count 330, MPV 8.7, Neut % (Auto) Not Reportable, Absolute Neuts (auto) 37.5 H, Absolute Lymphs (auto) 0.80 L, Total Counted 100, Neutrophils % (Manual) 88 H, Band Neutrophils % 5, Lymphocytes % (Manual) 2 L, Monocytes % (Manual) 2, Metamyelocytes % 3 H, Diff Path Review May , Platelet Estimate ADEQUATE, RBC Morphology NORM C+C, Sodium 133 L, Potassium 4.1, Chloride 98, Carbon Dioxide 25.0, Anion Gap 10, BUN 15, Creatinine 0.84, Estim Creat Clear Calc 94.94, Est GFR (MDRD) Af Amer 125, Est GFR (MDRD) Non-Af 103, BUN/Creatinine Ratio 17.9, Glucose 264 H, Calcium 7.5 L, Total Bilirubin 0.90, AST 49 H, ALT 45, Alkaline Phosphatase 156 H, Total Protein 6.2 L, Albumin 1.8 L, Globulin 4.4 H, Albumin/Globulin Ratio 0.4 L 06/22/23 06:22: POC Glucose 262 H Micro: Microbiology 06/20/23 10:13 Blood Culture (Wb) - Right Hand Blood Culture - Preliminary No growth in 48 hours. 06/20/23 10:05 Blood Culture (Wb) - Anticubital Right Blood Culture - Preliminary No growth in 48 hours. 06/17/23 06:31 Sputum, Expectorated/Coughed Gram Stain - Final 06/17/23 06:31 Sputum, Expectorated/Coughed Respiratory Culture - Final Mixed normal respiratory maurizio. No Streptococcus pneumoniae, beta-hemolytic Streptococcus or Staphylococcus aureus isolated. 06/19/23 03:30 Stool Stool Lactoferrin - Final 06/19/23 03:30 Stool Enteric Bacteriology - Final 06/19/23 03:30 Stool C. difficile DNA Amplification - Final Radiography Diagnostic Testing: Radiology Impression Chest X-Ray 06/21/23 07:40 IMPRESSION: Normal x-ray examination of the chest. Electronically Signed: Reggie Campbell MD at 9:02 EDT , Chest CTA 06/21/23 08:33 IMPRESSION: CTA chest examination, without a demonstrated pulmonary embolism or arterial dissection. Left lower lung atelectasis. Acute pancreatitis. Electronically Signed: Reggie Campbell MD at 15:09 EDT , Rhythm Strip Rhythm Strip: Sinus Tach Rate: 112 Physical Exam Resp normal respiratory effort Cardio Rate: tachycardic GI soft to palpation GI Narrative: Tender in epigastric, no peritoneal signs Assessment & Plan Assessment/Plan (1) Gallstone pancreatitis: PLAN: The patient has acute gallstone pancreatitis and is status post ERCP with stone removal and temporary stent insertion by gastroenterology 06/14/2023. Patient experienced deterioration of his pancreatitis and secondarily his renal function and respiratory status requiring ICU admission. He is recently transitioned back to the progressive care unit after showing improvements in both his respiratory status and renal function. From an abdominal standpoint, he has mild tenderness of the epigastrium and right upper quadrant. However, today he remains tachycardic and with a white blood cell count of 40,000 today. patient has been afebrile for the past couple of days despite having his antibiotics discontinued for several days--restarted yesterday. He is also noted to have a negative enteric pathogen panel and C. difficile assay completed yesterday. checked for possible occult PE and follow-up blood cultures-- CTA was negative, prelim no growth in 48 hrs for bld cx. recommend transfer to a tertiary facility with greater resources?patient selected [facility], hospitalist will attempt to contact. ? No surgical intervention planned for present admission given patient's complications with pancreatitis Charges/Coding Visit Charges Inpatient E&M: 09861 Subs Hosp L2
[2023-06-22] MEDS: levoFLOXacin IV 500 MG/100 ML BAG 100 MG IV (09:12)
[2023-06-22 09:15] LABS: Erythrocyte Sedimentation Rate 63 mm/hr (0-20)
[2023-06-22 09:19] VITALS: BP 128/82; PULSE 110; RESP 16; TEMP 36.6; O2SAT 98
[2023-06-22] MEDS: Insulin Lispro 100 UNIT/ML INSULN.PEN 20 UNIT SC ×3 (09:27→15:55)
[2023-06-22] MEDS: Magnesium Chloride 64 MG Delay Rel.Tablet 128 MG PO ×2 (09:27→21:34)
[2023-06-22] MEDS: Enoxaparin 40 MG/0.4 ML Syringe SC (09:28)
[2023-06-22] MEDS: guaiFENesin/D-Methorphan TAB.SR.12H 1 TABLET PO ×2 (09:28→21:35)
[2023-06-22] MEDS: Calcium (Elemental) 500 MG Tablet PO ×3 (09:28→18:12)
[2023-06-22 09:31] LABS: Calcium,Total 7.4 mg/dL (8.5-10.1); LDH 614 U/L (87-241); Phosphorus 2.1 mg/dL (2.5-4.9)
[2023-06-22 09:52] LABS: Lactic Acid 1.5 mmol/L (0.4-1.9)
[2023-06-22] MEDS: Potassium Phosphate 21 MM in 0.9% Normal Saline (250mL Bag) 250 ML 84 MM IV (10:40)
[2023-06-22 12:03] LABS: Bedside Glucose 291 mg/dL (74-106)
[2023-06-22 15:20] VITALS: BP 119/72; PULSE 120; RESP 16; TEMP 37.1; O2SAT 96
--- NOTE | 2023-06-22 15:57 | PCM.PN.HOSP ---
Subjective Subjective Doing well, still tolerating a diet with no significant abdominal pain Objective Data Objective Data Vital Signs: Vital Signs Temp Pulse Resp BP Pulse Ox O2 Del Method O2 Flow Rate 97.8 F 110 H 16 128/82 H 98 Room Air 1 06/22/23 09:19 06/22/23 09:19 06/22/23 09:19 06/22/23 09:19 06/22/23 09:19 06/22/23 09:19 06/19/23 00:00 FiO2 30 06/17/23 21:17 Oxygen Flow Rate (L/min) 1 Oxygen Delivery Method Room Air Weight: 300 lb 0.786 oz Body Mass Index (BMI) 48.4 Intake & Output: Intake and Output for Last 24 Hours 06/21/23 06/22/23 06/23/23 03:59 03:59 03:59 Intake Total 3505.00 / 3505.00 2290 / 2290 1057 / 1057 Output Total 550 / 550 Balance 3505.00 / 3505.00 1740 / 1740 1057 / 1057 Lab / Micro Data 06/22/23 06:20 06/22/23 06:20 Labs: Laboratory Results - last 24 hr 06/21/23 16:20: POC Glucose 258 H 06/21/23 21:03: POC Glucose 209 H 06/22/23 06:20: WBC 40.3 H*, RBC 4.09 L, Hgb 11.2 L, Hct 35.5 L, MCV 86.8, MCH 27.4, MCHC 31.5 L, RDW Std Deviation 48.5 H, RDW Coeff of Rae 15.3 H, Plt Count 330, MPV 8.7, Neut % (Auto) Not Reportable, Absolute Neuts (auto) 37.5 H, Absolute Lymphs (auto) 0.80 L, Total Counted 100, Neutrophils % (Manual) 88 H, Band Neutrophils % 5, Lymphocytes % (Manual) 2 L, Monocytes % (Manual) 2, Metamyelocytes % 3 H, Diff Path Review May foll, Platelet Estimate ADEQUATE, RBC Morphology NORM C+C, ESR 63 H, Sodium 133 L, Potassium 4.1, Chloride 98, Carbon Dioxide 25.0, Anion Gap 10, BUN 15, Creatinine 0.84, Estim Creat Clear Calc 94.94, Est GFR (MDRD) Af Amer 125, Est GFR (MDRD) Non-Af 103, BUN/Creatinine Ratio 17.9, Glucose 264 H, Calcium 7.5 L 06/22/23 06:20: Calcium 7.4 L, Phosphorus 2.1 L, Magnesium 2.0, Total Bilirubin 0.90, AST 49 H, ALT 45, Alkaline Phosphatase 156 H, Lactate Dehydrogenase 614 H, C-React Prot Ext Range 209.00 H, Total Protein 6.2 L, Albumin 1.8 L, Globulin 4.4 H, Albumin/Globulin Ratio 0.4 L 06/22/23 06:22: POC Glucose 262 H 06/22/23 08:40: Lactic Acid 1.5 06/22/23 11:31: POC Glucose 291 H Micro: Microbiology 06/20/23 10:13 Blood Culture (Wb) - Right Hand Blood Culture - Preliminary No growth in 48 hours. 06/20/23 10:05 Blood Culture (Wb) - Anticubital Right Blood Culture - Preliminary No growth in 48 hours. 06/17/23 06:31 Sputum, Expectorated/Coughed Gram Stain - Final 06/17/23 06:31 Sputum, Expectorated/Coughed Respiratory Culture - Final Mixed normal respiratory maurizio. No Streptococcus pneumoniae, beta-hemolytic Streptococcus or Staphylococcus aureus isolated. 06/19/23 03:30 Stool Stool Lactoferrin - Final 06/19/23 03:30 Stool Enteric Bacteriology - Final 06/19/23 03:30 Stool C. difficile DNA Amplification - Final Rhythm Strip Rhythm Strip: Sinus Tach Rate: 112 Physical Exam Narrative General: Alert, Oriented x3, Cooperative, No apparent distress HEENT: Atraumatic, PERRLA, EOMI, Normocephalic Oral: Moist Mucosa Neck: Supple, No JVD Lungs: Diminished, Normal air movement, No rhonchi, No wheeze, No rales Cardiovascular: Tachycardic, Regular Rhythm, Normal S1, Normal S2, No murmurs Abdomen: Soft, Non Tender, Non-Distended, No Hepato-splenomegaly Extremities: No edema, Capillary Refill Less than 3 Seconds Skin: No rashes, No breakdown Musculoskeletal: No Tenderness to Palpation of Joints or Extremities Neurological: Cranial nerves II-XII grossly intact, Motor Exam 5/5 strength throughout, Sensory exam intact to light touch and pain Psych/Mental Status: Normal Affect, Appropriate Assessment & Plan Assessment/Plan (1) Gallstone pancreatitis: PLAN: Plan 1. Sepsis due to 2 suspected gallstone pancreatitis: Patient is being admitted in PCU CT abdomen pelvis with IV contrast showed cholelithiasis and acute pancreatitis. Patient notably on a GLP-1 agonist, semaglutide for diabetes, which is associated with increased risk of gallbladder disease. WBC count 20 on admit, lactate 3.1, T. bili 1.5, AST 280, ALT 208, alk phos 129, lipase greater than 5000. There is increase in total bilirubin to 2.5, mainly direct 1.83, increasing ALT but alkaline phosphatase did not show change Discussed with the surgeon. Plan for ERCP by Dr. Batista for hepatobiliary, pancreatic cyst decompression. Further decision about inpatient cholecystectomy are elective cholecystectomy after discharge depends upon ERCP and stenting if required. If patient remains in the hospital on the weekend then laparoscopic cholecystectomy on Saturday. Pain control. Levaquin as he is allergic to penicillin. 06/15: Patient had ERCP on 06/14, biliary sphincterotomy was done, biliary tree swept and 1 temporary stent was placed into CBD.Patient had worsening leukocytosis mainly neutrophilia, lymphopenia. Afebrile.Total bili better than yesterday direct bilirubin 1.44. Transaminases and alkaline phosphatase got better after ERCP. Continue IV antibiotic Levaquin. Chest x-ray images reviewed shows bibasilar atelectasis. Incentive spirometer and Mucinex DM. Patient already on antibiotic. 06/17: Patient had low-grade fever. Hematocrit decreased to 35.8% with IV fluid Ringer lactate 200/h. IV fluids decreased to 150 mill per hour for 2 L. 06/18: Last fever was more than 24 hours ago. Abdominal pain is better. Hematocrit 34%. BUN 15. Patient is still leukocytosis. Total bilirubin 2.2 mainly direct hyperbilirubinemia. ALT normal. AST slightly elevated. [place] prognostic criteria is better. Positive fluid balance 16 L. Patient is still tachycardic and tachypneic. Continue IV fluid, Ringer lactate at 100 mm/h 06/19/2023: We will advance his diet and recheck lab work in the morning. We will discontinue his antibiotics, white count is fluctuating testing for GI source has been negative so far 06/20/2023: We will place him on more fat restricted diet but he is not having any increased abdominal pain. Repeat CT scan today obtained by GI demonstrates a stable necrotizing pancreatitis with no signs of free air to indicate abscess formation 06/21/2023: Give a dose of Lasix with no significant improvement CT of the chest was negative for PE. There is not a good explanation for his continued tachycardia and unfortunately his white count has elevated to 37 with no obvious signs of infection. His CT of his abdomen yesterday did not show any abscess formation or air. Blood cultures are still pending. 2 days ago he did have stool studies that were all negative, lactoferrin was elevated but in discussion with GI this can occur in severe pancreatitis. Unfortunately he is not having very accurate I's and O's its unclear as to how fluid positive he is, therefore we will stop his IV fluids. I have encouraged him to ambulate in the room to try to mobilize his third spaced fluids. In discussion with gastroenterology as well as general surgery they both felt that given his rising white count that he should be transferred to a higher level of care. I did have this discussion with him and he is still in the process of electing hospital to go to. In the meantime we restarted his Levaquin and Flagyl and given his loose stools we will also empirically start him on p.o. vancomycin 06/22/2023: Discussed transfer to [facility], they accepted. We will continue current therapy 2. Acute hypoxic respiratory failure exact etiology unclear but possible may be pulmonary edema from IV fluids/gallstone pancreatitis potential sleep apnea: Patient had productive cough and low-grade fever. Continue IV Levaquin. Sputum culture ordered. BiPAP transition to nasal cannula. Patient is transferred to PCU. 06/18: Prelim sputum culture shows normal respiratory maurizio. Patient on IV antibiotic 06/20/2023: Antibiotics were discontinued 3. MICHELLE Likely prerenal secondary to volume ablation in setting of pancreatitis as noted above. Creatinine 1.52 on admission, baseline creatinine appears to be around 0.9-1. 06/14: Creatinine shows improvement 1.24. 10/15: BUNs/creatinine increased 46/2.46, estimated creatinine clearance 32 mill per minute. Hypocalcemia, corrected calcium 7.1. Twelve-lead EKG ordered For hyperkalemia K5.2. Calcium chloride 1 g IV piggyback ordered. Patient has metabolic acidosis 06/16: Calcium low therefore calcium gluconate ordered. Leadership Development Manager consult reviewed and appreciated. 06/17: Patient creatinine decreased to 1.37. No BIOLOGICAL ENGINEER's.Patient is still has hypocalcemia 5.6 secondary to pancreatitis. Serum sodium 130 better.. 06/18: BUNs/creatinine normal. Serum calcium still low, getting replaced. 06/19/2023: Creatinine is at baseline we will replace phosphorus and recheck morning Chronic medical conditions: ? Type 2 diabetes: Home medications of GLP-1 agonist, unclear which one as several are noted on his home medication list. Blood glucose in the 300s on admission. Sliding scale insulin while inpatient. A1c 5.9%. ? Hypertension: Holding home lisinopril in setting of MICHELLE as noted above, restart as needed. ? Hyperlipidemia: Continue home rosuvastatin. DVT: Lovenox Charges/Coding Visit Charges Inpatient E&M: 08580 Subs Hosp L2
[2023-06-22 16:20] LABS: Bedside Glucose 184 mg/dL (74-106)
[2023-06-22 21:24] VITALS: BP 120/76; PULSE 125; RESP 15; TEMP 37.7; O2SAT 94
[2023-06-22] MEDS: Atorvastatin Calcium 10 MG Tablet PO (21:33)
[2023-06-22] MEDS: Senna/Docusate Sodium 1 Tablet PO (21:35)
[2023-06-22 22:19] LABS: Bedside Glucose 215 mg/dL (74-106)
[2023-06-23 03:06] VITALS: BP 121/77; PULSE 124; RESP 18; TEMP 37.2; O2SAT 94
[2023-06-23] MEDS: Insulin Lispro 100 UNIT/ML INSULN.PEN SC ×5 (03:19→22:03)
[2023-06-23 03:51] VITALS: BMI 48.9
[2023-06-23 04:22] LABS: Bedside Glucose 243 mg/dL (74-106)
[2023-06-23] MEDS: 0.9% Saline Lock 10 ML Syringe IV ×4 (05:46→23:29)
[2023-06-23] MEDS: Vancomycin 125 MG/5 ML Susp PO.SYRINGE PO ×4 (05:46→23:29)
[2023-06-23] MEDS: Metoclopramide 10 MG/2 ML Vial 5 MG IV ×4 (05:47→23:30)
[2023-06-23] MEDS: metroNIDAZOLE 500 MG/100 ML BAG 100 MG IV ×3 (05:47→22:11)
[2023-06-23 07:08] LABS: Basophil# 0.03 X10^3/uL; Eosinophil# 0.02 X10^3/uL; Hematocrit 33.9 % (40-54); Hemoglobin 10.8 g/dL (13.0-16.5); Mean Corp Hgb Conc 31.9 g/dL (32-36); Mean Corpuscular Hgb 27.8 pg (27.0-32.0); Mean Corpuscular Volume 87.1 fL (80-94); Mean Platelet Vol. 8.9 fl (6.2-12.0); Monocyte# 1.71 X10^3/uL; NRBC Flagged by Analyzer 0.1 % (0-5); POSITIVE COUNT YES; POSITIVE DIFFERENTIAL YES; POSITIVE MORPHOLOGY YES; Platelet Count 327 K/mm3 (150-450); RBC Distribution Width CV 14.9 % (11.6-14.6); RBC Distribution Width SD 47.7 fl (35.1-43.9); Red Blood Count 3.89 M/mm3 (4.6-6.2); White Blood Count 38.8 K/mm3 (4.4-11.0)
[2023-06-23 07:15] LABS: Differential Indicated SCAN CRITERIA MET
[2023-06-23 07:40] LABS: ALB/GLOB Ratio 0.4 RATIO (0.9-2.4); AST(SGOT) 42 U/L (15-37); Alanine Aminotransfer ALT/SGPT 34 U/L (16-61); Albumin, Serum 1.6 g/dL (3.2-5.0); Alkaline Phosphatase 128 U/L (45-117); Anion Gap 9 (5-15); BUN 14 mg/dL (7-18); BUN/Creat Ratio 16.6 RATIO (10-20); Calcium,Total 7.3 mg/dL (8.5-10.1); Chloride 97 mmol/L (98-107); Creatinine, Serum 0.84 mg/dL (0.70-1.30); EST Glomerular Filtration Rate 102 mL/min (>60); Est Glom Filt Rate - Afr Amer 124 mL/min (>60); Estimated Creatinine Clearance 94.94 ml/min; Globulin 4.3 g/dL (2.2-4.2); Glucose 264 mg/dL (74-106); Protein, Total 5.9 g/dL (6.4-8.2); Sodium Level 131 mmol/L (136-145)
[2023-06-23 07:48] LABS: Lymphocyte 2 % (19-41); Monocyte 1 % (0-10); Neutrophil-Band 8 % (0-5); Neutrophil-Segmented 89 % (47-70); Total Cells Counted 100 (MANUAL DIFF)
[2023-06-23 07:49] LABS: Platelet Estimate ADEQUATE (ADEQ); Red Cell Morphology NORM C+C NORMAL (NORM C&C); Scan Smear per Review Criteria MANUAL DIFF
[2023-06-23 07:50] LABS: Absolute Lymphocyte Count 0.77 X10^3/uL (0.83-4.51); Absolute Neutrophil Count 37.6 X10^3/uL (2.0-7.7); Lymphocyte # 0.77 X10^3/ul (0.83-4.51)
[2023-06-23] MEDS: Insulin Lispro 100 UNIT/ML INSULN.PEN 20 UNIT SC ×3 (08:17→16:50)
[2023-06-23] MEDS: Calcium (Elemental) 500 MG Tablet PO ×3 (08:18→18:26)
[2023-06-23 08:25] VITALS: BP 126/72; PULSE 114; RESP 14; TEMP 36.8; O2SAT 98
[2023-06-23 08:41] LABS: Bedside Glucose 280 mg/dL (74-106)
--- NOTE | 2023-06-23 08:59 | PN.SURG_ITS ---
Subjective Subjective pt more awake for me this AM, gianfranco PO, only states mild/minimal epigastric pain Objective Data Objective Data Vital Signs: Vital Signs Temp Pulse Resp BP Pulse Ox O2 Del Method O2 Flow Rate 98.2 F 114 H 14 126/72 H 98 Room Air 1 06/23/23 08:25 06/23/23 08:25 06/23/23 08:25 06/23/23 08:25 06/23/23 08:25 06/23/23 08:25 06/19/23 00:00 FiO2 30 06/17/23 21:17 Oxygen Flow Rate (L/min) 1 Oxygen Delivery Method Room Air Weight: 303 lb 5.697 oz Body Mass Index (BMI) 48.9 Intake & Output: Intake and Output for Last 24 Hours 06/21/23 06/22/23 06/23/23 23:59 23:59 23:59 Intake Total 2290 / 2290 1657 / 2557 1200 / 1200 Output Total 550 / 550 Balance 1740 / 1740 1657 / 2557 1200 / 1200 Lab / Micro Data 06/23/23 06:07 06/23/23 06:07 Labs: Laboratory Results - last 24 hr 06/22/23 06:20: ESR 63 H, Calcium 7.4 L, Phosphorus 2.1 L, Magnesium 2.0, Lactate Dehydrogenase 614 H, C-React Prot Ext Range 209.00 H 06/22/23 08:40: Lactic Acid 1.5 06/22/23 11:31: POC Glucose 291 H 06/22/23 15:53: POC Glucose 184 H 06/22/23 21:50: POC Glucose 215 H 06/23/23 03:17: POC Glucose 243 H 06/23/23 06:07: WBC 38.8 H*, RBC 3.89 L, Hgb 10.8 L, Hct 33.9 L, MCV 87.1, MCH 27.8, MCHC 31.9 L, RDW Std Deviation 47.7 H, RDW Coeff of Rae 14.9 H, Plt Count 327, MPV 8.9, Immature Gran % (Auto) WASTE DISPOSAL LEAKAGE TESTER, Neut % (Auto) WASTE DISPOSAL LEAKAGE TESTER, Lymph % (Auto) WASTE DISPOSAL LEAKAGE TESTER, [place] % (Auto) WASTE DISPOSAL LEAKAGE TESTER, Eos % (Auto) WASTE DISPOSAL LEAKAGE TESTER, Baso % (Auto) WASTE DISPOSAL LEAKAGE TESTER, Absolute Neuts (auto) 37.6 H, Absolute Lymphs (auto) 0.77 L, Total Counted 100, Neutrophils % (Manual) 89 H , Band Neutrophils % 8 H, Lymphocytes % (Manual) 2 L, Monocytes % (Manual) 1, Nucleated RBC % 0.1, Platelet Estimate ADEQUATE, RBC Morphology NORM C+C, Sodium 131 L, Potassium 4.0, Chloride 97 L, Carbon Dioxide 25.0, Anion Gap 9, BUN 14, Creatinine 0.84, Estim Creat Clear Calc 94.94, Est GFR (MDRD) Af Amer 124, Est GFR (MDRD) Non-Af 102, BUN/Creatinine Ratio 16.6, Glucose 264 H, Calcium 7.3 L, Total Bilirubin 0.70, AST 42 H, ALT 34, Alkaline Phosphatase 128 H, Total Protein 5.9 L, Albumin 1.6 L, Globulin 4.3 H, Albumin/Globulin Ratio 0.4 L 06/23/23 08:15: POC Glucose 280 H Micro: Microbiology 06/20/23 10:13 Blood Culture (Wb) - Right Hand Blood Culture - Preliminary No growth in 48 hours. 06/20/23 10:05 Blood Culture (Wb) - Anticubital Right Blood Culture - Preliminary No growth in 48 hours. 06/17/23 06:31 Sputum, Expectorated/Coughed Gram Stain - Final 06/17/23 06:31 Sputum, Expectorated/Coughed Respiratory Culture - Final Mixed normal respiratory maurizio. No Streptococcus pneumoniae, beta-hemolytic Streptococcus or Staphylococcus aureus isolated. 06/19/23 03:30 Stool Stool Lactoferrin - Final 06/19/23 03:30 Stool Enteric Bacteriology - Final 06/19/23 03:30 Stool C. difficile DNA Amplification - Final Rhythm Strip Rhythm Strip: Sinus Tach Rate: 112 Physical Exam Const oriented x3 and no apparent distress Resp normal respiratory effort Cardio Rate: tachycardic GI soft to palpation GI Narrative: Tender in epigastric, no peritoneal signs Assessment & Plan Assessment/Plan (1) Gallstone pancreatitis: PLAN: The patient has acute gallstone pancreatitis and is status post ERCP with stone removal and temporary stent insertion by gastroenterology 06/14/2023. Patient experienced deterioration of his pancreatitis and secondarily his renal function and respiratory status requiring ICU admission. He is recently transitioned back to the progressive care unit after showing improvements in both his respiratory status and renal function. From an abdominal standpoint, he has mild tenderness of the epigastrium and right upper quadrant. However, today he remains tachycardic [place] [address] [place] [address]. patient has been afebrile for the past couple of days despite having his antibiotics discontinued for several days--restarted 2 days ago. He is also noted to have a negative enteric pathogen panel and C. difficile assay completed yesterday. checked for possible occult PE and follow-up blood cultures-- CTA was negative, prelim no growth in 48 hrs for bld cx. recommend transfer to a tertiary facility with greater resources?patient has been accepted to [facility],await bed. ? No surgical intervention planned for present admission given patient's complications with pancreatitis Charges/Coding Visit Charges Inpatient E&M: 40347 Subs Hosp L2
--- NOTE | 2023-06-23 09:32 | PN.HOSP_ITS ---
Subjective Subjective No issues overnight, slight improvement in his white count. I continue to encourage ambulation to mobilize his third spaced fluids Objective Data Objective Data Vital Signs: Vital Signs Temp Pulse Resp BP Pulse Ox O2 Del Method O2 Flow Rate 98.2 F 114 H 14 126/72 H 98 Room Air 1 06/23/23 08:25 06/23/23 08:25 06/23/23 08:25 06/23/23 08:25 06/23/23 08:25 06/23/23 08:25 06/19/23 00:00 FiO2 30 06/17/23 21:17 Oxygen Flow Rate (L/min) 1 Oxygen Delivery Method Room Air Weight: 303 lb 5.697 oz Body Mass Index (BMI) 48.9 Intake & Output: Intake and Output for Last 24 Hours 06/22/23 06/23/23 06/24/23 03:59 03:59 03:59 Intake Total 2290 / 2290 2557 / 2557 300 / 300 Output Total 550 / 550 Balance 1740 / 1740 2557 / 2557 300 / 300 Lab / Micro Data 06/23/23 06:07 06/23/23 06:07 Labs: Laboratory Results - last 24 hr 06/22/23 08:40: Lactic Acid 1.5 06/22/23 11:31: POC Glucose 291 H 06/22/23 15:53: POC Glucose 184 H 06/22/23 21:50: POC Glucose 215 H 06/23/23 03:17: POC Glucose 243 H 06/23/23 06:07: WBC 38.8 H*, RBC 3.89 L, Hgb 10.8 L, Hct 33.9 L, MCV 87.1, MCH 27.8, MCHC 31.9 L, RDW Std Deviation 47.7 H, RDW Coeff of Rae 14.9 H, Plt Count 327, MPV 8.9, Immature Gran % (Auto) SERVICE DESK ASSOCIATE, Neut % (Auto) SERVICE DESK ASSOCIATE, Lymph % (Auto) SERVICE DESK ASSOCIATE, [place] % (Auto) SERVICE DESK ASSOCIATE, Eos % (Auto) SERVICE DESK ASSOCIATE, Baso % (Auto) SERVICE DESK ASSOCIATE, Absolute Neuts (auto) 37.6 H, Absolute Lymphs (auto) 0.77 L, Total Counted 100, Neutrophils % (Manual) 89 H , Band Neutrophils % 8 H, Lymphocytes % (Manual) 2 L, Monocytes % (Manual) 1, Nucleated RBC % 0.1, Platelet Estimate ADEQUATE, RBC Morphology NORM C+C, Sodium 131 L, Potassium 4.0, Chloride 97 L, Carbon Dioxide 25.0, Anion Gap 9, BUN 14, Creatinine 0.84, Estim Creat Clear Calc 94.94, Est GFR (MDRD) Af Amer 124, Est GFR (MDRD) Non-Af 102, BUN/Creatinine Ratio 16.6, Glucose 264 H, Calcium 7.3 L, Total Bilirubin 0.70, AST 42 H, ALT 34, Alkaline Phosphatase 128 H, Total Prot ein 5.9 L, Albumin 1.6 L, Globulin 4.3 H, Albumin/Globulin Ratio 0.4 L 06/23/23 08:15: POC Glucose 280 H Micro: Microbiology 06/20/23 10:13 Blood Culture (Wb) - Right Hand Blood Culture - Preliminary No growth in 48 hours. 06/20/23 10:05 Blood Culture (Wb) - Anticubital Right Blood Culture - Preliminary No growth in 48 hours. 06/17/23 06:31 Sputum, Expectorated/Coughed Gram Stain - Final 06/17/23 06:31 Sputum, Expectorated/Coughed Respiratory Culture - Final Mixed normal respiratory maurizio. No Streptococcus pneumoniae, beta-hemolytic Streptococcus or Staphylococcus aureus isolated. 06/19/23 03:30 Stool Stool Lactoferrin - Final 06/19/23 03:30 Stool Enteric Bacteriology - Final 06/19/23 03:30 Stool C. difficile DNA Amplification - Final Rhythm Strip Rhythm Strip: Sinus Tach Rate: 112 Physical Exam Narrative General: Alert, Oriented x3, Cooperative, No apparent distress HEENT: Atraumatic, PERRLA, EOMI, Normocephalic Oral: Moist Mucosa Neck: Supple, No JVD Lungs: Diminished, Normal air movement, No rhonchi, No wheeze, No rales Cardiovascular: Tachycardic, Regular Rhythm, Normal S1, Normal S2, No murmurs Abdomen: Soft, Non Tender, Non-Distended, No Hepato-splenomegaly Extremities: No edema, Capillary Refill Less than 3 Seconds Skin: No rashes, No breakdown Musculoskeletal: No Tenderness to Palpation of Joints or Extremities Neurological: Cranial nerves II-XII grossly intact, Motor Exam 5/5 strength throughout, Sensory exam intact to light touch and pain Psych/Mental Status: Normal Affect, Appropriate Assessment & Plan Assessment/Plan (1) Gallstone pancreatitis: PLAN: Plan 1. Sepsis due to 2 suspected gallstone pancreatitis: Patient is being admitted in PCU CT abdomen pelvis with IV contrast showed cholelithiasis and acute pancreatitis. Patient notably on a GLP-1 agonist, semaglutide for diabetes, which is associated with increased risk of gallbladder disease. WBC count 20 on admit, lactate 3.1, T. bili 1.5, AST 280, ALT 208, alk phos 129, lipase greater than 5000. There is increase in total bilirubin to 2.5, mainly direct 1.83, increasing ALT but alkaline phosphatase did not show change Discussed with the surgeon. Plan for ERCP by Dr. Batista for hepatobiliary, pancreatic cyst decompression. Further decision about inpatient cholecystectomy are elective cholecystectomy after discharge depends upon ERCP and stenting if required. If patient remains in the hospital on the weekend then laparoscopic cholecystectomy on Saturday. Pain control. Levaquin as he is allergic to penicillin. 06/15: Patient had ERCP on 06/14, biliary sphincterotomy was done, biliary tree swept and 1 temporary stent was placed into CBD.Patient had worsening leukocytosis mainly neutrophilia, lymphopenia. Afebrile.Total bili better than yesterday direct bilirubin 1.44. Transaminases and alkaline phosphatase got better after ERCP. Continue IV antibiotic Levaquin. Chest x-ray images reviewed shows bibasilar atelectasis. Incentive spirometer and Mucinex DM. Patient already on antibiotic. 06/17: Patient had low-grade fever. Hematocrit decreased to 35.8% with IV fluid Ringer lactate 200/h. IV fluids decreased to 150 mill per hour for 2 L. 06/18: Last fever was more than 24 hours ago. Abdominal pain is better. Hematocrit 34%. BUN 15. Patient is still leukocytosis. Total bilirubin 2.2 mainly direct hyperbilirubinemia. ALT normal. AST slightly elevated. [place] prognostic criteria is better. Positive fluid balance 16 L. Patient is still tachycardic and tachypneic. Continue IV fluid, Ringer lactate at 100 mm/h 06/19/2023: We will advance his diet and recheck lab work in the morning. We will discontinue his antibiotics, white count is fluctuating testing for GI source has been negative so far 06/20/2023: We will place him on more fat restricted diet but he is not having any increased abdominal pain. Repeat CT scan today obtained by GI demonstrates a stable necrotizing pancreatitis with no signs of free air to indicate abscess formation 06/21/2023: Give a dose of Lasix with no significant improvement CT of the chest was negative for PE. There is not a good explanation for his continued tac hycardia and unfortunately his white count has elevated to 37 with no obvious signs of infection. His CT of his abdomen yesterday did not show any abscess formation or air. Blood cultures are still pending. 2 days ago he did have stool studies that were all negative, lactoferrin was elevated but in discussion with GI this can occur in severe pancreatitis. Unfortunately he is not having very accurate I's and O's its unclear as to how fluid positive he is, therefore we will stop his IV fluids. I have encouraged him to ambulate in the room to try to mobilize his third spaced fluids. In discussion with gastroenterology as well as general surgery they both felt that given his rising white count that he should be transferred to a higher level of care. I did have this discussion with him and he is still in the process of electing hospital to go to. In the meantime we restarted his Levaquin and Flagyl and given his loose stools we will also empirically start him on p.o. vancomycin 06/22/2023: Discussed transfer to [facility], they accepted. We will cont inue current therapy 06/23/2023: Encourage ambulation to mobilize third space fluids continue with p.o. diet white count does appear to be improving so we will continue with an tibiotics for now 2. Acute hypoxic respiratory failure exact etiology unclear but possible may be pulmonary edema from IV fluids/gallstone pancreatitis potential sleep apnea: Patient had productive cough and low-grade fever. Continue IV Levaquin. Sputum culture ordered. BiPAP transition to nasal cannula. Patient is transferred to PCU. 06/18: Prelim sputum culture shows normal respiratory maurizio. Patient on IV antibiotic 06/20/2023: Antibiotics were discontinued 3. MICHELLE Likely prerenal secondary to volume ablation in setting of pancreatitis as noted above. Creatinine 1.52 on admission, baseline creatinine appears to be around 0.9-1. /: Creatinine shows improvement 1.24. 10/15: BUNs/creatinine increased 46/2.46, estimated creatinine clearance 32 mill per minute. Hypocalcemia, corrected calcium 7.1. Twelve-lead EKG ordered For hyperkalemia K5.2. Calcium chloride 1 g IV piggyback ordered. Patient has metabolic acidosis 06/16: Calcium low therefore calcium gluconate ordered. Program Technician consult reviewed and appreciated. 06/17: Patient creatinine decreased to 1.37. No TRIMMING ASSEMBLER's.Patient is still has hypocalcemia 5.6 secondary to pancreatitis. Serum sodium 130 better.. 06/18: BUNs/creatinine normal. Serum calcium still low, getting replaced. 06/19/2023: Creatinine is at baseline we will replace phosphorus and recheck morning Chronic medical conditions: ? Type 2 diabetes: Home medications of GLP-1 agonist, unclear which one as several are noted on his home medication list. Blood glucose in the 300s on admission. Sliding scale insulin while inpatient. A1c 5.9%. ? Hypertension: Holding home lisinopril in setting of MICHELLE as noted above, restart as needed. ? Hyperlipidemia: Continue home rosuvastatin. DVT: Lovenox Charges/Coding Visit Charges Inpatient E&M: 32300 Subs Hosp L2
[2023-06-23] MEDS: levoFLOXacin IV 500 MG/100 ML BAG 100 MG IV (10:07)
[2023-06-23] MEDS: Magnesium Chloride 64 MG Delay Rel.Tablet 128 MG PO ×2 (10:09→22:09)
[2023-06-23] MEDS: Enoxaparin 40 MG/0.4 ML Syringe SC (10:09)
[2023-06-23] MEDS: guaiFENesin/D-Methorphan TAB.SR.12H 1 TABLET PO ×2 (10:10→22:09)
[2023-06-23] MEDS: Senna/Docusate Sodium 1 Tablet PO ×2 (10:10→22:10)
[2023-06-23] MEDS: Polyethylene Glycol 3350 17 GM PACKET PO (10:10)
--- NOTE | 2023-06-23 10:53 | NURSING ---
I spoke with Giovanny with [facility] transfer line and she stated they still do not have a bed and she did not have any kind of a time frame on when they might have a bed.
[2023-06-23 11:19] LABS: Bedside Glucose 311 mg/dL (74-106)
[2023-06-23] MEDS: Furosemide 40 MG/4 ML Vial IV (13:36)
[2023-06-23 14:20] VITALS: BP 112/78; PULSE 112; RESP 16; TEMP 36.8; O2SAT 98
[2023-06-23 17:20] LABS: Bedside Glucose 239 mg/dL (74-106)
[2023-06-23 20:50] VITALS: BP 126/68; PULSE 116; RESP 18; TEMP 38.2; O2SAT 93
[2023-06-23] MEDS: Acetaminophen 325 MG Tablet 650 MG PO (20:51)
[2023-06-23 21:55] VITALS: BP 102/67; PULSE 117; RESP 21; TEMP 37.7; O2SAT 94
[2023-06-23] MEDS: Atorvastatin Calcium 10 MG Tablet PO (22:08)
[2023-06-23 22:38] LABS: Bedside Glucose 228 mg/dL (74-106)
[2023-06-23 23:25] VITALS: BP 112/71; PULSE 120; RESP 21; TEMP 38.1; O2SAT 94
[2023-06-23] MEDS: MELATONIN 3 MG TABLET PO (23:31)
[2023-06-24 01:09] VITALS: BP 115/69; PULSE 114; RESP 18; TEMP 37.3; O2SAT 94
[2023-06-24] MEDS: Insulin Lispro 100 UNIT/ML INSULN.PEN SC (02:34)
[2023-06-24 03:10] LABS: Bedside Glucose 245 mg/dL (74-106)
[2023-06-24 03:57] LABS: Hematocrit 31.7 % (40-54); Hemoglobin 10.2 g/dL (13.0-16.5); Mean Corp Hgb Conc 32.2 g/dL (32-36); Mean Corpuscular Hgb 27.8 pg (27.0-32.0); Mean Corpuscular Volume 86.4 fL (80-94); Mean Platelet Vol. 8.6 fl (6.2-12.0); POSITIVE COUNT YES; POSITIVE DIFFERENTIAL YES; POSITIVE MORPHOLOGY YES; Platelet Count 289 K/mm3 (150-450); RBC Distribution Width CV 14.8 % (11.6-14.6); RBC Distribution Width SD 47.2 fl (35.1-43.9); Red Blood Count 3.67 M/mm3 (4.6-6.2); White Blood Count 34.1 K/mm3 (4.4-11.0)
[2023-06-24 04:19] LABS: Anion Gap 10 (5-15); BUN 16 mg/dL (7-18); BUN/Creat Ratio 18.6 RATIO (10-20); Calcium,Total 7.4 mg/dL (8.5-10.1); Chloride 97 mmol/L (98-107); Creatinine, Serum 0.86 mg/dL (0.70-1.30); EST Glomerular Filtration Rate 100 mL/min (>60); Est Glom Filt Rate - Afr Amer 121 mL/min (>60); Estimated Creatinine Clearance 92.73 ml/min; Glucose 324 mg/dL (74-106); Potassium 3.9 mmol/L (3.5-5.1); Sodium Level 133 mmol/L (136-145)
[2023-06-24 05:15] LABS: Differential Indicated MANUAL DIFF
[2023-06-24 05:17] LABS: Anisocytosis 1+; Platelet Estimate ADEQUATE (ADEQ); Red Cell Morphology NORM C+C NORMAL (NORM C&C)
[2023-06-24 05:19] LABS: Absolute Neutrophil Count 29.3 X10^3/uL (2.0-7.7)
[2023-06-24 05:20] LABS: Absolute Lymphocyte Count 1.36 X10^3/uL (0.83-4.51); Lymphocyte 4 % (19-41); Metamyelocyte 1 % (0-1); Monocyte 4 % (0-10); Myelocyte 5 % (0-0); Neutrophil-Band 10 % (0-5); Neutrophil-Segmented 76 % (47-70); Total Cells Counted 100 (MANUAL DIFF)
[2023-06-24 05:43] VITALS: BP 118/72; PULSE 108; RESP 18; TEMP 37; O2SAT 94
[2023-06-24] MEDS: 0.9% Saline Lock 10 ML Syringe IV (05:52)
[2023-06-24] MEDS: Metoclopramide 10 MG/2 ML Vial 5 MG IV (05:53)
[2023-06-24] MEDS: Vancomycin 125 MG/5 ML Susp PO.SYRINGE PO (05:53)
[2023-06-24] MEDS: metroNIDAZOLE 500 MG/100 ML BAG 100 MG IV (05:56)
[2023-06-24 06:00] VITALS: BMI 49.1
[2023-06-24 09:26] VITALS: BP 121/76; PULSE 114; RESP 16; TEMP 37.5; O2SAT 96
--- NOTE | 2023-06-24 09:47 | PCM.DC.SUM ---
Providers Date of Admission: 06/14/23 Primary Care Physician: CHUY Quick Consultations 06/14/23 01:38 Consult: Gastroenterology Routine Consulting Provider: [facility] Reason for Consult: Gallstone pancreatitis EMERGENT Consult: No MD Notified: Yes Date Notified: 06/14/23 Time Notified: 07:45 Method of Notification: Text Consult: General Surgery Routine Consulting Provider: Jere Sarmiento Reason for Consult: Gallstone pancreatitis EMERGENT Consult: No Notified: Yes Date Notified: 06/14/23 Time Notified: 07:51 Method of Notification: Text 06/15/23 09:29 Consult: Nephrology Routine Consulting Provider: Jesenia Gauthier Reason for Consult: MICHELLE, ANT?, GalltonePancreatitis EMERGENT Consult: No Notified: Yes Date Notified: 06/15/23 Time Notified: 09:30 Method of Notification: Verbal 06/16/23 13:02 Consult: Public Weigher / Pulmonary Medicine Routine Consulting Provider: Pulmonary Medicine [facility] Reason for Consult: sepsis due to HB/pancreatitis. On Bipap EMERGENT Consult: No Notified: Yes Date Notified: 06/16/23 Time Notified: 13:02 Method of Notification: Text Reason For Visit: GALLSTONE PANCRESTITIS Diagnosis Discharge Diagnosis (1) Gallstone pancreatitis: Status: Acute Code(s): K85.10 - Biliary acute pancreatitis without necrosis or infection Plan 1. Sepsis due to 2 suspected gallstone pancreatitis: Patient is being admitted in PCU CT abdomen pelvis with IV contrast showed cholelithiasis and acute pancreatitis. Patient notably on a GLP-1 agonist, semaglutide for diabetes, which is associated with increased risk of gallbladder disease. WBC count 20 on admit, lactate 3.1, T. bili 1.5, AST 280, ALT 208, alk phos 129, lipase greater than 5000. There is increase in total bilirubin to 2.5, mainly direct 1.83, increasing ALT but alkaline phosphatase did not show change Discussed with the surgeon. Plan for ERCP by Dr. Batista for hepatobiliary, pancreatic cyst decompression. Further decision about inpatient cholecystectomy are elective cholecystectomy after discharge depends upon ERCP and stenting if required. If patient remains in the hospital on the weekend then laparoscopic cholecystectomy on Saturday. Pain control. Levaquin as he is allergic to penicillin. 06/15: Patient had ERCP on 06/14, biliary sphincterotomy was done, biliary tree swept and 1 temporary stent was placed into CBD.Patient had worsening leukocytosis mainly neutrophilia, lymphopenia. Afebrile.Total bili better than yesterday direct bilirubin 1.44. Transaminases and alkaline phosphatase got better after ERCP. Continue IV antibiotic Levaquin. Chest x-ray images reviewed shows bibasilar atelectasis. Incentive spirometer and Mucinex DM. Patient already on antibiotic. 06/17: Patient had low-grade fever. Hematocrit decreased to 35.8% with IV fluid Ringer lactate 200/h. IV fluids decreased to 150 mill per hour for 2 L. 06/18: Last fever was more than 24 hours ago. Abdominal pain is better. Hematocrit 34%. BUN 15. Patient is still leukocytosis. Total bilirubin 2.2 mainly direct hyperbilirubinemia. ALT normal. AST slightly elevated. [place]'s prognostic criteria is better. Positive fluid balance 16 L. Patient is still tachycardic and tachypneic. Continue IV fluid, Ringer lactate at 100 mm/h 06/19/2023: We will advance his diet and recheck lab work in the morning. We will discontinue his antibiotics, white count is fluctuating testing for GI source has been negative so far 06/20/2023: We will place him on more fat restricted diet but he is not having any increased abdominal pain. Repeat CT scan today obtained by GI demonstrates a stable necrotizing pancreatitis with no signs of free air to indicate abscess formation 06/21/2023: Give a dose of Lasix with no significant improvement CT of the chest was negative for PE. There is not a good explanation for his continued tachycardia and unfortunately his white count has elevated to 37 with no obvious signs of infection. His CT of his abdomen yesterday did not show any abscess formation or air. Blood cultures are still pending. 2 days ago he did have stool studies that were all negative, lactoferrin was elevated but in discussion with GI this can occur in severe pancreatitis. Unfortunately he is not having very accurate I's and O's its unclear as to how fluid positive he is, therefore we will stop his IV fluids. I have encouraged him to ambulate in the room to try to mobilize his third spaced fluids. In discussion with gastroenterology as well as general surgery they both felt that given his rising white count that he should be transferred to a higher level of care. I did have this discussion with him and he is still in the process of electing hospital to go to. In the meantime we restarted his Levaquin and Flagyl and given his loose stools we will also empirically start him on p.o. vancomycin 06/22/2023: Discussed transfer to [facility], they accepted. We will continue current therapy 06/23/2023: Encourage ambulation to mobilize third space fluids continue with p.o. diet white count does appear to be improving so we will continue with antibiotics for now 2. Acute hypoxic respiratory failure exact etiology unclear but possible may be pulmonary edema from IV fluids/gallstone pancreatitis potential sleep apnea: Patient had productive cough and low-grade fever. Continue IV Levaquin. Sputum culture ordered. BiPAP transition to nasal cannula. Patient is transferred to PCU. 06/18: Prelim sputum culture shows normal respiratory maurizio. Patient on IV antibiotic 06/20/2023: Antibiotics were discontinued 3. MICHELLE Likely prerenal secondary to volume ablation in setting of pancreatitis as noted above. Creatinine 1.52 on admission, baseline creatinine appears to be around 0.9-1. 06/14: Creatinine shows improvement 1.24. 10/15: BUNs/creatinine increased 46/2.46, estimated creatinine clearance 32 mill per minute. Hypocalcemia, corrected calcium 7.1. Twelve-lead EKG ordered For hyperkalemia K5.2. Calcium chloride 1 g IV piggyback ordered. Patient has metabolic acidosis 06/16: Calcium low therefore calcium gluconate ordered. Blanking Press Operator consult reviewed and appreciated. 06/17: Patient creatinine decreased to 1.37. No WINDOW REPAIRER's.Patient is still has hypocalcemia 5.6 secondary to pancreatitis. Serum sodium 130 better.. 06/18: BUNs/creatinine normal. Serum calcium still low, getting replaced. 06/19/2023: Creatinine is at baseline we will replace phosphorus and recheck morning Chronic medical conditions: ? Type 2 diabetes: Home medications of GLP-1 agonist, unclear which one as several are noted on his home medication list. Blood glucose in the 300s on admission. Sliding scale insulin while inpatient. A1c 5.9%. ? Hypertension: Holding home lisinopril in setting of MICHELLE as noted above, restart as needed. ? Hyperlipidemia: Continue home rosuvastatin. DVT: Lovenox Medications at Discharge Home Medications pen needle, diabetic, safety 30 gauge x 1/3 #50 ea 11/11/19 hydrocortisone 2.5 % topical cream 1 applic topical BID PRN rash #30 grams 11/18/20 lisinopril 2.5 mg tablet 2.5 mg PO DAILY #90 tabs 09/05/21 sildenafil 50 mg tablet 50 mg PO DAILY PRN sexual activity #30 tabs 11/16/22 tirzepatide 5 mg/0.5 mL subcutaneous pen injector (Mounjaro) 5 mg (0.5 mL) subcut QWEEK #2 mL 11/16/22 rosuvastatin 5 mg tablet (Crestor) 5 mg PO DAILY #90 tabs 11/20/22 semaglutide 1 mg/dose (4 mg/3 mL) subcutaneous pen injector (Ozempic) 1 mg (0.75 mL) subcut QWEEK #3 mL 11/29/22 dulaglutide 1.5 mg/0.5 mL subcutaneous pen injector (Trulicity) See Rx Instructions .Route .COMPLEX #4 mL 04/19/23 Hospital Course Operations ERCP Procedures None Summary of Care Provided Minutes Spent on Discharge: 40 Hospital Course: Per HPI: BRENDON VARGAS, is a 48 M with history of type 2 diabetes, morbid obesity, hypertension and hyperlipidemia who presented to [facility] ED on 06/13/2023 with severe abdominal pain. Patient seen at bedside in the ED. Laying in bed, conversing normally. Does appear to be in mild distress due to abdominal discomfort. Patient states that his abdominal pain is moderately improved after administration of IV pain medication. Has never had pain like this before. Was last able to keep down food and drink around noon today. Tried eating and drinking in the afternoon but vomited at that time. Last bowel movement was around midday today. No previous history of abdominal surgeries. Patient currently denies any fevers or chills. Denies any chest pain or shortness of breath. No other acute concerns currently. Vitals in ED unremarkable. Labs notable for WBC count of 20, creatinine 1.5, lactate 3.1, T. bili 1.5, AST 280, ALT 208, alk phos 129, lipase greater than 5000. CT abdomen pelvis with IV contrast showed cholelithiasis and acute pancreatitis. Hospital Course: 1. Sepsis due to 2 suspected gallstone pancreatitis: Patient is being admitted in PCU CT abdomen pelvis with IV contrast showed cholelithiasis and acute pancreatitis. Patient notably on a GLP-1 agonist, semaglutide for diabetes, which is associated with increased risk of gallbladder disease. WBC count 20 on admit, lactate 3.1, T. bili 1.5, AST 280, ALT 208, alk phos 129, lipase greater than 5000. There is increase in total bilirubin to 2.5, mainly direct 1.83, increasing ALT but alkaline phosphatase did not show change Discussed with the surgeon. Plan for ERCP by Dr. Batista for hepatobiliary, pancreatic cyst decompression. Further decision about inpatient cholecystectomy are elective cholecystectomy after discharge depends upon ERCP and stenting if required. If patient remains in the hospital on the weekend then laparoscopic cholecystectomy on Saturday. Pain control. Levaquin as he is allergic to penicillin. 06/15: Patient had ERCP on 06/14, biliary sphincterotomy was done, biliary tree swept and 1 temporary stent was placed into CBD.Patient had worsening leukocytosis mainly neutrophilia, lymphopenia. Afebrile.Total bili better than yesterday direct bilirubin 1.44. Transaminases and alkaline phosphatase got better after ERCP. Continue IV antibiotic Levaquin. Chest x-ray images reviewed shows bibasilar atelectasis. Incentive spirometer and Mucinex DM. Patient already on antibiotic. 06/17: Patient had low-grade fever. Hematocrit decreased to 35.8% with IV fluid Ringer lactate 200/h. IV fluids decreased to 150 mill per hour for 2 L. 06/18: Last fever was more than 24 hours ago. Abdominal pain is better. Hematocrit 34%. BUN 15. Patient is still leukocytosis. Total bilirubin 2.2 mainly direct hyperbilirubinemia. ALT normal. AST slightly elevated. [place]'s prognostic criteria is better. Positive fluid balance 16 L. Patient is still tachycardic and tachypneic. Continue IV fluid, Ringer lactate at 100 mm/h 06/19/2023: We will advance his diet and recheck lab work in the morning. We will discontinue his antibiotics, white count is fluctuating testing for GI source has been negative so far 06/20/2023: We will place him on more fat restricted diet but he is not having any increased abdominal pain. Repeat CT scan today obtained by GI demonstrates a stable necrotizing pancreatitis with no signs of free air to indicate abscess formation 06/21/2023: Give a dose of Lasix with no significant improvement CT of the chest was negative for PE. There is not a good explanation for his continued tachycardia and unfortunately his white count has elevated to 37 with no obvious signs of infection. His CT of his abdomen yesterday did not show any abscess formation or air. Blood cultures are still pending. 2 days ago he did have stool studies that were all negative, lactoferrin was elevated but in discussion with GI this can occur in severe pancreatitis. Unfortunately he is not having very accurate I's and O's its unclear as to how fluid positive he is, therefore we will stop his IV fluids. I have encouraged him to ambulate in the room to try to mobilize his third spaced fluids. In discussion with gastroenterology as well as general surgery they both felt that given his rising white count that he should be transferred to a higher level of care. I did have this discussion with him and he is still in the process of electing hospital to go to. In the meantime we restarted his Levaquin and Flagyl and given his loose stools we will also empirically start him on p.o. vancomycin 06/22/2023: Discussed transfer to [facility], they accepted. We will continue current therapy 06/23/2023: Encourage ambulation to mobilize third space fluids continue with p.o. diet white count does appear to be improving so we will continue with antibiotics for now 06/24/2023: He did receive a bed at [facility] so we will plan for discharge today. White count is coming down a little bit with the antibiotics and he does feel little bit better with ambulation though he does have some achy back and abdominal pain. Continue with the Flagyl and Levaquin can likely discontinue the p.o. vancomycin enteric pathogen panels and everything were negative. 2. Acute hypoxic respiratory failure exact etiology unclear but possible may be pulmonary edema from IV fluids/gallstone pancreatitis potential sleep apnea: Patient had productive cough and low-grade fever. Continue IV Levaquin. Sputum culture ordered. BiPAP transition to nasal cannula. Patient is transferred to PCU. 06/18: Prelim sputum culture shows normal respiratory maurizio. Patient on IV antibiotic 06/20/2023: Antibiotics were discontinued 3. MICHELLE Likely prerenal secondary to volume ablation in setting of pancreatitis as noted above. Creatinine 1.52 on admission, baseline creatinine appears to be around 0.9-1. 06/14: Creatinine shows improvement 1.24. 10/15: BUNs/creatinine increased 46/2.46, estimated creatinine clearance 32 mill per minute. Hypocalcemia, corrected calcium 7.1. Twelve-lead EKG ordered For hyperkalemia K5.2. Calcium chloride 1 g IV piggyback ordered. Patient has metabolic acidosis 06/16: Calcium low therefore calcium gluconate ordered. Blanking Press Operator consult reviewed and appreciated. 06/17: Patient creatinine decreased to 1.37. No WINDOW REPAIRER's.Patient is still has hypocalcemia 5.6 secondary to pancreatitis. Serum sodium 130 better.. 06/18: BUNs/creatinine normal. Serum calcium still low, getting replaced. 06/19/2023: Creatinine is at baseline we will replace phosphorus and recheck morning Chronic medical conditions: ? Type 2 diabetes: Home medications of GLP-1 agonist, unclear which one as several are noted on his home medication list. Blood glucose in the 300s on admission. Sliding scale insulin while inpatient. A1c 5.9%. ? Hypertension: Holding home lisinopril in setting of MICHELLE as noted above, restart as needed. ? Hyperlipidemia: Continue home rosuvastatin. Physical Exam Narrative General: Alert, Oriented x3, Cooperative, No apparent distress HEENT: Atraumatic, PERRLA, EOMI, Normocephalic Oral: Moist Mucosa Neck: Supple, No JVD Lungs: Diminished, Normal air movement, No rhonchi, No wheeze, No rales Cardiovascular: Tachycardic, Regular Rhythm, Normal S1, Normal S2, No murmurs Abdomen: Soft, Non Tender, Non-Distended, No Hepato-splenomegaly Extremities: No edema, Capillary Refill Less than 3 Seconds Skin: No rashes, No breakdown Musculoskeletal: No Tenderness to Palpation of Joints or Extremities Neurological: Cranial nerves II-XII grossly intact, Motor Exam 5/5 strength throughout, Sensory exam intact to light touch and pain Psych/Mental Status: Normal Affect, Appropriate Weight / BMI Weight Weight: 304 lb 10.861 oz Body Mass Index (BMI) 49.1 ABG / Lab / Microbiology Data 06/24/23 03:38 06/24/23 03:38 Laboratory: Laboratory Results - last 24 hr 06/23/23 06:07: Diff Path Review January06/23/23 10:58: POC Glucose 311 H 10/01/23 16:49: POC Glucose 239 H 06/23/23 22:00: POC Glucose 228 H 06/24/23 02:32: POC Glucose 245 H 06/24/23 03:38: WBC 34.1 H*, RBC 3.67 L, Hgb 10.2 L, Hct 31.7 L, MCV 86.4, MCH 27.8, MCHC 32.2, RDW Std Deviation 47.2 H, RDW Coeff of Rae 14.8 H, Plt Count 289, MPV 8.6, Neut % (Auto) Not Reportable, Absolute Neuts (auto) 29.3 H, Absolute Lymphs (auto) 1.36, Total Counted 100, Neutrophils % (Manual) 76 H, Band Neutrophils % 10 H, Lymphocytes % (Manual) 4 L, Monocytes % (Manual) 4, Metamyelocytes % 1, Myelocytes % 5 H, Diff Path Review January, Platelet Estimate ADEQUATE, RBC Morphology NORM C+C, Anisocytosis 1+, Sodium 133 L, Potassium 3.9, Chloride 97 L, Carbon Dioxide 26.0, Anion Gap 10, BUN 16, Creatinine 0.86, Estim Creat Clear Calc 92.73, Est GFR (MDRD) Af Amer 121, Est GFR (MDRD) Non-Af 100, BUN/Creatinine Ratio 18.6, Glucose 324 H, Calcium 7.4 L Microbiology: Microbiology 06/20/23 10:13 Blood Culture (Wb) - Right Hand Blood Culture - Preliminary No growth in 48 hours. 06/20/23 10:05 Blood Culture (Wb) - Anticubital Right Blood Culture - Preliminary No growth in 48 hours. 06/17/23 06:31 Sputum, Expectorated/Coughed Gram Stain - Final 06/17/23 06:31 Sputum, Expectorated/Coughed Respiratory Culture - Final Mixed normal respiratory maurizio. No Streptococcus pneumoniae, beta-hemolytic Streptococcus or Staphylococcus aureus isolated. 06/19/23 03:30 Stool Stool Lactoferrin - Final 06/19/23 03:30 Stool Enteric Bacteriology - Final 06/19/23 03:30 Stool C. difficile DNA Amplification - Final D/C Instructions Discharge Diet: Low fat / Low cholesterol Discharge Activity: Return to Normal Activity Call your doctor if you observe: Fever of 101 or Higher, Shortness of breath, Dizziness, Fainting spells, Swelling in the ankles, Chest pain and Increased palpitations (irregular heartbeat) Meaningful Use Info Meaningful Use Diagnoses (Choose all that apply): None applicable Discharge Plan Admission Admit Date/Time: 06/14/23 00:02 Attending Provider: Zeb Keita Primary Care Provider: Lupillo Paiz NP Consulting Providers: Niraj Madison; Jere Sarmiento; Fuentes Servin; Kwadwo Porter; Coleen Bal; Hossein Medeiros; Bronson Ortega; Wen Cowan NP; Jesenia Gauthier; Marcial Lam Discharge Orders/Prescriptions Prescriptions: Continued hydrocortisone 2.5 % cream 1 applic TOPICAL BID PRN (Reason: rash) Qty: 30 1RF lisinopril 2.5 mg tablet 2.5 mg PO DAILY Qty: 90 3RF sildenafil 50 mg tablet 50 mg PO DAILY PRN (Reason: sexual activity) Qty: 30 1RF Rx Instructions: administer 30 minutes to 4 hours before activity rosuvastatin [Crestor] 5 mg tablet 5 mg PO DAILY Qty: 90 3RF Trulicity 1.5 mg/0.5 mL pen injector See Rx Instructions .ROUTE .COMPLEX Qty: 4 0RF Dose Instruction: INJECT CONTENTS OF 1 PEN SUBCUTANEOUSLY ONCE A WEEK Rx Instructions: INJECT CONTENTS OF 1 PEN SUBCUTANEOUSLY ONCE A WEEK No Action Mounjaro 5 mg/0.5 mL pen injector 5 mg subcut QWEEK Qty: 2 2RF (DME) pen needle, diabetic, safety 30 gauge x 1/3 needle 1 ea miscellaneous QDAY Qty: 50 5RF Ozempic 1 mg/dose (4 mg/3 mL) pen injector 1 mg subcut QWEEK Qty: 3 1RF Referrals / Follow Up: Lupillo Paiz NP, DIRECTOR OF CARDIOLOGY-C [Primary Care Provider] - Disposition Disposition (needs filled in before D/C Order can be placed): DC/Tx to Another Type of HCF
--- NOTE | 2023-06-24 10:01 | PHA.DC.MR.R ---
Pharmacy [place] Med Reconciliation Pharmacy Service has performed discharge medication reconciliation for this patient. The patient's discharge medication list was reviewed for discrepancies and discrepancies were resolved. Medications at Discharge Home Medications pen needle, diabetic, safety 30 gauge x 1/3 #50 ea 11/11/19 hydrocortisone 2.5 % topical cream 1 applic topical BID PRN rash #30 grams 11/18/20 lisinopril 2.5 mg tablet 2.5 mg PO DAILY #90 tabs 09/05/21 sildenafil 50 mg tablet 50 mg PO DAILY PRN sexual activity #30 tabs 11/16/22 tirzepatide 5 mg/0.5 mL subcutaneous pen injector (Mounjaro) 5 mg (0.5 mL) subcut QWEEK #2 mL 11/16/22 rosuvastatin 5 mg tablet (Crestor) 5 mg PO DAILY #90 tabs 11/20/22 semaglutide 1 mg/dose (4 mg/3 mL) subcutaneous pen injector (Ozempic) 1 mg (0.75 mL) subcut QWEEK #3 mL 11/29/22 dulaglutide 1.5 mg/0.5 mL subcutaneous pen injector (Trulicity) See Rx Instructions .Route .COMPLEX #4 mL 04/19/23
[2023-06-24 12:59] LABS: Bedside Glucose 345 mg/dL (74-106)
[2023-06-24 13:19] LABS: Pathologist Review Reviewed
[2023-06-24 13:22] LABS: Pathologist Review Reviewed
[2023-06-25 09:28] LABS: Pathologist Review Reviewed
== END 2023-06-24 10:02 | disposition other institution (70) | DRG 282 ==
LOC: ED 23:34 → PCU 06-14 01:07 → ICU 06-16 09:54 → PCU 06-19 09:42
PROVIDERS: Internal Medicine; Internal Medicine Gastroenterology; Surgery; Admitting Provider Hospitalist; Emergency Provider Emergency Medicine; PCP Nurse Practitioner Family; Referring Provider Hospitalist; Visit Provider Family Medicine
PROC: 0FC98ZZ Extirpation of Matter from Common Bile Duct, Via Natural or Artificial Opening Endoscopic (ICD-10-PCS; CPT 43260; principal; 2023-06-14 15:40)
DX: K85.10 Biliary acute pancreatitis without necrosis or infection (principal); J96.01 Acute respiratory failure with hypoxia; A41.9 Sepsis, unspecified organism; E83.51 Hypocalcemia; E87.20 Acidosis, unspecified; E11.40 Type 2 diabetes mellitus with diabetic neuropathy, unspecified; K31.84 Gastroparesis; D72.810 Lymphocytopenia; N17.9 Acute kidney failure, unspecified; E66.01 Morbid (severe) obesity due to excess calories; E11.43 Type 2 diabetes mellitus with diabetic autonomic (poly)neuropathy; I10 Essential (primary) hypertension; E88.09 Other disorders of plasma-protein metabolism, not elsewhere classified; K80.20 Calculus of gallbladder without cholecystitis without obstruction; E78.5 Hyperlipidemia, unspecified; E87.5 Hyperkalemia; K80.70 Calculus of gallbladder and bile duct without cholecystitis without obstruction; G47.30 Sleep apnea, unspecified; K86.2 Cyst of pancreas
CPT/HCPCS: 36415; 36600; 71045; 71275; 74177; 74330; 76000; 80048; 80053; 80076; 82150; 82248; 82310; 82803; 82962; 83036; 83605; 83615; 83630; 83690; 83735; 84100; 84484; 85025; 85027; 85652; 86140; 87040; 87070; 87177; 87205; 87209; 87493; 87506; 93005; 94002; 94003; 94668; 94762; 97165; 97802; 99285; J7030; J7040; J7050; J7120; Q9967; A4216; J0612; J1940; J2405

== ENCOUNTER → 2023-08-07 | Outpatient (CLI) | payer MEDICAID, SELFPAY ==
[2023-08-07 12:22] LABS: Absolute Lymphocyte Count 1.03 X10^3/uL (0.83-4.51); Absolute Neutrophil Count 3.9 X10^3/uL (2.0-7.7); Basophil# 0.04 X10^3/uL; Basophil% 0.7 % (0-1); Eosinophil# 0.35 X10^3/uL; Hematocrit 32.5 % (40-54); Hemoglobin 9.7 g/dL (13.0-16.5); Lymphocyte # 1.03 X10^3/ul (0.83-4.51); Lymphocyte % 17.8 % (19-41); Mean Corp Hgb Conc 29.8 g/dL (32-36); Mean Corpuscular Hgb 24.7 pg (27.0-32.0); Mean Corpuscular Volume 82.9 fL (80-94); Mean Platelet Vol. 8.8 fl (6.2-12.0); Monocyte# 0.45 X10^3/uL; Monocyte% 7.8 % (0-10); NRBC Flagged by Analyzer 0 % (0-5); Neutrophil # 3.89 X10^3/uL (2.7-7.7); Neutrophil % 67.2 % (47-70); Platelet Count 307 K/mm3 (150-450); RBC Distribution Width CV 14.4 % (11.6-14.6); RBC Distribution Width SD 43.5 fl (35.1-43.9); Red Blood Count 3.92 M/mm3 (4.6-6.2); White Blood Count 5.8 K/mm3 (4.4-11.0)
[2023-08-07 13:23] LABS: ALB/GLOB Ratio 0.5 RATIO (0.9-2.4); AST(SGOT) 16 U/L (15-37); Alanine Aminotransfer ALT/SGPT 15 U/L (16-61); Albumin, Serum 2.4 g/dL (3.2-5.0); Alkaline Phosphatase 252 U/L (45-117); Anion Gap 10 (5-15); BUN 13 mg/dL (7-18); BUN/Creat Ratio 14.4 RATIO (10-20); Chloride 100 mmol/L (98-107); EST Glomerular Filtration Rate 94 mL/min (>60); Est Glom Filt Rate - Afr Amer 114 mL/min (>60); Globulin 4.8 g/dL (2.2-4.2); Glucose 189 mg/dL (74-106); Potassium 3.4 mmol/L (3.5-5.1); Prealbumin 6.7 mg/dL (20.0-40.0); Protein, Total 7.2 g/dL (6.4-8.2); Sodium Level 136 mmol/L (136-145); Thyroid Stim Hormone (TSH) 0.48 uIU/mL (0.358-3.74)
== END | disposition home or self-care (01) ==
PROVIDERS: PCP Nurse Practitioner Family; Referring Provider Nurse Practitioner Family; Visit Provider Nurse Practitioner Family
DX: R63.4 Abnormal weight loss (principal)
CPT/HCPCS: 36415; 80053; 84134; 84443; 85025

== ENCOUNTER 2024-01-16 08:45 | Outpatient (RCR) | payer MEDICAID, SELFPAY ==
[2024-01-02 10:56] VITALS: RESP 18; TEMP 36.1; BMI 67.9
--- NOTE | 2024-01-02 12:55 | PCM.WC.HP ---
History of Present Illness Date of Service: 01/02/24 Chief Complaint: Sacral Ulcer History of Wound: Mr. Arizmendi is a 48 yo who was referred to the wound center due to chronic sacral ulcer. Recent lengthy hospital/post hospital stay due to necrotizing pancreatitis. ICU for couple weeks and then discharged to LTAC/rehab. Had wound care with [facility] while at these facilities however since discharge, his niece has been helping with wound dressings. Per patient, he has been doing saline dressings and covering with gauze. History of diabetes mellitus type 2 which per patient has been well-controlled, now on insulin and blood sugar this morning was said to be at 123. He feels well aside from driving is not sedentary. No chills, fever or change in bowel habit. [facility] Medical History (Updated 01/02/24 @ 13:[address] Bhaskar Amador MD) Anxiety and depression Asthma Dental caries Diabetes Erectile dysfunction Gingival and periodontal disease history infection foot History of pancreatitis Neuropathy Obesity Sacral decubitus ulcer, stage III Home Medications pen needle, diabetic, safety 30 gauge x 1/3 #50 ea 11/11/19 [Rx Last Taken Unknown] hydrocortisone 2.5 % topical cream 1 applic topical BID PRN rash #30 grams 11/18/20 [Rx Last Taken Unknown] lisinopril 2.5 mg tablet 2.5 mg PO DAILY #90 tabs 09/05/21 [Rx Last Taken 06/13/23] sildenafil 50 mg tablet 50 mg PO DAILY PRN sexual activity #30 tabs 11/16/22 [Rx Last Taken Unknown] tirzepatide 5 mg/0.5 mL subcutaneous pen injector (Mounjaro) 5 mg (0.5 mL) subcut QWEEK #2 mL 11/16/22 [Rx Last Taken Unknown] rosuvastatin 5 mg tablet (Crestor) 5 mg PO DAILY #90 tabs 11/20/22 [Rx Last Taken Unknown] semaglutide 1 mg/dose (4 mg/3 mL) subcutaneous pen injector (Ozempic) 1 mg (0.75 mL) subcut QWEEK #3 mL 11/29/22 [Rx Last Taken Unknown] dulaglutide 1.5 mg/0.5 mL subcutaneous pen injector (Trulicity) See Rx Instructions .Route .COMPLEX #4 mL 07/28/23 [Rx Last Taken 06/09/23] Allergy/AdvReac Type Severity Reaction Status Date / Time Penicillins Allergy Unknown Verified 06/13/23 21:04 Family History Father Lung cancer Mother Lung cancer Other Alcoholism Asthma Respiratory disease Surgical History No history of previous surgery Social History Smoking Status: Never smoker alcohol intake: current alcohol intake frequency: a few times a month Alcohol type: hard liquor substance use type: does not use what type of physical activity do you participate in: none ROS Constitutional Constitutional: Denies anorexia, change in weight, chills, fatigue, frequent falls, headache(s) or increased appetite Eyes Eyes: Denies blindness, blind spots, change in eye color, change in vision, discharge from eye(s), discongugate gaze or dry eyes ENT HEENT: Denies dysphagia, foreign body in nose, halitosis, headache(s), hearing loss, hoarseness or lip swelling Cardiovascular Cardiovascular: Denies bluish discoloration of hand/feet, chest pain, clubbing, cold extremities, cyanosis or diaphoresis Respiratory/Chest Respiratory/Chest: Denies chest congestion, chest tightness, cough, difficulty clearing secretions, dry cough, dyspnea on exertion or mouth breathing Gastrointestinal Gastrointestinal: Denies abdominal pain, bloating, change in bowel habits, change in stool character, chewing difficulty or excessive flatus Genitourinary Genitourinary: Denies abdominal discomfort, flank pain, genital bruising, scrotal pain, scrotal swelling or urinary incontinence Musculoskeletal Musculoskeletal: Denies extremity pain, joint stiffness, loss of height, muscle weakness or numbness Integumentary Integumentary: Denies change in pigmentation, furuncle, hirsutism, jaundice, nail changes or skin swelling Neurologic Neurologic: Denies abnormal hearing, abnormal speech, behavior changes, frequent falls, headache(s), memory loss or numbness Psychiatric Psychiatric: Denies behavioral changes, change in appetite, difficulty concentrating, hallucinations, homicidal ideation, irritability or memory loss Endocrine Endocrinology: Denies change in body appearance, cold intolerance, deepening of the voice, excessive sweating, heat intolerance or increase in ring/shoe/hat size Hematologic/Lymphatic Hematologic/Lymphatic: Denies easy bleeding Allergic/Immunologic Allergic/Immunologic: Denies itchy eyes, lip swelling, throat swelling, tongue swelling, hives or wheezing Vital Signs Vital Signs Vital Signs: 01/02/24 10:56 Temperature 96.9 F L Temperature Source Temporal Respiratory Rate 18 Oxygen Delivery Method Room Air Weight Weight: 421 lb 1.326 oz Body Mass Index (BMI) 67.9 Physical Exam Const alert, oriented x3 and no apparent distress General Appearance: cooperative, comfortable and well kempt HEENT normocephalic, head/scalp atraumatic and hearing grossly normal bilaterally Eyes EOMs intact bilaterally General Eye: normal appearance of both eyes Neck full ROM and supple General: normal visual inspection Resp normal respiratory effort and normal air movement Effort and Inspection: able to speak in complete sentences Cardio regular rate, regular rhythm, S1 normal heart sound and S2 normal heart sound GI soft to palpation and non-distended Extremity normal to inspection and full ROM Skin Wounds: wounds noted Neuro oriented x3, CN's II-XII intact bilaterally, moves all extremities and no focal motor deficits Psych mental status grossly normal, thought process normal, cooperative, affect normal and speech normal Debridement Note Debridement Note Wound debrided: Sacral Type of Debridement: Excisional debridement Anesthesia Used: 4% Lidocaine Solution Depth: Down to and including healthy tissue and in the subcutaneous layer Percentage of wound debrided: 100 Instrument Used: 5mm curette Tissue Removed: Slough and devitalized tissue Severity: Fat Layer Exposed Amount of bleeding with debridement: Mild Bleeding Controlled with: Pressure Patient tolerated procedure: Patient tolerated procedure well Post-Debridement Measurements and Additional Note: Post-Debridement Measurements/Treatment - Nurse 1 - General Ulcer Assessment Start: 01/02/24 10:52 Freq: Status: Active Protocol: GIL Activity Type Activity Date Activity User E-sign Co-sign Detail Recorded Client Recorded Date Recorded By Document 01/02/24 10:56 KW Desktop 01/02/24 11:07 KW 01/02/24 10:56 - Today's Visit Information Type of service Nurse-only Visit Arrival Mode Ambulatory Patient Identification Verified (Name & Yes ) Finger Stick Blood Sugar(mg/dl) (if 123 indicated): Blood Sugar Stated by Patient Height and Weight Height 5 ft 6 in Weight 421 lb 1.326 oz Weight in Pounds 421.1 lbs Weight Measurement Method Estimated by Patient Body Mass Index (BMI) 67.9 BMI Classification Obese BSA - Bozena 2.74 Vital Signs Temperature (97.8 F-99.1 F) 96.9 F L Temperature Source Temporal Pulse Location Monitor Respiratory Rate (12-18) 18 Respiratory rate source Observation Oxygen Delivery Method Room Air Pain Scale: 0-10 Numeric Is Patient Pain Free? Yes WC - Nurse 1 - General Ulcer Measurement Start: 01/02/24 10:52 Freq: Status: Active Protocol: Activity Type Activity Date Activity User E-sign Co-sign Detail Recorded Client Recorded Date Recorded By Document 01/02/24 10:56 KW Desktop 01/02/24 11:07 KW 01/02/24 10:56 Wound Center Nurse 1 #1 Sacrum -Current Size (cm) - Length 3 -Current Size (cm) - Width 0.3 -Current Size (cm) - Depth 1.1 -Total Square Cm 0.9 -Date of Last Picture (Recall this 01/02/24 field) -Photo Taken Yes -Tunneling Yes -Tunneling Position (O'clock) 5 -Tunneling Distance (cm) 1.5 -Tunneling Position #2 (O'clock) 11 -Tunneling Distance #2 (cm) 1.1 -Exudate Amt Medium -Exudate Type Yellow/Green -Wound Margin Distinct, Outline Attached -Granulation Amt Medium (34-66%) -Granulation Quality Red -Necrosis Amt Medium (34-66%) -Necrotic Tissue Type Adherent Slough -Texture (Marika-wound Skin Appearance) Assessed,Rash -Moisture (Marika-wound Skin Appearance) Assessed -Color (Marika-wound Skin Appearance) Assessed -Temperature (Marika-wound Skin No Abnormality Appearance) (Pt Warm) -Ulcer Cleansing Soap and Water -Foul Odor after Cleansing No -Anesthetic Used 5% Lidocaine Gel WC - Nurse 2 - General Ulcer CM Notes Start: 01/02/24 10:52 Freq: Status: Active Protocol: Activity Type Activity Date Activity User E-sign Co-sign Detail Recorded Client Recorded Date Recorded By Document 01/02/24 11:15 GM Desktop 01/02/24 11:24 01/02/24 11:15 Wound Center Nurse 2 -Time 11:15 -Correct Patient Yes -Correct Side, Site, Position Yes -Correct Procedure Yes -Procedure Performed Yes -Type of Procedure Debridement -Clinical Debridement Subcutaneous -Tissue Removed Subcutaneous -Post Debridement (cm) - Length 3.0 -Post Debridement (cm) - Width 0.5 -Post Debridement (cm) - Depth 2.2 -Total Square (Post) (cm) 1.50 -Area of Debridement (cm) - Length 3.0 -Area of Debridement (cm) - Width 0.5 -Total Square (Area) (cm) 1.50 -Tunneling No -Undermining/Tunneling No -Circular Undermining No -Wound/Ulcer Outcome Not Healed -Ulcer Cleansing Rinsed/ Irrigated with Saline -Foul Odor after Cleansing No -Bioengineered Tissue No -Bleeding Controlled with Pressure -Treatment Response Procedure Tolerated Well -Debridement - Subq, 1st 20sq cm Yes Pain Scale: 0-10 Numeric Is Patient Pain Free? Yes - Nurse 3 - General Ulcer D/C NN Start: 01/02/24 10:52 Freq: Status: Active Protocol: Activity Type Activity Date Activity User E-sign Co-sign Detail Recorded Client Recorded Date Recorded By Document 01/02/24 11:36 DL Desktop 01/02/24 11:39 DL 01/02/24 11:36 Wound Care Center Nurse 3 #1 Sacrum -Ulcer Cleansing Rinsed/ Irrigated with Saline -Foul Odor after Cleansing No -Primary Dressing Applied Aquacel Extra -Primary Dressing Covered/Secured with Dry Gauze, Secured with Tape -Aquacel Extra 1 Treatment Response Procedure Tolerated Well Pain Scale: 0-10 Numeric Is Patient Pain Free? Yes - Visit Discharge Discharge Condition Stable Ambulatory Status Ambulatory Transportation Private Auto Charges/Coding Visit Charges Office Visits / Consults: [id number] OV L3 New 30min Procedures Integumentary 111xxx-113xx: [id number] Elisa subq tissue 20 sq cm/< Assessment/Plan Assessment/Plan (1) Sacral decubitus ulcer, stage III: CODE(S): L89.153 - Pressure ulcer of sacral region, stage 3 (2) Type 2 diabetes mellitus with diabetic polyneuropathy: CODE(S): E11.42 - Type 2 diabetes mellitus with diabetic polyneuropathy (3) History of pancreatitis: CODE(S): Z87.19 - Personal history of other diseases of the digestive system PLAN: Plan Debridement done as documented above, procedure was well-tolerated. Good granulation tissue with no concern for infection at this time. No cultures taken. Recent facility discharge, will get records/recent labs. Aquacel extra daily to twice daily depending on drainage. Cover with ABD. Patient states that he is eating well and ensuring that he has a good amount of protein in his diet, he was commended. Offloading discussed, he voiced understanding. Continue other chronic wound care. Optimal diabetes control. His questions were answered and he was advised to call with any further questions or concerns. Follow-up in a week or sooner if needed. This note was generated with [employer] dictation software. It may contain incorrect words, spelling, and punctuation that were not noted in checking the note before signing.
[2024-01-09 08:32] VITALS: BP 127/76; PULSE 88; RESP 18; TEMP 36.6; BMI 67.9
--- NOTE | 2024-01-09 09:43 | PCM.WC.PN ---
History of Present Illness Date of Service: 01/09/24 Chief Complaint: Sacral Ulcer History of Wound: Mr. Arizmendi is a 48 yo who was referred to the wound center due to chronic sacral ulcer. Recent lengthy hospital/post hospital stay due to necrotizing pancreatitis. ICU for couple weeks and then discharged to LTAC/rehab. Had wound care with [facility] while at these facilities however since discharge, his niece has been helping with wound dressings. Per patient, he has been doing saline dressings and covering with gauze. History of diabetes mellitus type 2 which per patient has been well-controlled, now on insulin and blood sugar this morning was said to be at 123. He feels well aside from driving is not sedentary. No chills, fever or change in bowel habit. Progress of Wound: No new concerns reported at this time. Improving. Has been changing twice daily. Objective Data Objective Data Vital Signs: Vital Signs Temp Pulse Resp BP O2 Del Method 98 F 88 18 127/76 H Room Air 01/09/24 08:32 01/09/24 08:32 01/09/24 08:32 01/09/24 08:32 01/02/24 10:56 Oxygen Delivery Method Room Air Weight: 421 lb 1.326 oz Body Mass Index (BMI) 67.9 Charges/Coding Procedures Integumentary 111xxx-113xx: [id number] Elisa subq tissue 20 sq cm/< Physical Exam Const alert, oriented x3 and no apparent distress General Appearance: cooperative, comfortable and well kempt HEENT normocephalic, head/scalp atraumatic and hearing grossly normal bilaterally Eyes EOMs intact bilaterally General Eye: normal appearance of both eyes Neck full ROM and supple General: normal visual inspection Resp normal respiratory effort and normal air movement Effort and Inspection: able to speak in complete sentences Cardio regular rate, regular rhythm, S1 normal heart sound and S2 normal heart sound GI soft to palpation and non-distended Extremity normal to inspection and full ROM Skin Wounds: wounds noted Neuro oriented x3, CN's II-XII intact bilaterally, moves all extremities and no focal motor deficits Psych mental status grossly normal, thought process normal, cooperative, affect normal and speech normal Debridement Note Debridement Note Wound debrided: Sacral Type of Debridement: Excisional debridement Anesthesia Used: 4% Lidocaine Solution Depth: Down to and including healthy tissue and in the subcutaneous layer Percentage of wound debrided: 100 Instrument Used: 5mm curette, #15 blade and Forceps Tissue Removed: Slough and devitalized tissue Severity: Fat Layer Exposed Amount of bleeding with debridement: Mild Bleeding Controlled with: Pressure Patient tolerated procedure: Patient tolerated procedure well Post-Debridement Measurements and Additional Note: Post-Debridement Measurements/Treatment - Nurse 1 - General Ulcer Assessment Start: 01/02/24 10:52 Freq: Status: Active Protocol: WC.LOWEXT Activity Type Activity Date Activity User E-sign Co-sign Detail Recorded Client Recorded Date Recorded By Document 01/02/24 10:56 KW Desktop 01/02/24 11:07 KW Document 01/09/24 08:32 RB Desktop 01/09/24 08:34 RB 01/02/24 01/09/24 10:56 08:32 - Today's Visit Information Type of service Nurse-only Follow-up Visit Visit (Physician/BILINGUAL ACCOUNT MANAGER ) Arrival Mode Ambulatory Ambulatory Transfer Assistance None Patient Identification Verified (Name & Yes Yes ) Patient Requires Transmission-Based No Precautions Finger Stick Blood Sugar(mg/dl) (if 123 indicated): Blood Sugar Stated by Patient Height and Weight Height 5 ft 6 in Weight 421 lb 1.326 oz Weight in Pounds 421.1 lbs Weight Measurement Method Estimated by Patient Body Mass Index (BMI) 67.9 67.9 BMI Classification Obese Obese BSA - Bozena 2.74 Vital Signs Temperature (97.8 F-99.1 F) 96.9 F L 98 F Temperature Source Temporal Temporal Pulse Rate (60-100) 88 Pulse Location Monitor Monitor Respiratory Rate (12-18) 18 18 Respiratory rate source Observation Observation Oxygen Delivery Method Room Air Blood Pressure (90/60-120/80) 127/76 H Blood Pressure Mean (mm Hg) 93 Source Monitor Position Semi-Fowlers Blood Pressure Location Left Arm History Since Last Visit- (Skip if this is Patient's initial visit) Have you changed medications since your No last visit? Any new allergies or adverse reactions No Had a fall/change in ADL's that may No increase risk of falls Signs or symptoms of abuse and/or No neglect since last visit Have you been in the hospital since your No last visit? Has dressing in place as prescribed Yes Has compression in place as prescribed No Has offloadiing in place as prescribed No Experienced any changes in pain level or No management Pain Scale: 0-10 Numeric Is Patient Pain Free? Yes Yes WC - Nurse 1 - General Ulcer Measurement Start: 01/02/24 10:52 Freq: Status: Active Protocol: Activity Type Activity Date Activity User E-sign Co-sign Detail Recorded Client Recorded Date Recorded By Document 01/02/24 10:56 KW Desktop 01/02/24 11:07 KW Document 01/09/24 08:32 RB Desktop 01/09/24 08:34 RB 01/02/24 01/09/24 10:56 08:32 Wound Center Nurse 1 #1 Sacrum -Combined with other wound No -Current Size (cm) - Length 3 2 -Current Size (cm) - Width 0.3 0.6 -Current Size (cm) - Depth 1.1 1.1 -Total Square Cm 0.9 1.2 -Date of Last Picture (Recall this 01/02/24 field) -Photo Taken Yes -Tunneling Yes No -Tunneling Position (O'clock) 5 -Tunneling Distance (cm) 1.5 -Tunneling Position #2 (O'clock) 11 -Tunneling Distance #2 (cm) 1.1 -Undermining/Tunneling No -Circular Undermining No -Exudate Amt Medium Medium -Exudate Type Yellow/Green Serosanguineous -Wound Margin Distinct, Thickened & Outline Rolled Under Attached -Granulation Amt Medium (34-66%) Medium (34-66%) -Granulation Quality Red Mccrory -Slough/Fibrin Yes -Necrosis Amt Medium (34-66%) Medium (34-66%) -Necrotic Tissue Type Adherent Slough Adherent Slough -Structure Exposed N/A -Texture (Marika-wound Skin Appearance) Assessed,Rash Assessed -Moisture (Marika-wound Skin Appearance) Assessed Assessed -Color (Marika-wound Skin Appearance) Assessed Assessed -Temperature (Marika-wound Skin No Abnormality No Abnormality Appearance) (Pt Warm) (Pt Warm) -Tenderness on Palpation (Marika-wound No Skin Appearance) -Ulcer Cleansing Soap and Water Wound Cleanser -Foul Odor after Cleansing No No -Anesthetic Used 5% Lidocaine 5% Lidocaine Gel Gel WC - Nurse 2 - General Ulcer CM Notes Start: 01/02/24 10:52 Freq: Status: Active Protocol: Activity Type Activity Date Activity User E-sign Co-sign Detail Recorded Client Recorded Date Recorded By Document 01/02/24 11:15 GM Desktop 01/02/24 11:24 Document 01/09/24 08:42 Desktop 01/09/24 08:49 01/02/24 01/09/24 11:15 08:42 Wound Center Nurse 2 #1 Sacrum -Time 11:15 08:45 -Correct Patient Yes Yes -Correct Side, Site, Position Yes Yes -Correct Procedure Yes Yes -Procedure Performed Yes Yes -Type of Procedure Debridement Debridement -Clinical Debridement Subcutaneous Subcutaneous -Tissue Removed Subcutaneous Subcutaneous -Post Debridement (cm) - Length 3.0 2.1 -Post Debridement (cm) - Width 0.5 0.5 -Post Debridement (cm) - Depth 2.2 1.7 -Total Square (Post) (cm) 1.50 1.05 -Area of Debridement (cm) - Length 3.0 2.1 -Area of Debridement (cm) - Width 0.5 0.5 -Total Square (Area) (cm) 1.50 1.05 -Tunneling No No -Undermining/Tunneling No No -Circular Undermining No No -Wound/Ulcer Outcome Not Healed Not Healed -Ulcer Cleansing Rinsed/ Rinsed/ Irrigated with Irrigated with Saline Saline -Foul Odor after Cleansing No No -Bioengineered Tissue No -Bleeding Controlled with Pressure Pressure -Treatment Response Procedure Procedure Tolerated Well Tolerated Well -Debridement - Subq, 1st 20sq cm Yes Yes Pain Scale: 0-10 Numeric Is Patient Pain Free? Yes Yes WC - Nurse 3 - General Ulcer D/C NN Start: 01/02/24 10:52 Freq: Status: Active Protocol: Activity Type Activity Date Activity User E-sign Co-sign Detail Recorded Client Recorded Date Recorded By Document 01/02/24 11:36 DL Desktop 01/02/24 11:39 DL Document 01/09/24 09:03 RB Desktop 01/09/24 09:03 RB 01/02/24 01/09/24 11:36 09:03 Wound Care Center Nurse 3 #1 Sacrum -Ulcer Cleansing Rinsed/ Rinsed/ Irrigated with Irrigated with Saline Saline -Foul Odor after Cleansing No -Primary Dressing Applied Aquacel Extra Aquacel Extra, Mepilex Border -Primary Dressing Covered/Secured with Dry Gauze, Secured with Tape -Aquacel Extra 1 1 -Mepilex Border 1 Treatment Response Procedure Procedure Tolerated Well Tolerated Well Pain Scale: 0-10 Numeric Is Patient Pain Free? Yes Yes WC - Visit Discharge Discharge Condition Stable Stable Ambulatory Status Ambulatory Ambulatory Transportation Private Auto Private Auto Medication Reconcilliation completed & No provided to patient/care provider Clinical Summary of Care Provided Yes Assessment/Plan Assessment/Plan (1) Sacral decubitus ulcer, stage III: CODE(S): L89.153 - Pressure ulcer of sacral region, stage 3 (2) Type 2 diabetes mellitus with diabetic polyneuropathy: CODE(S): E11.42 - Type 2 diabetes mellitus with diabetic polyneuropathy (3) History of pancreatitis: CODE(S): Z87.19 - Personal history of other diseases of the digestive system PLAN: Plan Debridement done as documented above, procedure was well-tolerated. Improving. No new concerns noted at this time. Continue Aquacel extra daily to twice daily depending on drainage. Cover with ABD. continue optimal protein/dietary intake and offloading. Continue other chronic wound care. Optimal diabetes control. His questions were answered and he was advised to call with any further questions or concerns. Follow-up in a week or sooner if needed. This note was generated with [employer] dictation software. It may contain incorrect words, spelling, and punctuation that were not noted in checking the note before signing.
[2024-01-16 08:43] VITALS: BP 108/68; PULSE 94; RESP 16; TEMP 36.5; BMI 67.9
--- NOTE | 2024-01-16 09:42 | PN.PCM_ITS ---
History of Present Illness Date of Service: 01/16/24 Chief Complaint: Sacral Ulcer History of Wound: Mr. Arizmendi is a 48 yo who was referred to the wound center due to chronic sacral ulcer. Recent lengthy hospital/post hospital stay due to necrotizing pancreatitis. ICU for couple weeks and then discharged to LTAC/rehab. Had wound care with Christy while at these facilities however since discharge, his niece has been helping with wound dressings. Per patient, he has been doing saline dressings and covering with gauze. History of diabetes mellitus type 2 which per patient has been well-controlled, now on insulin and blood sugar this morning was said to be at 123. He feels well aside from dr spence is not sedentary. No chills, fever or change in bowel habit. Progress of Wound: No new concerns at this time. Some improvement noted. He states that he has not had that much drainage in the past week. Objective Data Objective Data Vital Signs: Vital Signs Temp Pulse Resp BP O2 Del Method 97.7 F L 94 16 108/68 Room Air 01/16/24 08:43 01/16/24 08:43 01/16/24 08:43 01/16/24 08:43 01/16/24 08:43 Oxygen Delivery Method Room Air Weight: 421 lb 1.326 oz Body Mass Index (BMI) 67.9 Charges/Coding Procedures Integumentary 111xxx-113xx: 70538 Elisa subq tissue 20 sq cm/< Physical Exam Const alert, oriented x3 and no apparent distress General Appearance: cooperative, comfortable and well kempt HEENT normocephalic, head/scalp atraumatic and hearing grossly normal bilaterally Eyes EOMs intact bilaterally General Eye: normal appearance of both eyes Neck full ROM and supple General: normal visual inspection Resp normal respiratory effort and normal air movement Effort and Inspection: able to speak in complete sentences Cardio regular rate, regular rhythm, S1 normal heart sound and S2 normal heart sound GI soft to palpation and non-distended Extremity normal to inspection and full ROM Skin Wounds: wounds noted Neuro oriented x3, CN's II-XII intact bilaterally, moves all extremities and no focal motor deficits Psych mental status grossly normal, thought process normal, cooperative, affect normal and speech normal Debridement Note Debridement Note Wound debrided: Sacral Type of Debridement: Excisional debridement Anesthesia Used: 4% Lidocaine Solution Depth: Down to and including healthy tissue and in the subcutaneous layer Percentage of wound debrided: 100 Instrument Used: 5mm curette, #15 blade and Forceps Tissue Removed: Slough and devitalized tissue Severity: Fat Layer Exposed Amount of bleeding with debridement: Mild Bleeding Controlled with: Pressure Patient tolerated procedure: Patient tolerated procedure well Post-Debridement Measurements and Additional Note: Post-Debridement Measurements/Treatment WC - Nurse 1 - General Ulcer Assessment Start: 01/02/24 10:52 Freq: Status: Active Protocol: GIL Activity Type Activity Date Activity User E-sign Co-sign Detail Recorded Client Recorded Date Recorded By Document 01/02/24 10:56 KW Desktop 01/02/24 11:07 KW Document 01/09/24 08:32 RB Desktop 01/09/24 08:34 RB Document 01/16/24 08:43 GM Desktop 01/16/24 08:47 GM 01/02/24 01/09/24 01/16/24 10:56 08:32 08:43 - Today's Visit Information Type of service Nurse-only Follow-up Visit Follow-up Visit Visit (Physician/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 (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/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 ) ) Arrival Mode Ambulatory Ambulatory Ambulatory Transfer Assistance None Manual Patient Identification Verified (Name & Yes Yes Yes ) Patient Requires Transmission-Based No Precautions Finger Stick Blood Sugar(mg/dl) (if 123 indicated): Blood Sugar Stated by Patient Height and Weight Height 5 ft 6 in Weight 421 lb 1.326 oz Weight in Pounds 421.1 lbs Weight Measurement Method Estimated by Patient Body Mass Index (BMI) 67.9 67.9 67.9 BMI Classification Obese Obese Obese BSA - [place] 2.74 Vital Signs Temperature (97.8 F-99.1 F) 96.9 F L 98 F 97.7 F L Temperature Source Temporal Temporal Temporal Pulse Rate (60-100) 88 94 Pulse Location Monitor Monitor Monitor Respiratory Rate (12-18) 18 18 16 Respiratory rate source Observation Observation Observation Oxygen Delivery Method Room Air Room Air Blood Pressure (90/60-120/80) 127/76 H 108/68 Blood Pressure Mean (mm Hg) 93 81 Source Monitor Monitor Position Semi-Fowlers Sitting Blood Pressure Location Left Arm Left Arm History Since Last Visit- (Skip if this is Patient's initial visit) Have you changed medications since your No No last visit? Any new allergies or adverse reactions No No Had a fall/change in ADL's that may No No increase risk of falls Signs or symptoms of abuse and/or No No neglect since last visit Have you been in the hospital since your No No last visit? Has dressing in place as prescribed Yes Yes Has compression in place as prescribed No N/A Has offloadiing in place as prescribed No N/A Experienced any changes in pain level or No No management Pain Scale: 0-10 Numeric Is Patient Pain Free? Yes Yes Yes WC - Nurse 1 - General Ulcer Measurement Start: 01/02/24 10:52 Freq: Status: Active Protocol: Activity Type Activity Date Activity User E-sign Co-sign Detail Recorded Client Recorded Date Recorded By Document 01/02/24 10:56 KW Desktop 01/02/24 11:07 KW Document 01/09/24 08:32 RB Desktop 01/09/24 08:34 RB Document 01/16/24 08:43 GM Desktop 01/16/24 08:47 GM 01/02/24 01/09/24 01/16/24 10:56 08:32 08:43 Wound Center Nurse 1 #1 Sacrum -Combined with other wound No -Current Size (cm) - Length 3 2 2.0 -Current Size (cm) - Width 0.3 0.6 0.2 -Current Size (cm) - Depth 1.1 1.1 1.1 -Total Square Cm 0.9 1.2 0.40 -Date of Last Picture (Recall this 01/02/24 01/16/24 field) -Photo Taken Yes Yes -Epithelialization Small 1-33% -Tunneling Yes No No -Tunneling Position (O'clock) 5 -Tunneling Distance (cm) 1.5 -Tunneling Position #2 (O'clock) 11 -Tunneling Distance #2 (cm) 1.1 -Undermining/Tunneling No No -Circular Undermining No No -Exudate Amt Medium Medium Medium -Exudate Type Yellow/Green Serosanguineous Yellow/Green -Wound Margin Distinct, Thickened & Distinct, Outline Rolled Under Outline Attached Attached -Granulation Amt Medium (34-66%) Medium (34-66%) Small (1-33%) -Granulation Quality [place] Red -Slough/Fibrin Yes Yes -Necrosis Amt Medium (34-66%) Medium (34-66%) -Necrotic Tissue Type Adherent Slough Adherent Slough Adherent Slough -Structure Exposed N/A -Texture (Marika-wound Skin Appearance) Assessed,Rash Assessed Assessed -Moisture (Marika-wound Skin Appearance) Assessed Assessed Assessed -Color (Marika-wound Skin Appearance) Assessed Assessed Assessed -Temperature (Marika-wound Skin No Abnormality No Abnormality No Abnormality Appearance) (Pt Warm) (Pt Warm) (Pt Warm) -Tenderness on Palpation (Marika-wound No Skin Appearance) -Ulcer Cleansing Soap and Water Wound Cleanser Rinsed/ Irrigated with Saline -Foul Odor after Cleansing No No No -Anesthetic Used 5% Lidocaine 5% Lidocaine 5% Lidocaine Gel Gel Gel WC - Nurse 2 - General Ulcer CM Notes Start: 01/02/24 10:52 Freq: Status: Active Protocol: Activity Type Activity Date Activity User E-sign Co-sign Detail Recorded Client Recorded Date Recorded By Document 01/02/24 11:15 GM Desktop 01/02/24 11:24 GM Document 01/09/24 08:42 [facility] 01/09/24 08:49 GM Document 01/16/24 09:21 GM Desktop 01/16/24 09:26 GM 01/02/24 01/09/24 01/16/24 11:15 08:42 09:21 Wound Center Nurse 2 #1 Sacrum -Time 11:15 08:45 09:21 -Correct Patient Yes Yes Yes -Correct Side, Site, Position Yes Yes Yes -Correct Procedure Yes Yes Yes -Procedure Performed Yes Yes Yes -Type of Procedure Debridement Debridement Debridement -Clinical Debridement Subcutaneous Subcutaneous Subcutaneous -Tissue Removed Subcutaneous Subcutaneous Subcutaneous -Post Debridement (cm) - Length 3.0 2.1 2.0 -Post Debridement (cm) - Width 0.5 0.5 0.3 -Post Debridement (cm) - Depth 2.2 1.7 1.6 -Total Square (Post) (cm) 1.50 1.05 0.60 -Area of Debridement (cm) - Length 3.0 2.1 2.0 -Area of Debridement (cm) - Width 0.5 0.5 0.3 -Total Square (Area) (cm) 1.50 1.05 0.60 -Tunneling No No No -Undermining/Tunneling No No No -Circular Undermining No No No -Wound/Ulcer Outcome Not Healed Not Healed Not Healed -Ulcer Cleansing Rinsed/ Rinsed/ Rinsed/ Irrigated with Irrigated with Irrigated with Saline Saline Saline -Foul Odor after Cleansing No No No -Bioengineered Tissue No No -Bleeding Controlled with Pressure Pressure Pressure -Treatment Response Procedure Procedure Procedure Tolerated Well Tolerated Well Tolerated Well -Debridement - Subq, 1st 20sq cm Yes Yes Yes Pain Scale: 0-10 Numeric Is Patient Pain Free? Yes Yes Yes - Nurse 3 - General Ulcer D/C NN Start: 01/02/24 10:52 Freq: Status: Active Protocol: Activity Type Activity Date Activity User E-sign Co-sign Detail Recorded Client Recorded Date Recorded By Document 01/02/24 11:36 DL Desktop 01/02/24 11:39 DL Document 01/09/24 09:03 RB Desktop 01/09/24 09:03 RB Document 01/16/24 09:31 KW Desktop 01/16/24 09:31 KW 01/02/24 01/09/24 01/16/24 11:36 09:03 09:31 Wound Care Center Nurse 3 #1 Sacrum -Ulcer Cleansing Rinsed/ Rinsed/ Irrigated with Irrigated with Saline Saline -Foul Odor after Cleansing No -Primary Dressing Applied Aquacel Extra Aquacel Extra, Mepilex Border Mepilex Border -Other Dressing hydrogel until santyl is picked up from pharmacy -Primary Dressing Covered/Secured with Dry Gauze, Secured with Tape -Aquacel Extra 1 1 -Mepilex Border 1 1 Treatment Response Procedure Procedure Tolerated Well Tolerated Well Pain Scale: 0-10 Numeric Is Patient Pain Free? Yes Yes Yes - Visit Discharge Discharge Condition Stable Stable Stable Ambulatory Status Ambulatory Ambulatory Ambulatory Transportation Private Auto Private Auto Private Auto Medication Reconcilliation completed & No No provided to patient/care provider Clinical Summary of Care Provided Yes Yes Assessment/Plan Assessment/Plan (1) Sacral decubitus ulcer, stage III: CODE(S): L89.153 - Pressure ulcer of sacral region, stage 3 (2) Type 2 diabetes mellitus with diabetic polyneuropathy: CODE(S): E11.42 - Type 2 diabetes mellitus with diabetic polyneuropathy (3) History of pancreatitis: CODE(S): Z87.19 - Personal history of other diseases of the digestive system PLAN: Plan Debridement done as documented above, procedure was well-tolerated. Still some slough at the base of the ulcer, switch to Santyl as he has not had any significant drainage in the past week. Cover with moistened gauze and ABD. Continue optimal protein/dietary intake and offloading. Continue other chronic wound care. Optimal diabetes control. His questions were answered and he was advised to call with any further questions or concerns. Follow-up in a week or sooner if needed. This note was generated with [employer] dictation software. It may contain incorrect words, spelling, and punctuation that were not noted in checking the note before signing.
== END 2024-01-21 23:59 | disposition home or self-care (01) ==
LOC: WC 08:45
PROVIDERS: PCP Nurse Practitioner Family; Referring Provider Nurse Practitioner Family; Visit Provider Internal Medicine
DX: L89.153 Pressure ulcer of sacral region, stage 3 (principal); E11.42 Type 2 diabetes mellitus with diabetic polyneuropathy; Z79.85 Long-term (current) use of injectable non-insulin antidiabetic drugs; Z79.899 Other long term (current) drug therapy; Z87.19 Personal history of other diseases of the digestive system
CPT/HCPCS: 11042; 99203; G0463

== ENCOUNTER 2024-02-20 08:45 | Outpatient (RCR) | payer MEDICAID, SELFPAY ==
[2024-01-22 00:06] VITALS: BP 108/68; PULSE 94; RESP 16; TEMP 36.5; BMI 67.9
[2024-01-23 08:56] VITALS: BP 134/78; PULSE 89; RESP 18; TEMP 36.8; BMI 67.9
--- NOTE | 2024-01-23 09:31 | PN.PCM_ITS ---
History of Present Illness Date of Service: 01/23/24 Chief Complaint: Sacral Ulcer History of Wound: Mr. Arizmendi is a 48 yo who was referred to the wound center due to chronic sacral ulcer. Recent lengthy hospital/post hospital stay due to necrotizing pancreatitis. ICU for couple weeks and then discharged to LTAC/rehab. Had wound care with Chrisyt while at these facilities however since discharge, his niece has been helping with wound dressings. Per patient, he has been doing saline dressings and covering with gauze. History of diabetes mellitus type 2 which per patient has been well-controlled, now on insulin and blood sugar this morning was said to be at 123. He feels well aside from dr spence is not sedentary. No chills, fever or change in bowel habit. Progress of Wound: No new concerns at this time. Santyl was recommended at his last visit however he states that he did not get it because it was not approved by his insurance. Did not attempt use of coupon because he states that he forgot. Objective Data Objective Data Vital Signs: Vital Signs Temp Pulse Resp BP 98.2 F 89 18 134/78 H 01/23/24 08:56 01/23/24 08:56 01/23/24 08:56 01/23/24 08:56 Weight: 421 lb 1.326 oz Body Mass Index (BMI) 67.9 Charges/Coding Procedures Integumentary 111xxx-113xx: 88006 Elisa subq tissue 20 sq cm/< Physical Exam Const alert, oriented x3 and no apparent distress General Appearance: cooperative, comfortable and well kempt HEENT normocephalic, head/scalp atraumatic and hearing grossly normal bilaterally Eyes EOMs intact bilaterally General Eye: normal appearance of both eyes Neck full ROM and supple General: normal visual inspection Resp normal respiratory effort and normal air movement Effort and Inspection: able to speak in complete sentences Cardio regular rate, regular rhythm, S1 normal heart sound and S2 normal heart sound GI soft to palpation and non-distended Extremity normal to inspection and full ROM Skin Wounds: wounds noted Neuro oriented x3, CN's II-XII intact bilaterally, moves all extremities and no focal motor deficits Psych mental status grossly normal, thought process normal, cooperative, affect normal and speech normal Debridement Note Debridement Note Wound debrided: Sacral Type of Debridement: Excisional debridement Anesthesia Used: 4% Lidocaine Solution Depth: Down to and including healthy tissue and in the subcutaneous layer Percentage of wound debrided: 100 Instrument Used: 5mm curette, #15 blade and Forceps Tissue Removed: Slough and devitalized tissue Severity: Fat Layer Exposed Amount of bleeding with debridement: Mild Bleeding Controlled with: Pressure Patient tolerated procedure: Patient tolerated procedure well Post-Debridement Measurements and Additional Note: Post-Debridement Measurements/Treatment - Nurse 1 - General Ulcer Assessment Start: 01/23/24 08:55 Freq: Status: Active Protocol: GIL Activity Type Activity Date Activity User E-sign Co-sign Detail Recorded Client Recorded Date Recorded By Document 01/23/24 08:56 RB Desktop 01/23/24 08:59 RB 01/23/24 08:56 - Today's Visit Information Type of service Follow-up Visit (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/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 ) Arrival Mode Ambulatory Transfer Assistance None Patient Identification Verified (Name & Yes ) Patient Requires Transmission-Based No Precautions Height and Weight Body Mass Index (BMI) 67.9 BMI Classification Obese Vital Signs Temperature (97.8 F-99.1 F) 98.2 F Temperature Source Temporal Pulse Rate (60-100) 89 Pulse Location Monitor Respiratory Rate (12-18) 18 Respiratory rate source Observation Blood Pressure (90/60-120/80) 134/78 H Blood Pressure Mean (mm Hg) 96 Source Monitor Position Semi-Fowlers Blood Pressure Location Left Arm History Since Last Visit- (Skip if this is Patient's initial visit) Have you changed medications since your No last visit? Any new allergies or adverse reactions No Had a fall/change in ADL's that may No increase risk of falls Signs or symptoms of abuse and/or No neglect since last visit Have you been in the hospital since your No last visit? Has dressing in place as prescribed Yes Has compression in place as prescribed No Has offloadiing in place as prescribed No Experienced any changes in pain level or No management Pain Scale: 0-10 Numeric Is Patient Pain Free? Yes - Nurse 1 - General Ulcer Measurement Start: 01/23/24 08:55 Freq: Status: Active Protocol: Activity Type Activity Date Activity User E-sign Co-sign Detail Recorded Client Recorded Date Recorded By Document 01/23/24 08:56 RB Desktop 01/23/24 08:59 RB 01/23/24 08:56 Wound Center Nurse 1 #1 Sacrum -Combined with other wound No -Current Size (cm) - Length 0.2 -Current Size (cm) - Width 1.5 -Current Size (cm) - Depth 1 -Total Square Cm 0.30 -Tunneling No -Undermining/Tunneling No -Circular Undermining No -Exudate Amt Medium -Exudate Type Serosanguineous -Wound Margin Distinct, Outline Attached -Granulation Amt Medium (34-66%) -Granulation Quality [place] -Slough/Fibrin Yes -Necrosis Amt Medium (34-66%) -Necrotic Tissue Type Adherent Slough -Structure Exposed N/A -Texture (Marika-wound Skin Appearance) Assessed -Moisture (Marika-wound Skin Appearance) Assessed -Color (Marika-wound Skin Appearance) Assessed -Temperature (Marika-wound Skin No Abnormality Appearance) (Pt Warm) -Tenderness on Palpation (Marika-wound No Skin Appearance) -Ulcer Cleansing Wound Cleanser -Foul Odor after Cleansing No -Anesthetic Used 5% Lidocaine Gel WC - Nurse 2 - General Ulcer CM Notes Start: 01/23/24 08:55 Freq: Status: Active Protocol: Activity Type Activity Date Activity User E-sign Co-sign Detail Recorded Client Recorded Date Recorded By Document 01/23/24 09:19 GM Desktop 01/23/24 09:24 GM 01/23/24 09:19 Wound Center Nurse 2 -Time 09:19 -Correct Patient Yes -Correct Side, Site, Position Yes -Correct Procedure Yes -Procedure Performed Yes -Type of Procedure Debridement -Clinical Debridement Subcutaneous -Tissue Removed Subcutaneous -Post Debridement (cm) - Length 1.6 -Post Debridement (cm) - Width 0.3 -Post Debridement (cm) - Depth 1.3 -Total Square (Post) (cm) 0.48 -Area of Debridement (cm) - Length 1.6 -Area of Debridement (cm) - Width 0.3 -Total Square (Area) (cm) 0.48 -Tunneling No -Undermining/Tunneling No -Circular Undermining No -Wound/Ulcer Outcome Not Healed -Ulcer Cleansing Rinsed/ Irrigated with Saline -Foul Odor after Cleansing No -Bioengineered Tissue No -Bleeding Controlled with Pressure -Treatment Response Procedure Tolerated Well -Debridement - Subq, 1st 20sq cm Yes Pain Scale: 0-10 Numeric Is Patient Pain Free? Yes WC - Nurse 3 - General Ulcer D/C NN Start: 01/23/24 08:55 Freq: Status: Active Protocol: Activity Type Activity Date Activity User E-sign Co-sign Detail Recorded Client Recorded Date Recorded By Document 01/23/24 09:29 Desktop 01/23/24 09:30 01/23/24 09:29 Wound Care Center Nurse 3 #1 Sacrum -Ulcer Cleansing Not Cleansed -Foul Odor after Cleansing No -Primary Dressing Applied Mepilex Border -Mepilex Border 1 Pain Scale: 0-10 Numeric Is Patient Pain Free? Yes WC - Visit Discharge Discharge Condition Stable Ambulatory Status Ambulatory Transportation Private Auto Clinical Summary of Care Provided Yes Assessment/Plan Assessment/Plan (1) Sacral decubitus ulcer, stage III: CODE(S): L89.153 - Pressure ulcer of sacral region, stage 3 (2) Type 2 diabetes mellitus with diabetic polyneuropathy: CODE(S): E11.42 - Type 2 diabetes mellitus with diabetic polyneuropathy (3) History of pancreatitis: CODE(S): Z87.19 - Personal history of other diseases of the digestive system PLAN: Plan Debridement done as documented above, procedure was well-tolerated. Some improvement however, still some slough at the base of the ulcer, he was again advised to get Santyl, he states that he will. Cover with moistened gauze and ABD. Continue optimal protein/dietary intake and offloading. Continue other chronic wound care. Optimal diabetes control. His questions were answered and he was advised to call with any further questions or concerns. Follow-up in a week or sooner if needed. This note was generated with [employer]: [employer] dictation software. It may contain incorrect words, spelling, and punctuation that were not noted in checking the note before signing.
[2024-01-30 08:26] VITALS: BP 124/79; PULSE 84; RESP 15; TEMP 36.1; BMI 67.9
--- NOTE | 2024-01-30 09:22 | PCM.WC.PN ---
History of Present Illness Date of Service: 01/30/24 Chief Complaint: Sacral Ulcer History of Wound: Mr. Arizmendi is a 48 yo who was referred to the wound center due to chronic sacral ulcer. Recent lengthy hospital/post hospital stay due to necrotizing pancreatitis. ICU for couple weeks and then discharged to LTAC/rehab. Had wound care with Christy while at these facilities however since discharge, his niece has been helping with wound dressings. Per patient, he has been doing saline dressings and covering with gauze. History of diabetes mellitus type 2 which per patient has been well-controlled, now on insulin and blood sugar this morning was said to be at 123. He feels well aside from driving is not sedentary. No chills, fever or change in bowel habit. Progress of Wound: Started using Santyl as directed, tolerating it well so far. Reduction in slough burden. Objective Data Objective Data Vital Signs: Vital Signs Temp Pulse Resp BP 97.0 F L 84 15 124/79 H 01/30/24 08:26 01/30/24 08:26 01/30/24 08:26 01/30/24 08:26 Weight: 421 lb 1.326 oz Body Mass Index (BMI) 67.9 Charges/Coding Procedures Integumentary 111xxx-113xx: [id number] Elisa subq tissue 20 sq cm/< Physical Exam Const alert, oriented x3 and no apparent distress General Appearance: cooperative, comfortable and well kempt HEENT normocephalic, head/scalp atraumatic and hearing grossly normal bilaterally Eyes EOMs intact bilaterally General Eye: normal appearance of both eyes Neck full ROM and supple General: normal visual inspection Resp normal respiratory effort and normal air movement Effort and Inspection: able to speak in complete sentences Cardio regular rate, regular rhythm, S1 normal heart sound and S2 normal heart sound GI soft to palpation and non-distended Extremity normal to inspection and full ROM Skin Wounds: wounds noted Neuro oriented x3, CN's II-XII intact bilaterally, moves all extremities and no focal motor deficits Psych mental status grossly normal, thought process normal, cooperative, affect normal and speech normal Debridement Note Debridement Note Wound debrided: Sacral Type of Debridement: Excisional debridement Anesthesia Used: 4% Lidocaine Solution Depth: Down to and including healthy tissue and in the subcutaneous layer Percentage of wound debrided: 100 Instrument Used: 5mm curette, #15 blade and Forceps Tissue Removed: Slough and devitalized tissue Severity: Fat Layer Exposed Amount of bleeding with debridement: Mild Bleeding Controlled with: Pressure Patient tolerated procedure: Patient tolerated procedure well Post-Debridement Measurements and Additional Note: Post-Debridement Measurements/Treatment BASIA - Nurse 1 - General Ulcer Assessment Start: 01/23/24 08:55 Freq: Status: Active Protocol: GIL Activity Type Activity Date Activity User E-sign Co-sign Detail Recorded Client Recorded Date Recorded By Document 01/23/24 08:56 RB Desktop 01/23/24 08:59 RB Document 01/30/24 08:26 ML Desktop 01/30/24 08:30 ML 01/23/24 01/30/24 08:56 08:26 WC - Today's Visit Information Type of service Follow-up Visit Follow-up Visit (Physician/FORENSIC IDENTIFICATION SPECIALIST (Physician/FORENSIC IDENTIFICATION SPECIALIST ) ) Arrival Mode Ambulatory Ambulatory Transfer Assistance None None Patient Identification Verified (Name & Yes Yes ) Patient Requires Transmission-Based No No Precautions Finger Stick Blood Sugar(mg/dl) (if 119 indicated): Blood Sugar Stated by Patient Height and Weight Body Mass Index (BMI) 67.9 67.9 BMI Classification Obese Obese Vital Signs Temperature (97.8 F-99.1 F) 98.2 F 97.0 F L Temperature Source Temporal Temporal Pulse Rate (60-100) 89 84 Pulse Location Monitor Monitor Respiratory Rate (12-18) 18 15 Respiratory rate source Observation Observation Blood Pressure (90/60-120/80) 134/78 H 124/79 H Blood Pressure Mean (mm Hg) 96 94 Source Monitor Monitor Position Semi-Fowlers Blood Pressure Location Left Arm Right Arm History Since Last Visit- (Skip if this is Patient's initial visit) Have you changed medications since your No Yes last visit? Any new allergies or adverse reactions No No Had a fall/change in ADL's that may No No increase risk of falls Signs or symptoms of abuse and/or No No neglect since last visit Have you been in the hospital since your No last visit? Has dressing in place as prescribed Yes Yes Has compression in place as prescribed No N/A Has offloadiing in place as prescribed No N/A Experienced any changes in pain level or No No management Left Footwear Regular Shoe Right Footwear Regular Shoe Pain Scale: 0-10 Numeric Is Patient Pain Free? Yes Yes BASIA - Nurse 1 - General Ulcer Measurement Start: 01/23/24 08:55 Freq: Status: Active Protocol: Activity Type Activity Date Activity User E-sign Co-sign Detail Recorded Client Recorded Date Recorded By Document 01/23/24 08:56 RB Desktop 01/23/24 08:59 RB Document 01/30/24 08:26 ML Desktop 01/30/24 08:30 ML 01/23/24 01/30/24 08:56 08:26 Wound Center Nurse 1 #1 Sacrum -Combined with other wound No -Current Size (cm) - Length 0.2 2 -Current Size (cm) - Width 1.5 0.3 -Current Size (cm) - Depth 1 1.6 -Total Square Cm 0.30 0.6 -Photo Taken Yes -Epithelialization None Present -Tunneling No -Undermining/Tunneling No -Circular Undermining No -Exudate Amt Medium Medium -Exudate Type Serosanguineous Serosanguineous -Wound Margin Distinct, Distinct, Outline Outline Attached Attached -Granulation Amt Medium (34-66%) Medium (34-66%) -Granulation Quality [place] -Slough/Fibrin Yes Yes -Necrosis Amt Medium (34-66%) Medium (34-66%) -Necrotic Tissue Type Adherent Slough Adherent Slough -Structure Exposed N/A -Texture (Marika-wound Skin Appearance) Assessed Rash -Moisture (Marika-wound Skin Appearance) Assessed No Abnormality -Color (Marika-wound Skin Appearance) Assessed No Abnormality -Temperature (Marika-wound Skin No Abnormality No Abnormality Appearance) (Pt Warm) (Pt Warm) -Tenderness on Palpation (Marika-wound No Yes Skin Appearance) -Ulcer Cleansing Wound Cleanser Rinsed/ Irrigated with Saline -Foul Odor after Cleansing No No -Anesthetic Used 5% Lidocaine 5% Lidocaine Gel Gel WC - Nurse 2 - General Ulcer CM Notes Start: 01/23/24 08:55 Freq: Status: Active Protocol: Activity Type Activity Date Activity User E-sign Co-sign Detail Recorded Client Recorded Date Recorded By Document 01/23/24 09:19 GM Desktop 01/23/24 09:24 GM Document 01/30/24 09:10 Desktop 01/30/24 09:16 01/23/24 01/30/24 09:19 09:10 Wound Center Nurse 2 #1 Sacrum -Time 09:19 09:11 -Correct Patient Yes Yes -Correct Side, Site, Position Yes Yes -Correct Procedure Yes Yes -Procedure Performed Yes Yes -Type of Procedure Debridement Debridement -Clinical Debridement Subcutaneous Subcutaneous -Tissue Removed Subcutaneous Subcutaneous -Post Debridement (cm) - Length 1.6 1.1 -Post Debridement (cm) - Width 0.3 0.3 -Post Debridement (cm) - Depth 1.3 1.3 -Total Square (Post) (cm) 0.48 0.33 -Area of Debridement (cm) - Length 1.6 1.1 -Area of Debridement (cm) - Width 0.3 0.3 -Total Square (Area) (cm) 0.48 0.33 -Tunneling No No -Undermining/Tunneling No No -Circular Undermining No No -Wound/Ulcer Outcome Not Healed Not Healed -Ulcer Cleansing Rinsed/ Rinsed/ Irrigated with Irrigated with Saline Saline -Foul Odor after Cleansing No No -Bioengineered Tissue No No -Bleeding Controlled with Pressure Pressure -Treatment Response Procedure Procedure Tolerated Well Tolerated Well -Debridement - Subq, 1st 20sq cm Yes Yes Pain Scale: 0-10 Numeric Is Patient Pain Free? Yes Yes - Nurse 3 - General Ulcer D/C NN Start: 01/23/24 08:55 Freq: Status: Active Protocol: Activity Type Activity Date Activity User E-sign Co-sign Detail Recorded Client Recorded Date Recorded By Document 01/23/24 09:29 GM Desktop 01/23/24 09:30 GM 01/23/24 09:29 Wound Care Center Nurse 3 #1 Sacrum -Ulcer Cleansing Not Cleansed -Foul Odor after Cleansing No -Primary Dressing Applied Mepilex Border -Mepilex Border 1 Pain Scale: 0-10 Numeric Is Patient Pain Free? Yes WC - Visit Discharge Discharge Condition Stable Ambulatory Status Ambulatory Transportation Private Auto Clinical Summary of Care Provided Yes Assessment/Plan Assessment/Plan (1) Sacral decubitus ulcer, stage III: CODE(S): L89.153 - Pressure ulcer of sacral region, stage 3 (2) Type 2 diabetes mellitus with diabetic polyneuropathy: CODE(S): E11.42 - Type 2 diabetes mellitus with diabetic polyneuropathy (3) History of pancreatitis: CODE(S): Z87.19 - Personal history of other diseases of the digestive system PLAN: Plan Debridement done as documented above, procedure was well-tolerated. As above less slough burden. Depth with no significant change but reduction in circumference. Continue Santyl daily,cover with moistened gauze and ABD. Continue optimal protein/dietary intake and offloading. Continue other chronic wound care. Optimal diabetes control. His questions were answered and he was advised to call with any further questions or concerns. Follow-up in 2 weeks due to being out. Call with any concerns. This note was generated with [employer] dictation software. It may contain incorrect words, spelling, and punctuation that were not noted in checking the note before signing.
[2024-02-13 08:55] VITALS: BP 124/80; PULSE 92; RESP 18; TEMP 35.9; BMI 67.9
--- NOTE | 2024-02-13 09:31 | PCM.WC.PN ---
History of Present Illness Date of Service: 02/13/24 Chief Complaint: Sacral Ulcer History of Wound: Mr. Arizmendi is a 48 yo who was referred to the wound center due to chronic sacral ulcer. Recent lengthy hospital/post hospital stay due to necrotizing pancreatitis. ICU for couple weeks and then discharged to LTAC/rehab. Had wound care with Christy while at these facilities however since discharge, his niece has been helping with wound dressings. Per patient, he has been doing saline dressings and covering with gauze. History of diabetes mellitus type 2 which per patient has been well-controlled, now on insulin and blood sugar this morning was said to be at 123. He feels well aside from driving is not sedentary. No chills, fever or change in bowel habit. Progress of Wound: Has been in [place] for the last 2 weeks. He states that he has been doing his dressing changes as recommended/directed. No new concerns reported at this time. Objective Data Objective Data Vital Signs: Vital Signs Temp Pulse Resp BP O2 Del Method 96.6 F L 92 18 124/80 H Room Air 02/13/24 08:55 02/13/24 08:55 02/13/24 08:55 02/13/24 08:55 02/13/24 08:55 Oxygen Delivery Method Room Air Weight: 421 lb 1.326 oz Body Mass Index (BMI) 67.9 Charges/Coding Procedures Integumentary 111xxx-113xx: 86653 Elisa subq tissue 20 sq cm/< Physical Exam Const alert, oriented x3 and no apparent distress General Appearance: cooperative, comfortable and well kempt HEENT normocephalic, head/scalp atraumatic and hearing grossly normal bilaterally Eyes EOMs intact bilaterally General Eye: normal appearance of both eyes Neck full ROM and supple General: normal visual inspection Resp normal respiratory effort Effort and Inspection: able to speak in complete sentences Extremity normal to inspection and full ROM Skin Wounds: wounds noted Neuro oriented x3, CN's II-XII intact bilaterally, moves all extremities and no focal motor deficits Psych mental status grossly normal, thought process normal, cooperative, affect normal and speech normal Debridement Note Debridement Note Wound debrided: Sacral Type of Debridement: Excisional debridement Anesthesia Used: 4% Lidocaine Solution Depth: Down to and including healthy tissue and in the subcutaneous layer Percentage of wound debrided: 100 Instrument Used: 3mm curette Tissue Removed: Slough and devitalized tissue. Severity: Fat Layer Exposed Amount of bleeding with debridement: Mild Bleeding Controlled with: Pressure Patient tolerated procedure: Patient tolerated procedure well Post-Debridement Measurements and Additional Note: Post-Debridement Measurements/Treatment WC - Nurse 1 - General Ulcer Assessment Start: 01/23/24 08:55 Freq: Status: Active Protocol: GIL Activity Type Activity Date Activity User E-sign Co-sign Detail Recorded Client Recorded Date Recorded By Document 01/23/24 08:56 RB Desktop 01/23/24 08:59 RB Document 01/30/24 08:26 ML Desktop 01/30/24 08:30 ML Document 02/13/24 08:55 KW wound center 02/13/24 09:03 KW 01/23/24 01/30/24 02/13/24 08:56 08:26 08:55 - Today's Visit Information Type of service Follow-up Visit Follow-up Visit Follow-up Visit (Physician/HOLE DIGGER TRUCK DRIVER (Physician/HOLE DIGGER TRUCK DRIVER (Physician/HOLE DIGGER TRUCK DRIVER ) ) ) Arrival Mode Ambulatory Ambulatory Ambulatory Transfer Assistance None None Patient Identification Verified (Name & Yes Yes Yes ) Patient Requires Transmission-Based No No Precautions Finger Stick Blood Sugar(mg/dl) (if 119 indicated): Blood Sugar Stated by Patient Height and Weight Body Mass Index (BMI) 67.9 67.9 67.9 BMI Classification Obese Obese Obese Vital Signs Temperature (97.8 F-99.1 F) 98.2 F 97.0 F L 96.6 F L Temperature Source Temporal Temporal Temporal Pulse Rate (60-100) 89 84 92 Pulse Location Monitor Monitor Monitor Respiratory Rate (12-18) 18 15 18 Respiratory rate source Observation Observation Observation Oxygen Delivery Method Room Air Blood Pressure (90/60-120/80) 134/78 H 124/79 H 124/80 H Blood Pressure Mean (mm Hg) 96 94 94 Source Monitor Monitor Monitor Position Semi-Fowlers Semi-Fowlers Blood Pressure Location Left Arm Right Arm Left Arm History Since Last Visit- (Skip if this is Patient's initial visit) Have you changed medications since your No Yes No last visit? Any new allergies or adverse reactions No No No Had a fall/change in ADL's that may No No No increase risk of falls Signs or symptoms of abuse and/or No No No neglect since last visit Have you been in the hospital since your No No last visit? Has dressing in place as prescribed Yes Yes Yes Has compression in place as prescribed No N/A N/A Has offloadiing in place as prescribed No N/A N/A Experienced any changes in pain level or No No No management Left Footwear Regular Shoe Regular Shoe Right Footwear Regular Shoe Regular Shoe Pain Scale: 0-10 Numeric Is Patient Pain Free? Yes Yes Yes WC - Nurse 1 - General Ulcer Measurement Start: 01/23/24 08:55 Freq: Status: Active Protocol: Activity Type Activity Date Activity User E-sign Co-sign Detail Recorded Client Recorded Date Recorded By Document 01/23/24 08:56 RB Desktop 01/23/24 08:59 RB Document 01/30/24 08:26 ML Desktop 01/30/24 08:30 ML Document 02/13/24 08:55 KW wound center 02/13/24 09:03 KW 01/23/24 01/30/24 02/13/24 08:56 08:26 08:55 Wound Center Nurse 1 #1 Sacrum -Combined with other wound No -Current Size (cm) - Length 0.2 2 1.8 -Current Size (cm) - Width 1.5 0.3 0.2 -Current Size (cm) - Depth 1 1.6 1.3 -Total Square Cm 0.30 0.6 0.36 -Date of Last Picture (Recall this 02/13/24 field) -Photo Taken Yes -Epithelialization None Present -Tunneling No -Undermining/Tunneling No -Circular Undermining No -Exudate Amt Medium Medium Small -Exudate Type Serosanguineous Serosanguineous Serosanguineous -Wound Margin Distinct, Distinct, Distinct, Outline Outline Outline Attached Attached Attached -Granulation Amt Medium (34-66%) Medium (34-66%) Large (67-100%) -Granulation Quality [place] -Slough/Fibrin Yes Yes -Necrosis Amt Medium (34-66%) Medium (34-66%) -Necrotic Tissue Type Adherent Slough Adherent Slough -Structure Exposed N/A -Texture (Marika-wound Skin Appearance) Assessed Rash Assessed -Moisture (Marika-wound Skin Appearance) Assessed No Abnormality Assessed, Maceration -Color (Marika-wound Skin Appearance) Assessed No Abnormality Assessed -Temperature (Marika-wound Skin No Abnormality No Abnormality No Abnormality Appearance) (Pt Warm) (Pt Warm) (Pt Warm) -Tenderness on Palpation (Marika-wound No Yes No Skin Appearance) -Ulcer Cleansing Wound Cleanser Rinsed/ Rinsed/ Irrigated with Irrigated with Saline Saline -Foul Odor after Cleansing No No No -Anesthetic Used 5% Lidocaine 5% Lidocaine 5% Lidocaine Gel Gel Gel WC - Nurse 2 - General Ulcer CM Notes Start: 01/23/24 08:55 Freq: Status: Active Protocol: Activity Type Activity Date Activity User E-sign Co-sign Detail Recorded Client Recorded Date Recorded By Document 01/23/24 09:19 GM Desktop 01/23/24 09:24 GM Document 01/30/24 09:10 GM Desktop 01/30/24 09:16 GM Document 02/13/24 09:15 GM wound center 02/13/24 09:15 GM Edit Result 02/13/24 09:15 GM (1) wound center 02/13/24 09:21 GM (1) #1 Sacrum - Post Debridement (cm) - Length => 1.2 - Post Debridement (cm) - Width => 0.3 - Post Debridement (cm) - Depth => 1.2 - Total Square (Post) (cm) => 0.36 - Area of Debridement (cm) - Length => 1.2 - Area of Debridement (cm) - Width => 0.3 - Total Square (Area) (cm) => 0.36 01/23/24 01/30/24 02/13/24 09:19 09:10 09:15 Wound Center Nurse 2 #1 Sacrum -Time 09:19 09:11 09:15 -Correct Patient Yes Yes Yes -Correct Side, Site, Position Yes Yes Yes -Correct Procedure Yes Yes Yes -Procedure Performed Yes Yes Yes -Type of Procedure Debridement Debridement Debridement -Clinical Debridement Subcutaneous Subcutaneous Subcutaneous -Tissue Removed Subcutaneous Subcutaneous Subcutaneous -Post Debridement (cm) - Length 1.6 1.1 1.2 -Post Debridement (cm) - Width 0.3 0.3 0.3 -Post Debridement (cm) - Depth 1.3 1.3 1.2 -Total Square (Post) (cm) 0.48 0.33 0.36 -Area of Debridement (cm) - Length 1.6 1.1 1.2 -Area of Debridement (cm) - Width 0.3 0.3 0.3 -Total Square (Area) (cm) 0.48 0.33 0.36 -Tunneling No No No -Undermining/Tunneling No No No -Circular Undermining No No No -Wound/Ulcer Outcome Not Healed Not Healed Not Healed -Ulcer Cleansing Rinsed/ Rinsed/ Rinsed/ Irrigated with Irrigated with Irrigated with Saline Saline Saline -Foul Odor after Cleansing No No No -Bioengineered Tissue No No No -Bleeding Controlled with Pressure Pressure Pressure -Treatment Response Procedure Procedure Procedure Tolerated Well Tolerated Well Tolerated Well -Debridement - Subq, 1st 20sq cm Yes Yes Yes Pain Scale: 0-10 Numeric Is Patient Pain Free? Yes Yes Yes - Nurse 3 - General Ulcer D/C NN Start: 01/23/24 08:55 Freq: Status: Active Protocol: Activity Type Activity Date Activity User E-sign Co-sign Detail Recorded Client Recorded Date Recorded By Document 01/23/24 09:29 Desktop 01/23/24 09:30 Document 01/30/24 09:22 Desktop 01/30/24 09:23 Document 02/13/24 09:24 wound center 02/13/24 09:28 01/23/24 01/30/24 02/13/24 09:29 09:22 09:24 Wound Care Center Nurse 3 #1 Sacrum -Ulcer Cleansing Not Cleansed Not Cleansed -Foul Odor after Cleansing No No -Primary Dressing Applied Mepilex Border Mepilex Border Mepilex Border, Promogran Margarette Matter -Mepilex Border 1 1 1 -Promogran Margarette Matter 2 Pain Scale: 0-10 Numeric Is Patient Pain Free? Yes Yes Yes Teaching: Wound Center *Wound/Skin Impairment -Person Taught Patient -Teaching Method Discussion -Response to teaching Verbalize understanding WC - Visit Discharge Discharge Condition Stable Stable Stable Ambulatory Status Ambulatory Ambulatory Ambulatory Transportation Private Auto Private Auto Private Auto Medication Reconcilliation completed & No provided to patient/care provider Clinical Summary of Care Provided Yes Yes Yes Assessment/Plan Assessment/Plan (1) Sacral decubitus ulcer, stage III: CODE(S): L89.153 - Pressure ulcer of sacral region, stage 3 (2) Type 2 diabetes mellitus with diabetic polyneuropathy: CODE(S): E11.42 - Type 2 diabetes mellitus with diabetic polyneuropathy (3) History of pancreatitis: CODE(S): Z87.19 - Personal history of other diseases of the digestive system PLAN: Plan Debridement done as documented above, procedure was well-tolerated. Still has reduced slough burden and better granulation overall. Most of the ulcer has filled in however depth still significant at the 6:00 almost appearing like a Tunnel. Switch from Santyl to Promogran. Pack with moistened Promogran daily and cover with foam dressing/ABD. Continue optimal protein/dietary intake and offloading. Continue other chronic wound care. Optimal diabetes control. His questions were answered and he was advised to call with any further questions or concerns. Follow-up 1 week. This note was generated with [employer] dictation software. It may contain incorrect words, spelling, and punctuation that were not noted in checking the note before signing.
[2024-02-20 08:42] VITALS: BP 124/84; PULSE 91; RESP 14; TEMP 35.9; BMI 67.9
--- NOTE | 2024-02-20 09:17 | PCM.WC.PN ---
History of Present Illness Date of Service: 02/20/24 Chief Complaint: Sacral Ulcer History of Wound: Mr. Arizmendi is a 48 yo who was referred to the wound center due to chronic sacral ulcer. Recent lengthy hospital/post hospital stay due to necrotizing pancreatitis. ICU for couple weeks and then discharged to LTAC/rehab. Had wound care with Christy while at these facilities however since discharge, his niece has been helping with wound dressings. Per patient, he has been doing saline dressings and covering with gauze. History of diabetes mellitus type 2 which per patient has been well-controlled, now on insulin and blood sugar this morning was said to be at 123. He feels well aside from driving is not sedentary. No chills, fever or change in bowel habit. Progress of Wound: Periulcer rash and itching. Started after he used a new foam dressing because he ran out of the previous one. Switched to Promogran at his last visit. Tolerating it well otherwise. No significant drainage or concerns reported. Objective Data Objective Data Vital Signs: Vital Signs Temp Pulse Resp BP O2 Del Method 96.7 F L 91 14 124/84 H Room Air 02/20/24 08:42 02/20/24 08:42 02/20/24 08:42 02/20/24 08:42 02/13/24 08:55 Oxygen Delivery Method Room Air Weight: 421 lb 1.326 oz Body Mass Index (BMI) 67.9 Charges/Coding Procedures Integumentary 111xxx-113xx: 94850 Elisa subq tissue 20 sq cm/< Physical Exam Const alert, oriented x3 and no apparent distress General Appearance: cooperative, comfortable and well kempt HEENT normocephalic, head/scalp atraumatic and hearing grossly normal bilaterally Eyes EOMs intact bilaterally General Eye: normal appearance of both eyes Neck full ROM and supple General: normal visual inspection Resp normal respiratory effort Effort and Inspection: able to speak in complete sentences Extremity normal to inspection and full ROM Skin Wounds: wounds noted bed granulating well, margins well defined, no odor and surrounding erythema Neuro oriented x3, CN's II-XII intact bilaterally, moves all extremities and no focal motor deficits Psych mental status grossly normal, thought process normal, cooperative, affect normal and speech normal Debridement Note Debridement Note Wound debrided: Sacral Type of Debridement: Excisional debridement Anesthesia Used: 5% Lidocaine Gel Depth: Down to and including healthy tissue and in the subcutaneous layer Percentage of wound debrided: 100 Instrument Used: 3mm curette Tissue Removed: Slough and devitalized tissue Severity: Fat Layer Exposed Amount of bleeding with debridement: Mild Bleeding Controlled with: Pressure Patient tolerated procedure: Patient tolerated procedure well Post-Debridement Measurements and Additional Note: Post-Debridement Measurements/Treatment WC - Nurse 1 - General Ulcer Assessment Start: 01/23/24 08:55 Freq: Status: Active Protocol: GIL Activity Type Activity Date Activity User E-sign Co-sign Detail Recorded Client Recorded Date Recorded By Document 01/23/24 08:56 RB Desktop 01/23/24 08:59 RB Document 01/30/24 08:26 ML Desktop 01/30/24 08:30 ML Document 02/13/24 08:55 KW wound center 02/13/24 09:03 KW Document 02/20/24 08:42 ML [id number] 02/20/24 08:45 ML 01/23/24 01/30/24 02/13/24 08:56 08:26 08:55 - Today's Visit Information Type of service Follow-up Visit Follow-up Visit Follow-up Visit (Physician/TENANT SELECTOR (Physician/TENANT SELECTOR (Physician/TENANT SELECTOR ) ) ) Arrival Mode Ambulatory Ambulatory Ambulatory Transfer Assistance None None Patient Identification Verified (Name & Yes Yes Yes ) Patient Requires Transmission-Based No No Precautions Finger Stick Blood Sugar(mg/dl) (if 119 indicated): Blood Sugar Stated by Patient Height and Weight Body Mass Index (BMI) 67.9 67.9 67.9 BMI Classification Obese Obese Obese Vital Signs Temperature (97.8 F-99.1 F) 98.2 F 97.0 F L 96.6 F L Temperature Source Temporal Temporal Temporal Pulse Rate (60-100) 89 84 92 Pulse Location Monitor Monitor Monitor Respiratory Rate (12-18) 18 15 18 Respiratory rate source Observation Observation Observation Oxygen Delivery Method Room Air Blood Pressure (90/60-120/80) 134/78 H 124/79 H 124/80 H Blood Pressure Mean (mm Hg) 96 94 94 Source Monitor Monitor Monitor Position Semi-Fowlers Semi-Fowlers Blood Pressure Location Left Arm Right Arm Left Arm History Since Last Visit- (Skip if this is Patient's initial visit) Have you changed medications since your No Yes No last visit? Any new allergies or adverse reactions No No No Had a fall/change in ADL's that may No No No increase risk of falls Signs or symptoms of abuse and/or No No No neglect since last visit Have you been in the hospital since your No No last visit? Has dressing in place as prescribed Yes Yes Yes Has compression in place as prescribed No N/A N/A Has offloadiing in place as prescribed No N/A N/A Experienced any changes in pain level or No No No management Left Footwear Regular Shoe Regular Shoe Right Footwear Regular Shoe Regular Shoe Pain Scale: 0-10 Numeric Is Patient Pain Free? Yes Yes Yes 02/20/24 08:42 WC - Today's Visit Information Type of service Follow-up Visit (Physician/TENANT SELECTOR ) Arrival Mode Ambulatory Transfer Assistance None Patient Identification Verified (Name & Yes ) Patient Requires Transmission-Based No Precautions Finger Stick Blood Sugar(mg/dl) (if 148 indicated): Blood Sugar Stated by Patient Height and Weight Body Mass Index (BMI) 67.9 BMI Classification Obese Vital Signs Temperature (97.8 F-99.1 F) 96.7 F L Temperature Source Temporal Pulse Rate (60-100) 91 Pulse Location Monitor Respiratory Rate (12-18) 14 Respiratory rate source Observation Oxygen Delivery Method Blood Pressure (90/60-120/80) 124/84 H Blood Pressure Mean (mm Hg) 97 Source Monitor Position Sitting Blood Pressure Location Left Arm History Since Last Visit- (Skip if this is Patient's initial visit) Have you changed medications since your No last visit? Any new allergies or adverse reactions No Had a fall/change in ADL's that may No increase risk of falls Signs or symptoms of abuse and/or No neglect since last visit Have you been in the hospital since your No last visit? Has dressing in place as prescribed Yes Has compression in place as prescribed N/A Has offloadiing in place as prescribed N/A Experienced any changes in pain level or No management Left Footwear Right Footwear Pain Scale: 0-10 Numeric Is Patient Pain Free? Yes - Nurse 1 - General Ulcer Measurement Start: 01/23/24 08:55 Freq: Status: Active Protocol: Activity Type Activity Date Activity User E-sign Co-sign Detail Recorded Client Recorded Date Recorded By Document 01/23/24 08:56 RB Desktop 01/23/24 08:59 RB Document 01/30/24 08:26 ML Desktop 01/30/24 08:30 ML Document 02/13/24 08:55 KW wound center 02/13/24 09:03 KW Document 02/20/24 08:42 ML [id number] 02/20/24 08:45 ML 01/23/24 01/30/24 02/13/24 08:56 08:26 08:55 Wound Center Nurse 1 #1 Sacrum -Combined with other wound No -Current Size (cm) - Length 0.2 2 1.8 -Current Size (cm) - Width 1.5 0.3 0.2 -Current Size (cm) - Depth 1 1.6 1.3 -Total Square Cm 0.30 0.6 0.36 -Date of Last Picture (Recall this 02/13/24 field) -Photo Taken Yes -Epithelialization None Present -Tunneling No -Undermining/Tunneling No -Circular Undermining No -Exudate Amt Medium Medium Small -Exudate Type Serosanguineous Serosanguineous Serosanguineous -Wound Margin Distinct, Distinct, Distinct, Outline Outline Outline Attached Attached Attached -Granulation Amt Medium (34-66%) Medium (34-66%) Large (67-100%) -Granulation Quality [place] -Slough/Fibrin Yes Yes -Necrosis Amt Medium (34-66%) Medium (34-66%) -Necrotic Tissue Type Adherent Slough Adherent Slough -Structure Exposed N/A -Texture (Marika-wound Skin Appearance) Assessed Rash Assessed -Moisture (Marika-wound Skin Appearance) Assessed No Abnormality Assessed, Maceration -Color (Marika-wound Skin Appearance) Assessed No Abnormality Assessed -Temperature (Marika-wound Skin No Abnormality No Abnormality No Abnormality Appearance) (Pt Warm) (Pt Warm) (Pt Warm) -Tenderness on Palpation (Marika-wound No Yes No Skin Appearance) -Ulcer Cleansing Wound Cleanser Rinsed/ Rinsed/ Irrigated with Irrigated with Saline Saline -Foul Odor after Cleansing No No No -Anesthetic Used 5% Lidocaine 5% Lidocaine 5% Lidocaine Gel Gel Gel 02/20/24 08:42 Wound Center Nurse 1 #1 Sacrum -Combined with other wound -Current Size (cm) - Length 1 -Current Size (cm) - Width 0.2 -Current Size (cm) - Depth 0.5 -Total Square Cm 0.2 -Date of Last Picture (Recall this field) -Photo Taken No -Epithelialization Medium 34-66% -Tunneling -Undermining/Tunneling No -Circular Undermining -Exudate Amt Medium -Exudate Type Serosanguineous -Wound Margin Distinct, Outline Attached -Granulation Amt Medium (34-66%) -Granulation Quality -Slough/Fibrin Yes -Necrosis Amt Medium (34-66%) -Necrotic Tissue Type Adherent Slough -Structure Exposed -Texture (Marika-wound Skin Appearance) No Abnormality -Moisture (Marika-wound Skin Appearance) No Abnormality -Color (Marika-wound Skin Appearance) No Abnormality -Temperature (Marika-wound Skin No Abnormality Appearance) (Pt Warm) -Tenderness on Palpation (Marika-wound No Skin Appearance) -Ulcer Cleansing Rinsed/ Irrigated with Saline -Foul Odor after Cleansing No -Anesthetic Used 5% Lidocaine Gel WC - Nurse 2 - General Ulcer CM Notes Start: 01/23/24 08:55 Freq: Status: Active Protocol: Activity Type Activity Date Activity User E-sign Co-sign Detail Recorded Client Recorded Date Recorded By Document 01/23/24 09:19 GM Desktop 01/23/24 09:24 GM Document 01/30/24 09:10 GM Desktop 01/30/24 09:16 GM Document 02/13/24 09:15 GM wound center 02/13/24 09:15 GM Edit Result 02/13/24 09:15 GM (1) wound center 02/13/24 09:21 GM Document 02/20/24 09:05 [facility] 02/20/24 09:10 GM (1) #1 Sacrum - Post Debridement (cm) - Length => 1.2 - Post Debridement (cm) - Width => 0.3 - Post Debridement (cm) - Depth => 1.2 - Total Square (Post) (cm) => 0.36 - Area of Debridement (cm) - Length => 1.2 - Area of Debridement (cm) - Width => 0.3 - Total Square (Area) (cm) => 0.36 01/23/24 01/30/24 02/13/24 09:19 09:10 09:15 Wound Center Nurse 2 #1 Sacrum -Time :19 09:11 09:15 -Correct Patient Yes Yes Yes -Correct Side, Site, Position Yes Yes Yes -Correct Procedure Yes Yes Yes -Procedure Performed Yes Yes Yes -Type of Procedure Debridement Debridement Debridement -Clinical Debridement Subcutaneous Subcutaneous Subcutaneous -Tissue Removed Subcutaneous Subcutaneous Subcutaneous -Post Debridement (cm) - Length 1.6 1.1 1.2 -Post Debridement (cm) - Width 0.3 0.3 0.3 -Post Debridement (cm) - Depth 1.3 1.3 1.2 -Total Square (Post) (cm) 0.48 0.33 0.36 -Area of Debridement (cm) - Length 1.6 1.1 1.2 -Area of Debridement (cm) - Width 0.3 0.3 0.3 -Total Square (Area) (cm) 0.48 0.33 0.36 -Tunneling No No No -Undermining/Tunneling No No No -Circular Undermining No No No -Wound/Ulcer Outcome Not Healed Not Healed Not Healed -Ulcer Cleansing Rinsed/ Rinsed/ Rinsed/ Irrigated with Irrigated with Irrigated with Saline Saline Saline -Foul Odor after Cleansing No No No -Bioengineered Tissue No No No -Bleeding Controlled with Pressure Pressure Pressure -Treatment Response Procedure Procedure Procedure Tolerated Well Tolerated Well Tolerated Well -Debridement - Subq, 1st 20sq cm Yes Yes Yes Pain Scale: 0-10 Numeric Is Patient Pain Free? Yes Yes Yes 02/20/24 09:05 Wound Center Nurse 2 #1 Sacrum -Time 09:06 -Correct Patient Yes -Correct Side, Site, Position Yes -Correct Procedure Yes -Procedure Performed Yes -Type of Procedure Debridement -Clinical Debridement Subcutaneous -Tissue Removed Subcutaneous -Post Debridement (cm) - Length 1.0 -Post Debridement (cm) - Width 0.2 -Post Debridement (cm) - Depth 1.2 -Total Square (Post) (cm) 0.20 -Area of Debridement (cm) - Length 1.0 -Area of Debridement (cm) - Width 0.2 -Total Square (Area) (cm) 0.20 -Tunneling No -Undermining/Tunneling No -Circular Undermining No -Wound/Ulcer Outcome Not Healed -Ulcer Cleansing Rinsed/ Irrigated with Saline -Foul Odor after Cleansing No -Bioengineered Tissue No -Bleeding Controlled with Pressure -Treatment Response Procedure Tolerated Well -Debridement - Subq, 1st 20sq cm Yes Pain Scale: 0-10 Numeric Is Patient Pain Free? Yes - Nurse 3 - General Ulcer D/C NN Start: 01/23/24 08:55 Freq: Status: Active Protocol: Activity Type Activity Date Activity User E-sign Co-sign Detail Recorded Client Recorded Date Recorded By Document 01/23/24 09:29 GM Desktop 01/23/24 09:30 GM Document 01/30/24 09:22 GM Desktop 01/30/24 09:23 Document 02/13/24 09:24 wound center 02/13/24 09:28 Document 02/20/24 09:11 [facility] 02/20/24 09:12 01/23/24 01/30/24 02/13/24 09:29 09:22 09:24 Wound Care Center Nurse 3 #1 Sacrum -Ulcer Cleansing Not Cleansed Not Cleansed -Foul Odor after Cleansing No No -Primary Dressing Applied Mepilex Border Mepilex Border Mepilex Border, Promogran Margarette Matter -Mepilex Border 1 1 1 -Promogran -Promogran Margarette Matter 2 Pain Scale: 0-10 Numeric Is Patient Pain Free? Yes Yes Yes Teaching: Wound Center *Wound/Skin Impairment -Person Taught Patient -Teaching Method Discussion -Response to teaching Verbalize understanding - Visit Discharge Discharge Condition Stable Stable Stable Ambulatory Status Ambulatory Ambulatory Ambulatory Transportation Private Auto Private Auto Private Auto Medication Reconcilliation completed & No provided to patient/care provider Clinical Summary of Care Provided Yes Yes Yes 02/20/24 09:11 Wound Care Center Nurse 3 #1 Sacrum -Ulcer Cleansing Not Cleansed -Foul Odor after Cleansing No -Primary Dressing Applied Mepilex Border, Promogran -Mepilex Border 1 -Promogran 1 -Promogran Margarette Matter Pain Scale: 0-10 Numeric Is Patient Pain Free? Yes Teaching: Wound Center *Wound/Skin Impairment -Person Taught -Teaching Method -Response to teaching - Visit Discharge Discharge Condition Stable Ambulatory Status Ambulatory Transportation Private Auto Medication Reconcilliation completed & provided to patient/care provider Clinical Summary of Care Provided Yes Assessment/Plan Assessment/Plan (1) Sacral decubitus ulcer, stage III: CODE(S): L89.153 - Pressure ulcer of sacral region, stage 3 (2) Type 2 diabetes mellitus with diabetic polyneuropathy: CODE(S): E11.42 - Type 2 diabetes mellitus with diabetic polyneuropathy (3) History of pancreatitis: CODE(S): Z87.19 - Personal history of other diseases of the digestive system PLAN: Plan Debridement done as documented above, procedure was well-tolerated. Still with very good granulation tissue but very little reduction in depth. Continue Promogran daily, he was advised to pack the area adequately. Cover with foam dressing. Prescription given for 2.5% hydrocortisone for periulcer dermatitis. Continue optimal protein/dietary intake and offloading. Continue other chronic wound care recommendation. Optimal diabetes control. His questions were answered and he was advised to call with any further questions or concerns. Follow-up 1 week. This note was generated with [employer] dictation software. It may contain incorrect words, spelling, and punctuation that were not noted in checking the note before signing.
== END 2024-02-21 23:59 | disposition home or self-care (01) ==
LOC: WC 08:45
PROVIDERS: PCP Nurse Practitioner Family; Referring Provider Nurse Practitioner Family; Visit Provider Internal Medicine
DX: L89.153 Pressure ulcer of sacral region, stage 3 (principal); E11.42 Type 2 diabetes mellitus with diabetic polyneuropathy; Z79.85 Long-term (current) use of injectable non-insulin antidiabetic drugs; Z79.899 Other long term (current) drug therapy; Z87.19 Personal history of other diseases of the digestive system
CPT/HCPCS: 11042

== ENCOUNTER 2024-03-05 08:45 | Outpatient (RCR) | payer MEDICAID, SELFPAY ==
[2024-02-22 00:25] VITALS: BP 108/68; PULSE 94; RESP 16; TEMP 36.5; BMI 67.9
[2024-02-27 08:36] VITALS: BP 106/74; PULSE 91; RESP 18; TEMP 35.7; BMI 67.9
--- NOTE | 2024-02-27 11:02 | PCM.WC.PN ---
History of Present Illness Date of Service: 02/27/24 Chief Complaint: Sacral Ulcer History of Wound: Mr. Arizmendi is a 48 yo who was referred to the wound center due to chronic sacral ulcer. Recent lengthy hospital/post hospital stay due to necrotizing pancreatitis. ICU for couple weeks and then discharged to LTAC/rehab. Had wound care with Christy while at these facilities however since discharge, his niece has been helping with wound dressings. Per patient, he has been doing saline dressings and covering with gauze. History of diabetes mellitus type 2 which per patient has been well-controlled, now on insulin and blood sugar this morning was said to be at 123. He feels well aside from driving is not sedentary. No chills, fever or change in bowel habit. Progress of Wound: No new concerns at this time. Some improvement. No significant drainage, he states that there has been some difficulty with packing the area. Objective Data Objective Data Vital Signs: Vital Signs Temp Pulse Resp BP O2 Del Method 96.3 F L 91 18 106/74 Room Air 02/27/24 08:36 02/27/24 08:36 02/27/24 08:36 02/27/24 08:36 02/27/24 08:36 Oxygen Delivery Method Room Air Weight: 421 lb 1.326 oz Body Mass Index (BMI) 67.9 Charges/Coding Procedures Integumentary 111xxx-113xx: 04458 Elisa subq tissue 20 sq cm/< Physical Exam Const alert, oriented x3 and no apparent distress General Appearance: cooperative, comfortable and well kempt HEENT normocephalic, head/scalp atraumatic and hearing grossly normal bilaterally Eyes EOMs intact bilaterally General Eye: normal appearance of both eyes Neck full ROM and supple General: normal visual inspection Resp normal respiratory effort Effort and Inspection: able to speak in complete sentences Extremity normal to inspection and full ROM Skin Wounds: wounds noted bed granulating well, margins well defined, no odor and surrounding erythema Neuro oriented x3, CN's II-XII intact bilaterally, moves all extremities and no focal motor deficits Psych mental status grossly normal, thought process normal, cooperative, affect normal and speech normal Debridement Note Debridement Note Wound debrided: Sacral Ulcer Type of Debridement: Excisional debridement Anesthesia Used: 5% Lidocaine Gel Depth: Down to and including healthy tissue and in the subcutaneous layer Percentage of wound debrided: 100 Instrument Used: 3mm curette Tissue Removed: Slough and devitalized tissue Severity: Fat Layer Exposed Amount of bleeding with debridement: Mild Bleeding Controlled with: Pressure Patient tolerated procedure: Patient tolerated procedure well Post-Debridement Measurements and Additional Note: Post-Debridement Measurements/Treatment - Nurse 1 - General Ulcer Assessment Start: 02/27/24 08:36 Freq: Status: Active Protocol: GIL Activity Type Activity Date Activity User E-sign Co-sign Detail Recorded Client Recorded Date Recorded By Document 02/27/24 08:36 wound center 02/27/24 08:49 02/27/24 08:36 WC - Today's Visit Information Type of service Follow-up Visit (Physician/MANAGER FOREIGN ) Arrival Mode Ambulatory Patient Identification Verified (Name & Yes ) Height and Weight Body Mass Index (BMI) 67.9 BMI Classification Obese Vital Signs Temperature (97.8 F-99.1 F) 96.3 F L Temperature Source Temporal Pulse Rate (60-100) 91 Pulse Location Monitor Respiratory Rate (12-18) 18 Respiratory rate source Monitor Oxygen Delivery Method Room Air Blood Pressure (90/60-120/80) 106/74 Blood Pressure Mean (mm Hg) 84 Source Monitor Position Sitting Blood Pressure Location Left Arm History Since Last Visit- (Skip if this is Patient's initial visit) Have you changed medications since your No last visit? Any new allergies or adverse reactions No Had a fall/change in ADL's that may No increase risk of falls Signs or symptoms of abuse and/or No neglect since last visit Have you been in the hospital since your No last visit? Has dressing in place as prescribed Yes Has compression in place as prescribed N/A Has offloadiing in place as prescribed N/A Experienced any changes in pain level or No management Left Footwear Regular Shoe Right Footwear Regular Shoe Pain Scale: 0-10 Numeric Is Patient Pain Free? No sacral -Description Aching -Intensity 2 -Alleviating Factors/Interventions Turning/ Repositioning - Nurse 1 - General Ulcer Measurement Start: 02/27/24 08:36 Freq: Status: Active Protocol: Activity Type Activity Date Activity User E-sign Co-sign Detail Recorded Client Recorded Date Recorded By Document 02/27/24 08:36 wound center 02/27/24 08:49 02/27/24 08:36 Wound Center Nurse 1 #1 Sacrum -Current Size (cm) - Length 1.1 -Current Size (cm) - Width 0.2 -Current Size (cm) - Depth 0.7 -Total Square Cm 0.22 -Date of Last Picture (Recall this 02/27/24 field) -Exudate Amt Small -Exudate Type Serosanguineous -Wound Margin Distinct, Outline Attached -Granulation Amt Large (67-100%) -Granulation Quality [place] -Texture (Marika-wound Skin Appearance) Assessed -Moisture (Marika-wound Skin Appearance) Assessed, Maceration -Color (Marika-wound Skin Appearance) Assessed -Ulcer Cleansing Rinsed/ Irrigated with Saline -Foul Odor after Cleansing No -Anesthetic Used 5% Lidocaine Gel - Nurse 2 - General Ulcer CM Notes Start: 02/27/24 08:36 Freq: Status: Active Protocol: Activity Type Activity Date Activity User E-sign Co-sign Detail Recorded Client Recorded Date Recorded By Document 02/27/24 09:19 [facility] 02/27/24 09:26 02/27/24 09:19 Wound Center Nurse 2 -Time 09:19 -Correct Patient Yes -Correct Side, Site, Position Yes -Correct Procedure Yes -Procedure Performed Yes -Type of Procedure Debridement -Clinical Debridement Subcutaneous -Tissue Removed Subcutaneous -Tunneling No -Undermining/Tunneling No -Circular Undermining No -Wound/Ulcer Outcome Not Healed -Ulcer Cleansing Rinsed/ Irrigated with Saline -Foul Odor after Cleansing No -Bleeding Controlled with Pressure -Treatment Response Procedure Tolerated Well -Debridement - Subq, 1st 20sq cm Yes Pain Scale: 0-10 Numeric Is Patient Pain Free? Yes - Nurse 3 - General Ulcer D/C NN Start: 02/27/24 08:36 Freq: Status: Active Protocol: Activity Type Activity Date Activity User E-sign Co-sign Detail Recorded Client Recorded Date Recorded By Document 02/27/24 09:45 GM 02/27/24 09:45 02/27/24 09:45 Wound Care Center Nurse 3 #1 Sacrum -Ulcer Cleansing Not Cleansed -Foul Odor after Cleansing No -Primary Dressing Applied Mepilex Border, Promogran -Mepilex Border 2 -Promogran 1 Pain Scale: 0-10 Numeric Is Patient Pain Free? Yes - Visit Discharge Discharge Condition Stable Ambulatory Status Ambulatory Transportation Private Auto Clinical Summary of Care Provided Yes Assessment/Plan Assessment/Plan (1) Sacral decubitus ulcer, stage III: CODE(S): L89.153 - Pressure ulcer of sacral region, stage 3 (2) Type 2 diabetes mellitus with diabetic polyneuropathy: CODE(S): E11.42 - Type 2 diabetes mellitus with diabetic polyneuropathy (3) History of pancreatitis: CODE(S): Z87.19 - Personal history of other diseases of the digestive system PLAN: Plan Debridement done as documented above, procedure was well-tolerated. Improving circumference and depth. Still significant depth at the 6 o'clock position. Continue Promogran daily, he was advised to pack the 6 o'clock position adequately. Cover with foam dressing. Continue hydrocortisone 2.5% has needed to the periulcer dermatitis, this has improved. Continue optimal protein/dietary intake and offloading. Continue other chronic wound care recommendation. Optimal diabetes control. His questions were answered and he was advised to call with any further questions or concerns. Follow-up 1 week. This note was generated with [employer] dictation software. It may contain incorrect words, spelling, and punctuation that were not noted in checking the note before signing.
[2024-03-05 08:45] VITALS: BP 116/80; PULSE 92; RESP 18; TEMP 35.5; BMI 67.9
--- NOTE | 2024-03-05 09:08 | PN.PCM_ITS ---
History of Present Illness Date of Service: 03/05/24 Chief Complaint: Sacral Ulcer History of Wound: Mr. Arizmendi is a 48 yo who was referred to the wound center due to chronic sacral ulcer. Recent lengthy hospital/post hospital stay due to necrotizing pancreatitis. ICU for couple weeks and then discharged to LTAC/rehab. Had wound care with Christy while at these facilities however since discharge, his niece has been helping with wound dressings. Per patient, he has been doing saline dressings and covering with gauze. History of diabetes mellitus type 2 which per patient has been well-controlled, now on insulin and blood sugar this morning was said to be at 123. He feels well aside from dr spence is not sedentary. No chills, fever or change in bowel habit. Progress of Wound: No acute concerns at this time. Improving. Objective Data Objective Data Vital Signs: Vital Signs Temp Pulse Resp BP O2 Del Method 95.9 F L 92 18 116/80 Room Air 03/05/24 08:45 03/05/24 08:45 03/05/24 08:45 03/05/24 08:45 02/27/24 08:36 Oxygen Delivery Method Room Air Weight: 421 lb 1.326 oz Body Mass Index (BMI) 67.9 Charges/Coding Procedures Integumentary 111xxx-113xx: 38452 Elisa subq tissue 20 sq cm/< Physical Exam Const alert, oriented x3 and no apparent distress General Appearance: cooperative, comfortable and well kempt HEENT normocephalic, head/scalp atraumatic and hearing grossly normal bilaterally Eyes EOMs intact bilaterally General Eye: normal appearance of both eyes Neck full ROM and supple General: normal visual inspection Resp normal respiratory effort Effort and Inspection: able to speak in complete sentences Extremity normal to inspection and full ROM Skin Wounds: wounds noted bed granulating well, margins well defined and no odor Neuro oriented x3, CN's II-XII intact bilaterally, moves all extremities and no focal motor deficits Psych mental status grossly normal, thought process normal, cooperative, affect normal and speech normal Debridement Note Debridement Note Wound debrided: Sacral Type of Debridement: Excisional debridement Anesthesia Used: 4% Lidocaine Solution Depth: Down to and including healthy tissue and in the subcutaneous layer Percentage of wound debrided: 100 Instrument Used: 3mm curette Tissue Removed: Slough and devitalized tissue Severity: Fat Layer Exposed Amount of bleeding with debridement: Mild Bleeding Controlled with: Pressure Patient tolerated procedure: Patient tolerated procedure well Post-Debridement Measurements and Additional Note: Post-Debridement Measurements/Treatment - Nurse 1 - General Ulcer Assessment Start: 02/27/24 08:36 Freq: Status: Active Protocol: GIL Activity Type Activity Date Activity User E-sign Co-sign Detail Recorded Client Recorded Date Recorded By Document 02/27/24 08:36 KW wound center 02/27/24 08:49 KW Document 03/05/24 08:45 KW g 03/05/24 08:48 KW 02/27/24 03/05/24 08:36 08:45 WC - Today's Visit Information Type of service Follow-up Visit Follow-up Visit (Physician/CARE ASSOCIATE (Physician/CARE ASSOCIATE ) ) Arrival Mode Ambulatory Ambulatory Transfer Assistance None Patient Identification Verified (Name & Yes Yes ) Patient Requires Transmission-Based No Precautions Height and Weight Body Mass Index (BMI) 67.9 67.9 BMI Classification Obese Obese Vital Signs Temperature (97.8 F-99.1 F) 96.3 F L 95.9 F L Temperature Source Temporal Temporal Pulse Rate (60-100) 91 92 Pulse Location Monitor Monitor Respiratory Rate (12-18) 18 18 Respiratory rate source Monitor Observation Oxygen Delivery Method Room Air Blood Pressure (90/60-120/80) 106/74 116/80 Blood Pressure Mean (mm Hg) 84 92 Source Monitor Monitor Position Sitting Semi-Fowlers Blood Pressure Location Left Arm Left Arm History Since Last Visit- (Skip if this is Patient's initial visit) Have you changed medications since your No No last visit? Any new allergies or adverse reactions No No Had a fall/change in ADL's that may No No increase risk of falls Signs or symptoms of abuse and/or No No neglect since last visit Have you been in the hospital since your No No last visit? Has dressing in place as prescribed Yes Yes Has compression in place as prescribed N/A No Has offloadiing in place as prescribed N/A No Experienced any changes in pain level or No No management Left Footwear Regular Shoe Right Footwear Regular Shoe Pain Scale: 0-10 Numeric Is Patient Pain Free? No No sacral -Description Aching Aching -Intensity 2 1 -Duration (hours) Chronic -Pain Behavior Irritability -Pain Aggravating Factors ADL's,Sitting -Alleviating Factors/Interventions Turning/ None Repositioning - Nurse 1 - General Ulcer Measurement Start: 02/27/24 08:36 Freq: Status: Active Protocol: Activity Type Activity Date Activity User E-sign Co-sign Detail Recorded Client Recorded Date Recorded By Document 02/27/24 08:36 KW wound center 02/27/24 08:49 KW Document 03/05/24 08:45 KW g 03/05/24 08:48 KW 02/27/24 03/05/24 08:36 08:45 Wound Center Nurse 1 #1 Sacrum -Combined with other wound No -Current Size (cm) - Length 1.1 0.6 -Current Size (cm) - Width 0.2 0.1 -Current Size (cm) - Depth 0.7 0.4 -Total Square Cm 0.22 0.06 -Date of Last Picture (Recall this 02/27/24 field) -Tunneling No -Undermining/Tunneling No -Circular Undermining No -Exudate Amt Small Medium -Exudate Type Serosanguineous Serosanguineous -Wound Margin Distinct, Thickened & Outline Rolled Under Attached -Granulation Amt Large (67-100%) Large (67-100%) -Granulation Quality [place] -Slough/Fibrin Yes -Necrosis Amt Medium (34-66%) -Necrotic Tissue Type Adherent Slough -Structure Exposed N/A -Texture (Marika-wound Skin Appearance) Assessed Assessed -Moisture (Marika-wound Skin Appearance) Assessed, Maceration Maceration -Color (Marika-wound Skin Appearance) Assessed Assessed -Temperature (Marika-wound Skin No Abnormality Appearance) (Pt Warm) -Tenderness on Palpation (Marika-wound No Skin Appearance) -Ulcer Cleansing Rinsed/ Wound Cleanser Irrigated with Saline -Foul Odor after Cleansing No No -Anesthetic Used 5% Lidocaine 5% Lidocaine Gel Gel - Nurse 2 - General Ulcer CM Notes Start: 02/27/24 08:36 Freq: Status: Active Protocol: Activity Type Activity Date Activity User E-sign Co-sign Detail Recorded Client Recorded Date Recorded By Document 02/27/24 09:19 [facility] 02/27/24 09:26 Document 03/05/24 08:57 [facility] 03/05/24 09:01 02/27/24 03/05/24 09:19 08:57 Wound Center Nurse 2 #1 Sacrum -Time 09:19 08:57 -Correct Patient Yes Yes -Correct Side, Site, Position Yes Yes -Correct Procedure Yes Yes -Procedure Performed Yes Yes -Type of Procedure Debridement Debridement -Clinical Debridement Subcutaneous Subcutaneous -Tissue Removed Subcutaneous Subcutaneous -Post Debridement (cm) - Length 0.6 -Post Debridement (cm) - Width 0.1 -Post Debridement (cm) - Depth 0.9 -Total Square (Post) (cm) 0.06 -Area of Debridement (cm) - Length 0.6 -Area of Debridement (cm) - Width 0.1 -Total Square (Area) (cm) 0.06 -Tunneling No No -Undermining/Tunneling No No -Circular Undermining No No -Wound/Ulcer Outcome Not Healed Not Healed -Ulcer Cleansing Rinsed/ Rinsed/ Irrigated with Irrigated with Saline Saline -Foul Odor after Cleansing No No -Bioengineered Tissue No -Bleeding Controlled with Pressure Pressure -Treatment Response Procedure Procedure Tolerated Well Tolerated Well -Debridement - Subq, 1st 20sq cm Yes Yes Pain Scale: 0-10 Numeric Is Patient Pain Free? Yes Yes - Nurse 3 - General Ulcer D/C NN Start: 02/27/24 08:36 Freq: Status: Active Protocol: Activity Type Activity Date Activity User E-sign Co-sign Detail Recorded Client Recorded Date Recorded By Document 02/27/24 09:45 GM 02/27/24 09:45 GM Document 03/05/24 09:05 KW veena 03/05/24 09:05 02/27/24 03/05/24 09:45 09:05 Wound Care Center Nurse 3 #1 Sacrum -Ulcer Cleansing Not Cleansed -Foul Odor after Cleansing No -Primary Dressing Applied Mepilex Border, Mepilex Border, Promogran Promogran Margarette Matter -Mepilex Border 2 1 -Promogran 1 -Promogran Margarette Matter 1 Pain Scale: 0-10 Numeric Is Patient Pain Free? Yes Yes - Visit Discharge Discharge Condition Stable Stable Ambulatory Status Ambulatory Ambulatory Transportation Private Auto Private Auto Medication Reconcilliation completed & No provided to patient/care provider Clinical Summary of Care Provided Yes Yes Assessment/Plan Assessment/Plan (1) Sacral decubitus ulcer, stage III: CODE(S): L89.153 - Pressure ulcer of sacral region, stage 3 (2) Type 2 diabetes mellitus with diabetic polyneuropathy: CODE(S): E11.42 - Type 2 diabetes mellitus with diabetic polyneuropathy (3) History of pancreatitis: CODE(S): Z87.19 - Personal history of other diseases of the digestive system PLAN: Plan Debridement done as documented above, procedure was well-tolerated. Improving. Some difficulty with packing ulce reported. Continue Promogran daily, he was advised to moisten adequately and pack the 6 o'clock position specifically. Cover with foam dressing. Continue hydrocortisone 2.5% as needed to the periulcer dermatitis, this has improved. Continue optimal protein/dietary intake and offloading. Continue other chronic wound care recommendation. Optimal diabetes control. His questions were answered and he was advised to call with any further questions or concerns. Follow-up 1 week. This note was generated with [employer] dictation software. It may contain incorrect words, spelling, and punctuation that were not noted in checking the note before signing.
== END 2024-03-22 23:59 | disposition home or self-care (01) ==
LOC: WC 08:45
PROVIDERS: PCP Nurse Practitioner Family; Referring Provider Nurse Practitioner Family; Visit Provider Internal Medicine
DX: L89.153 Pressure ulcer of sacral region, stage 3 (principal); E11.42 Type 2 diabetes mellitus with diabetic polyneuropathy; Z79.4 Long term (current) use of insulin; Z79.85 Long-term (current) use of injectable non-insulin antidiabetic drugs; Z79.899 Other long term (current) drug therapy; Z87.19 Personal history of other diseases of the digestive system
CPT/HCPCS: 11042

== ENCOUNTER 2024-04-09 09:00 | Outpatient (RCR) | payer MEDICAID, SELFPAY ==
[2024-03-23 00:31] VITALS: BP 108/68; PULSE 94; RESP 16; TEMP 36.5; BMI 67.9
[2024-04-02 08:34] VITALS: RESP 18; BMI 67.9
--- NOTE | 2024-04-02 09:09 | PCM.WC.PN ---
History of Present Illness Date of Service: 04/02/24 Chief Complaint: Sacral Ulcer History of Wound: Mr. Arizmendi is a 48 yo who was referred to the wound center due to chronic sacral ulcer. Recent lengthy hospital/post hospital stay due to necrotizing pancreatitis. ICU for couple weeks and then discharged to LTAC/rehab. Had wound care with Christy while at these facilities however since discharge, his niece has been helping with wound dressings. Per patient, he has been doing saline dressings and covering with gauze. History of diabetes mellitus type 2 which per patient has been well-controlled, now on insulin and blood sugar this morning was said to be at 123. He feels well aside from driving is not sedentary. No chills, fever or change in bowel habit. Progress of Wound: No new concerns reported at this time. He states that the wound/ulcer is improving however, no significant change in measurement. Has not been here in almost a month due to hospital admission, holiday and vacation. Objective Data Objective Data Vital Signs: Vital Signs Temp Pulse Resp BP O2 Del Method 97.7 F L 94 18 108/68 Room Air 03/23/24 00:31 03/23/24 00:31 04/02/24 08:34 03/23/24 00:31 04/02/24 08:34 Oxygen Delivery Method Room Air Weight: 421 lb 1.326 oz Body Mass Index (BMI) 67.9 Charges/Coding Procedures Integumentary 111xxx-113xx: 17970 Elisa subq tissue 20 sq cm/< Physical Exam Const alert, oriented x3 and no apparent distress General Appearance: cooperative, comfortable and well kempt HEENT normocephalic, head/scalp atraumatic and hearing grossly normal bilaterally Eyes EOMs intact bilaterally General Eye: normal appearance of both eyes Neck full ROM and supple General: normal visual inspection Resp normal respiratory effort Effort and Inspection: able to speak in complete sentences Extremity normal to inspection and full ROM Skin Wounds: wounds noted bed granulating well, margins well defined and no odor Neuro oriented x3, CN's II-XII intact bilaterally, moves all extremities and no focal motor deficits Psych mental status grossly normal, thought process normal, cooperative, affect normal and speech normal Debridement Note Debridement Note Wound debrided: Sacral Type of Debridement: Excisional debridement Anesthesia Used: 4% Lidocaine Solution Depth: Down to and including healthy tissue and in the subcutaneous layer Percentage of wound debrided: 100 Instrument Used: 3mm curette Tissue Removed: Slough and devitalized tissue Severity: Fat Layer Exposed Amount of bleeding with debridement: Mild Bleeding Controlled with: Pressure Patient tolerated procedure: Patient tolerated procedure well Post-Debridement Measurements and Additional Note: Post-Debridement Measurements/Treatment BASIA - Nurse 1 - General Ulcer Assessment Start: 04/02/24 08:34 Freq: Status: Active Protocol: GIL Activity Type Activity Date Activity User E-sign Co-sign Detail Recorded Client Recorded Date Recorded By Document 04/02/24 08:34 KW ; 04/02/24 08:40 KW 04/02/24 08:34 - Today's Visit Information Type of service Follow-up Visit (Physician/[employer] ) Arrival Mode Ambulatory Height and Weight Body Mass Index (BMI) 67.9 BMI Classification Obese Vital Signs Temperature Source Temporal Pulse Location Monitor Respiratory Rate (12-18) 18 Respiratory rate source Observation Oxygen Delivery Method Room Air Source Monitor Position Left Lateral Blood Pressure Location Right Arm History Since Last Visit- (Skip if this is Patient's initial visit) Have you changed medications since your No last visit? Any new allergies or adverse reactions No Had a fall/change in ADL's that may No increase risk of falls Signs or symptoms of abuse and/or No neglect since last visit Have you been in the hospital since your No last visit? Has dressing in place as prescribed Yes Has compression in place as prescribed N/A Has offloadiing in place as prescribed N/A Experienced any changes in pain level or No management Left Footwear Regular Shoe Right Footwear Regular Shoe Pain Scale: 0-10 Numeric Is Patient Pain Free? Yes [facility] Nurse 1 - General Ulcer Measurement Start: 04/02/24 08:34 Freq: Status: Active Protocol: Activity Type Activity Date Activity User E-sign Co-sign Detail Recorded Client Recorded Date Recorded By Document 04/02/24 08:34 KW ; 04/02/24 08:40 KW 04/02/24 08:34 Wound Center Nurse 1 #1 Sacrum -Current Size (cm) - Length 0.1 -Current Size (cm) - Width 0.3 -Current Size (cm) - Depth 0.4 -Total Square Cm 0.03 -Date of Last Picture (Recall this 04/02/24 field) -Exudate Amt Medium -Exudate Type Serosanguineous -Wound Margin Distinct, Outline Attached -Granulation Amt Large (67-100%) -Granulation Quality [place] -Texture (Marika-wound Skin Appearance) Assessed -Moisture (Marika-wound Skin Appearance) Assessed -Color (Marika-wound Skin Appearance) Assessed -Temperature (Marika-wound Skin No Abnormality Appearance) (Pt Warm) -Tenderness on Palpation (Marika-wound No Skin Appearance) -Ulcer Cleansing Rinsed/ Irrigated with Saline -Anesthetic Used 5% Lidocaine Gel - Nurse 2 - General Ulcer CM Notes Start: 04/02/24 08:34 Freq: Status: Active Protocol: Activity Type Activity Date Activity User E-sign Co-sign Detail Recorded Client Recorded Date Recorded By Document 04/02/24 09:03 [facility] 04/02/24 09:04 04/02/24 09:03 Wound Center Nurse 2 -Time 09:03 -Correct Patient Yes -Correct Side, Site, Position Yes -Correct Procedure Yes -Procedure Performed Yes -Type of Procedure Debridement -Clinical Debridement Subcutaneous -Tissue Removed Subcutaneous -Post Debridement (cm) - Length 0.5 -Post Debridement (cm) - Width 0.1 -Post Debridement (cm) - Depth 1.0 -Total Square (Post) (cm) 0.05 -Area of Debridement (cm) - Length 0.5 -Area of Debridement (cm) - Width 0.1 -Total Square (Area) (cm) 0.05 -Tunneling No -Undermining/Tunneling No -Circular Undermining No -Wound/Ulcer Outcome Not Healed -Ulcer Cleansing Rinsed/ Irrigated with Saline -Foul Odor after Cleansing No -Bioengineered Tissue No -Bleeding Controlled with Pressure -Treatment Response Procedure Tolerated Well -Debridement - Subq, 1st 20sq cm Yes Pain Scale: 0-10 Numeric Is Patient Pain Free? Yes Assessment/Plan Assessment/Plan (1) Sacral decubitus ulcer, stage III: CODE(S): L89.153 - Pressure ulcer of sacral region, stage 3 (2) Type 2 diabetes mellitus with diabetic polyneuropathy: CODE(S): E11.42 - Type 2 diabetes mellitus with diabetic polyneuropathy (3) History of pancreatitis: CODE(S): Z87.19 - Personal history of other diseases of the digestive system PLAN: Plan Debridement done as documented above, procedure was well-tolerated. Stable. No significant change in circumference/depth since last visit. Instructions given on how to properly pack/dress area, he voiced understanding. If stagnation remains at next visit, we will switch dressing to Aquacel extra or iodoform. Continue Promogran daily for now, cover with foam dressing. Continue optimal protein/dietary intake and offloading. Continue other chronic wound care recommendation. Optimal diabetes control. His questions were answered and he was advised to call with any further questions or concerns. Follow-up 1 week. This note was generated with [employer] dictation software. It may contain incorrect words, spelling, and punctuation that were not noted in checking the note before signing.
--- NOTE | 2024-04-08 08:45 | WC ---
PHOTO 04/02/24 [facility]
[2024-04-09 08:53] VITALS: BP 103/64; PULSE 93; RESP 18; TEMP 35.9; BMI 67.9
--- NOTE | 2024-04-09 09:35 | PN.PCM_ITS ---
History of Present Illness Date of Service: 04/09/24 Chief Complaint: Sacral Ulcer History of Wound: Mr. Arizmendi is a 48 yo who was referred to the wound center due to chronic sacral ulcer. Recent lengthy hospital/post hospital stay due to necrotizing pancreatitis. ICU for couple weeks and then discharged to LTAC/rehab. Had wound care with Christy while at these facilities however since discharge, his niece has been helping with wound dressings. Per patient, he has been doing saline dressings and covering with gauze. History of diabetes mellitus type 2 which per patient has been well-controlled, now on insulin and blood sugar this morning was said to be at 123. He feels well aside from dr spence is not sedentary. No chills, fever or change in bowel habit. Progress of Wound: No new concerns at this time. No significant change in depth. Mild improvement in circumference. He denies increased pain or drainage and states that dressing changes have been done as recommended. Objective Data Objective Data Vital Signs: Vital Signs Temp Pulse Resp BP O2 Del Method 96.7 F L 93 18 103/64 Room Air 04/09/24 08:53 04/09/24 08:53 04/09/24 08:53 04/09/24 08:53 04/09/24 08:53 Oxygen Delivery Method Room Air Weight: 421 lb 1.326 oz Body Mass Index (BMI) 67.9 Charges/Coding Procedures Integumentary 111xxx-113xx: 90035 Elisa subq tissue 20 sq cm/< Physical Exam Const alert, oriented x3 and no apparent distress General Appearance: cooperative, comfortable and well kempt HEENT normocephalic, head/scalp atraumatic and hearing grossly normal bilaterally Eyes EOMs intact bilaterally General Eye: normal appearance of both eyes Neck full ROM and supple General: normal visual inspection Resp normal respiratory effort Effort and Inspection: able to speak in complete sentences Extremity normal to inspection and full ROM Skin Wounds: wounds noted bed granulating well, margins well defined and no odor Neuro oriented x3, CN's II-XII intact bilaterally, moves all extremities and no focal motor deficits Psych mental status grossly normal, thought process normal, cooperative, affect normal and speech normal Debridement Note Debridement Note Wound debrided: Sacral Wound Grade/Stage: Stage III Type of Debridement: Excisional debridement Anesthesia Used: 4% Lidocaine Solution Depth: Down to and including healthy tissue and in the subcutaneous layer Percentage of wound debrided: 100 Instrument Used: - (1mm) Severity: Fat Layer Exposed Amount of bleeding with debridement: Mild Bleeding Controlled with: Pressure Patient tolerated procedure: Patient tolerated procedure well Post-Debridement Measurements and Additional Note: Post-Debridement Measurements/Treatment - Nurse 1 - General Ulcer Assessment Start: 04/02/24 08:34 Freq: Status: Active Protocol: [id number] Activity Type Activity Date Activity User E-sign Co-sign Detail Recorded Client Recorded Date Recorded By Document 04/02/24 08:34 KW ; 04/02/24 08:40 KW Document 04/09/24 08:53 KW f 04/09/24 08:59 KW 04/02/24 04/09/24 08:34 08:53 WC - Today's Visit Information Type of service Follow-up Visit Follow-up Visit (Physician/CALL OR CONTACT CENTRE TEAM LEADER (Physician/CALL OR CONTACT CENTRE TEAM LEADER ) ) Arrival Mode Ambulatory Ambulatory Patient Identification Verified (Name & Yes ) Height and Weight Body Mass Index (BMI) 67.9 67.9 BMI Classification Obese Obese Vital Signs Temperature (97.8 F-99.1 F) 96.7 F L Temperature Source Temporal Temporal Pulse Rate (60-100) 93 Pulse Location Monitor Monitor Respiratory Rate (12-18) 18 18 Respiratory rate source Observation Observation Oxygen Delivery Method Room Air Room Air Blood Pressure (90/60-120/80) 103/64 Blood Pressure Mean (mm Hg) 77 Source Monitor Monitor Position Left Lateral Semi-Fowlers Blood Pressure Location Right Arm Right Arm History Since Last Visit- (Skip if this is Patient's initial visit) Have you changed medications since your No No last visit? Any new allergies or adverse reactions No No Had a fall/change in ADL's that may No No increase risk of falls Signs or symptoms of abuse and/or No No neglect since last visit Have you been in the hospital since your No No last visit? Has dressing in place as prescribed Yes Yes Has compression in place as prescribed N/A N/A Has offloadiing in place as prescribed N/A N/A Experienced any changes in pain level or No No management Left Footwear Regular Shoe Regular Shoe Right Footwear Regular Shoe Regular Shoe Pain Scale: 0-10 Numeric Is Patient Pain Free? Yes Yes - Nurse 1 - General Ulcer Measurement Start: 04/02/24 08:34 Freq: Status: Active Protocol: Activity Type Activity Date Activity User E-sign Co-sign Detail Recorded Client Recorded Date Recorded By Document 04/02/24 08:34 KW ; 04/02/24 08:40 KW Document 04/09/24 08:53 KW f 04/09/24 08:59 KW 04/02/24 04/09/24 08:34 08:53 Wound Center Nurse 1 #1 Sacrum -Current Size (cm) - Length 0.1 0.2 -Current Size (cm) - Width 0.3 0.2 -Current Size (cm) - Depth 0.4 0.4 -Total Square Cm 0.03 0.04 -Date of Last Picture (Recall this 04/02/24 field) -Exudate Amt Medium Small -Exudate Type Serosanguineous Serosanguineous -Wound Margin Distinct, Distinct, Outline Outline Attached Attached -Granulation Amt Large (67-100%) Small (1-33%) -Granulation Quality [place] -Necrosis Amt Small (1-33%) -Necrotic Tissue Type Adherent Slough -Structure Exposed N/A -Texture (Marika-wound Skin Appearance) Assessed Scarring -Moisture (Marika-wound Skin Appearance) Assessed No Abnormality -Color (Marika-wound Skin Appearance) Assessed No Abnormality -Temperature (Marika-wound Skin No Abnormality No Abnormality Appearance) (Pt Warm) (Pt Warm) -Tenderness on Palpation (Marika-wound No Skin Appearance) -Ulcer Cleansing Rinsed/ Soap and Water Irrigated with Saline -Foul Odor after Cleansing No -Anesthetic Used 5% Lidocaine 5% Lidocaine Gel Gel WC - Nurse 2 - General Ulcer CM Notes Start: 04/02/24 08:34 Freq: Status: Active Protocol: Activity Type Activity Date Activity User E-sign Co-sign Detail Recorded Client Recorded Date Recorded By Document 04/02/24 09:03 [facility] 04/02/24 09:04 Document 04/09/24 09:23 [facility] 04/09/24 09:26 04/02/24 04/09/24 09:03 09:23 Wound Center Nurse 2 #1 Sacrum -Time 09:03 09:24 -Correct Patient Yes Yes -Correct Side, Site, Position Yes Yes -Correct Procedure Yes Yes -Procedure Performed Yes Yes -Type of Procedure Debridement Debridement -Clinical Debridement Subcutaneous Subcutaneous -Tissue Removed Subcutaneous Subcutaneous -Post Debridement (cm) - Length 0.5 0.4 -Post Debridement (cm) - Width 0.1 0.1 -Post Debridement (cm) - Depth 1.0 1.0 -Total Square (Post) (cm) 0.05 0.04 -Area of Debridement (cm) - Length 0.5 0.4 -Area of Debridement (cm) - Width 0.1 0.1 -Total Square (Area) (cm) 0.05 0.04 -Tunneling No No -Undermining/Tunneling No No -Circular Undermining No No -Wound/Ulcer Outcome Not Healed Not Healed -Ulcer Cleansing Rinsed/ Rinsed/ Irrigated with Irrigated with Saline Saline -Foul Odor after Cleansing No No -Bioengineered Tissue No -Bleeding Controlled with Pressure Pressure -Treatment Response Procedure Procedure Tolerated Well Tolerated Well -Debridement - Subq, 1st 20sq cm Yes Yes Pain Scale: 0-10 Numeric Is Patient Pain Free? Yes Yes - Nurse 3 - General Ulcer D/C NN Start: 04/02/24 08:34 Freq: Status: Active Protocol: Activity Type Activity Date Activity User E-sign Co-sign Detail Recorded Client Recorded Date Recorded By Document 04/02/24 09:12 [facility] 04/02/24 09:15 04/02/24 09:12 Wound Care Center Nurse 3 #1 Sacrum -Ulcer Cleansing Not Cleansed -Foul Odor after Cleansing No -Negative Pressure is Continuous -Primary Dressing Applied Mepilex Border, Promogran -Mepilex Border 1 -Promogran 1 Pain Scale: 0-10 Numeric Is Patient Pain Free? Yes - Visit Discharge Discharge Condition Stable Ambulatory Status Ambulatory Transportation Private Auto Clinical Summary of Care Provided Yes Assessment/Plan Assessment/Plan (1) Sacral decubitus ulcer, stage III: CODE(S): L89.153 - Pressure ulcer of sacral region, stage 3 (2) Type 2 diabetes mellitus with diabetic polyneuropathy: CODE(S): E11.42 - Type 2 diabetes mellitus with diabetic polyneuropathy (3) History of pancreatitis: CODE(S): Z87.19 - Personal history of other diseases of the digestive system PLAN: Plan Debridement done as documented above, procedure was well-tolerated. Stable. Mild improvement in circumference however, no significant change in depth. Switch to quarter inch iodoform packing. Change daily to twice daily depending on drainage. Continue optimal protein/dietary intake and offloading. Continue other chronic wound care recommendation. Optimal diabetes control. His questions were answered and he was advised to call with any further questions or concerns. Follow-up 2 weeks. This note was generated with [employer] dictation software. It may contain incorrect words, spelling, and punctuation that were not noted in checking the note before signing.
== END 2024-04-22 23:59 | disposition home or self-care (01) ==
LOC: WC 09:00
PROVIDERS: PCP Nurse Practitioner Family; Referring Provider Nurse Practitioner Family; Visit Provider Internal Medicine
DX: L89.153 Pressure ulcer of sacral region, stage 3 (principal); E11.42 Type 2 diabetes mellitus with diabetic polyneuropathy; Z79.4 Long term (current) use of insulin; Z79.84 Long term (current) use of oral hypoglycemic drugs; Z79.85 Long-term (current) use of injectable non-insulin antidiabetic drugs; Z79.899 Other long term (current) drug therapy; Z87.19 Personal history of other diseases of the digestive system
CPT/HCPCS: 11042

== ENCOUNTER 2024-05-21 10:00 | Outpatient (RCR) | payer MEDICAID, SELFPAY ==
[2024-04-23 00:42] VITALS: BP 108/68; PULSE 94; RESP 16; TEMP 36.5; BMI 67.9
[2024-04-23 08:44] VITALS: BP 108/79; PULSE 95; RESP 16; TEMP 36.4; BMI 67.9
--- NOTE | 2024-04-23 09:49 | PCM.WC.PN ---
History of Present Illness Date of Service: 04/23/24 Chief Complaint: Sacral Ulcer History of Wound: Mr. Arizmendi is a 48 yo who was referred to the wound center due to chronic sacral ulcer. Recent lengthy hospital/post hospital stay due to necrotizing pancreatitis. ICU for couple weeks and then discharged to LTAC/rehab. Had wound care with Christy while at these facilities however since discharge, his niece has been helping with wound dressings. Per patient, he has been doing saline dressings and covering with gauze. History of diabetes mellitus type 2 which per patient has been well-controlled, now on insulin and blood sugar this morning was said to be at 123. He feels well aside from driving is not sedentary. No chills, fever or change in bowel habit. Progress of Wound: No new concerns at this time. Good improvement over the last 2 weeks. Has had difficulty with packing due to reduction in size. Objective Data Objective Data Vital Signs: Vital Signs Temp Pulse Resp BP 97.6 F L 95 16 108/79 04/23/24 08:44 04/23/24 08:44 04/23/24 08:44 04/23/24 08:44 Weight: 421 lb 1.326 oz Body Mass Index (BMI) 67.9 Charges/Coding Procedures Integumentary 111xxx-113xx: 19962 Elisa subq tissue 20 sq cm/< Physical Exam Const alert, oriented x3 and no apparent distress General Appearance: cooperative, comfortable and well kempt HEENT normocephalic, head/scalp atraumatic and hearing grossly normal bilaterally Eyes EOMs intact bilaterally General Eye: normal appearance of both eyes Neck full ROM and supple General: normal visual inspection Resp normal respiratory effort Effort and Inspection: able to speak in complete sentences Extremity normal to inspection and full ROM Skin Wounds: wounds noted bed granulating well, margins well defined and no odor Neuro oriented x3, CN's II-XII intact bilaterally, moves all extremities and no focal motor deficits Psych mental status grossly normal, thought process normal, cooperative, affect normal and speech normal Debridement Note Debridement Note Wound debrided: Sacral Type of Debridement: Excisional debridement Anesthesia Used: 4% Lidocaine Solution Depth: Down to and including healthy tissue Percentage of wound debrided: 100 Instrument Used: - (1mm) Tissue Removed: Devitalized tissue Severity: Fat Layer Exposed Amount of bleeding with debridement: Mild Bleeding Controlled with: Pressure Patient tolerated procedure: Patient tolerated procedure well Post-Debridement Measurements and Additional Note: Post-Debridement Measurements/Treatment - Nurse 1 - General Ulcer Assessment Start: 04/23/24 08:44 Freq: Status: Active Protocol: GIL Activity Type Activity Date Activity User E-sign Co-sign Detail Recorded Client Recorded Date Recorded By Document 04/23/24 08:44 JF 000 04/23/24 08:45 SHAYLA 04/23/24 08:44 - Today's Visit Information Type of service Follow-up Visit (Physician/SILVER [facility]ASER ) Arrival Mode Ambulatory Patient Identification Verified (Name & Yes ) Patient Requires Transmission-Based No Precautions Height and Weight Body Mass Index (BMI) 67.9 BMI Classification Obese Vital Signs Temperature (97.8 F-99.1 F) 97.6 F L Temperature Source Temporal Pulse Rate (60-100) 95 Pulse Location Monitor Respiratory Rate (12-18) 16 Respiratory rate source Observation Blood Pressure (90/60-120/80) 108/79 Blood Pressure Mean (mm Hg) 88 Source Monitor Position Semi-Fowlers Blood Pressure Location Left Arm History Since Last Visit- (Skip if this is Patient's initial visit) Have you changed medications since your No last visit? Any new allergies or adverse reactions No Had a fall/change in ADL's that may No increase risk of falls Signs or symptoms of abuse and/or No neglect since last visit Has dressing in place as prescribed Yes Has compression in place as prescribed N/A Has offloadiing in place as prescribed N/A Experienced any changes in pain level or No management Left Footwear Regular Shoe Right Footwear Regular Shoe Pain Scale: 0-10 Numeric Is Patient Pain Free? Yes - Nurse 1 - General Ulcer Measurement Start: 04/23/24 08:44 Freq: Status: Active Protocol: Activity Type Activity Date Activity User E-sign Co-sign Detail Recorded Client Recorded Date Recorded By Document 04/23/24 08:44 JF 000 04/23/24 08:45 SHAYLA 04/23/24 08:44 Wound Center Nurse 1 #1 Sacrum -Combined with other wound No -Current Size (cm) - Length 0.1 -Current Size (cm) - Width 0.1 -Current Size (cm) - Depth 0.1 -Total Square Cm 0.01 -Photo Taken No -Epithelialization Large 67-100% -Tunneling No -Undermining/Tunneling No -Circular Undermining No -Exudate Amt None Present -Wound Margin Flat & Intact -Granulation Amt None Present (0 %) -Slough/Fibrin No -Structure Exposed N/A -Texture (Marika-wound Skin Appearance) Assessed -Moisture (Marika-wound Skin Appearance) Assessed,Dry/ Scaly -Color (Marika-wound Skin Appearance) Assessed -Temperature (Marika-wound Skin No Abnormality Appearance) (Pt Warm) -Tenderness on Palpation (Marika-wound No Skin Appearance) -Ulcer Cleansing Wound Cleanser -Foul Odor after Cleansing No -Anesthetic Used 5% Lidocaine Gel Lower Limb Edema Present NA WC - Nurse 2 - General Ulcer CM Notes Start: 04/23/24 08:44 Freq: Status: Active Protocol: Activity Type Activity Date Activity User E-sign Co-sign Detail Recorded Client Recorded Date Recorded By Document 04/23/24 09:25 CP 04/23/24 09:30 CP 04/23/24 09:25 Wound Center Nurse 2 #1 Sacrum -Time 09:28 -Correct Patient Yes -Correct Side, Site, Position Yes -Correct Procedure Yes -Procedure Performed Yes -Type of Procedure Debridement -Clinical Debridement Subcutaneous -Tissue Removed Subcutaneous -Post Debridement (cm) - Length 0.2 -Post Debridement (cm) - Width 0.1 -Post Debridement (cm) - Depth 0.2 -Total Square (Post) (cm) 0.02 -Area of Debridement (cm) - Length 0.2 -Area of Debridement (cm) - Width 0.1 -Total Square (Area) (cm) 0.02 -Tunneling No -Undermining/Tunneling No -Circular Undermining No -Wound/Ulcer Outcome Not Healed -Ulcer Cleansing Rinsed/ Irrigated with Saline -Foul Odor after Cleansing No -Treatment Response Procedure Tolerated Well -Debridement - Subq, 1st 20sq cm Yes Pain Scale: 0-10 Numeric Is Patient Pain Free? Yes - Nurse 3 - General Ulcer D/C NN Start: 04/23/24 08:44 Freq: Status: Active Protocol: Activity Type Activity Date Activity User E-sign Co-sign Detail Recorded Client Recorded Date Recorded By Document 04/23/24 09:34 JF 000 04/23/24 09:35 JF 04/23/24 09:34 Wound Care Center Nurse 3 #1 Sacrum -Primary Dressing Applied Mepilex Border, Promogran -Mepilex Border 1 -Promogran 1 Pain Scale: 0-10 Numeric Is Patient Pain Free? Yes WC - Visit Discharge Discharge Condition Stable Ambulatory Status Ambulatory Transportation Private Auto Medication Reconcilliation completed & Yes provided to patient/care provider Clinical Summary of Care Provided Yes Assessment/Plan Assessment/Plan (1) Sacral decubitus ulcer, stage III: CODE(S): L89.153 - Pressure ulcer of sacral region, stage 3 (2) Type 2 diabetes mellitus with diabetic polyneuropathy: CODE(S): E11.42 - Type 2 diabetes mellitus with diabetic polyneuropathy (3) History of pancreatitis: CODE(S): Z87.19 - Personal history of other diseases of the digestive system PLAN: Plan Debridement done as documented above, procedure was well-tolerated. Good improvement since his last visit. However, unable to pack wound with iodoform due to size and depth reduction. Revert to moistened Promogran and cover with foam dressing. Change daily. Continue optimal protein/dietary intake and offloading. Continue other chronic wound care recommendation. Optimal diabetes control. His questions were answered and he was advised to call with any further questions or concerns. Follow-up in 1 week. This note was generated with [employer] dictation software. It may contain incorrect words, spelling, and punctuation that were not noted in checking the note before signing.
[2024-04-30 08:41] VITALS: BP 101/67; PULSE 85; RESP 18; TEMP 36.3; BMI 67.9
--- NOTE | 2024-04-30 09:12 | PN.PCM_ITS ---
History of Present Illness Date of Service: 04/30/24 Chief Complaint: Sacral Ulcer History of Wound: Mr. Arizmendi is a 48 yo who was referred to the wound center due to chronic sacral ulcer. Recent lengthy hospital/post hospital stay due to necrotizing pancreatitis. ICU for couple weeks and then discharged to LTAC/rehab. Had wound care with Christy while at these facilities however since discharge, his niece has been helping with wound dressings. Per patient, he has been doing saline dressings and covering with gauze. History of diabetes mellitus type 2 which per patient has been well-controlled, now on insulin and blood sugar this morning was said to be at 123. He feels well aside from dr spence is not sedentary. No chills, fever or change in bowel habit. Progress of Wound: No new concerns at this time. Still minimal area left. No debridement comp leted today. Objective Data Objective Data Vital Signs: Vital Signs Temp Pulse Resp BP 97.3 F L 85 18 101/67 04/30/24 08:41 04/30/24 08:41 04/30/24 08:41 04/30/24 08:41 Weight: 421 lb 1.326 oz Body Mass Index (BMI) 67.9 Charges/Coding Visit Charges Office Visits / Consults: 31844 OV L3 Est 20min Physical Exam Const alert, oriented x3 and no apparent distress General Appearance: cooperative, comfortable and well kempt HEENT normocephalic, head/scalp atraumatic and hearing grossly normal bilaterally Eyes EOMs intact bilaterally General Eye: normal appearance of both eyes Neck full ROM and supple General: normal visual inspection Resp normal respiratory effort Effort and Inspection: able to speak in complete sentences Extremity normal to inspection and full ROM Skin Wounds: wounds noted bed granulating well, margins well defined and no odor Neuro oriented x3, CN's II-XII intact bilaterally, moves all extremities and no focal motor deficits Psych mental status grossly normal, thought process normal, cooperative, affect normal and speech normal Debridement Note Debridement Note No debridement was completed: No debridement was completed today Post-Debridement Measurements and Additional Note: Post-Debridement Measurements/Treatment BASIA - Nurse 1 - General Ulcer Assessment Start: 04/23/24 08:44 Freq: Status: Active Protocol: GIL Activity Type Activity Date Activity User E-sign Co-sign Detail Recorded Client Recorded Date Recorded By Document 04/23/24 08:44 JF 000 04/23/24 08:45 JF Document 04/30/24 08:41 RB wound 04/30/24 08:43 RB 04/23/24 04/30/24 08:44 08:41 - Today's Visit Information Type of service Follow-up Visit Follow-up Visit (Physician/CHIEF ENGINEER (Physician/CHIEF ENGINEER ) ) Arrival Mode Ambulatory Ambulatory Transfer Assistance None Patient Identification Verified (Name & Yes Yes ) Patient Requires Transmission-Based No No Precautions Height and Weight Body Mass Index (BMI) 67.9 67.9 BMI Classification Obese Obese Vital Signs Temperature (97.8 F-99.1 F) 97.6 F L 97.3 F L Temperature Source Temporal Temporal Pulse Rate (60-100) 95 85 Pulse Location Monitor Monitor Respiratory Rate (12-18) 16 18 Respiratory rate source Observation Observation Blood Pressure (90/60-120/80) 108/79 101/67 Blood Pressure Mean (mm Hg) 88 78 Source Monitor Monitor Position Semi-Fowlers Semi-Fowlers Blood Pressure Location Left Arm Left Arm History Since Last Visit- (Skip if this is Patient's initial visit) Have you changed medications since your No No last visit? Any new allergies or adverse reactions No No Had a fall/change in ADL's that may No No increase risk of falls Signs or symptoms of abuse and/or No No neglect since last visit Have you been in the hospital since your No last visit? Has dressing in place as prescribed Yes Yes Has compression in place as prescribed N/A No Has offloadiing in place as prescribed N/A No Experienced any changes in pain level or No No management Left Footwear Regular Shoe Right Footwear Regular Shoe Pain Scale: 0-10 Numeric Is Patient Pain Free? Yes Yes - Nurse 1 - General Ulcer Measurement Start: 04/23/24 08:44 Freq: Status: Active Protocol: Activity Type Activity Date Activity User E-sign Co-sign Detail Recorded Client Recorded Date Recorded By Document 04/23/24 08:44 JF 000 04/23/24 08:45 JF Document 04/30/24 08:41 RB wound 04/30/24 08:43 RB 04/23/24 04/30/24 08:44 08:41 Wound Center Nurse 1 #1 Sacrum -Combined with other wound No No -Current Size (cm) - Length 0.1 0.1 -Current Size (cm) - Width 0.1 0.1 -Current Size (cm) - Depth 0.1 0.2 -Total Square Cm 0.01 0.01 -Photo Taken No Yes -Epithelialization Large 67-100% -Tunneling No No -Undermining/Tunneling No No -Circular Undermining No No -Exudate Amt None Present Small -Exudate Type Serosanguineous -Wound Margin Flat & Intact Distinct, Outline Attached -Granulation Amt None Present (0 Medium (34-66%) %) -Granulation Quality [place] -Slough/Fibrin No Yes -Necrosis Amt Medium (34-66%) -Necrotic Tissue Type Adherent Slough -Structure Exposed N/A N/A -Texture (Marika-wound Skin Appearance) Assessed Scarring -Moisture (Marika-wound Skin Appearance) Assessed,Dry/ Assessed Scaly -Color (Marika-wound Skin Appearance) Assessed Assessed -Temperature (Marika-wound Skin No Abnormality No Abnormality Appearance) (Pt Warm) (Pt Warm) -Tenderness on Palpation (Marika-wound No No Skin Appearance) -Ulcer Cleansing Wound Cleanser Wound Cleanser -Foul Odor after Cleansing No No -Anesthetic Used 5% Lidocaine 5% Lidocaine Gel Gel Lower Limb Edema Present NA - Nurse 2 - General Ulcer CM Notes Start: 04/23/24 08:44 Freq: Status: Active Protocol: Activity Type Activity Date Activity User E-sign Co-sign Detail Recorded Client Recorded Date Recorded By Document 04/23/24 09:25 04/23/24 09:30 CP Document 04/30/24 08:55 [facility] 04/30/24 08:58 04/23/24 04/30/24 09:25 08:55 Wound Center Nurse 2 #1 Sacrum -Time 09:28 08:55 -Correct Patient Yes Yes -Correct Side, Site, Position Yes Yes -Correct Procedure Yes -Procedure Performed Yes -Type of Procedure Debridement -Clinical Debridement Subcutaneous -Tissue Removed Subcutaneous -Post Debridement (cm) - Length 0.2 -Post Debridement (cm) - Width 0.1 -Post Debridement (cm) - Depth 0.2 -Total Square (Post) (cm) 0.02 -Area of Debridement (cm) - Length 0.2 -Area of Debridement (cm) - Width 0.1 -Total Square (Area) (cm) 0.02 -Tunneling No -Undermining/Tunneling No -Circular Undermining No -Wound/Ulcer Outcome Not Healed -Ulcer Cleansing Rinsed/ Irrigated with Saline -Foul Odor after Cleansing No -Treatment Response Procedure Tolerated Well -Debridement - Subq, 1st 20sq cm Yes -Wound Comment(s) measurements 0. 2 x 0.1 x 0.2 Pain Scale: 0-10 Numeric Is Patient Pain Free? Yes Yes - Nurse 3 - General Ulcer D/C NN Start: 04/23/24 08:44 Freq: Status: Active Protocol: Activity Type Activity Date Activity User E-sign Co-sign Detail Recorded Client Recorded Date Recorded By Document 04/23/24 09:34 JF 000 04/23/24 09:35 JF Document 04/30/24 09:08 RB wound 04/30/24 09:09 RB 04/23/24 04/30/24 09:34 09:08 Wound Care Center Nurse 3 #1 Sacrum -Ulcer Cleansing Rinsed/ Irrigated with Saline -Primary Dressing Applied Mepilex Border, Mepilex Border, Promogran Promogran -Mepilex Border 1 1 -Promogran 1 1 Treatment Response Procedure Tolerated Well Pain Scale: 0-10 Numeric Is Patient Pain Free? Yes Yes WC - Visit Discharge Discharge Condition Stable Stable Ambulatory Status Ambulatory Ambulatory Transportation Private Auto Private Auto Medication Reconcilliation completed & Yes No provided to patient/care provider Clinical Summary of Care Provided Yes Yes Assessment/Plan Assessment/Plan (1) Sacral decubitus ulcer, stage III: CODE(S): L89.153 - Pressure ulcer of sacral region, stage 3 (2) Type 2 diabetes mellitus with diabetic polyneuropathy: CODE(S): E11.42 - Type 2 diabetes mellitus with diabetic polyneuropathy (3) History of pancreatitis: CODE(S): Z87.19 - Personal history of other diseases of the digestive system PLAN: Plan No debridement completed today. Still very minimal area left. Continue moistened Promogran and cover with foam dressing. Change daily. Instructions given on how to adequately pack the area. If still no significant change in 2 weeks, will switch to Aquacel extra. Continue optimal protein/dietary intake and offloading. Continue other chronic wound care recommendation. Optimal diabetes control. His questions were answered and he was advised to call with any further questions or concerns. Follow-up in 2 weeks. This note was generated with [email or web address] software. It may contain incorrect words, spelling, and punctuation that were not noted in checking the note before signing.
--- NOTE | 2024-05-14 09:49 | WC ---
PHOTO 04/30/24 SACRUM
[2024-05-21 10:05] VITALS: BP 92/55; PULSE 83; RESP 18; TEMP 36.6; BMI 67.9
--- NOTE | 2024-05-21 10:44 | PCM.WC.PN ---
History of Present Illness Date of Service: 05/21/24 Chief Complaint: Sacral Ulcer History of Wound: Mr. Arizmendi is a 48 yo who was referred to the wound center due to chronic sacral ulcer. Recent lengthy hospital/post hospital stay due to necrotizing pancreatitis. ICU for couple weeks and then discharged to LTAC/rehab. Had wound care with Christy while at these facilities however since discharge, his niece has been helping with wound dressings. Per patient, he has been doing saline dressings and covering with gauze. History of diabetes mellitus type 2 which per patient has been well-controlled, now on insulin and blood sugar this morning was said to be at 123. He feels well aside from driving is not sedentary. No chills, fever or change in bowel habit. Progress of Wound: Has been out for a few weeks due to being hospitalized for worsening abdominal pain. Status post intestinal surgery. Surgery was uneventful. He states that during his hospital stay, he tried to stay consistent with offloading. Sacral ulcer is healed. Objective Data Objective Data Vital Signs: Vital Signs Temp Pulse Resp BP O2 Del Method 97.9 F 83 18 92/55 L Room Air 05/21/24 10:05 05/21/24 10:05 05/21/24 10:05 05/21/24 10:05 05/21/24 10:05 Oxygen Delivery Method Room Air Weight: 421 lb 1.326 oz Body Mass Index (BMI) 67.9 Charges/Coding Visit Charges Office Visits / Consults: [id number] OV L3 Est 20min Physical Exam Const alert, oriented x3 and no apparent distress General Appearance: cooperative, comfortable and well kempt HEENT normocephalic, head/scalp atraumatic and hearing grossly normal bilaterally Eyes EOMs intact bilaterally General Eye: normal appearance of both eyes Neck full ROM and supple General: normal visual inspection Resp normal respiratory effort Effort and Inspection: able to speak in complete sentences Extremity normal to inspection and full ROM Neuro oriented x3, CN's II-XII intact bilaterally, moves all extremities and no focal motor deficits Psych mental status grossly normal, thought process normal, cooperative, affect normal and speech normal Debridement Note Debridement Note Post-Debridement Measurements and Additional Note: Post-Debridement Measurements/Treatment BASIA - Nurse 1 - General Ulcer Assessment Start: 04/23/24 08:44 Freq: Status: Active Protocol: WC.LOWEXT Activity Type Activity Date Activity User E-sign Co-sign Detail Recorded Client Recorded Date Recorded By Document 04/23/24 08:44 JF 000 04/23/24 08:45 JF Document 04/30/24 08:41 RB wound 04/30/24 08:43 RB Document 05/21/24 10:05 KW [id number] 05/21/24 10:10 KW 04/23/24 04/30/24 05/21/24 08:44 08:41 10:05 - Today's Visit Information Type of service Follow-up Visit Follow-up Visit Follow-up Visit (Physician/FLANGE TURNER (Physician/FLANGE TURNER (Physician/FLANGE TURNER ) ) ) Arrival Mode Ambulatory Ambulatory Ambulatory Transfer Assistance None Patient Identification Verified (Name & Yes Yes Yes ) Patient Requires Transmission-Based No No Precautions Height and Weight Body Mass Index (BMI) 67.9 67.9 67.9 BMI Classification Obese Obese Obese Vital Signs Temperature (97.8 F-99.1 F) 97.6 F L 97.3 F L 97.9 F Temperature Source Temporal Temporal Temporal Pulse Rate (60-100) 95 85 83 Pulse Location Monitor Monitor Monitor Respiratory Rate (12-18) 16 18 18 Respiratory rate source Observation Observation Observation Oxygen Delivery Method Room Air Blood Pressure (90/60-120/80) 108/79 101/67 92/55 L Blood Pressure Mean (mm Hg) 88 78 67 Source Monitor Monitor Monitor Position Semi-Fowlers Semi-Fowlers Sitting Blood Pressure Location Left Arm Left Arm Left Arm History Since Last Visit- (Skip if this is Patient's initial visit) Have you changed medications since your No No No last visit? Any new allergies or adverse reactions No No No Had a fall/change in ADL's that may No No No increase risk of falls Signs or symptoms of abuse and/or No No No neglect since last visit Have you been in the hospital since your No No last visit? Has dressing in place as prescribed Yes Yes Yes Has compression in place as prescribed N/A No N/A Has offloadiing in place as prescribed N/A No N/A Experienced any changes in pain level or No No No management Left Footwear Regular Shoe Regular Shoe Right Footwear Regular Shoe Regular Shoe Pain Scale: 0-10 Numeric Is Patient Pain Free? Yes Yes Yes - Nurse 1 - General Ulcer Measurement Start: 04/23/24 08:44 Freq: Status: Active Protocol: Activity Type Activity Date Activity User E-sign Co-sign Detail Recorded Client Recorded Date Recorded By Document 04/23/24 08:44 JF 000 04/23/24 08:45 JF Document 04/30/24 08:41 RB wound 04/30/24 08:43 RB Document 05/21/24 10:05 KW [id number] 05/21/24 10:10 KW 04/23/24 04/30/24 05/21/24 08:44 08:41 10:05 Wound Center Nurse 1 #1 Sacrum -Combined with other wound No No -Current Size (cm) - Length 0.1 0.1 0.1 -Current Size (cm) - Width 0.1 0.1 0.1 -Current Size (cm) - Depth 0.1 0.2 0.1 -Total Square Cm 0.01 0.01 0.01 -Photo Taken No Yes -Epithelialization Large 67-100% -Tunneling No No -Undermining/Tunneling No No -Circular Undermining No No -Exudate Amt None Present Small -Exudate Type Serosanguineous -Wound Margin Flat & Intact Distinct, Outline Attached -Granulation Amt None Present (0 Medium (34-66%) %) -Granulation Quality [place] -Slough/Fibrin No Yes -Necrosis Amt Medium (34-66%) -Necrotic Tissue Type Adherent Slough -Structure Exposed N/A N/A -Texture (Marika-wound Skin Appearance) Assessed Scarring Assessed -Moisture (Marika-wound Skin Appearance) Assessed,Dry/ Assessed Assessed Scaly -Color (Marika-wound Skin Appearance) Assessed Assessed Assessed -Temperature (Marika-wound Skin No Abnormality No Abnormality No Abnormality Appearance) (Pt Warm) (Pt Warm) (Pt Warm) -Tenderness on Palpation (Marika-wound No No No Skin Appearance) -Ulcer Cleansing Wound Cleanser Wound Cleanser Rinsed/ Irrigated with Saline -Foul Odor after Cleansing No No No -Anesthetic Used 5% Lidocaine 5% Lidocaine 5% Lidocaine Gel Gel Gel Lower Limb Edema Present NA WC - Nurse 2 - General Ulcer CM Notes Start: 04/23/24 08:44 Freq: Status: Active Protocol: Activity Type Activity Date Activity User E-sign Co-sign Detail Recorded Client Recorded Date Recorded By Document 04/23/24 09:25 ISMAEL 04/23/24 09:30 Document 04/30/24 08:55 [facility] 04/30/24 08:58 Document 05/21/24 10:16 [id number] 05/21/24 10:18 04/23/24 04/30/24 05/21/24 09:25 08:55 10:16 Wound Center Nurse 2 #1 Sacrum -Time 09:28 08:55 10:18 -Correct Patient Yes Yes Yes -Correct Side, Site, Position Yes Yes Yes -Correct Procedure Yes -Procedure Performed Yes -Type of Procedure Debridement -Clinical Debridement Subcutaneous -Tissue Removed Subcutaneous -Post Debridement (cm) - Length 0.2 -Post Debridement (cm) - Width 0.1 -Post Debridement (cm) - Depth 0.2 -Total Square (Post) (cm) 0.02 -Area of Debridement (cm) - Length 0.2 -Area of Debridement (cm) - Width 0.1 -Total Square (Area) (cm) 0.02 -Tunneling No -Undermining/Tunneling No -Circular Undermining No -Wound/Ulcer Outcome Not Healed Healed- Epithelialized -Ulcer Cleansing Rinsed/ Irrigated with Saline -Foul Odor after Cleansing No -Treatment Response Procedure Tolerated Well -Debridement - Subq, 1st 20sq cm Yes -Wound Comment(s) measurements 0. 2 x 0.1 x 0.2 Pain Scale: 0-10 Numeric Is Patient Pain Free? Yes Yes Yes - Nurse 3 - General Ulcer D/C NN Start: 04/23/24 08:44 Freq: Status: Active Protocol: Activity Type Activity Date Activity User E-sign Co-sign Detail Recorded Client Recorded Date Recorded By Document 04/23/24 09:34 JF 000 04/23/24 09:35 Document 04/30/24 09:08 RB wound 04/30/24 09:09 RB Document 05/21/24 10:23 [id number] 05/21/24 10:23 04/23/24 04/30/24 05/21/24 09:34 09:08 10:23 Wound Care Center Nurse 3 #1 Sacrum -Ulcer Cleansing Rinsed/ Not Cleansed Irrigated with Saline -Foul Odor after Cleansing No -Primary Dressing Applied Mepilex Border, Mepilex Border, Mepilex Border, Promogran Promogran NonAdherent Contact Layer -Mepilex Border 1 1 1 -Promogran 1 1 Treatment Response Procedure Tolerated Well Pain Scale: 0-10 Numeric Is Patient Pain Free? Yes Yes Yes WC - Visit Discharge Discharge Condition Stable Stable Stable Ambulatory Status Ambulatory Ambulatory Ambulatory Transportation Private Auto Private Auto Private Auto Medication Reconcilliation completed & Yes No provided to patient/care provider Clinical Summary of Care Provided Yes Yes Yes Assessment/Plan Assessment/Plan (1) Sacral decubitus ulcer, stage III: CODE(S): L89.153 - Pressure ulcer of sacral region, stage 3 (2) Type 2 diabetes mellitus with diabetic polyneuropathy: CODE(S): E11.42 - Type 2 diabetes mellitus with diabetic polyneuropathy (3) History of pancreatitis: CODE(S): Z87.19 - Personal history of other diseases of the digestive system PLAN: Plan No debridement completed today. Healed. Some area of erythema. Adaptic and ABD for 1 month. Strongly advised that he avoid pressure to the area, continue offloading. Continue optimal diabetes control, he voiced understanding. His questions were answered and he was advised to let us know if he has any further questions or concerns. Discharge from the wound center. This note was generated with [employer] dictation software. It may contain incorrect words, spelling, and punctuation that were not noted in checking the note before signing.
== END 2024-05-21 14:51 | disposition home or self-care (01) ==
LOC: WC 10:00
PROVIDERS: PCP Nurse Practitioner Family; Referring Provider Nurse Practitioner Family; Visit Provider Internal Medicine
DX: L89.153 Pressure ulcer of sacral region, stage 3 (principal); E11.42 Type 2 diabetes mellitus with diabetic polyneuropathy; Z79.85 Long-term (current) use of injectable non-insulin antidiabetic drugs; Z79.899 Other long term (current) drug therapy; Z87.19 Personal history of other diseases of the digestive system
CPT/HCPCS: 11042; 99212; 99213; G0463

== ENCOUNTER → 2025-03-24 | Outpatient (CLI) | payer MEDICAID, SELFPAY ==
[2025-03-24 11:29] LABS: Hematocrit 40.6 % (40-54); Hemoglobin 13.7 g/dL (13.0-16.5); Immature Granulocytes Count 0.010 X10^3/uL (0.0-0.0); Mean Corp Hgb Conc 33.7 g/dL (32-36); Mean Corpuscular Volume 84.8 fL (80-94); Mean Platelet Vol. 8.8 fl (6.2-12.0); NRBC Flagged by Analyzer 0 % (0-5); Platelet Count 113 K/mm3 (150-450); RBC Distribution Width CV 12.9 % (11.6-14.6); RBC Distribution Width SD 39.8 fl (35.1-43.9); Red Blood Count 4.79 M/mm3 (4.6-6.2); White Blood Count 3.9 K/mm3 (4.4-11.0)
[2025-03-24 12:33] LABS: Microalbumin,Random Urine < 12.0 mg/L (NO RANGE EST.)
[2025-03-24 13:32] LABS: AST(SGOT) 48 U/L (<=37); Alanine Aminotransfer ALT/SGPT 84 U/L (<=46); Albumin, Serum 4.1 g/dL (3.5-5.0); Alkaline Phosphatase 128 U/L (40-129); Anion Gap 10 (5-15); BUN 14 mg/dL (4-19); BUN/Creat Ratio 16.4 RATIO (10-20); Calcium,Total 8.9 mg/dL (7.6-11.0); Carbon Dioxide 22.4 mmol/L (21.0-32.0); Chloride 106 mmol/L (98-108); Cholesterol 108 mg/dL (<=200); Globulin 3.1 g/dL (2.2-4.2); Glucose 180 mg/dL (70-99); Low Density Lipoprotein Calc. 49 mg/dL; Magnesium 2.3 mg/dL (1.5-2.2); Potassium 4.0 mmol/L (3.3-5.1); Triglycerides 127 mg/dL; Very Low Density Lipoprotein 25 mg/dL (5-40); Vitamin B12 416 pg/mL (180-914); Vitamin D,25 Hydroxy 21.0 ng/mL (30-100); cholesterol:hdl ratio screen 3.17
== END | disposition home or self-care (01) ==
LOC: VSLAB 09:44
PROVIDERS: PCP Nurse Practitioner Family; Visit Provider Nurse Practitioner Family
DX: E11.9 Type 2 diabetes mellitus without complications (principal); R25.2 Cramp and spasm
CPT/HCPCS: 36415; 80053; 80061; 82043; 82306; 82607; 83735; 84443; 85025

== ENCOUNTER → 2025-06-30 | Outpatient (CLI) | payer MEDICAID, SELFPAY ==
[2025-06-30 12:17] LABS: Hematocrit 42.6 % (40-54); Hemoglobin 14.1 g/dL (13.0-16.5); Immature Granulocytes Count 0.010 X10^3/uL (0.0-0.0); Mean Corp Hgb Conc 33.1 g/dL (32-36); Mean Corpuscular Volume 84.4 fL (80-94); Mean Platelet Vol. 9.1 fl (6.2-12.0); NRBC Flagged by Analyzer 0 % (0-5); Platelet Count 128 K/mm3 (150-450); RBC Distribution Width CV 13.2 % (11.6-14.6); RBC Distribution Width SD 40.2 fl (35.1-43.9); Red Blood Count 5.05 M/mm3 (4.6-6.2); White Blood Count 3.8 K/mm3 (4.4-11.0)
[2025-06-30 12:59] LABS: AST(SGOT) 46 U/L (<=37); Alanine Aminotransfer ALT/SGPT 74 U/L (<=46); Albumin, Serum 4.2 g/dL (3.5-5.0); Alkaline Phosphatase 104 U/L (40-129); Anion Gap 10 (5-15); BUN 14 mg/dL (4-19); BUN/Creat Ratio 17.8 RATIO (10-20); Calcium,Total 9.0 mg/dL (7.6-11.0); Carbon Dioxide 24.0 mmol/L (21.0-32.0); Chloride 107 mmol/L (98-108); Globulin 2.8 g/dL (2.2-4.2); Glucose 129 mg/dL (70-99); Potassium 4.3 mmol/L (3.3-5.1)
== END | disposition home or self-care (01) ==
LOC: VSLAB 08:52
PROVIDERS: PCP Nurse Practitioner Family
DX: E11.9 Type 2 diabetes mellitus without complications (principal)
CPT/HCPCS: 36415; 80053; 85025